=== PATIENT | female | born 1970 | race Caucasian/White ===

== ENCOUNTER → 2022-01-31 10:39 | Outpatient (CLI) | payer OTHER, SELFPAY ==
--- NOTE | ~2022-01-31 | MR_ITS ---
EXAMINATION: MR ankle LT wo con DATE: 01/31/2022 11:32 INDICATION: R fascial fibromatosis. Medial left heel pain. TECHNIQUE: Magnetic resonance imaging (MRI) of the left ankle was performed without intravenous contr ast. Sequences included sagittal, coronal, and axial proton-density weighted fast spin echo without a nd with fat saturation. COMPARISON: None. FINDINGS: Medial ankle ligaments: Deep and superficial deltoid ligaments as well as the spring ligament are normal. Lateral ankle ligaments: The anterior and posterior inferior tibiofibular ligaments are normal. The anterior talofibular, calc aneofibular and posterior talofibular ligaments are normal. Tendons: Enthesopathic ossicle near the calcaneal insertion of the otherwise normal Achilles tendon. The peron eus longus and brevis tendons are normal. The tibialis anterior and extensor hallucis longus and exte nsor digitorum longus tendons are normal. The tibialis posterior, flexor digitorum longus and flexor hallucis longus tendons are normal. Plantar fascia: Mild thickening and increased signal at the medial and lateral components of the plantar aponeurosis with mild stranding edema consistent with mild plantar fasciitis. There is a tear at the origin of th e central component of the plantar aponeurosis with 1.5 similar distal retraction of the tear margin. There is thickening of the retracted portion of the aponeurosis which could be related to enthesopat hy/plantar fasciitis, plantar fibroma or artifact related to the distal retraction. Bones/other: Bone alignment is normal. No acute fracture or pathologic marrow replacing process. Small corticated ossicle at the dorsal rim of the anterior process of the calcaneus which is likely sequela of old tra tong. Small region of deep chondral ulceration with mild underlying subarticular edema-like signal ciera nge at the posterior aspect of the lateral rim of the talar dome. Additional mild osteoarthritis at t he second and third tarsal metatarsal joints. Small plantar calcaneal spur. Lisfranc ligament complex is normal. Fluid: Physiologic amount of fluid in the joint spaces. IMPRESSION: 1. Mild likely acute on chronic plantar fasciitis with avulsion and 1.5 cm distal retraction of the c entral component of the plantar aponeurosis. Reviewed, dictated and finalized at [facility]. IMPRESSION: 1. Mild likely acute on chronic plantar fasciitis with avulsion and 1.5 cm dist al retraction of the central component of the plantar aponeurosis.
== END ==
PROVIDERS: PCP Family Medicine; Visit Provider Podiatrist Foot & Ankle Surgery
DX: M72.2 Plantar fascial fibromatosis (principal); M79.672 Pain in left foot
CPT/HCPCS: 73721

== ENCOUNTER 2022-06-19 10:31 | Outpatient (CLI) | payer OTHER, SELFPAY ==
--- NOTE | ~2022-06-19 | US_ITS ---
US venous doppler LE RT DATE: 06/19/2022 10:57 INDICATION: Right lower leg pain TECHNIQUE: Real-time and color flow imaging and Doppler analysis of the veins of the right lower extr emity COMPARISON: None FINDINGS: The right greater saphenous vein is patent. There is spontaneous and phasic flow and normal augmentation and color flow signal and normal compression of the deep veins of the right lower extre mity. IMPRESSION: No evidence of deep venous thrombosis of right lower extremity Reviewed, dictated and finalized at [facility]. Reviewed, dictated and finalized at location [facility]. 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
== END 2022-06-19 10:32 | disposition home or self-care (01) ==
PROVIDERS: PCP Family Medicine; Visit Provider Orthopaedic Surgery
DX: M79.661 Pain in right lower leg (principal); M79.89 Other specified soft tissue disorders
CPT/HCPCS: 93971

== ENCOUNTER 2024-07-01 00:47 | Day surgery (SDC) | payer OTHER, SELFPAY ==
[2024-03-26 15:53] VITALS: BMI 37.4
--- NOTE | 2024-04-14 12:55 | SUR.PREOP ---
Pt left message this afternoon saying she needed to cancel her procedure on 04/20 due to her having pneumonia. I attempted to call pt to reschedule her and got her voicemail. Left message requesting a return call. Pt has been removed from schedule grid for 04/20.
--- OUTSIDE RECORDS SUMMARY | 2024-04-26 12:33 | XMS_ITS | Data Portability ---
Author Organization [place] [facility] [employer], Main Office Address [address] [place] [address] Assessment Encounter Date Assessment Date Assessment LastModified by Organization Details LastModified Time 03/04/2024 03/04/2024 54-year-old female presents for evaluation of her right knee. She reports an injury on 02/29/2024 when she was dancing and twisted her knee and developed significant pain and stiffness. She currently rates her pain as 9/10 and presents today in a wheelchair. 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 She denies any previous injury to the knee. She has tried using heat and ice without significant improvement. Review of systems per patient questionnaire Physical exam: Range of motion 15-100. Pain in terminal extension and flexion. Tenderness over the medial and lateral joint line. Positive Ghazal's. Stable ligaments. 2+ effusion. X-rays of the knee were reviewed, demonstrating no acute bony abnormality, relatively preserved joint space. She does have osteophytes of the patellofemoral joint and what appears to be a loose body or broken off osteophyte at the superior pole Given her acute injury with mechanical symptoms of the knee, limited flexion extension, I would like her to obtain an MRI to evaluate for a displaced meniscus tear. In the meantime, we will also send her to some physical therapy to work on range of motion of the knee and also gave her some meloxicam to help with the pain and swelling. We will see her back after the MRI. She is in agreement with the plan. Not available 03/04/2024 14:47:15 03/16/2024 03/16/2024 54-year-old female presents for follow-up of her right knee. She had a suspected meniscus tear we sent her for an MRI. She she is here to review that. She has persistent pain and mechanical symptoms of catching locking, although she has been taking anti-inflammatori es and doing physical therapy and has achieved better motion. She is using 1 crutch. Range of motion 5-100. Tenderness over the medial joint line. Positive Ghazal's. Stable ligaments. MRI was reviewed, demonstrating a tear of the posterior body and horn of the medial meniscus Treatment options were discussed, including continued conservative management and a cortisone injection. However, given her persistent mechanical symptoms and significant pain, I would recommend surgery for knee arthroscopy and partial meniscectomy. She wanted to proceed with that as well. Risks, benefits, and alternatives to surgery were discussed with the patient. Risks include but are not limited to pain, stiffness, infection, bleeding, blood clot, injury to other structures including nerves or blood vessels, need for future surgery, and anesthesia risks. We discussed the goal of surgery is to improve symptoms but there is no guarantee of improvement and it is possible the patient's condition is worse after surgery. Patient agreed and would like to proceed. Not available 03/16/2024 12:51:49 Plan of Treatment Reminders Order Date Submit Date Provider Last Modified By Organization Details Last Modified Time Details Appointments Surgery 2024 10:00A Brock Gabriel MD Not available Not available Not available Any 10 2024 01:35A Brock Estrada PA-C Not available Not available Not available Lab lipid panel, serum 2022 023 [email or web address] [facility], [address] [place] [address], [place], [address], 08/01/2022 08:14:07 CMP, serum or plasma 2022 023 [email or web address] [facility], [address] [place] [address] 2, [place], [address], 08/01/2022 08:14:07 TSH, ultra-sen sitive, serum 2022 023 [email or web address] [facility], [address] [facility] 2, [place], [address], 08/01/2022 08:14:07 noninvasi ve colorecta l cancer DNA + occult blood screening , QL, stool 2022 023 [email or web address] [facility] (Cologuard Orders Only), [address], [address], [place], [address], 08/01/2022 08:14:07 vitamin D, 25-hydrox y, total, serum 2023 024 Waynaut [facility], [address] [place] [address], [place], [address], 02/13/2024 08:38:22 vitamin B12 + folate, serum or blood 2023 024 [email or web address] [facility], [address] [place] [address], [place], [address], 02/13/2024 08:38:22 CMP, serum or plasma 2023 024 [email or web address] [facility], [address] [place] [address], [place], [address], 02/13/2024 08:38:22 CBC w/ auto diff 2023 024 [email or web address] [facility], [address] [place] [address], [place], [address], 02/13/2024 08:38:22 lipid panel, serum 2023 024 Waynaut [facility], [address] [place] [address], [place], [address], 02/13/2024 08:38:22 HbA1c (hemoglob in A1c), blood 2023 024 [email or web address] [facility], [address] [place] [address], [place], [address], 02/13/2024 08:38:22 TSH + free T4, serum 2023 024 [email or web address] [facility], [address] [place] [address], [place], [address], 02/13/2024 08:38:23 Referral gastroent erologist referral - Has had esophagus stretched in the past . Please eval and treat. Please call patient to schedule an appointme nt. Thank you 2023 [email or web address] [facility], [address], [address], [place], [address], 03/06/2024 09:07:24 gynecolog ist referral - Last PAP 2 years ago. Please call patient to schedule an appointme nt. Thank you. 2023 [email or web address], [address], [address], [place], [address], 03/06/2024 09:07:51 orthopedi c surgeon referral - had surgery at [facility]. Please call patient to schedule an appointme nt. Thank you. 2023 [facility], [address] [place], [address], 03/04/2024 15:37:37 physical therapist referral - Please contact pt to schedule apt for R knee. Thanks 2023 [facility], [address], [place], [address], 03/05/2024 08:23:52 Procedures None recorded. Surgeries None recorded. Imaging MAMMO, screening , digital, bilateral 2022 023 [email or web address] Not available 08/16/2022 15:49:51 MAMMO, screening , digital, bilateral 2023 [facility] ([facility]), [address] [place], [address], 03/16/2024 16:00:40 MRI, knee, w/o contrast 2023 024 [facility] ([facility]), [address], [place], [address], 03/10/2024 12:14:24 Medication Orders pantopraz ole 40 mg tablet,de layed release 2022 023 [facility], [address] [place], [id number], 07/25/2022 09:45:25 alprazola m 0.5 mg tablet [address] [facility]216, [address] [place], [place], [id number], 03/03/2024 12:26:50 ondansetr on HCl 8 mg tablet [address] [facility]56483, [address] [place], [place], [id number], 03/03/2024 12:26:56 pantopraz ole 40 mg tablet,de layed release 2023 024 [facility] #59473, [address] [place], [place], [id number], 2024 16:14:48 ibuprofen 800 mg tablet 2023 024 [facility] #16288, [address] [place], [place], [id number], 2024 16:16:45 meloxicam 15 mg tablet 2023 024 [email or web address] [facility] #93434, [address] [place], [place], [id number], 03/04/2024 22:45:20 Patient TargetsNo targets recorded. Patient InstructionsNo instructions recorded. Reason for Referral Audio Tape Librarian Referral for Stricture of esophagus Has had esophagus stretched in the past . Please eval and treat. Please call patient to schedule an appointment. Thank you Referring Physician: Bharath Velázquez [facility] Medicine, Encounter Date: 2024 Customer Expert Referral for Sc reening for malignant neoplasm of cervix Last PAP 2 years ago. Please call patient to schedule an appointment. Thank you. Referring Physician: Bharath Velázquez [facility] Medicine, Encounter Date: 2024 Orthopedic Surgeon Referral for Medial epicondylitis of left elbow joint had surgery at [facility]. Please call patient to schedule an appointment. Thank you. Referring Physician: Bharath Velázquez [facility] Medicine, Encounter Date: 2024 Physical Therapist Referral for Pain of right knee joint R knee Please contact pt to schedule apt for R knee. Thanks Referring Physician: Dheeraj Gabriel, Orthopedic Surgery, Encounter Date: 03/04/2024 Results Created Date Observation Date Name Description Value Unit Range Abnormal Flag Note LastModifiedBy Organization Detail LastModifiedTime 07/25/2023 COLOG UARD cologuard result Cancel led - Order d not applic able Not Available [facility] (Cologuard Orders Only) [address], [place], [address], 07/25/2023 10:57:54 08/17/19 23 MAMMO , scree amy, digit al, bilat eral [facility] [address] [address] Patien t Name: LIEN KING L Access ion #: [id number] Sex: F : 1969 2 Locati on: RA2 Attend ing Physic sarah: ELKHAT IB, RUNDA Orderi ng Physic sarah: ELKHAT IB, RUNDA Exam Date: 08/17/19 23 9:51 AM Exam Name: MG DIGITA L KAREN BILAT SCREEN Admitt ing Diagno sis(es ): RADIOL OGY REPORT - FINAL EXAM: MG DIGITA L KAREN BILAT SCREEN HISTOR Y: screen ing mammog skye 52-yea r-old female with no curren t breast compla ints. COMPAR ROSARIO: 2021, 2020 TECHNI QUE: Bilate ral CC and MLO views of the breast s were perfor med. Digita l Mammog [place] images were obtain ed. CAD (compu ter assist ed detect ion) was utiliz ed. FINDIN GS: The breast s are extrem isael dense, which lowers the sensit ivity of mammog [place]. No new masses , develo ping asymme tries, suspic ious calcif icatio ns, or adalberto ectura l distor tion are seen. Page 1 of 2 [facility] Mtathew carter Name: LIEN KING ER L Access ion #: [id number] Sex: F : 1969 2 Exam Date: 08/17/19 9:51 AM Exam Name: MG DIGITA L KAREN BILAT SCREEN Admitt ing Diagno sis(es ): IMPRES SARAH: BIRADS 1: Assess ment comple te. Negati ve. Recomm end annual screen ing mammog [place]. Accord ing to the [employer], yearly mammog prabhu are recomm ended starti ng at age 40 and contin uing as long as the woman is in good health . Clinic al Breast Exam should be part of the period ic health exam-a bout every 3 years for women in their 20s and 30s and every year for women 40 and over. Breast self-e xam is an option for women in their 20s. Any breast change noted on the breast self-e xam she would be report ed prompt ly to the [facility] er. A negati ve mammog [place] report should not discou rage follow -up or biopsy of a clinic ally signif icant findin g and/or abnorm ality. Dense breast tissue may obscur e small neopla sms. This matthew carter has been entere d into a mammog [place] remind er system with a target date for her next mammog skye. Create d and electr onical ly signed by: Dheeraj hooker MD Signed Date: 08/17/19 2:47 PM (CT) Dictat ed by: Dheeraj hooker MD (CT) (CT) Page 2 of 2 [email or web address] ([facility]) [address] [place], [address], 08/16/2022 16:36:28 08/17/19 23 08/16/2022 MAMMO , scree amy, digit al, bilat eral No observ ation record ed. [email or web address] [address], [place], [address], 08/16/2022 16:46:06 12/30/19 24 12/30/2023 XR, shoul babita, 2 or more view No observ ation record ed. [address] [place], [address], 12/31/2023 09:06:38 12/30/19 24 12/30/2023 XR, shoul babita, 2 or more view No observ ation record ed. [address] [place], [address], 12/31/2023 09:06:05 03/02/20 24 03/02/2024 XR, knee No observ ation record ed. [address] [place], [address], 03/03/2024 08:21:06 03/03/20 24 03/02/2024 XR, knee, 3 view No observ ation record ed. [email or web address] Not Available 02/13 10:36:24 03/10/20 24 03/10/2024 MRI, knee, w/o contr ast No observ ation record ed. [address] ([facility]) [address] [place], [address], 03/10/2024 12:40:29 03/10/20 24 03/10/2024 MRI, knee, w/o contr ast No observ ation record ed. [email or web address] [facility] [address] [place], [address], 03/11/2024 13:23:47 03/16/20 24 03/16/2024 MAMMO , scree amy, digit al, bilat eral No observ ation record ed. [email or web address] [facility] [address] [place], [address], 04/09/2024 15:55:38 04/10/20 24 04/10/2024 XR, chest , 2 view No observ ation record ed. [facility] [address] [place], [address], 04/14/2024 12:42:47 Result Notes None recorded. Problems Name Problem SNOMED Code Status Onset Date Resolution Date Notes Provider Name and Address Organization Details Recorded Time Achilles tendiniti s 91593396 Active Not Available [facility] 3 12:36:00 Plantar fasciitis of left foot 83216065244 357502 Active 2021 Not Available [facility] 3 12:36:00 Heartburn 74822575 Active Not Available [facility] 3 12:36:00 Plantar fasciitis 490098946 Active Not Available [facility] 3 12:36:00 Headache 71692419 Active Not Available [facility] 3 12:36:00 Anemia 292241918 Active Not Available [facility] 3 12:36:00 Pain in left foot 96365327087 9107 Active 2021 Not Available [facility] 3 12:36:00 Hypothyro idism 04785098 Completed Not Available [facility] 3 20:19:07 History of calculus of kidney 942668597 Active Not Available [facility] 3 12:36:00 Hyperlipi demia 43531742 Completed Not Available [facility] 3 20:19:07 Hiatal hernia 54829826 Completed Not Available [facility] 3 20:19:08 Gastroeso phageal reflux disease 602943204 Active 2022 Not Available [facility] 3 12:36:00 Fear of flying 581784606 Active 2022 Not Available [facility] 3 12:36:00 Nausea 031223197 Active 2022 Not Available [facility] 3 12:36:00 Screening for malignant neoplasm of cervix Active 2023 NERISSA Munoz [address], [address], [place], [address] , [employer] 4 15:53:05 Screening mammograp hy Active 2023 NERISSA Munoz [address], [address], [place], [address] , [employer] [facility] [employer] 4 15:53:21 Adult health examinati on Active 2023 NERISSA Munoz [address], [address], [place], [address] , [employer] [facility] [email or web address] [employer] 4 15:56:28 Stricture of esophagus 46202937 Active 2023 NERISSA Munoz [address], [address], [place], [address] , [place] [employer] [facility] [employer] [facility] 4 15:58:40 At increased risk for nutrition al problem 704330892 Active 2023 NERISSA Munoz [address], [address], [place], [address] , [place] [employer] [facility] [email or web address] [facility] 4 16:07:11 Medial epicondyl itis of left elbow joint 74445210527 9107 Active 2023 NERISSA Munoz [address], [address], [place], [address] , [place] [employer] [facility] [email or web address] [facility] 4 16:12:26 Pain of right knee joint 65568379988 [address] Active 2023 Faith Carranza, MIKKIYvette null, [facility] 2C2P [facility] 12:06:18 Problem Notes None recorded. Procedures Surgical History Date Name Laterality Status Provider Name and Address Organization Details Recorded Time 02/09/20 Cortisone Injection (Dequervains/ Greater Trochantric/ Lateral Epicondylitis/ Medial Epicondylitis / Shoulder/ Subacromial Space/ Knee/ Trigger Finger or Plantar Fascia) completed Aerly Narayanan MD [address], [address], [facility] 02/08/2023 10:46:13 Elbow arthroscopy completed Not Available [facility] 06/13/2022 20:18:43 Foot Surgery completed Palma Rust RN [facility] 2024 15:46:27 procedure on elbow completed Palma Rust RN [facility] 2024 15:46:46 Imaging Results Imaging Date Name Status LastModified by Organiz ation Details LastModified Time 08/16/2022 MAMMO, screening, digital, bilateral completed [email or web address] [facility] (Im[facility]) [address] [place], [address], 08/16/2022 16:36:28 08/16/2022 MAMMO, screening, digital, bilateral completed [email or web address] [address], [place], [address], 08/16/2022 16:46:06 12/30/2023 XR, shoulder, 2 or more view completed [address] [place], [address], 12/31/2023 09:06:38 12/30/2023 XR, shoulder, 2 or more view completed [address] [place], [address], 12/31/2023 09:06:05 03/02/2024 XR, knee completed [address] [place], [address], 03/03/2024 08:21:06 03/02/2024 XR, knee, 3 view completed [email or web address] Information not available 03/03/2024 10:36:24 03/10/2024 MRI, knee, w/o contrast completed [address] ([facility]) [address] [place], [address], 03/10/2024 12:40:29 03/10/2024 MRI, knee, w/o contrast completed [facility] [address] [place], [address], 03/11/2024 13:23:47 03/16/2024 MAMMO, screening, digital, bilateral completed [email or web address] [facility] [address] [place], [address], 04/09/2024 15:55:38 04/10/2024 XR, chest, 2 view completed [email or web address] [place], [address], 04/14/2024 12:42:47 Procedure Notes None recorded. Medical Equipment None Reported. Allergies Allergen ID Allergen Name Allergen Category Reaction Reaction Severity Criticality Documentation Date Start Date Code Code System Note Provider Name and Address Organization Details Recorded Time 13775 acetamino phen / oxycodone medicatio n Not available Not available Not available 06/13/2022 09008 3 RxNorm Not Available [facility] 3 20:19:43 53735 latex environme nt,medica tion Not available Not available Not available 06/13/2022 35870 91 RxNorm Not Available [facility] 3 20:19:43 83527 erythromy jozef medicatio n Not available Not available Not available 06/13/2022 4053 RxNorm Not Available [facility] 3 20:19:43 Medications Name Sig Start Date Stop Date Status Note LastModified by Organization Details LastModified Time doxycyclin e hyclate 100 mg capsule Take 1 capsule twice a day by oral route for 10 days. 05/08 completed Not Available Not Available Not Available ibuprofen 800 mg tablet TAKE 1 TABLET BY MOUTH THREE TIMES DAILY active Not Available Not Available No t Available acetazolam sheila 125 mg tablet Take 1 tablet twice a day by oral route. 03/03 completed Not Available Not Available Not Available hydrocodon e 5 mg-acetami nophen 325 mg tablet TAKE 1 TABLET BY MOUTH EVERY 6 HOURS FOR UP TO 15 DOSES NEEDED FOR PAIN 02/05 completed Not Available Not Available Not Available ondansetro n HCl 8 mg tablet TAKE 1 TABLET BY MOUTH THREE TIMES DAILY NEEDED 03/03 completed Not Available Not Available Not Available meloxicam 15 mg tablet Take 1 tablet every day by oral route. 2023 active Not Available Not Available Not Avai lable ondansetro n HCl 4 mg tablet TAKE 1 TABLET BY MOUTH EVERY 8 HOURS NEEDED active Not Available Not Available No t Available prednisone 20 mg tablet TAKE 2 TABLETS BY MOUTH EVERY DAY WITH FOOD FOR 4 DAYS. DO NOT TAKE WITH ASPIRIN OR NSAIDS SUCH ALEVE OR IBUPROFE N ETC 02/05 completed Not Available Not Available Not Available acetaminop hen 300 mg-codeine 30 mg tablet TAKE 1 TABLET BY MOUTH EVERY 6 HOURS NEEDED. MAY TAKE 1-2 TABLET DIRECTED 02/05 completed Not Available Not Available Not Available levofloxac in 250 mg tablet Take 1 tablet every day by oral route for 5 days. active Not Available Not Available No t Available tramadol 50 mg tablet TAKE 1 TABLET BY MOUTH EVERY 8 HOURS NEEDED active Not Available Not Available No t Available prednisone 10 mg tablets in a dose pack Take by oral route. 05/04 completed Not Available Not Available Not Available alprazolam 0.5 mg tablet TAKE 1 TABLET BY MOUTH BEFORE FLYING 03/03 completed Not Available Not Available Not Available amoxicilli n 875 mg tablet 05/08 completed Not Available Not Available Not Available phenazopyr idine 100 mg tablet TAKE 2 TABLET BY MOUTH THREE TIMES DAILY FOR 2 DAYS 02/08 completed Not Available Not Available Not Available benzonatat e 100 mg capsule TAKE 1 CAPSULE BY MOUTH EVERY 8 HOURS NEEDED 02/08 completed Not Available Not Available Not Available hydrocodon e 7.5 mg-acetami nophen 325 mg tablet 05/08 completed Not Available Not Available Not Available cephalexin 500 mg capsule 05/08 completed Not Available Not Available Not Available pantoprazo le 40 mg tablet,del ayed release TAKE 1 TABLET BY MOUTH EVERY MORNING BEFORE BREAKFAS T active Not Available Not Available No t Available gabapentin 300 mg capsule 07/25 completed Not Available Not Available Not Available diclofenac sodium 75 mg tablet,del ayed release TAKE 1 TABLET BY MOUTH TWICE A DAY WITH MEALS FOR 30 DAYS 07/25 completed Not Available Not Available Not Available codeine 10 mg-guaifen esin 100 mg/5 mL oral liquid TAKE 10 ML AT BEDTIME FOR 5 DAYS NEEDED FOR COUGHING 07/25 completed Not Available Not Available Not Available gabapentin 100 mg capsule 05/08 completed Not Available Not Available Not Available methylpred nisolone 4 mg tablets in a dose pack FOLLOW PACKAGE DIRECTIO NS 03/04 completed Not Available Not Available Not Available albuterol sulfate HFA 90 mcg/actuat ion aerosol inhaler Inhale by inhalati on route for 16 days. active refill needed Not Available Not Available Not Available ondansetro n 4 mg disintegra ting tablet 05/08 completed Not Available Not Available Not Available cefdinir 300 mg capsule 05/08 completed Not Available Not Available Not Available amoxicilli n 875 mg-potassi um clavulanat e 125 mg tablet TAKE 1 TABLET BY MOUTH EVERY 12 HOURS FOR 5 DAYS 03/04 completed Not Available Not Available Not Available nitrofuran toin monohydrat e/macrocry stals 100 mg capsule TAKE 1 CAPSULE BY MOUTH EVERY 12 HOURS FOR 7 DAYS 02/05 completed Not Available Not Available Not Available pregabalin 25 mg capsule active Not Available Not Available Not Available Aleve 05/08 completed Not Available Not Available Not Available Suprep Bowel Prep Kit 17.5 gram-3.13 gram-1.6 gram oral solution active Not Available Not Available Not Available Vitals Date Recorded Body height Body mass index (BMI) Body weight Body temperature Heart rate Oxygen saturation Oxygen saturation in Arterial blood by Pulse oximetry Systolic blood pressure Diastolic blood pressure Provider Name and Address Organization Details Last Updated DateTime 3 170.18 cm 34.3 kg/m2 98120.7 3 g 97.7 [degF] 104.99 /min 97 % 97 % 122 mm[Hg] 80 mm[Hg] Kaela Siddiqi Yvette [place] [employer] [facility] [employer] 3 09:28:54 Date Recorded Body height Body mass index (BMI) Body weight Body temperature Heart rate Oxygen saturation Oxygen saturation in Arterial blood by Pulse oximetry Systolic blood pressure Diastolic blood pressure Provider Name and Address Organization Details Last Updated DateTime 3 170.18 cm 33.6 kg/m2 59588.8 7 g 96.7 [degF] 102 /min 98 % 98 % 122 mm[Hg] 78 mm[Hg] Bella Wilkins [place] [employer] 3 10:30:04 Date Recorded Body height Body mass index (BMI) Body weight Body temperature Heart rate Oxygen saturation Oxygen saturation in Arterial blood by Pulse oximetry Systolic blood pressure Diastolic blood pressure Provider Name and Address Organization Details Last Updated DateTime 4 170.18 cm 36 kg/m2 784118. 25 g 97.8 [degF] 92 /min 99 % 99 % 122 mm[Hg] 88 mm[Hg] Palma Rust RN [facility] [employer] 4 15:50:22 Date Recorded Body height Body mass index (BMI) Body weight Provider Name and Address Organization Details Last Updated DateTime 03/04/2024 170.18 cm 36 kg/m2 072533.25 g Faith Carranza [facility] [employer] [facility] [employer] 03/04/2024 12:04:42 Date Recorded Body height Body mass index (BMI) Body weight Provider Name and Address Organization Details Last Updated DateTime 03/16/2024 170.18 cm 36 kg/m2 461666.25 g Faith Carranza [employer] 03/16/2024 12:37:58 Social History Question Answer Notes LastModified by Organizat ion Details LastModified Time Tobacco Smoking Status Never Smoker Not Available [employer] 06/13/2022 20:18:41 What Is Your Level Of Alcohol Consumption? None [email or web address] Information not available 03/04/2024 In The 14 Days Before Symptom Onset, Have You Had Close Contact With A Laboratory-confirm ed COVID-19 While That Case Was Ill? No [id number] Information not available 06/13/2022 In The 14 Days Before Symptom Onset, Have You Had Close Contact With A Person Who Is Under Investigation For COVID-19 While That Person Was Ill? No MIGRATION.[id number] 026 Information not available 06/13/2022 What Was The Date Of Your Most Recent Tobacco Screening? 03/04/2024 [email or web address] Information not available 03/04/2024 Have You Ever Been Counseled For Unhealthy Alcohol Use? No MIGRATION.[id number] 026 Information not available 06/13/2022 Do You Use Any Illicit Or Recreational Drugs? No MIGRATION.[id number] 026 Information not available 06/13/2022 Has Tobacco Cessation Counseling Been Provided? No MIGRATION.[id number] 026 Information not available 06/13/2022 Have You Recently Traveled Abroad? No MIGRATION.[id number] 026 Information not available 06/13/2022 Do You Or Have You Ever Used Any Other Forms Of Tobacco Or Nicotine? No [id number].[id number] 026 Information not available 06/13/2022 Sex: Unknown Functional Status None recorded. Mental Status None recorded. Family History Relationship Description Onset Age of this Age Resolved Age Notes LastModified by Organization Details LastModified Time Unspecified Relation Diabetes mellitus MIGRATION.922 [id number] Not available 06/13/2022 20:18:44 Unspecified Relation Hypertensive disorder MIGRATION.095 [id number] Not available 06/13/2022 20:18:44 Unspecified Relation Heart disease MIGRATION.099 [id number] Not available 06/13/2022 20:18:44 Unspecified Relation Cerebrovascu lar accident [email or web address] Not available 05/2023 12:36:54 Unspecified Relation Arthritis [email or web address] Not available 03/16 12:36:54 Unspecified Relation Malignant neoplastic disease [email or web address] Not available 2023 12:36:54 Unspecified Relation Osteoporosis [email or web address] Not available 12:36:54 Medical History Condition Response ARTHRITIS Y URINARY/BLADDER/KIDNEY PROBLEMS Y OBESITY Y HEARTBURN / REFLUX Y ANEMIA/BLOOD DISORDER Y Gynecological HistoryNo gynecological history recorded. Obstetrics History GPAL:G 0 P 0 0 0 0 Immunizations Vaccine Type Date Status Note Provider Nam e and Address Organization Details Recorded Time Influenza, split virus, quadrivalent, preservative 0 completed Not Available [facility] 01/17/2023 05:01:12 Past Encounters Encounter ID Performer Location Encounter Start Date Encounter Closed Date Diagnosis/Indication Diagnosis SNOMED-CT Code Diagnosis ICD10 Code Diagnosis Note [id number] [facility] [place] [address] [place] [address] 05/08/2021 00:00:00 05/08/2021 20:42:50 [id number] [facility] [place] [address] [place] [address] 07/14/2021 00:00:00 07/15/2021 12:41:47 [id number] [facility] [place] [address] [facility] [address] [address] [place] [address] 10/05/2021 00:00:00 10/05/2021 10:21:45 [id number] [facility] [place] [address] [facility] [address] [place] [address] 11/09/2021 00:00:00 11/09/2021 12:36:05 [id number] [facility] [place] [address] [place] [address] 01/01/2022 00:00:00 01/01/2022 19:19:41 [id number] [facility] [place] [address] [facility] [address] [place] [address] 01/01/2022 00:00:00 01/01/2022 11:02:16 [id number] Arely Narayanan MD [facility] [place] [address] [place] [address] [place] [address] 07/25/2022 09:23:08 07/25/2022 09:48:59 Adult health examination 971593460 Z00.00 Hyperlipid emia screening 180877797 Z13.220 Screening for malignant neoplasm of colon 921760603 Z12.11 Screening for malignant neoplasm of breast 873108940 Z12.39 Gastroesop hageal reflux disease 513732942 K21.9 Fear of flying 617933720 F40.243 Nausea 453918890 R11.0 Thyroid di sorder screening 526785769 Z13.29 [id number] Arely Narayanan MD [facility] [place] [address] [facility] [place] [place] [address] 02/08/2023 10:21:59 02/08/2023 10:47:57 Plantar fasciitis of left foot 9363229723 8287513 M72.2 Injected left heel and ball of foot. [id number] NERISSA Muonz [facility] [address] [facility] [place] [address] 2024 15:29:17 2024 16:19:12 Screening for malignant neoplasm of cervix 436445714 Z12.4 Screening mammography 24 673148 Z12.31 Adult [facility] th examination 302345298 Z00.00 Stricture of esophagus 09571866 K22.2 At [facility] risk for nutritional problem 315092546 Z91.89 Gastroesop hageal reflux disease 117197342 K21.00 Medial epi condylitis of left elbow joint 8208360255 98544 M77.02 Anemia 117164301 D64.9 [id number] Dheeraj Gabriel MD [facility] [address] [facility] [address] [place] [address] 03/04/2024 11:51:05 03/04/2024 12:28:19 Pain of right knee joint 3194731453 76649 M25.288 [id number] Dheeraj Gabriel MD [facility] [address] [place] [address] 03/16/2024 12:29:11 03/16/2024 12:50:54 Pain of right knee joint 9411873817 46721 M25.561 Health Concerns Section Related Observation LastModified by Organization Detai ls LastModified Time None Recorded Concern Status LastModified by Organization Details LastModified Time None Recorded Advance Directives Directive None Recorded Payers Encounter Date Sequence Insurance Name Policy Number Policy Lovett Covered Member ID Lovett Member ID Guarantor Name 07/25/2022 1 [facility] [id number] Nola King [id number] Nola King 02/08/2023 1 *SELF PAY* Wilfredo King 2024 1 [place] [employer] [place] [employer] Nola King [id number] Nola King 03/04/2024 1 [place] [facility] Nola King [id number] Nola King 03/16/2024 1 [place] [facility] Nola Fraziers [id number] Nola King Notes Date Note Type Note Provider Name and Address Organization Details Recorded Time 07/25/2022 text/html Here today annua l physical. Needs heartburn meds refilled. Needs mammogram and BW. Needs colon cancer screening. Wants to do cologuard. Had plantar fascitis surgery and is recovering from that.Has pain in left elbow. going to see doctor for this. Arely Narayanan MD [address], [place], [address], [employer] 07/25/2022 20:11:17 02/08/2023 text/html Here today for plantar fascitis of left foot. Has pain too in ball of foot. Wants injections. Her foot hurts and it is difficult to walk. Arely Narayanan MD [address], [place], [address], [employer] 02/08/2023 21:13:04 2024 text/html esophogeal stricture had it stretched 10 years ago , arthritis , easy bruising NERISSA Munoz [address], [place], [address], [employer] 03/01/2024 22:58:15 OBGyn Episode No OBEpisode recorded.
--- OUTSIDE RECORDS SUMMARY | 2024-04-26 12:33 | XMS_ITS | Continuity of Care Document ---
Author Organization [place] [facility] [employer] [facility] Address [address] [place] [address] Assessment Encounter Date Assessment Date Assessment LastModified by Organization Details LastModified Time 03/16/2024 03/16/2024 54-year-old female presents for follow-up of her right knee. She had a suspected meniscus tear we sent her for an MRI. She she is here to review that. She has persistent pain and mechanical symptoms of catching locking, although she has been taking anti-inflammator ies and doing physical therapy and has achieved [...] Patient agreed and would like to proceed. [email or web address] Not available 03/16/2024 12:51:49 Plan of Treatment Reminders Order Date Submit Date Provider Last Modified By Organization Details Last Modified Time Details Appointments Surgery 2024 10:00A Brock Gabriel MD Not available Not available Not available Any 10 2024 01:35A M Bailey Estrada PA-C Not available Not available Not available Lab None recorded . Referral None recorded . Procedures None recorded . Surgeries None recorded . Imaging None recorded . Medication Orders None recorded . Patient TargetsNo targets recorded. Patient InstructionsNo instructions recorded. Reason for Referral None Reported. Results Created Date Observation Date Name Description Value Unit Range Abnormal Flag Note LastModifiedBy Organization Detail LastModifiedTime 03/02/2003/02/2024 XR, knee No observ ation record ed. [address] [place], [address], 03/03/2024 08:21:06 03/03/2003/02/2024 XR, knee, 3 view No observ ation record ed. [email or web address] Not Available 02/13 10:36:24 03/10/20 24 03/10/2024 MRI, knee, w/o contr ast No observ ation record ed. [address] ([employer]) [address] [place], [address], 03/10/2024 12:40:29 03/10/2003/10/2024 MRI, knee, w/o contr ast No observ ation record ed. [email or web address] [facility] [address] [place], [address], 03/11/2024 13:23:47 03/16/20 24 03/16/2024 MAMMO , scree amy, digit al, bilat eral No observ ation record ed. [email or web address] [facility] [address] [place], [address], 04/09/2024 15:55:38 04/10/20 24 04/10/2024 XR, chest , 2 view No observ ation record ed. [address] [place], [address], 04/14/2024 12:42:47 Result Notes None recorded. Problems Name Problem SNOMED Code Status Onset Date Resolution Date Notes Provider Name and Address Organization Details Recorded Time Achilles tendiniti s 94584996 Active Not Available [facility] 3 12:36:00 Plantar fasciitis of left foot 77599193900 737010 Active 2021 Not Available [facility] 3 12:36:00 Heartburn 17448695 Active Not Available [facility] 3 12:36:00 Plantar fasciitis 443660880 Active Not Available [facility] 3 12:36:00 Headache 96765987 Active Not Available [facility] 3 12:36:00 Anemia 923830973 Active Not Available [facility] 3 12:36:00 Pain in left foot 70834911932 9107 Active 2021 Not Available [facility] 3 12:36:00 Hypothyro idism 82482799 Completed Not Available [facility] 3 20:19:07 History of calculus of kidney 668111235 Active Not Available [facility] 3 12:36:00 Hyperlipi demia 27662119 Completed Not Available [facility] 3 20:19:07 Hiatal hernia 79834498 Completed Not Available [facility] 3 20:19:08 Gastroeso phageal reflux disease 765217997 Active 2022 Not Available [facility] 3 12:36:00 Fear of flying 092119804 Active 2022 Not Available [facility] 3 12:36:00 Nausea 511068301 Active 2022 Not Available [facility] 3 12:36:00 Screening for malignant neoplasm of cervix Active 2023 NERISSA Munoz [address] [place] [address], [place], [address] , [employer] [facility] [employer] [facility] 4 15:53:05 Screening mammograp hy Active 2023 NERISSA Munoz [address], [place], [address] , [employer] [facility] [employer] [facility] 4 15:53:21 Adult health examinati on Active 2023 NERISSA Munoz [address], [place], [address] , [employer] 15:56:28 Stricture of esophagus 13440696 Active 2023 NERISSA Munoz [address], [place], [address] , [employer] 15:58:40 At increased risk for nutrition al problem 355813322 Active 2023 NERISSA Munoz [address], [place], [address] , [employer] 16:07:11 Medial epicondyl itis of left elbow joint 69325112216 9107 Active 2023 NERISSA Munoz [address], [place], [address] , [employer] 16:12:26 Pain of right knee joint 64696515131 [address]100 Active 2023 GILBERT Morrison, [employer] 12:06:18 Problem Notes None recorded. Procedures Surgical History Date Name Laterality Status Provider Name and Address Organization Details Recorded Time 02/09/20 23 Cortisone Injection (Dequervains/ Greater Trochantric/ Lateral Epicondylitis/ Medial Epicondylitis / Shoulder/ Subacromial Space/ Knee/ Trigger Finger or Plantar Fascia) completed Arely Narayanan MD [address], [place], [address], [employer] 02/08/2023 10:46:13 Elbow arthroscopy completed Not Available [facility] 06/13/2022 20:18:43 Foot Surgery completed Palma Rust RN [email or web address] 2024 15:46:27 procedure on elbow completed Palma Rust RN [email or web address] 2024 15:46:46 Imaging Results None recorded. Procedure Notes None recorded. Medical Equipment None Reported. Allergies Allergen ID Allergen Name Allergen Category Reaction Reaction Severity Criticality Documentation Date Start Date Code Code System Note Provider Name and Address Organization Details Recorded Time 60122 acetamino phen / oxycodone medicatio n Not available Not available Not available 06/13/2022 80366 3 RxNorm Not Available [facility] 3 20:19:43 00858 latex environme nt,medica tion Not available Not available Not available 06/13/2022 65759 91 RxNorm Not Available [facility] 3 20:19:43 64323 erythromy jozef medicatio n Not available Not available Not available 06/13/2022 4053 RxNorm Not Available [facility] 3 20:19:43 Medications Name Sig Start Date [...] Updated DateTime 03/16/2024 170.18 cm 36 kg/m2 856558.25 g GILBERT Morrison [place] [email or web address] 03/16/2024 12:37:58 Social History Question Answer Notes LastModified by Organizat ion Details LastModified Time Tobacco Smoking Status Never Smoker Not Available [facility] 06/13/2022 20:18:41 What Is Your Level Of Alcohol Consumption? None [email or web address] Information not available 03/04/2024 In The 14 Days Before Symptom Onset, Have You Had Close Contact With A Laboratory-confirm ed COVID-19 While That Case Was Ill? No MIGRATION.7948964 026 Information not available 06/13/2022 In The 14 Days Before Symptom Onset, Have You Had Close Contact With A Person Who Is Under Investigation For COVID-19 While That Person Was Ill? No MIGRATION.1116627 026 Information not available 06/13/2022 What Was The Date Of Your Most Recent Tobacco Screening? 03/04/2024 Information not available 03/04/2024 Have You Ever Been Counseled For Unhealthy Alcohol Use? No MIGRATION.4890098 026 Information not available 06/13/2022 Do You Use Any Illicit Or Recreational Drugs? No MIGRATION.6805464 026 Information not available 06/13/2022 Has Tobacco Cessation Counseling Been Provided? No MIGRATION.6073203 026 Information not available 06/13/2022 Have You Recently Traveled Abroad? No MIGRATION.8303587 026 Information not available 06/13/2022 Do You Or Have You Ever Used Any Other Forms Of Tobacco Or Nicotine? No MIGRATION.4343830 026 Information not available 06/13/2022 Sex: Unknown Functional Status None recorded. Mental Status None recorded. Family History Relationship Description Onset Age of this Age Resolved Age Notes LastModified by Organization Details LastModified Time Unspecified Relation Diabetes mellitus MIGRATION.129 [id number] Not available 06/13/2022 20:18:44 Unspecified Relation Hypertensive disorder MIGRATION.555 [id number] Not available 06/13/2022 20:18:44 Unspecified Relation Heart disease MIGRATION.775 [id number] Not available 06/13/2022 20:18:44 Unspecified Relation Cerebrovascu lar accident [email or web address] Not available 05/2023 12:36:54 Unspecified Relation Arthritis [email or web address] Not available 03/16 12:36:54 Unspecified Relation Malignant neoplastic disease [email or web address] Not available 2023 12:36:54 Unspecified Relation Osteoporosis [email or web address] Not available 12:36:54 Medical History Condition Response ARTHRITIS Y URINARY/BLADDER/KIDNEY PROBLEMS Y OBESITY Y HEARTBURN / REFLUX Y ANEMIA/BLOOD DISORDER Y Gynecological HistoryNo gynecological history recorded. Obstetrics History GPAL:G 0 P 0 0 0 0 Immunizations Vaccine Type Date Status Note Provider Nam e and Address Organization Details Recorded Time Influenza, split virus, quadrivalent, preservative 0 completed Not Available [facility] 01/17/2023 05:01:12 Past Encounters Encounter ID Performer Location Encounter Start Date Encounter Closed Date Diagnosis/Indication Diagnosis SNOMED-CT Code Diagnosis ICD10 Code Diagnosis Note [id number] MD FRIDA Lee_[facility] [address] [facility] [address] [place] [address] 03/04/2024 11:51:05 03/04/2024 12:28:19 Pain of right knee joint 2151292265 33997 M25.641 [id number] MD FRIDA Lee_[facility] [address] [place] [address] 03/16/2024 12:29:11 03/16/2024 12:50:54 Pain of right knee joint 7029152036 29652 M25.561 Health Concerns Section Related Observation LastModified by Organization Detai ls LastModified Time None Recorded Concern Status LastModified by Organization Details LastModified Time None Recorded Payers Encounter Date Sequence Insurance Name Policy Number Policy Lovett Covered Member ID Lovett Member ID Guarantor Name 03/16/2024 1 [place] [facility] [employer] Nola King [id number] Nola King OBGyn Episode No OBEpisode recorded.
--- OUTSIDE RECORDS SUMMARY | 2024-04-26 12:34 | XMS_ITS | Referral Summary ---
Author Organization [facility] Address [address] [place] [address] Care Team Providers Care Associate Merchant Name Role Phone Unavailable Primary Care Provider Unavailabl e Source Comments [facility],non-[facility] Affiliates and Associated Physician Practices is amultiple site organization consisting of ambulatory clinics and hospital sitesin [place], [place], [place] and [place]. This disclosure is being madepursuant to the Care Everywhere program and may not contain all information available regarding this patient. Last updated 18.[facility] Social History Tobacco Use Types Packs/Day Years Used Date Smoking Tobacco: Never Assessed Sex and Gender Information Value Date Recorded Sex Assigned at Not on file Gender Identity Not on file Sexual Orientation Not on file Plan of Treatment Not on file
--- OUTSIDE RECORDS SUMMARY | 2024-04-26 12:34 | XMS_ITS | Clinical Summary ---
Author Organization [facility] Address [address] [place] [address] Care Team Providers Care Diagrammer Name Role Phone Unavailable Primary Care Provider Unavailabl e Source Comments [facility],non-owned Affiliates and Associated Physician Practices is amultiple site organization consisting of ambulatory clinics and hospital sitesin [place], [place], [place] and [place]. This disclosure is being madepursuant to the Care Everywhere program and may not contain all information available regarding this patient. Last updated 18.[facility] Social History Tobacco Use Types Packs/Day Years Used Date Smoking Tobacco: Never Assessed Sex and Gender Information Value Date Recorded Sex Assigned at Not on file Gender Identity Not on file Sexual Orientation Not on file Plan of Treatment Health Maintenance Due Date Last Done Comments COLOGUARD (AGES 45-75) - COL ON CA SCREENING 1969 COLON MONITORING 1969 COLONOSCOPY - COLON CA SCREENING 1969 CT COLONOGRAPHY - COLON CA SCREENING 1969 Colorectal Cancer Screening 1969 FIT - COLON CA SCREENING 1969 FLEX SIG - COLON CA SCREENING 1969 LIPID TESTING 1969 MAMMOGRAM 1969 PAP SMEAR 1969 HIV SCREENING 02/07/1984 HEPATITIS C SCREENING 02/02/1987 DTAP/TDAP/TD VACCINES (1 - Tdap) 02/07/1988 HEPATITIS B VACCINE (1 of 3 - 19+ 3-dose series) 02/07/1988 PNEUMOCOCCAL VACCINE 50+ (1 of 1 - PCV) 2019 ZOSTER VACCINE (1 of 2) 2019 COVID-19 VACCINE (2 - 2023-2 5 season) 2023 02/22/2021 INFLUENZA VACCINE (#1) 2023 1, 02/24/2020 DEPRESSION SCREENING 04/15/2024 HIB VACCINE Aged Out No longer eligi ble based on patient's age to complete this topic HPV VACCINE Aged Out No longer eligi ble based on patient's age to complete this topic MENINGOCOCCAL (Group B) VACCINE Aged Out No longer eligible b ased on patient's age to complete this topic MENINGOCOCCAL VACCINE Aged Out No tiarra jayne eligible based on patient's age to complete this topic PNEUMOCOCCAL VACCINE Aged Out No long er eligible based on patient's age to complete this topic
--- OUTSIDE RECORDS SUMMARY | 2024-04-26 12:34 | XMS_ITS | Patient Health Summary ---
Author Organization [facility] [employer] Address [address] [place] [address] Care Team Providers Care Plater Apprentice Name Role Phone Unavailable Primary Care Provider Unavailabl e Note from [facility],non-owned Affiliates and Associated Physician Practices is amultiple site organization consisting of ambulatory clinics and hospital sitesin [place], [place], [place] and [place]. This disclosure is being madepursuant to the Care Everywhere program and may not contain all information available regarding this patient. Last updated 18.[facility] [employer] Social History Tobacco Use Types Packs/Day Years Used Date Smoking Tobacco: Never Assessed Sex and Gender Information Value Date Recorded Sex Assigned at Not on file Gender Identity Not on file Sexual Orientation Not on file Procedures * XR WRIST BILAT 3VW OR MORE(Performed 10/06/2021) Performed for Left forearm pain Results * XR WRIST BILAT 3VW OR MORE (10/06/2021 9:13 AM CDT) Anatomical Region Laterality Modality Wrist / Hand, Upper Extremity Ra diographic Imaging 10/06/2021 1:31 PM CDT Impressions 10/06/2021 3:10 PM CDT Degenerative changes. Edited by Deanna Andrews on 10/06/2021 1:34 PM *Reading Radiologist: José Craft on 10/06/2021 at 3:10 PM Narrative 10/06/2021 3:10 PM CDT XR WRIST BILAT 4 VIEWS*[id number] INDICATION: Pain in left forearm. Bilateral wrist pain. FINDINGS: Four views of bilateral wrists without prior for comparison show mild radiocarpal joint space narrowing bilaterally. There is no evidence of acute displaced fracture, subluxation or dislocation. No bony erosions are present. Procedure Note José Craft MD - 10/06/2021 XR WRIST BILAT 4 VIEWS*[id number] INDICATION: Pain in left forearm. Bilateral wrist pain. FINDINGS: Four views of bilateral wrists without prior for comparison show mild radiocarpal joint space narrowing bilaterally. There is no evidence of acute displaced fracture, subluxation or dislocation. No bony erosions are present. IMPRESSION Degenerative changes. Edited by Deanna Andrews on 10/06/2021 1:34 PM *Reading Radiologist: José Craft on 10/06/2021 at 3:10 PM S. Puma Kaur MD DIAGNOSTIC IMAGING O CHIBLES
--- OUTSIDE RECORDS SUMMARY | 2024-04-26 12:34 | XMS_ITS | Encounter Summary ---
Author Organization [facility] Health Address [address] [facility] [place] [address] Care Team Providers Care Director Career Name Role Phone Unavailable Primary Care Provider Unavailabl e Encounter Details Date Type Department Care Team (Latest Contact Info) Description 10/06/2021 9:00 AM CDT - 10/06/2021 11:59 PM CDT Hospital Encounter [facility] Health Imaging Services - Radiology [address] [place] [address] [place] [address] [facility] [address] [place] [address] Discharge Disposition: Home or Self Care Social History Tobacco Use Types Packs/Day Years Used Date Smoking Tobacco: Never Assessed Sex and Gender Information Value Date Recorded Sex Assigned at Not on file Gender Identity Not on file Sexual Orientation Not on file documented as of this encounter Plan of Treatment Not on file documented as of this encounter Procedures Procedure Name Priority Date/Time Associated Diagnosis Comments XR WRIST BILAT 3VW OR MORE Routine 10/06/2021 9:13 AM CDT Left forearm pain documented in this encounter Results * XR WRIST BILAT 3VW OR MORE (10/06/2021 9:13 AM CDT) Anatomical Region Laterality Modality Wrist / Hand, Upper Extremity Ra diographic Imaging 10/06/2021 1:31 PM CDT Impressions 10/06/2021 3:10 PM CDT Degenerative changes. Edited by Deanna Andrews on 10/06/2021 1:34 PM *Reading Radiologist: José Craft on 10/06/2021 at 3:10 PM Narrative 10/06/2021 3:10 PM CDT XR WRIST BILAT 4 VIEWS*[id number] INDICATION: Pain in left forearm. Bilateral wrist pain. FINDINGS: Four views of bilateral wrists without prior for comparison show mild radiocarpal joint space narrowing bilaterally. There is no evidence of acute displaced fracture, subluxation or dislocation. No bony erosions are present. Procedure Note José Craft MD - 10/06/2021 XR WRIST BILAT 4 VIEWS*[id number] INDICATION: Pain in left forearm. Bilateral wrist [...] S. Puma Kaur MD DIAGNOSTIC IMAGING O ANDRÉS documented in this encounter Visit Diagnoses Diagnosis Left forearm pain Pain in limb documented in this encounter
--- OUTSIDE RECORDS SUMMARY | 2024-04-26 12:34 | XMS_ITS | Continuity of Care Document ---
Author Organization [place] - [facility], [facility] [place] Address [facility] [address] Assessment No assessment recorded. Plan of Treatment Reminders Order Date Submit Date Provider Last Modified By Organization Details Last Modified Time Details Appointments Surgery 2024 10:00A M Dheeraj Gabriel MD Not available Not available Not available Any 10 2024 01:35A M Bailey Estrada PA-C Not available Not available Not available Lab vitamin D, 25-hydrox y, total, serum 2023 024 [email or web address] [facility], [address] [place] [address], [address], 02/13/2024 08:38:22 vitamin B12 + folate, serum or blood 2023 024 [email or web address] [facility], [address] [place] [address], [address], 02/13/2024 08:38:22 CMP, serum or plasma 2023 024 [email or web address] [facility], [address] [place] [address], [address], 02/13/2024 08:38:22 CBC w/ auto diff 2023 024 [email or web address] [facility], [address] [place] [address], [address], 02/13/2024 08:38:22 lipid panel, serum 2023 024 [email or web address] [facility], [address] [facility], [place], [address], 02/13/2024 08:38:22 HbA1c (hemoglob in A1c), blood 2023 [email or web address] [facility], [address] [facility], [facility] [address], [place], [address], 02/13/2024 08:38:22 TSH + free T4, serum 2023 [email or web address] [facility], [address] [facility], [facility] [address], [place], [address], 02/13/2024 08:38:23 Referral gastroent erologist referral - Has had esophagus stretched in the past . Please eval and treat. Please call patient to schedule an appointme nt. Thank you 2023 [email or web address] [facility], [address], [address], [place], [address], 03/06/2024 09:07:24 gynecolog ist referral - Last PAP 2 years ago. Please call patient to schedule an appointme nt. Thank you. 2023 [email or web address] [facility] Arun Pinto, [address], [address], [place], [address], 03/06/2024 09:07:51 orthopedi c surgeon referral - had surgery at [facility]. Please call patient to schedule an appointme nt. Thank you. 2023 [facility], [address] [facility], [place], [address], 03/04/2024 15:37:37 Procedures None recorded. Surgeries None recorded. Imaging MAMMO, screening , digital, bilateral 2023 [facility] ([facility]), [address] [place], [address], 03/16/2024 16:00:40 Medication Orders pantopraz ole 40 mg tablet,de layed release 2023 [id number], [address] [place], [place], [id number], 2024 16:14:48 ibuprofen 800 mg tablet 2023 [facility] #[id number], [address], [place], [id number], 2024 16:16:45 Patient TargetsNo targets recorded. Patient InstructionsNo instructions recorded. 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 Please eval and treat. Please call patient to schedule an appointment. Thank you Referring Physician: [facility], Encounter Date: 2024 Chemical Librarian Referral for Sc reening for malignant neoplasm of cervix Last PAP 2 years ago. Please call patient to schedule an appointment. Thank you. Referring Physician: [facility], Encounter Date: 2024 Orthopedic Surgeon Referral for Medial epicondylitis of left elbow joint had surgery at [facility]. Please call patient to schedule an appointment. Thank you. Referring Physician: [facility], Encounter Date: 2024 Results Created Date Observation Date Name Description Value Unit Range Abnormal Flag Note LastModifiedBy Organization Detail LastModifiedTime 03/02/2003/02/2024 XR, knee No observ ation record ed. [facility] [address] [place], [address], 03/03/2024 08:21:06 03/03/2003/02/2024 XR, knee, 3 view No observ ation record ed. [email or web address] Not Available 02/13 10:36:24 03/10/2003/10/2024 MRI, knee, w/o contr ast No observ ation record ed. [email or web address] ([facility]) [address] [place], [address], 03/10/2024 12:40:29 03/10/20 24 03/10/2024 MRI, knee, w/o contr ast No observ ation record ed. [email or web address] [facility] [address] [place], [address], 03/11/2024 13:23:47 03/16/20 24 03/16/2024 MAMMO , scree amy, digit al, bilat eral No observ ation record ed. [email or web address] [facility] [address] [place], [address], 04/09/2024 15:55:38 04/10/20 24 04/10/2024 XR, chest , 2 view No observ ation record ed. [email or web address] [place], [address], 04/14/2024 12:42:47 Result Notes None recorded. Problems Name Problem SNOMED Code Status Onset Date Resolution Date Notes Provider Name and Address Organization Details Recorded Time Achilles tendiniti s 02420603 Active Not Available [facility] 3 12:36:00 Plantar fasciitis of left foot 65977258862 137170 Active 2021 Not Available [facility] 3 12:36:00 Heartburn 03209288 Active Not Available [facility] 3 12:36:00 Plantar fasciitis 194236099 Active Not Available [facility] 3 12:36:00 Headache 21543453 Active Not Available [facility] 3 12:36:00 Anemia 931745704 Active Not Available [facility] 3 12:36:00 Pain in left foot 13264411919 9107 Active 2021 Not Available [facility] 3 12:36:00 Hypothyro idism 95375447 Completed Not Available [facility] 3 20:19:07 History of calculus of kidney 183821920 Active Not Available [facility] 3 12:36:00 Hyperlipi demia 45271245 Completed Not Available [facility] 3 20:19:07 Hiatal hernia 43983524 Completed Not Available [facility] 3 20:19:08 Gastroeso phageal reflux disease 427015383 Active 2022 Not Available [facility] 3 12:36:00 Fear of flying 644198996 Active 2022 Not Available [facility] 3 12:36:00 Nausea 431943426 Active 2022 Not Available [facility] 3 12:36:00 Screening for malignant neoplasm of cervix Active 2023 NERISSA Munoz [address], [address], [place], [address] , [employer] [facility] 4 15:53:05 Screening mammograp hy Active 2023 NERISSA Munoz [address], [address], [place], [address] , [employer] [facility] 4 15:53:21 Adult health examinati on Active 2023 NERISSA Munoz [address], [address], [place], [address] , [employer] [facility] 4 15:56:28 Stricture of esophagus 56654879 Active 2023 NERISSA Munoz [address], [place], [address] , [employer] [facility] 4 15:58:40 At increased risk for nutrition al problem 212580386 Active 2023 NERISSA Munoz [address], [place], [address] , [employer] [facility] 4 16:07:11 Medial epicondyl itis of left elbow joint 91185407654 9107 Active 2023 NERISSA Munoz [address], [place], [address] , [facility] [employer] [facility] 4 16:12:26 Pain of right knee joint 60342673885 4100 Active 2023 GILBERT Morrison, [facility] [employer] [facility] 12:06:18 Problem Notes None recorded. Procedures Surgical History Date Name Laterality Status Provider Name and Address Organization Details Recorded Time 02/09/20 23 Cortisone Injection (Dequervains/ Greater Trochantric/ Lateral Epicondylitis/ Medial Epicondylitis / Shoulder/ Subacromial Space/ Knee/ Trigger Finger or Plantar Fascia) completed Arely Narayanan MD [address], [facility] [address], [place], [address], [facility] [employer] [facility] 02/08/2023 10:46:13 Elbow arthroscopy completed Not Available [facility] 06/13/2022 20:18:43 Foot Surgery completed Palma Rust RN [facility] [employer] [facility] 2024 15:46:27 procedure on elbow completed Palma Rust RN [facility] [employer] [facility] 2024 15:46:46 Imaging Results None recorded. Procedure Notes None recorded. Medical Equipment None Reported. Allergies Allergen ID Allergen Name Allergen Category Reaction Reaction Severity Criticality Documentation Date Start Date Code Code System Note Provider Name and Address Organization Details Recorded Time 66339 acetamino phen / oxycodone medicatio n Not available Not available Not available 06/13/2022 95739 3 RxNorm Not Available [facility] 3 20:19:43 54756 latex environme nt,medica tion Not available Not available Not available 06/13/2022 79476 91 RxNorm Not Available [facility] 3 20:19:43 84299 erythromy jozef medicatio n Not available Not available Not available 06/13/2022 4053 RxNorm Not Available [facility] 3 20:19:43 Medications Name Sig Start [...] and Address Organization Details Last Updated DateTime 170.18 cm 36 kg/m2 261125. 25 g 97.8 [degF] 92 /min 99 % 99 % 122 mm[Hg] 88 mm[Hg] Palma Rust RN [place] [facility] 15:50:22 Social History Question Answer Notes LastModified by Organizat ion Details LastModified Time Tobacco Smoking Status Never Smoker Not Available [facility] 06/13/2022 20:18:41 What Is Your Level Of Alcohol Consumption? None [email or web address] Information not available 03/04/2024 In The 14 Days Before Symptom Onset, Have You Had Close Contact With A Laboratory-confirm ed COVID-19 While That Case Was Ill? No [id number] Information not available 06/13/2022 In The 14 Days Before Symptom Onset, Have You Had Close Contact With A Person Who Is Under Investigation For COVID-19 While That Person Was Ill? No [id number] 026 Information not available 06/13/2022 What Was The Date Of Your Most Recent Tobacco Screening? 03/04/2024 [email or web address] Information not available 03/04/2024 Have You Ever Been Counseled For Unhealthy Alcohol Use? No [id number] 026 Information not available 06/13/2022 Do You Use Any Illicit Or Recreational Drugs? No [id number] 026 Information not available 06/13/2022 Has Tobacco Cessation Counseling Been Provided? No [id number].[id number] 026 Information not available 06/13/2022 Have You Recently Traveled Abroad? No [id number].[id number] 026 Information not available 06/13/2022 Do You Or Have You Ever Used Any Other Forms Of Tobacco Or Nicotine? No [id number] 026 Information not available 06/13/2022 Sex: Unknown Functional Status None recorded. Mental Status None recorded. Family History Relationship Description Onset Age of this Age Resolved Age Notes LastModified by Organization Details LastModified Time Unspecified Relation Diabetes mellitus [id number] Not available 06/13/2022 20:18:44 Unspecified Relation Hypertensive disorder [id number].647 [id number] Not available 06/13/2022 20:18:44 Unspecified Relation Heart disease [id number].703 [id number] Not available 06/13/2022 20:18:44 Unspecified Relation Cerebrovascu lar accident [email or web address] Not available 05/2023 12:36:54 Unspecified Relation Arthritis [email or web address] Not available 03/16 12:36:54 Unspecified Relation Malignant neoplastic disease Not available 2023 12:36:54 Unspecified Relation Osteoporosis [email or web address] Not available 12:36:54 Medical History Condition Response ARTHRITIS Y URINARY/BLADDER/KIDNEY PROBLEMS Y OBESITY Y HEARTBURN / REFLUX Y ANEMIA/BLOOD DISORDER Y Gynecological HistoryNo gynecological history recorded. Obstetrics History GPAL:G 0 P 0 0 0 0 Immunizations Vaccine Type Date Status Note Provider Nam e and Address Organization Details Recorded Time Influenza, split virus, quadrivalent, preservative 0 completed Not Available [employer] 01/17/2023 05:01:12 Past Encounters Encounter ID Performer Location Encounter Start Date Encounter Closed Date Diagnosis/Indication Diagnosis SNOMED-CT Code Diagnosis ICD10 Code Diagnosis Note [id number] NERISSA Munoz [facility] Nirmala schmitz [address] [facility] , [place] [address] 2024 15:29:17 2024 16:19:12 Screening for malignant neoplasm of cervix 544123460 Z12.4 Screening mammography 24 410816 Z12.31 Adult heal th examination 174620953 Z00.00 Stricture of esophagus 14490077 K22.2 [facility] risk for nutritional problem 812874524 Z91.89 Gastroesop hageal reflux disease 150006331 K21.00 Medial epi condylitis of left elbow joint 7988881847 05393 M77.02 Anemia 530276922 D64.9 Health Concerns Section Related Observation LastModified by Organization Detai ls LastModified Time None Recorded Concern Status LastModified by Organization Details LastModified Time None Recorded Payers Encounter Date Sequence Insurance Name Policy Number Policy Lovett Covered Member ID Lovett Member ID Guarantor Name 2024 1 [place] [employer] Nola King [id number] Nola King Notes Date Note Type Note Provider Name and Address Organization Details Recorded Time 2024 text/html esophogeal stricture had it stretched 10 years ago , arthritis , easy bruising NERISSA Munoz [address] [facility], [facility] [address], [place], [address], [place] [facility] 03/01/2024 22:58:15 OBGyn Episode No OBEpisode recorded.
--- OUTSIDE RECORDS SUMMARY | 2024-04-26 12:34 | XMS_ITS | Data Portability ---
Author Organization [place] - [place] NARCISA resendez_SMG_POSTACUTE_Ltle SisterAsst Address [address] [place] [address] Assessment Encounter Date Assessment Date Assessment LastModified by Organization Details LastModified Time 12/05/2020 12/05/2020 X-ray reveals no fractures of her elbow but questionable irregularity of her left wrist. I showed the x-rays to her we discussed this. This point she was given a wrist splint a sling some pain medicine and will put her on a steroid because she is having some numbness as well which she states is she had before prior to having her wrist fused [email or web address] Not available 12/05/2020 15:43:38 Plan of Treatment Reminders Order Date Submit Date Provider Last Modified By Organization Details Last Modified Time Details Appointments None recorded. Lab None recorded. Referral None recorded. Procedures None recorded. Surgeries None recorded. Imaging XR, elbow, 2 view 2020 021 [facility], [address] [place], [address], 14:56:24 XR, wrist, 3 or more view 2020 021 [facility], [address] [place] [address], [address], 14:56:10 Medication Orders Medrol (Seamus) 4 mg tablets in a dose pack 2020 021 [facility] #[id number], [address] [place], [address], 15:45:41 hydrocodone 5 mg-acetamin ophen 325 mg tablet 2020 021 [facility] #[id number], [address] [place], [address], 15:45:42 Patient TargetsNo targets recorded. Patient Instructions Encounter Date Encounter Id Patient Instructions Last Modified By Organization Details Last Modified Time 12/05/2020 [id number] 1. Worsening as needed 2. Take medication as directed. 3 wear splint as needed 4. Follow-up with orthopedics if no improvement sourav Not available 12/05/2020 15:45:50 Reason for Referral None Reported. Results Created Date Observation Date Name Description Value Unit Range Abnormal Flag Note LastModifiedBy Organization Detail LastModifiedTime 12/06/19 21 12/05/2020 XR, elbow , [address] [facility] [place] [facility] [facility] XR EXAMIN ATION: ELBOW 2 VIEWS - LEFT - ACC #: [id number] CPT: 02997 Mod: RIS Order: [id number] (ECX) (0039) HIS Order: [id number] FWR-[id number] D [id number] STARTE D: Dec 05 2020 2:12PM COMPLE DANIEL: Dec 05 2020 2:25PM TECH INITIA LS: SXR FULL RESULT : STUDY: 3 view left wrist, 2 view left elbow. CLINIC AL HISTOR Y: Pain of the wrist and elbow. COMPAR ROSARIO: None. FINDIN GS: There is some irregu larity with cortic al step-o ff noted along the ulnar aspect of the distal left radius , best seen on the PA and obliqu e views. No ulnar fractu re identi fied. Carpal alignm ent is mainta ined. Mild to modera te osteoa rthrit ic degene rative change s noted at the trisca phe and first CMC joints . No defini te left elbow fractu re identi fied. Osteop hyte noted at the corono id proces s of the ulna. No signif icant effusi on. IMPRES SARAH: 1. Irregu larity with cortic al step-o ff along the ulnar aspect of the distal left radius , suspic ious for subacu te fractu re, althou gh the orient ation is unusua l. 2. No acute osseou s abnorm ality left elbow. Ulnohu meral degene rative change s. YASHIRA ONICAL LY SIGNED BY: MAYUR MATHIAS M.D. Dec 05 2020 2:36PM Dictat ed: Dec 05 2020 2:36PM Transc ribed: Dec 05 2020 2:36PM [id number] Disper sed: Dec 05 2020 2:36PM Attend ing Dr: BRITTNEY GALLAGHER Admitt ing Dr: BRITTNEY GALLAGHER Primar y Care: Additi onal Doctor (s): YASHIRA BYRD LY SIGNED BY: Josiah LAMDec 05 2020 2:36PM Side of BodyLe ft;^ [email or web address] Asv - [facility] [address] , [place], [address], 12/05/2020 17:45:32 12/06/19 21 12/05/2020 XR, wrist , 3 or more view [facility] [place] [facility] XR EXAMIN ATION: WRIST MIN 3 VIEWS - LEFT - ACC #: [id number] CPT: 14628 Mod: RIS Order: [id number] (ECX) (0157) HIS Order: [id number] D [id number] STARTE D: Dec 05 2020 2:12PM COMPLE DANIEL: Dec 05 2020 2:25PM TECH INITIA LS: SXR FULL RESULT : STUDY: 3 view left wrist, 2 view left elbow. CLINIC AL HISTOR Y: Pain of the wrist and elbow. COMPAR ROSARIO: None. FINDIN GS: There is some irregu larity with cortic al step-o ff noted along the ulnar aspect of the distal left radius , best seen on the PA and obliqu e views. No ulnar fractu re identi fied. Carpal alignm ent is mainta ined. Mild to modera te osteoa rthrit ic degene rative change s noted at the trisca phe and first CMC joints . No defini te left elbow fractu re identi fied. Osteop hyte noted at the corono id proces s of the ulna. No signif icant effusi on. IMPRES SARAH: 1. Irregu larity with cortic al step-o ff along the ulnar aspect of the distal left radius , suspic ious for subacu te fractu re, althou gh the orient ation is unusua l. 2. No acute osseou s abnorm ality left elbow. Ulnohu meral degene rative change s. ELECTR ONICAL LY SIGNED BY: MAYUR MATHIAS M.D. Dec 05 2020 2:36PM Dictat ed: Dec 05 2020 2:36PM Transc ribed: Dec 05 2020 2:36PM [id number] Disper sed: Dec 05 2020 2:36PM Attend ing Dr: BRITTNEY GALLAGHER ing Dr: BRITTNEY GALLAGHER y Care: Additi onal Doctor (s): ELECTR ONICAL LY SIGNED BY: Josiah LAMDec 05 2020 2:36PM Side of BodyLe ft;^ [email or web address] Asv [facility] [address] [place] [address], [address], 12/05/2020 17:45:32 Result Notes None recorded. Procedures Surgical History Date Name Laterality Status Provider Name and Address Organization Details Recorded Time 4 procedure on wrist completed Jerry Ivonne [place] [facility] 12/05/2020 13:45:39 Imaging Results Imaging Date Name Status LastModified by Organiz ation Details LastModified Time 12/05/2020 [facility]R, elbow, 2 view [email or web address] [address] [place] [address], [address], 12/05/2020 17:45:32 12/05/2020 XR, wrist, 3 or more view completed [email or web address] As[facility] [address] [place] [address], [address], 12/05/2020 17:45:32 Procedure Notes None recorded. Medical Equipment None Reported. Allergies Allergen ID Allergen Name Allergen Category Reaction Reaction Severity Criticality Documentation Date Start Date Code Code System Note Provider Name and Address Organization Details Recorded Time 0990640 acetamino phen / oxycodone medicatio n itching moderate Not available 12/05/2020 22210 3 RxNorm Jerry [place] null, [place] [facility] 13:38:07 1079453 erythromy jozef medicatio n anaphylax is severe Not available 12/05/2020 4053 RxNorm Claritza [place] null, [place] [facility] 13:38:59 Medications Name Sig Start Date Stop Date Status Note LastModified by Organization Details LastModified Time hydrocodone 5 mg-acetamino phen 325 mg tablet One p.o. every 6 hours as needed severe pain 2020 active Not Available Not Available Not Avai lable Medrol (Seamus) 4 mg tablets in a dose pack Take medication as directed 2020 active Not Available Not Available Not Avai lable Vitals Date Recorded Body height Body mass index (BMI) Body weight Respiratory rate Heart rate Oxygen saturation Oxygen saturation in Arterial blood by Pulse oximetry Body temperature Systolic blood pressure Diastolic blood pressure Provider Name and Address Organization Details Last Updated DateTime 170.18 cm 28.3 kg/m2 96292.8 6 g 16 /min 87 /min 99 % 99 % 98.6 [degF] 100 mm[Hg] 60 mm[Hg] Claritza [place] [facility] 13:35:31 Social History None recorded. Functional Status None recorded. Mental Status None recorded. Family History Nothing Reported. Medical History No medical history recorded. Gynecological HistoryNo gynecological history recorded. Obstetrics History GPAL:G 0 P 0 0 0 0 Immunizations Vaccine Type Date Status Note Provider Nam e and Address Organization Details Recorded Time COVID-19 IV Non-US Vaccine (CoronaVac, Sinovac) 04/03/2020 completed Jerry Ivonne null, [place] 12/05/2020 13:43:43 COVID-19 Non-US Vaccine, Product Unknown 06/27/2020 completed Jerry Ivonne null, [place] 12/05/2020 13:43:57 Past Encounters Encounter ID Performer Location Encounter Start Date Encounter Closed Date Diagnosis/Indication Diagnosis SNOMED-CT Code Diagnosis ICD10 Code Diagnosis Note [id number] MD KOBI TamezA_[facility]U C[facility], [address] [address] 12/05/2020 12:59:52 12/05/2020 14:49:28 Pain of left wrist 9146162899 01466 M25.532 Pain of le ft elbow joint 7088528979 7362335 M25.522 Health Concerns Section Related Observation LastModified by Organization Detai ls LastModified Time None Recorded Concern Status LastModified by Organization Details LastModified Time None Recorded Advance Directives Directive None Recorded Payers Encounter Date Sequence Insurance Name Policy Number Policy Lovett Covered Member ID Lovett Member ID Guarantor Name 12/05/2020 1 *SELF PAY* Wilfredo King Notes Date Note Type Note Provider Name and Address Organization Details Recorded Time 12/05/2020 text/html 50-year-old female fell Saturday when her dog tripped her. Complains pain to her left elbow left wrist Denies any other injuries She has some low back pain but thinks is minorShe had previous surgery on her left wrist Brittney Gallagher MD [address], [address], [place], [address], [place] 12/05/2020 15:46:09 OBGyn Episode No OBEpisode recorded.
--- OUTSIDE RECORDS SUMMARY | 2024-04-26 12:34 | XMS_ITS | Continuity of Care Document ---
Author Organization [place] - [facility], [facility] Ortho Arun Pinto Address [address] [place] [address] Assessment Encounter Date Assessment Date Assessment LastModified by Organization Details LastModified Time 03/04/2024 03/04/2024 54-year-old female presents for evaluation of her right knee. She reports an injury on 02/29/2024 when she was dancing and twisted her knee and developed significant pain and stiffness. She currently rates her pain as 9/10 and presents today in a wheelchair. 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 She denies any previous injury to [...] She is in agreement with the plan. [email or web address] Not available 03/04/2024 14:47:15 Plan of Treatment Reminders Order Date Submit Date Provider Last Modified By Organization Details Last Modified Time Details Appointments Surgery 2024 10:00A M Dheeraj Gabriel MD Not available Not available Not available Any 10 2024 01:35A M Bailey Estrada PA-C Not available Not available Not available Lab None recorded. Referral physical therapist referral - Please contact pt to schedule apt for R knee. Thanks 2023 [facility], [address], [place], [address], 03/05/2024 08:23:52 Procedures None recorded. Surgeries None recorded. Imaging MRI, knee, w/o contrast 2023 [facility] ([facility]), [address] [place], [address], 03/10/2024 12:14:24 Medication Orders meloxicam 15 mg tablet 2023 [email or web address] [id number], [address] [place], [place], [id number], 03/04/2024 22:45:20 Patient TargetsNo targets recorded. Patient InstructionsNo instructions recorded. Reason for Referral Physical Therapist Referral for Pain of right knee joint R knee Please contact pt to schedule apt for R knee. Thanks Referring Physician: Dheeraj Gabriel, Orthopedic Surgery, Encounter Date: 03/04/2024 Results Created Date Observation Date Name Description Value Unit Range Abnormal Flag Note LastModifiedBy Organization Detail LastModifiedTime 03/02/2003/02/2024 XR, knee No observ ation record ed. [address] [place], [address], 03/03/2024 08:21:06 03/03/2003/02/2024 XR, knee, 3 view No observ ation record ed. [email or web address] Not Available 02/13 10:36:24 03/10/20 24 03/10/2024 MRI, knee, w/o contr ast No observ ation record ed. [address] ([facility]) [address] [place], [address], 03/10/2024 12:40:29 03/10/20 24 03/10/2024 MRI, knee, w/o contr ast No observ ation record ed. [email or web address] [facility] [address] [place], [address], 03/11/2024 13:23:47 03/16/20 24 03/16/2024 MAMMO , scree amy, digit al, bilat eral No observ ation record ed. [email or web address] [facility] [address] [place], [address], 04/09/2024 15:55:38 04/10/20 24 04/10/2024 XR, chest , 2 view No observ ation record ed. [email or web address] [facility] [address] [place], [address], 04/14/2024 12:42:47 Result Notes None recorded. Problems Name Problem SNOMED Code Status Onset Date Resolution Date Notes Provider Name and Address Organization Details Recorded Time Achilles tendiniti s 86494753 Active Not Available [facility] 3 12:36:00 Plantar fasciitis of left foot 69311937709 685125 Active 2021 Not Available [facility] 3 12:36:00 Heartburn 85795923 Active Not Available [facility] 3 12:36:00 Plantar fasciitis 263240588 Active Not Available [facility] 3 12:36:00 Headache 62975542 Active Not Available [facility] 3 12:36:00 Anemia 175629439 Active Not Available [facility] 3 12:36:00 Pain in left foot 93343629550 9107 Active 2021 Not Available [facility] 3 12:36:00 Hypothyro idism 42504941 Completed Not Available [facility] 3 20:19:07 History of calculus of kidney 292997818 Active Not Available [facility] 3 12:36:00 Hyperlipi demia 18932047 Completed Not Available [facility] 3 20:19:07 Hiatal hernia 83726940 Completed Not Available [facility] 3 20:19:08 Gastroeso phageal reflux disease 464617003 Active 2022 Not Available [facility] 3 12:36:00 Fear of flying 476621065 Active 2022 Not Available [facility] 3 12:36:00 Nausea 567126931 Active 2022 Not Available [facility] 3 12:36:00 Screening for malignant neoplasm of cervix Active 2023 NERISSA Munoz [address], [address] [employer] [address], [place], [address] , [employer] 4 15:53:05 Screening mammograp hy Active 2023 NERISSA Munoz [address], [place], [address] , [employer] 4 15:53:21 Adult health examinati on Active 2023 NERISSA Munoz [address], [address], [place], [address] , [employer] [facility] 4 15:56:28 Stricture of esophagus 14005030 Active 2023 NERISSA Munoz [address], [address], [place], [address] , [employer] [facility] 4 15:58:40 At increased risk for nutrition al problem 430453121 Active 2023 NERISSA Munoz [address], [place], [address] , [employer] [facility] 4 16:07:11 Medial epicondyl itis of left elbow joint 41794137499 9107 Active 2023 NERISSA Munoz [address], [place], [address] , [facility] 16:12:26 Pain of right knee joint 92101547075 4100 Active 2023 GILBERT Morrison, [facility] 12:06:18 Problem Notes None recorded. Procedures Surgical History Date Name Laterality Status Provider Name and Address Organization Details Recorded Time 02/09/20 Cortisone Injection (Dequervains/ Greater Trochantric/ Lateral Epicondylitis/ Medial Epicondylitis / Shoulder/ Subacromial Space/ Knee/ Trigger Finger or Plantar Fascia) completed Arely Narayanan MD [address] [facility] [address], [place], [address], [facility] 02/08/2023 10:46:13 Elbow arthroscopy completed Not Available [facility] 06/13/2022 20:18:43 Foot Surgery completed Palma Rust RN [facility] 2024 15:46:27 procedure on elbow completed Palma Rust RN [facility] 2024 15:46:46 Imaging Results None recorded. Procedure Notes None recorded. Medical Equipment None Reported. Allergies Allergen ID Allergen Name Allergen Category Reaction Reaction Severity Criticality Documentation Date Start Date Code Code System Note Provider Name and Address Organization Details Recorded Time 03618 acetamino phen / oxycodone medicatio n Not available Not available Not available 06/13/2022 05491 3 RxNorm Not Available [facility] 3 20:19:43 88125 latex environme nt,medica tion Not available Not available Not available 06/13/2022 99095 91 RxNorm Not Available [facility] 20:19:43 79691 erythromy jozef medicatio n Not available Not available Not available 06/13/2022 4053 RxNorm Not Available [facility] 20:19:43 Medications Name Sig Start Date Stop [...] Updated DateTime 03/04/2024 170.18 cm 36 kg/m2 230311.25 g GILBERT Morrison [place] [employer] 03/04/2024 12:04:42 Social History Question Answer Notes LastModified by Organizat ion Details LastModified Time Tobacco Smoking Status Never Smoker Not Available [employer] 06/13/2022 20:18:41 What Is Your Level Of Alcohol Consumption? None [email or web address] Information not available 03/04/2024 In The 14 Days Before Symptom Onset, Have You Had Close Contact With A Laboratory-confirm ed COVID-19 While That Case Was Ill? No [id number] Information not available 06/13/2022 In The 14 Days Before Symptom Onset, Have You Had Close Contact With A Person Who Is Under Investigation For COVID-19 While That Person Was Ill? No [id number] 026 Information not available 06/13/2022 What Was The Date Of Your Most Recent Tobacco Screening? 03/04/2024 [email or web address] Information not available 03/04/2024 Have You Ever Been Counseled For Unhealthy Alcohol Use? No [id number] 026 Information not available 06/13/2022 Do You Use Any Illicit Or Recreational Drugs? No [id number] 026 Information not available 06/13/2022 Has Tobacco Cessation Counseling Been Provided? No MIGRATION.[id number] 026 Information not available 06/13/2022 Have You Recently Traveled Abroad? No MIGRATION.[id number] 026 Information not available 06/13/2022 Do You Or Have You Ever Used Any Other Forms Of Tobacco Or Nicotine? No [id number] 026 Information not available 06/13/2022 Sex: Unknown Functional Status None recorded. Mental Status None recorded. Family History Relationship Description Onset Age of this Age Resolved Age Notes LastModified by Organization Details LastModified Time Unspecified Relation Diabetes mellitus [id number] Not available 06/13/2022 20:18:44 Unspecified Relation Hypertensive disorder [id number].530 [id number] Not available 06/13/2022 20:18:44 Unspecified Relation Heart disease [id number].523 [id number] Not available 06/13/2022 20:18:44 Unspecified Relation Cerebrovascu lar accident [email or web address] Not available 05/2023 12:36:54 Unspecified Relation Arthritis Not available 03/16 12:36:54 Unspecified Relation Malignant neoplastic disease [email or web address] Not available 2023 12:36:54 Unspecified Relation Osteoporosis [email or web address] Not available 12:36:54 Medical History Condition Response [...] SNOMED-CT Code Diagnosis ICD10 Code Diagnosis Note [id number] NERISSA Munoz S[facility] Practice Arlene varela [address] [place] [address] 2024 15:29:17 2024 16:19:12 Screening for malignant neoplasm of cervix 736228671 Z12.4 Screening mammography 24 060268 Z12.31 Adult heal th examination 478138022 Z00.00 Stricture of esophagus 91171338 K22.2 At [facility] risk for nutritional problem 096373911 Z91.89 Gastroesop hageal reflux disease 245682754 K21.00 Medial epi condylitis of left elbow joint 7990639107 88166 M77.02 Anemia 558229942 D64.9 [id number] Dheeraj Gabriel MD [facility] [address] [place] [address] 03/04/2024 11:51:05 03/04/2024 12:28:19 Pain of right knee joint 6725971946 77151 M25.561 Health Concerns Section Related Observation LastModified by Organization Detai ls LastModified Time None Recorded Concern Status LastModified by Organization Details LastModified Time None Recorded Payers Encounter Date Sequence Insurance Name Policy Number Policy Lovett Covered Member ID Lovett Member ID Guarantor Name 03/04/2024 1 [place] Nola King [id number] Nola King OBGyn Episode No OBEpisode recorded.
--- OUTSIDE RECORDS SUMMARY | 2024-04-26 12:35 | XMS_ITS | Encounter Summary ---
Author Organization [facility] Address [address] [facility] [address] [place] [id number] Care Team Providers Care Supervisor Rides Name Role Phone Unavailable Primary Care Provider Unavailabl e Reason for Visit * Reason Comments Knee Pain Got stuck and hyper extended it backwards yesterday, right knee Encounter Details Date Type Department Care Team (Late st Contact Info) Description 09/10/2022 8:30 AM CDT Office Visit [facility] [address] [id number] Nadia Sinha NP [address] [place] [address] [address] [place] [address] Acute pain of right knee (Primary Dx) Social History Tobacco Use Types Packs/Day Years Used Date Smoking Tobacco: Never Passive Smoke Exposure: Never Smokeless Tobacco: Never AUDIT-C Answer Date Recorded Q1: How often do you have a drink containing alc ohol? 2-4 times a month 07/26/2022 Q2: How many drinks containi ng alcohol do you have on a typical day when you are drinking? 1 or 2 07/26/2022 Q3: How often do you have si x or more drinks on one occasion? Never 07/26/2022 Personal Safety Answer Date Recorded Have you ever been in or are you currently in a harmful physical or emotional relationship or is someone making you feel afraid or unsafe? 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 Gender Identity Not on file Sexual Orientation Not on file documented as of this encounter Last Filed Vital Signs Vital Sign Reading Time Taken Comments Blood Pressure 108/72 09/10/2022 8:18 AM CDT Pulse 87 09/10/2022 8:18 AM CDT Temperature 36.8 ??C (98.2 ??F) 09/10/2022 8:18 AM CD T Respiratory Rate 16 09/10/2022 8:18 AM CDT Oxygen Saturation 98% 09/10/2022 8:18 AM CDT Inhaled Oxygen Concentration - - Weight 99 kg (218 lb 3.2 oz) 09/10/2022 8:18 AM CDT Height 170.2 cm (5' 7.01 ) 09/10/2022 8:18 AM CD T Body Mass Index 34.17 09/10/2022 8:18 AM CDT documented in this encounter Patient Instructions * Attachments The following attachments cannot be sent through Care Everywhere. * Knee Pain (AfterCare(R) Instructions(ER/ED)) ([facility]) documented in this encounter Progress Notes * Nadia Sinha NP - 09/10/2022 8:30 AM CDT Images from the original note were not included. Subjective/Objective Patient ID: Nola King is a 52 y.o. female. Chief Complaint Knee Pain (Got stuck and hyper extended it backwards yesterday, right knee ) [facility] Hx of torn mensicus in right knee. Patient seen Dr. Thomas in April of 2022, he told her she had anold tear of her right meniscus, he gave her a steroid injection at that time. Knee Pain The incident occurred 12 to 24 hours ago. The incident occurred at home. Injury mechanism: hyperextended. The pain is present in the right knee. The quality of the pain is described as aching. The pain is moderate. The pain has been Constant since onset. Pertinent negatives include no inability to bear weight, loss of motion, loss of sensation, muscle weakness, numbness or tingling. She reports no foreign bodies present. The symptoms are aggravated by weight bearing and palpation. She has triedice and acetaminophen for the symptoms. The treatment provided moderate relief. Review of Systems Constitutional: Negative for chills, diaphoresis, fatigue and fever. Respiratory: Negative. Negative for cough and shortness of breath. Cardiovascular: Negative. Gastrointestinal: Negative for vomiting. Musculoskeletal: Right knee pain Skin: Negative for color change, pallor, rash and wound. Neurological: Negative for dizziness, tingling, numbness and headaches. Psychiatric/Behavioral: Negative for self-injury. Physical Exam Vitals and nursing note reviewed. Constitutional: Appearance: Normal appearance. HENT: Head: Normocephalic and atraumatic. Cardiovascular: Rate and Rhythm: Normal rate. Pulses: Normal pulses. Pulmonary: Effort: Pulmonary effort is normal. Musculoskeletal: Right knee: Ecchymosis (Bruising noted at area of tenderness measuring approximately 0.5 cm. No induration and no erythema.) present. No bony tenderness. Normal range of motion. Tenderness present over the lateral joint line. Normal alignment. Normal pulse. Instability Tests: Anterior drawer test negative. Posterior drawer test negative. Legs: Skin: General: Skin is warm and dry. Capillary Refill: Capillary refill takes less than 2 seconds. Findings: No erythema or wound. Neurological: Mental Status: She is alert and oriented to person, place, and time. Vitals: 09/10/22 0818 BP: 108/72 BP Location: Right arm Patient Position: Sitting Pulse: 87 Resp: 16 Temp: 36.8 ??C (98.2 ??F) TempSrc: Oral SpO2: 98% Weight: 99 kg (218 lb 3.2 oz) Height: 170.2 cm (5' 7.01 ) No results found. Past Medical History: Diagnosis Date Anemia Arthritis Gastric reflux Kidney stone Migraines Neuromuscular disorder (HCC) Obesity Pneumonia Sleep apnea Doesn't wear CPAP machine Current Outpatient Medications: pantoprazole DR (PROTONIX) 40 mg EC tablet, Take 1 tablet (40 mg total) by mouth every morning, Disp: , Rfl: acetaminophen (TYLENOL) 500 mg tablet, Take 2 tablets (1,000 mg total) by mouth as needed for pain or headaches (Patient not taking: Reported on 09/10/2022), Disp: , Rfl: zlnnvptpwxqwb-uhobqyt-soomtlzy (EXCEDRIN MIGRAINE) 250-250-65 mg per tablet, Take 1 tablet by mouthas needed for headaches (Patient not taking: Reported on 09/10/2022), Disp: , Rfl: Allergies Allergen Reactions Erythromycin Anaphylaxis Latex Hives and Rash Oxycodone-Acetaminophen Itching Social History Tobacco Use Smoking status: Never Passive exposure: Never Smokeless tobacco: Never Substance and Sexual Activity Drug use: Yes Types: Marijuana Comment: once a month Sexual activity: Defer Alcohol Use: Not At Risk (07/26/2022) AUDIT-C Frequency of Alcohol Consumption: 2-4 times a month Average Number of Drinks: 1 or 2 Frequency of Binge Drinking: Never Past Surgical History: Procedure Laterality Date ESOPHAGOGASTRODUODENOSCOPY 2010 dilation FOOT SURGERY Left 03/2022 HAND SURGERY Left 2003 Assessment/Plan Diagnoses and all orders for this visit: Acute pain of right knee (Primary) - XR Knee Right 4+ Vw; Future - Crutches XRAY IMPRESSION: Mild lateral and moderate patellofemoral bicompartmental right knee osteoarthritis with a small effusion. Patient Education: -follow-up with Dr. Thomas tomorrow, CT of x-ray given to patient. -continue to use crutches, nonweightbearing, until follow-up with orthopedics. -continue wzzg-awy-chvheoy pain relievers such as Tylenol as needed for pain per package directions. -ice p.r.n. Disposition Treatment plan including expectations, follow up, and return precautions discussed with patient/parent, verbalizes understanding. Medication dosage, use, and potential adverse reactions discussed with patient/parent. Advised to follow up with PCP if symptoms do not resolve as expected or sooner if condition worsens. Signs/symptoms warranting ER evaluation reviewed. Patient and/or guardian was given an opportunity to ask questions, questions answered. Nadia Sinha NP documented in this encounter Plan of Treatment Not on file documented as of this encounter Results * XR Knee Right 4+ Vw (09/10/2022 8:43 AM CDT) Anatomical Region Laterality Modality Lower Extremities, Knee Right Digital Radiography 09/10/2022 9:35 AM CDT Narrative 09/10/2022 9:36 AM CDT EXAM DESCRIPTION: XR KNEE RIGHT 4 OR MORE VIEWS REASON FOR STUDY: Other (type), pain in anterior right knee, hx of torn meniscus to right knee 04/2022 ?? Pt hyperextended her knee 1 day ago, lateral pain no prior surgery ? FINDINGS: Four views submitted without comparison. There are no fractures. ??Alignment is normal. ??There is mild lateral and moderate patellofemoral bicompartmental right knee osteoarthritis. ??Small knee effusion is present. ??Extensor mechanism enthesophytes are noted. IMPRESSION: Mild lateral and moderate patellofemoral bicompartmental right knee osteoarthritis with a small effusion. THIS IS AN ELECTRONICALLY VERIFIED FINAL REPORT 09/10/2022 9:36 AM - Electronically signed by ??Gagan Antonio M.D. D: ??09/10/2022 9:36 AM T: Report ID: [id number] Reading Location: ??[id number] Procedure Note Gagan Antonio MD - 09/10/2022 EXAM DESCRIPTION: XR KNEE RIGHT 4 OR MORE VIEWS REASON FOR STUDY: Other (type), pain in anterior right knee, hx of torn meniscus to right knee 04/2022 Pt hyperextended her knee 1 day ago, lateral pain no prior surgery FINDINGS: Four views submitted without comparison. There are no fractures. Alignment is normal. There is mild lateral and moderate patellofemoral bicompartmental right knee osteoarthritis. Smallknee effusion is present. Extensor mechanism enthesophytes are noted. IMPRESSION: Mild lateral and moderate patellofemoral bicompartmental right knee osteoarthritis with a small effusion. THIS IS AN ELECTRONICALLY VERIFIED FINAL REPORT 09/10/2022 9:36 AM - Electronically signed by Gagan Antonio M.D. T: Report ID: [id number] Reading Location: [id number] Nadia Sinha NP IMG XR PROCEDURES Final Result documented in this encounter Visit Diagnoses Diagnosis Acute pain of right knee- Primary Acute pain of right knee documented in this encounter Orders General Supply Count Last Ordered Date First Or dered Date CRUTCHES 1 09/10/2022 documented in this encounter
--- OUTSIDE RECORDS SUMMARY | 2024-04-26 12:35 | XMS_ITS | Encounter Summary ---
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 Monthly or less 03/19/2024 Q2: How many drinks containi ng alcohol do you have on a typical day when you are drinking? 1 or 2 03/19/2024 Q3: How often do you have si x or more drinks on one occasion? Never 03/19/2024 PHQ-2 Answer Date Recorded PHQ-2 Total Score (If total score is 3 or more points, staff should administer the PHQ-9) 0 03/19/2024 Personal Safety Answer Date Recorded Have you ever been in or are you currently in a harmful physical or emotional relationship or is someone making you feel afraid or unsafe? 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
--- OUTSIDE RECORDS SUMMARY | 2024-04-26 12:35 | XMS_ITS | Clinical Summary ---
Author Organization [facility] Address [id number] [place] [id number] Care Team Providers Care Athletic Gear Custodian Name Role Phone Lu Campbell NP Primary Care Provider [phone] Allergies Active Allergy Reactions Criticality Noted Date Comments Erythromycin Anaphylaxis High 02/08/2021 Gabapentin Agitation High 03/19/2024 Latex Hives,Rash Medium 02/08/2021 Bandaids Oxycodone-Acetaminophen Itching Low 02/08/2021 Paroxetine Mental status changes Low 03/19/[address] (PROTONIX) 40 mg EC tabletIndications: acid reflux Take 1 tablet (40 mg total) by mouth every morning 07/26/19 23 Active acetaminophen (TYLENOL) 500 mg tablet Take 2 tablets (1,000 mg total) by mouth as needed for pain or headaches Active turmeric, bulk, 95 % powder Active pregabalin (LYRICA) 25 mg capsuleIndications :Medial epicondylitis of left elbow Take 1 capsule (25 mg total) by mouth 3 (three) times a day 90 capsule 1 03/19/20 24 Active levothyroxine (SYNTHROID) 88 mcg tabletIndications: Acquired hypothyroidism Take 1 tablet (88 mcg total) by mouth daily 30 tablet 1 04/01/20 24 Active albuterol HFA (PROVENTIL HFA,VENTOLIN HFA,PROAIR HFA) 90 mcg/actuation inhaler 2 puffs every 4 (four) hours as needed 04/05/20 24 Active ondansetron ODT (ZOFRAN-ODT) 4 mg disintegrating tablet Take 1 tablet (4 mg total) by mouth every 8 (eight) hours as needed for nausea or vomiting 20 tablet 04/23/19 25 Active meloxicam (MOBIC) 15 mg tablet Take 1 tablet (15 mg total) by mouth daily 03/04/20 24 025 Discontin ued(Thera py completed ) Hospital, Clinic, or Other Facility Administered Medication Ordered Dose Route Frequency Start Date End Date Status triamcinolone (KENALOG) 40 mg/mL injection 80 mgIndications: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 pain of left knee 80 mg OTHER Once 04/23/2024 04/23/2024 Ended lidocaine (XYLOCAINE) 20 mg/mL (2 %) injection 1 mLIndications:Admi nistration of Local Anesthesia 1 mL OTHER One-Time Injection 04/23/2024 04/23/2024 Ended triamcinolone (KENALOG) 40 mg/mL injection 80 mgIndications: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 pain of left knee 80 mg intra-artic One-Time Injection 04/23/2024 04/23/2024 Ended Active Problems Problem Noted Date Diagnosed Date Vitamin D deficiency 03/19/2024 Assessment & Plan (04/23/2024 10:50 AM MICROFILM EQUIPMENT INSPECTOR): Not at goal Encourage OTC supp Vit D 28 Assessment & Plan (03/19/2024 9:31 PM MICROFILM EQUIPMENT INSPECTOR): Unknown control Previously low Repeat level Chronic pain of left knee 03/19/2024 Assessment & Plan (04/23/2024 10:48 AM MICROFILM EQUIPMENT INSPECTOR): Not at goal Intraarticular injection completed 04/23/24 Plan for surgery on R knee Assessment & Plan (03/19/2024 9:35 PM MICROFILM EQUIPMENT INSPECTOR): Not at goal Check XR Suspect d/t offloading R knee Pt to call and make procedure appt after getting XR Chronic hip pain, bilateral 03/19/2024 Assessment & Plan (03/19/2024 9:35 PM MICROFILM EQUIPMENT INSPECTOR): Not at goal Check xr Bilateral edema of lower extremity 03/19/2024 Assessment & Plan (03/19/2024 9:35 PM MICROFILM EQUIPMENT INSPECTOR): Not at goal May be habitus related Check BNP and cardiac echo Hx pericarditis Class 2 severe obesity due t o excess calories with serious comorbidity and body mass index (BMI) of 36.0 to 36.9 in adult 03/19/2024 Assessment & Plan (03/19/2024 9:36 PM MICROFILM EQUIPMENT INSPECTOR): Not at goal Wt Readings from Last 3 Encounters: 03/19/24 105.4 kg (232 lb 6.4 oz) 09/10/22 99 kg (218 lb 3.2 oz) 07/30/22 99.4 kg (219 lb 1.6 oz) Try to cut back on calories. Most people should eat between 7815-5347 calories to lose weight. Decrease your carbohydrate intake to less than 100-150 grams per day if possible and increase protein to at least 100 grams per day help with hunger. Increase activity to 30 min 4-5 days a week and add strength training 2 times weekly. Discussed phentermine, bupropion, GLP1s, Topamax, naltrexone. Pt would prefer phentermine depending on lab results Hyperlipidemia 03/11/2024 Assessment & Plan (03/19/2024 9:32 PM MICROFILM EQUIPMENT INSPECTOR): Unknown control Check labs No current meds Hypothyroidism 03/11/2024 Assessment & Plan (04/23/2024 10:49 AM MICROFILM EQUIPMENT INSPECTOR): Not at goal Lab Results Component Value Date TSH 6.96 (H) 03/31/2024 Has not started meds yet. Advised will need labs checked after being on meds for 1 month to adjust meds Assessment & Plan (03/19/2024 9:32 PM MICROFILM EQUIPMENT INSPECTOR): Unknown control No current meds Check levels Arthralgia of right knee 03/03/2024 Medial epicondylitis of left elbow 2024 Assessment & Plan (03/19/2024 9:31 PM MICROFILM EQUIPMENT INSPECTOR): Not at goal Start on low dose Lyrica for hypersensitivity Discussed possible cross rxn with gabapentin. Stop if s/e. Discussed alternative meds such as Elavil, Cymbalta but dislikes idea of antideps Stricture of esophagus 2024 Anemia 08/14/2022 08/14/2022 Assessment & Plan (03/19/2024 9:30 PM MICROFILM EQUIPMENT INSPECTOR): Unknown control Check labs Given bruising issues, check PT/INR Already scheduled for EGD and c-scope Headache 08/14/2022 08/14/2022 Heartburn 08/14/2022 08/14/2022 Cubital tunnel syndrome on left 07/25/2022 Overview (07/25/2022): Added automatically from request for surgery [id number] Fear of flying 07/25/2022 08/14/2022 Gastroesophageal reflux disease 07/25/2022 08/14/2022 Assessment & Plan (03/19/2024 9:35 PM MICROFILM EQUIPMENT INSPECTOR): Not at goal Esophagitis noticeable with pills Protonix 40mg daily Scheduled for EGD with [facility] Plantar fasciitis of left foot 10/05/2021 0 08/14/2022 BRIDGET (obstructive sleep apnea) 05/17/2021 Resolved Problems Problem Noted Date Diagnosed Date Resolved Date Nausea 07/25/2022 08/14/2022 03/19/2024 Environmental and seasonal allergies 11/14/2021 03/19/2024 Pain in left foot 10/05/2021 08/14/2022 03/19/2024 Encounters Date Type Department Care Team Description 04/23/2024 10:00 AM MICROFILM EQUIPMENT INSPECTOR Office Visit [facility] Medical [facility] Family Medicine at [address] [place] [address] Lu Campbell NP Chronic pain of left knee (Primary Dx); Bilateral hearing loss due to cerumen impaction; Hypothyroidism, unspecified type; Vitamin D deficiency 04/01/2024 8:50 AM MICROFILM EQUIPMENT INSPECTOR - 04/01/2024 11:59 PM MICROFILM EQUIPMENT INSPECTOR Hospital Encounter [facility] Non-invasive Cardiac Diagnostic Testing [address] [place] [address] Bilateral edema of lower extremity Discharge Disposition: Discharge to home or self care 04/01/2024 Orders Only [facility] Family Medicine at [address] [place] [address] Lu Campbell NP Acquired hypothyroidism (Primary Dx) 03/31/2024 1:33 PM MICROFILM EQUIPMENT INSPECTOR - 03/31/2024 11:59 PM MICROFILM EQUIPMENT INSPECTOR Hospital Encounter [address] [address] Bilateral edema of lower extremity; Anemia, unspecified type; Vitamin D deficiency; Class 2 severe obesity due to excess calories with serious comorbidity and body mass index (BMI) of 36.0 to 36.9 in adult (HCC); Encounter for hepatitis C screening test for low risk patient; Hypothyroidism, unspecified type; Hyperlipidemia, unspecified hyperlipidemia type Discharge Disposition: Discharge to home or self care 03/31/2024 9:30 AM MICROFILM EQUIPMENT INSPECTOR Ancillary Procedure [facility] Medical Group Imaging at [address] [address] Chronic pain of left knee 03/31/2024 9:15 AM MICROFILM EQUIPMENT INSPECTOR Ancillary Procedure [facility] Medical [facility] Imaging at [address] [address] Chronic hip pain, bilateral 03/31/2024 9:00 AM MICROFILM EQUIPMENT INSPECTOR Lab [facility] Outpatient Lab at [address] [address] Anemia (Primary Dx); Hyperlipidemia 03/19/2024 12:30 PM MICROFILM EQUIPMENT INSPECTOR Office Visit [facility] Family Medicine at [address] [place] [address] Lu Campbell NP Anemia, unspecified type (Primary Dx); Encounter for hepatitis C screening test for low risk patient; Vitamin D deficiency; Chronic pain of left knee; Chronic hip pain, bilateral; Bilateral edema of lower extremity; Class 2 severe obesity due to excess calories with serious comorbidity and body mass index (BMI) of 36.0 to 36.9 in adult (HCC); Medial epicondylitis of left elbow; Hypothyroidism, unspecified type; Hyperlipidemia, unspecified hyperlipidemia type; Gastroesophageal reflux disease with esophagitis without hemorrhage 03/16/2024 Orders Only [facility] Health Information Management [address] [place] [address] Lu Campbell NP 03/11/2024 9:10 AM MICROFILM EQUIPMENT INSPECTOR Office Visit [facility] Orthopaedic Surgery [address] [facility] [address] [facility] [address] [place] [address] [place] [address] Dm Foreman MD Left elbow pain (Primary Dx); Medial epicondylitis of left elbow from Last 3 Months Immunizations Name Administration Dates Next Due Influenza, Quadrivalent, Myra l Culture-based MDCK, Preservative Free, Antibiotic Free, Intramuscular 02/19/2022 Influenza, Quadrivalent, Spl it, Intramuscular 02/24/2020 Influenza, Quadrivalent, Spl it, Preservative Free, Intramuscular 02/08/2021,02/24/2020 Influenza, Unspecified 03/19/2024(Deferr ed: Patient decision),01/13/2023(Deferred: Patient Refused) Tdap 02/08/2021 Surgical History Surgery Date Site/Laterality Comments HAND SURGERY 04/15/2003 - 04/14/2004 Left FOOT SURGERY 03/15/2022 - 04/14/2022 Left ESOPHAGOGASTRODUODENOSCOPY 04/15/2009 - 04/14/2010 dilation ELBOW SURGERY Left Medical History Medical History Date Comments Anemia Arthritis Gastric reflux Kidney stone Migraines Neuromuscular disorder (HCC) Obesity Pneumonia Sleep apnea Doesn't wear CPA P machine Family History Medical History Relation Name Comments Arthritis Father Hypertension Father Arthritis Mother Anesthesia problems Neg Hx Relation Name Status Comments Father Alive Mother Social History Tobacco Use Types Packs/Day Years Used Date Smoking Tobacco: Never Passive Smoke Exposure: Never Smokeless Tobacco: Never AUDIT-C Answer Date Recorded Q1: How often do you have a drink containing alc ohol? Monthly or less 04/23/2024 Q2: How many drinks containi ng alcohol do you have on a typical day when you are drinking? 1 or 2 04/23/2024 Q3: How often do you have si x or more drinks on one occasion? Never 04/23/2024 PHQ-2 Answer Date Recorded PHQ-2 Total Score [...] on file Legal Sex Female 1:55 PM MICROFILM EQUIPMENT INSPECTOR Gender Identity Not on file Sexual Orientation Not on file Obstetrics History Last Filed Vital Signs Vital Sign Reading Time Taken Comments Blood Pressure 107/71 04/23/2024 9:54 AM MICROFILM EQUIPMENT INSPECTOR Pulse 99 04/23/2024 9:54 AM MICROFILM EQUIPMENT INSPECTOR Temperature 36.6 ??C (97.8 ??F) 04/23/2024 9:54 AM CS T Respiratory Rate 18 04/23/2024 9:54 AM MICROFILM EQUIPMENT INSPECTOR Oxygen Saturation 98% 04/23/2024 9:54 AM MICROFILM EQUIPMENT INSPECTOR Inhaled Oxygen Concentration - - Weight 106.3 kg (234 lb 6.4 oz) 025 9:54 AM MICROFILM EQUIPMENT INSPECTOR Height 170.2 cm (5' 7.01 ) 04/23/2024 9:54 AM CS T Body Mass Index 36.7 04/23/2024 9:54 AM MICROFILM EQUIPMENT INSPECTOR Plan of Treatment Health Maintenance Due Date Last Done Comments Cervical Cancer Screening 1970 Colon Cancer Screening-Colonoscopy 1970 Hepatitis B Screening 1987 Regular Well Visit/Exam 18-64 1987 Zoster Vaccine (1 of 2) 2019 Influenza Vaccine (#1) 2024 , 02/08/2021, 02/24/2020, Additional history exists Postponed from 12/15/2023 (Patient declined, but will receive in the future) Breast Cancer Screening-Mammogram 03/16/2025 03/16/2024 Depression Screening 03/19/2025 03/19/2024 DTaP/Tdap/Td Vaccine (2 - Td or Tdap) 02/08/2031 02/08/2021 Covid-19 Vaccine Completed 02/23/2024, , 02/25/2022, Additional history exists Hepatitis C Screening Completed 03/31/2024 Pneumococcal vaccine <65 Aged Out No longer eligible based on patient's age to complete this topic Procedures Procedure Name Priority Date/Time Associated Diagnosis Comments TX ARTHROCENTESIS ASPIR&/INJ MAJOR JT/BURSA W/O US Routine 04/23/2024 10:00 AM MICROFILM EQUIPMENT INSPECTOR Chronic pain of left knee TX REMOVAL IMPACTED CERUMEN INSTRUMENTATION UNILAT Routine 04/23/2024 10:00 AM MICROFILM EQUIPMENT INSPECTOR Bilateral hearing loss due to cerumen impaction TRANSTHORACIC ECHO (TTE) COMPLETE W DOPPLER/CF WO CONTRAST Routine 04/01/2024 9:30 AM MICROFILM EQUIPMENT INSPECTOR Bilateral edema of lower extremity XR HIPS BILATERAL 3 OR 4 VW Schedule Routine, Read Routine (OP Routine) 03/31/2024 9:15 AM MICROFILM EQUIPMENT INSPECTOR Chronic hip pain, bilateral XR KNEE LEFT 4 OR MORE VIEWS Schedule Routine, Read Routine (OP Routine) 03/31/2024 9:15 AM MICROFILM EQUIPMENT INSPECTOR Chronic pain of left knee EGFR Routine 03/31/2024 8:00 AM MICROFILM EQUIPMENT INSPECTOR Bilateral edema of lower extremity COMPREHENSIVE METABOLIC PANEL Routine 03/31/2024 8:00 AM MICROFILM EQUIPMENT INSPECTOR Bilateral edema of lower extremity LIPID PANEL Routine 03/31/2024 8:00 AM MICROFILM EQUIPMENT INSPECTOR Hyperlipidemia, unspecified hyperlipidemia type TSH Routine 03/31/2024 8:00 AM MICROFILM EQUIPMENT INSPECTOR Bilateral edema of lower extremity Hypothyroidism, unspecified type HEMOGLOBIN A1C Routine 03/31/2024 8:00 AM MICROFILM EQUIPMENT INSPECTOR Class 2 severe obesity due to excess calories with serious comorbidity and body mass index (BMI) of 36.0 to 36.9 in adult (HCC) PROTIME-INR Routine 03/31/2024 8:00 AM MICROFILM EQUIPMENT INSPECTOR Anemia, unspecified type VITAMIN D 25 HYDROXY Routine 03/31/2024 8:00 AM MICROFILM EQUIPMENT INSPECTOR Vitamin D deficiency FERRITIN Routine 03/31/2024 8:00 AM MICROFILM EQUIPMENT INSPECTOR Anemia, unspecified type FOLATE Routine 03/31/2024 8:00 AM MICROFILM EQUIPMENT INSPECTOR Anemia, unspecified type IRON PROFILE W/ IBC Routine 03/31/2024 8 :00 AM MICROFILM EQUIPMENT INSPECTOR Anemia, unspecified type VITAMIN B12 Routine 03/31/2024 8:00 AM MICROFILM EQUIPMENT INSPECTOR Anemia, unspecified type CBC WITHOUT DIFFERENTIAL Routine 03/31/2024 8:00 AM MICROFILM EQUIPMENT INSPECTOR Anemia, unspecified type PRO B-TYPE NATRIURETIC PEPTIDE Routine 03/31/2024 8:00 AM MICROFILM EQUIPMENT INSPECTOR Bilateral edema of lower extremity HEPATITIS C ANTIBODY Routine 03/31/2024 8:00 AM MICROFILM EQUIPMENT INSPECTOR Encounter for hepatitis C screening test for low risk patient SCAN - RADIOLOGY/IMAGING 03/16/2024 from Last 3 Months Results * TX ARTHROCENTESIS ASPIR&/INJ MAJOR JT/BURSA W/O US (04/23/2024 10:00 AM MICROFILM EQUIPMENT INSPECTOR) Narrative Lu Campbell NP - 04/23/2024 10:00 AM MICROFILM EQUIPMENT INSPECTOR Lu Campbell NP ? 04/23/2024 10:51 AM Large Joint Injection and/or Arthrocentesis: L knee Performed by: Lu Campbell NP Authorized by: Lu Campbell NP ?? Large Joint Injection/Aspiration: ??Consent Given by: ??Patient ??Verbal consent obtained: Yes ?? Supporting Documentation: ??Indications: ??Pain Procedure Details: ??Location: ??Knee ??Site: ??L knee ??Needle Size: ??25 G ??Ultrasound guided: No ?Fluroscopic guidance: No ?Medications: ??1 mL lidocaine 20 mg/mL (2 %); 80 mg triamcinolone 40 mg/mL ??Aspirate amount (mL): ??0 ??Patient tolerance: ??Patient tolerated the procedure well with no immediate complications us Lu Campbell NP IN CLINIC/BEDSIDE ORDERABLES Final Result * TX REMOVAL IMPACTED CERUMEN INSTRUMENTATION UNILAT (04/23/2024 10:00 AM MICROFILM EQUIPMENT INSPECTOR) Narrative Lu Campbell NP - 04/23/2024 10:00 AM MICROFILM EQUIPMENT INSPECTOR Lu Campbell NP ? 04/23/2024 10:51 AM Ear Cerumen Removal Performed by: Lu Campbell NP Authorized by: Lu Campbell NP ?? Consent Given by: ??Patient Verbal consent obtained: Yes ?? Location: ??Bilateral L ear cerumen impacted?: Yes ?? L ear method of removal: ??Instrumentation and irrigation L ear instrumentation: ??Curette L ear magnification: ??Otoscope R ear cerumen impacted?: Yes ?? R ear method of removal: ??Instrumentation and irrigation R ear instrumentation: ??Curette R ear magnification: ??Otoscope Inspection: ??TM intact and cerumen remains Hearing quality: ??Improved Patient tolerance: ??Patient tolerated the procedure well with no immediate complications Encourage to use Debrox drops to soften remaining cerumen us Lu Campbell NP IN CLINIC/BEDSIDE ORDERABLES Final Result * TRANSTHORACIC ECHO (TTE) COMPLETE W DOPPLER/CF WO CONTRAST (04/01/2024 9:30 AM MICROFILM EQUIPMENT INSPECTOR) Anatomical Region Laterality Modality Ultrasound 04/01/2024 9:04 AM MICROFILM EQUIPMENT INSPECTOR Narrative 04/01/2024 11:39 AM MICROFILM [place] [address] Echocardiogram Report Patient Name: NOLA KING L : 1970 Study Date: 04/01/2024 9:04:17 AM Gender: F Tech: ADM Ref Provider: LU CAMPBELL Height(Cm): 170 BSA: 2.23 Weight(Kg): 105 ?Heart Rate: 94 BP: 129/80 ? Quality: Good Order Provider: LU CAMPBELL ?? PROCEDURES: Echocardiographic Report: Transthoracic echocardiogram with complete 2D, M-Mode, and color Doppler examination. ?? INDICATIONS: R60.0 Localized edema. ?? MEASUREMENTS: 2D/MM ?Value ? Range ?Doppler ?Value ? Range EF Teich 2D ?60.0 percent ?[ 54.0 - 74.0 ] ?RUCHI Vmax ? 3.09 cm2 EF Mod BP ?55 % ?[ 54 - 74 ] ?AV Mean PG ? 6 mmHg LVIDd 2D ? 4.55 cm ? [ 3.80 - 5.20 ] ?AV Peak Niraj ?1.17 m/s ?[ 1.00 - 1.70 ] LVIDs 2D ? 3.39 cm ? [ 2.20 - 3.50 ] ?AV VTI ? 25.20 cm LVPWd 2D ? 0.73 cm ? [ 0.60 - 0.90 ] ?LVOT Diam ?2.23 cm IVSd 2D ?1.05 cm ? [ 0.60 - 0.90 ] ?LVOT Peak Niraj ?0.93 m/s ?[ 0.70 - 1.10 ] LA Dimension 2D ?3.53 cm ? [ 2.70 - 3.80 ] ?LVOT VTI ? 18.46 cm AoR Diam 2D ?2.77 cm ? [ 2.70 - 3.70 ] ?SI LVOT ?33.6 ml/m2 ?[ >= 35.0 ] MV E Peak Niraj ?0.60 m/s ?[ 0.60 - 1.30 ] MV A Peak Niraj ?0.93 m/s ?[ 1.00 - 1.20 ] MV Mean PG ? 2 mmHg MV Decel Time ?216 msec ?[ 104 - 258 ] PV Peak Niraj ?0.92 m/s ?[ 0.40 - 0.80 ] E` ? 0.11 m/s E/E` ? 5.48 2D/MM ?Value ? Range ?Doppler ?Value ? Range - ?? FINDINGS: Atrial Septum: Normal atrial septum. Left Ventricle: Normal left ventricular size. Normal left ventricular wall thickness. Impaired diastolic relaxation Grade I. Ejection fraction is measured at 55 %. Left Atrium: The left atrium is normal in size. Right Ventricle: Normal right ventricular size. Normal right ventricular systolic function. Right Atrium: The right atrium is normal in size. Aortic Valve: Normal structure of the aortic valve. No evidence of hemodynamically significant aortic stenosis by Doppler. No aortic regurgitation. Mitral Valve: Normal structure of the mitral valve. Trivial regurgitation of the mitral valve. Pulmonic Valve: Normal structure of the pulmonic valve. Trivial regurgitation in the pulmonic valve. Tricuspid Valve: Normal structure of the tricuspid valve. No evidence of tricuspid regurgitation. Pericardium: Normal pericardium with no significant pericardial effusion. Aorta: Normal aortic root. IVC: Normal size and normal respiratory collapse consistent with normal right atrial pressure (<5 mmHg). ?? CONCLUSIONS: Normal left ventricular size. Normal left ventricular wall thickness. Impaired diastolic relaxation Grade I. Ejection fraction is measured at 55 %. Normal right ventricular size. Normal right ventricular systolic function. Normal structure of the mitral valve. Trivial regurgitation of the mitral valve. Electronically Signed By: Elizabeth Manriquez DO, RANDI, MARCO ANTONIO, NANI 04/01/2024 11:39:44 AM MICROFILM EQUIPMENT INSPECTOR Procedure Note Elizabeth Manriquez DO - 04/01/2024 [place] [address] Echocardiogram Report Patient Name: NOLA KING L : 1970 Study Date: 04/01/2024 9:04:17 AM Gender: F Tech: ADM Ref Provider: LU CAMPBELL Height(Cm): 170 BSA: 2.23 Weight(Kg): 105 Heart Rate: 94 BP: 129/80 Quality: Good Order Provider: LU CAMPBELL PROCEDURES: Echocardiographic Report: Transthoracic echocardiogram with complete 2D, M-Mode, and color Dopplerexamination. INDICATIONS: R60.0 Localized edema. MEASUREMENTS: 2D/MM Value Range DopplerValue Range EF Teich 2D 60.0 percent [ 54.0 - 74.0 ] RUCHI Vmax3.09 cm2 EF Mod BP 55 % [ 54 - 74 ] AV Mean PG 6mmHg LVIDd 2D 4.55 cm [ 3.80 - 5.20 ] AV Peak Vel1.17 m/s [ 1.00 - 1.70 ] LVIDs 2D 3.39 cm [ 2.20 - 3.50 ] AV VTI25.20 cm LVPWd 2D 0.73 cm [ 0.60 - 0.90 ] LVOT Diam2.23 cm IVSd 2D 1.05 cm [ 0.60 - 0.90 ] LVOT Peak Vel0.93 m/s [ 0.70 - 1.10 ] LA Dimension 2D 3.53 cm [ 2.70 - 3.80 ] LVOT VTI18.46 cm AoR Diam 2D 2.77 cm [ 2.70 - 3.70 ] SI LVOT33.6 ml/m2 [ >= 35.0 ] MV E Peak Niraj 0.60 m/s [ 0.60 - 1.30 ] MV A Peak Niraj 0.93 m/s [ 1.00 - 1.20 ] MV Mean PG 2 mmHg MV Decel Time 216 msec [ 104 - 258 ] PV Peak Niraj 0.92 m/s [ 0.40 - 0.80 ] E` 0.11 m/s E/E` 5.48 2D/MM Value Range DopplerValue Range - FINDINGS: Atrial Septum: Normal atrial septum. Left Ventricle: Normal left ventricular size. Normal left ventricular wall thickness.Impaired diastolic relaxation Grade I. Ejection fraction is measured at 55 %. Left Atrium: The left atrium is normal in size. Right Ventricle: Normal right ventricular size. Normal right ventricular systolicfunction. Right Atrium: The right atrium is normal in size. Aortic Valve: Normal structure of the aortic valve. No evidence of hemodynamicallysignificant aortic stenosis by Doppler. No aortic regurgitation. Mitral Valve: Normal structure of the mitral valve. Trivial regurgitation of the mitralvalve. Pulmonic Valve: Normal structure of the pulmonic valve. Trivial regurgitation in thepulmonic valve. Tricuspid Valve: Normal structure of the tricuspid valve. No evidence of tricuspidregurgitation. Pericardium: Normal pericardium with no significant pericardial effusion. Aorta: Normal aortic root. IVC: Normal size and normal respiratory collapse consistent with normal rightatrial pressure (<5 mmHg). CONCLUSIONS: Normal left ventricular size. Normal left ventricular wall thickness.Impaired diastolic relaxation Grade I. Ejection fraction is measured at 55 %. Normal right ventricular size. Normal right ventricular systolicfunction. Normal structure of the mitral valve. Trivial regurgitation of the mitralvalve. Electronically Signed By: Elizabeth Manriquez DO, RANDI, NANI BERNARD 04/01/2024 11:39:44 AM MICROFILM EQUIPMENT INSPECTOR us Lu Campbell BORDER MEASURER CV ECHO PROCEDURES Final Resu lt * XR Hips Bilateral 3 or 4 Views (03/31/2024 9:15 AM MICROFILM EQUIPMENT INSPECTOR) Anatomical Region Laterality Modality Lower Extremities, Hip, Pelvis Bilateral D igital Radiography 03/31/2024 11:5 1 PM MICROFILM EQUIPMENT INSPECTOR Addenda Addendum by Rupinder Stuart MD on 04/10/2024 12:04 PM MICROFILM EQUIPMENT INSPECTOR ADDENDUM: This addendum report supersedes the original report dated 03/31/2024 The technique of the report should read as the following: Four radiographic views of the left knee AP view of the pelvis, oblique view of the left hip and oblique view of the right hip The findings of the report should read as the following : Pelvis and bilateral hips: The alignment is normal. ??There is no fracture. ??The hip, symphysis pubis and sacroiliac joints are normal. ??No aggressive bone lesions or erosions. ?? Lower lumbar spine degenerative disc disease. Coarse calcification measuring approximately 12 mm projecting over the mid pelvis can be seen with uterine leiomyoma. END OF ADDENDUM REPORT THIS IS AN ELECTRONICALLY VERIFIED FINAL REPORT 04/10/2024 12:04 PM ??Addendum Electronically signed by Rupinder Stuart M.D. AT D: ??04/10/2024 12:04 PM T: Report ID: [id number] Reading Location: ??[id number] Narrative 03/31/2024 11:59 PM MICROFILM EQUIPMENT INSPECTOR EXAM DESCRIPTION: XR KNEE LEFT 4 OR MORE VIEWS; XR HIPS BILATERAL 3 OR 4 VW REASON FOR STUDY: L knee pain chronic ?? Bilateral hip pain laterally after falling six weeks. No prior surgery to the hips. Left chronic knee pain, laterally and anteriorly. No recent injury to the knee. No prior surgery to the left knee. ?? ; bal hip pain chronic ?? Bilateral hip pain laterally after falling six weeks. No prior surgery to the hips. Left chronic knee pain, laterally and anteriorly. No recent injury to the knee. No prior surgery to the left knee. ? TECHNIQUE: 4 ??radiographic view(s) of the ??left knee . AP view of the pelvis and two views of right hip COMPARISON: None available FINDINGS: Left knee: The alignment is normal. ??There is no fracture. ??Moderate patellofemoral and mild medial compartment left knee osteoarthritis. ??No aggressive bone lesions. Mild osteopenia. ??No knee effusion. Pelvis and left hip: The alignment is normal. ??There is no fracture. ??The hip, symphysis pubis and sacroiliac joints are normal. ??No aggressive bone lesions or erosions. ??Lower lumbar spine degenerative disc disease. Coarse calcification measuring approximately 12 mm projecting over the mid pelvis can be seen with uterine leiomyoma. IMPRESSION: 1. ??Moderate patellofemoral and ??mild medial compartment left knee osteoarthritis. 2. ??Normal hip joint spaces. ??Lower lumbar spine degenerative disc disease. THIS IS AN ELECTRONICALLY VERIFIED FINAL REPORT 03/31/2024 11:59 PM - Electronically signed by ??Rupinder Stuart M.D. AT D: ??03/31/2024 11:59 PM T: Report ID: [id number] Reading Location: ??[id number] Procedure Note Rupinder Stuart MD - 04/01/2024 EXAM DESCRIPTION: XR KNEE LEFT 4 OR MORE VIEWS; XR HIPS BILATERAL 3 OR 4VW REASON FOR STUDY: L knee pain chronic Bilateral hip pain laterally after falling six weeks. No prior surgery tothe hips. Left chronic knee pain, laterally and anteriorly. No recent injuryto the knee. No prior surgery to the left knee. ; bal hip pain chronic Bilateral hip pain laterally after falling six weeks. No prior surgery tothe hips. Left chronic knee pain, laterally and anteriorly. No recent injuryto the knee. No prior surgery to the left knee. TECHNIQUE: 4 radiographic view(s) of the left knee . AP view of the pelvis and two views of right hip COMPARISON: None available FINDINGS: Left knee: The alignment is normal. There is no fracture. Moderate patellofemoraland mild medial compartment left knee osteoarthritis. No aggressive bonelesions. Mild osteopenia. No knee effusion. Pelvis and left hip: The alignment is normal. There is no fracture. The hip, symphysis pubisand sacroiliac joints are normal. No aggressive bone lesions or erosions.Lower lumbar spine degenerative disc disease. Coarse calcification measuring approximately 12 mm projecting over the mid pelvis can be seen with uterine leiomyoma. IMPRESSION: 1. Moderate patellofemoral and mild medial compartment leftknee osteoarthritis. 2. Normal hip joint spaces. Lower lumbar spine degenerative discdisease. THIS IS AN ELECTRONICALLY VERIFIED FINAL REPORT 03/31/2024 11:59 PM - Electronically signed by Rupinder Stuart M.D. AT T: Report ID: [id number] Reading Location: [place] [id number] us Lu Campbell BORDER MEASURER IMG XR PROCEDURES Edited Resu lt - Final * XR Knee Left 4+ Vw (03/31/2024 9:15 AM MICROFILM EQUIPMENT INSPECTOR) Anatomical Region Laterality Modality Lower Extremities, Knee Left Digital Radiography 03/31/2024 11:5 1 PM MICROFILM EQUIPMENT INSPECTOR Addenda Addendum by Rupinder Stuart MD on 04/10/2024 12:04 PM MICROFILM EQUIPMENT INSPECTOR ADDENDUM: This addendum report supersedes the original report dated 03/31/2024 The technique of the report should read as the following: Four radiographic views of the left knee AP view of the pelvis, oblique view of the left hip and oblique view of the right hip The findings of the report should read as the following : Pelvis and bilateral hips: The alignment is normal. ??There is no fracture. ??The hip, symphysis pubis and sacroiliac joints are normal. ??No aggressive bone lesions or erosions. ?? Lower lumbar spine degenerative disc disease. Coarse calcification measuring approximately 12 mm projecting over the mid pelvis can be seen with uterine leiomyoma. END OF ADDENDUM REPORT THIS IS AN ELECTRONICALLY VERIFIED FINAL REPORT 04/10/2024 12:04 PM ??Addendum Electronically signed by Rupinder Stuart M.D. AT D: ??04/10/2024 12:04 PM T: Report ID: [id number] Reading Location: ??[id number] Narrative 03/31/2024 11:59 PM MICROFILM EQUIPMENT INSPECTOR EXAM DESCRIPTION: XR KNEE LEFT 4 OR MORE VIEWS; XR HIPS BILATERAL 3 OR 4 VW REASON FOR STUDY: L knee pain chronic ?? Bilateral hip pain laterally after falling six weeks. No prior surgery to the hips. Left chronic knee pain, laterally and anteriorly. No recent injury to the knee. No prior surgery to the left knee. ?? ; bal hip pain chronic ?? Bilateral hip pain laterally after falling six weeks. No prior surgery to the hips. Left chronic knee pain, laterally and anteriorly. No recent injury to the knee. No prior surgery to the left knee. ? TECHNIQUE: 4 ??radiographic view(s) of the ??left knee . AP view of the pelvis and two views of right hip COMPARISON: None available FINDINGS: Left knee: The alignment is normal. ??There is no fracture. ??Moderate patellofemoral and mild medial compartment left knee osteoarthritis. ??No aggressive bone lesions. Mild osteopenia. ??No knee effusion. Pelvis and left hip: The alignment is normal. ??There is no fracture. ??The hip, symphysis pubis and sacroiliac joints are normal. ??No aggressive bone lesions or erosions. ??Lower lumbar spine degenerative disc disease. Coarse calcification measuring approximately 12 mm projecting over the mid pelvis can be seen with uterine leiomyoma. IMPRESSION: 1. ??Moderate patellofemoral and ??mild medial compartment left knee osteoarthritis. 2. ??Normal hip joint spaces. ??Lower lumbar spine degenerative disc disease. THIS IS AN ELECTRONICALLY VERIFIED FINAL REPORT 03/31/2024 11:59 PM - Electronically signed by ??Rupinder Stuart M.D. AT D: ??03/31/2024 11:59 PM T: Report ID: [id number] Reading Location: ??[id number] Procedure Note Rupinder Stuart MD - 04/01/2024 EXAM DESCRIPTION: XR KNEE LEFT 4 OR MORE VIEWS; XR HIPS BILATERAL 3 OR 4VW REASON FOR STUDY: L knee pain chronic Bilateral hip pain laterally after falling six weeks. No prior surgery tothe hips. Left chronic knee pain, laterally and anteriorly. No recent injuryto the knee. No prior surgery to the left knee. ; bal hip pain chronic Bilateral hip pain laterally after falling six weeks. No prior surgery tothe hips. Left chronic knee pain, laterally and anteriorly. No recent injuryto the knee. No prior surgery to the left knee. TECHNIQUE: 4 radiographic view(s) of the left knee . AP view of the pelvis and two views of right hip COMPARISON: None available FINDINGS: Left knee: The alignment is normal. There is no fracture. Moderate patellofemoraland mild medial compartment left knee osteoarthritis. No aggressive bonelesions. Mild osteopenia. No knee effusion. Pelvis and left hip: The alignment is normal. There is no fracture. The hip, symphysis pubisand sacroiliac joints are normal. No aggressive bone lesions or erosions.Lower lumbar spine degenerative disc disease. Coarse calcification measuring approximately 12 mm projecting over the mid pelvis can be seen with uterine leiomyoma. IMPRESSION: 1. Moderate patellofemoral and mild medial compartment leftknee osteoarthritis. 2. Normal hip joint spaces. Lower lumbar spine degenerative discdisease. THIS IS AN ELECTRONICALLY VERIFIED FINAL REPORT 03/31/2024 11:59 PM - Electronically signed by Rupinder Stuart M.D. AT T: Report ID: [id number] Reading Location: [place] [id number] us Lu Campbell BORDER MEASURER IMG XR PROCEDURES Edited Resu lt - Final * eGFR (03/31/2024 8:00 AM MICROFILM EQUIPMENT INSPECTOR) eGFR 86 >=60 mL/min/1. 73 m2 Comment: Interpretive Data Reference Interval Normal ?>/= 90 mL/min/1.73m2 Mildly decreased* ? 60 - 89 mL/min/1.73m2 Mildly to moderately decreased ?45 - 59 mL/min/1.73m2 Moderately to severely decreased ??30 - 44 mL/min/1.73m2 Severely decreased ?15 - 29 mL/min/1.73m2 Kidney Failure ?< 15 ??mL/min/1.73m2 *Relative to young adult level Estimated glomerular filtration rate is determined by the 2020 CKD-EPI equation recommended by the National Kidney Foundation (A Unifying Approach to GFR Estimation: Recommendations of the NKF-ASK Task Force on Reassessing the Inclusion of Race in Diagnosing Kidney Disease, JASN 2020). The CKD-EPI equation should not be used for patients with unstable renal function and has not been validated in children and those over 70. Current interpretive data was last reviewed 2021. Blood 03/31/2024 8:00 AM MICROFILM EQUIPMENT INSPECTOR 03/31/2024 2:09 PM MICROFILM EQUIPMENT INSPECTOR us Lu Campbell BORDER MEASURER LAB BLOOD ORDERABLES Final Re sult Performing Organization Address City/State/ZIP Co ne Phone Number SHREYA [id number] [place] [address] * Pro B-type natriuretic peptide (03/31/2024 8:00 AM MICROFILM EQUIPMENT INSPECTOR) NT-proBNP <36 <=300 pg/mL Comment: Interpretive Comments: A. Dyspnea in Acute Care Setting All Ages: ?< 300 pg/ml, acute heart failure unlikely. < 50 yrs: ?300 - 450 pg/ml, further investigation warranted. ? > 450 pg/ml, acute heart failure likely. 50 - 74 yrs: ? 300 - 900 pg/ml, further investigation warranted. ? > 900 pg/ml, acute heart failure likely . > or = 75 yrs: ? 450 - 1800 pg/ml, further investigation warranted. ? > 1800 pg/ml, acute heart failure likely. B. Non-acute Setting < 75 yrs ? < 125 pg/ml, rules out heart failure. ? > or = 125 pg/ml, further investigation warranted. > or = 75 yrs ?< 450 pg/ml, rules out heart failure. ? > or = 450 pg/ml, further investigation warranted. - Knowledge of each individual patient's NT-proBNP range may be more useful than using similar cut-points for every patient. Please note that marked elevations in NT-proBNP levels may be observed in state other than Left Ventricular Congestive Failure, including: acute coronary syndromes, right heart strain/failure (including pulmonary embolism and cor pulmonale), critical illness, renal failure, as well as advanced age. - References: 1. Maulik LUDWIG et.al. Eur Heart J. 2006:27:330-337. 2. Carmella RW, Nohemi AM. J. AM Hector Cardiol: Cardiovasc Imag. 2009;2: 216- 225. Interpretive Data Last Revised Date: 2017. Blood 03/31/2024 8:00 AM MICROFILM EQUIPMENT INSPECTOR 03/31/2024 1:56 PM MICROFILM EQUIPMENT INSPECTOR us Lu Campbell BORDER MEASURER LAB BLOOD ORDERABLES Final Re sult [facility] [id number] [place] [address] * Iron profile w/ IBC (03/31/2024 8:00 AM MICROFILM EQUIPMENT INSPECTOR) Iron 83 35 - 145 mcg/dl TIBC 270 250 - 400 mcg/dL SHREYA RANGEL Transferrin saturation 31 20 - 50 % SHREYA RANGEL Blood 03/31/2024 8:00 AM MICROFILM EQUIPMENT INSPECTOR 03/31/2024 1:56 PM MICROFILM EQUIPMENT INSPECTOR Lu Campbell NP LAB BLOOD ORDERABLES Final Re sult Performing Organization Address [facility] de Phone Number SHREYA RANGEL [address] [place] [place] [address] * Hepatitis C antibody Blood (03/31/2024 8:00 AM MICROFILM EQUIPMENT INSPECTOR) Pathologist [facility] Hep C Ab Nonreactive Nonreactive Comment: Interpretive Data Nonreactive: Antibodies to HCV not detected. Does NOT exclude the possibility of recent exposure to HCV. Equivocal: Equivocal for HCV antibodies. Supplemental molecular testing will be automatically performed to determine infection status in accordance with current CDC screening recommendations. ?? Reactive: Positive for HCV antibodies. ??This may represent current or past HCV infection. Supplemental molecular testing will be automatically performed to determine ??current infection status in accordance with current CDC screening recommendations. Interpretive data was last revised on 2019. Blood 03/31/2024 8:00 AM MICROFILM EQUIPMENT INSPECTOR 03/31/2024 1:56 PM MICROFILM EQUIPMENT INSPECTOR Lu Campbell NP LAB MICROBIOLOGY - GENERAL OR DERABLES Final Result Performing Organization Address [facility] de Phone Number SHREYA RANGEL [address] [place] [address] * (ABNORMAL) Vitamin D 25 hydroxy (03/31/2024 8:00 AM MICROFILM EQUIPMENT INSPECTOR) [facility] Vitamin D 25-OH 28(L) 30 - 80 ng/mL Blood 03/31/2024 8:00 AM MICROFILM EQUIPMENT INSPECTOR 03/31/2024 1:56 PM MICROFILM EQUIPMENT INSPECTOR Lu Campbell NP LAB BLOOD ORDERABLES Final Re sult Performing Organization Address [facility] de Phone Number SHREYA RANGEL [address] [facility] [place] [address] * Protime-INR (03/31/2024 8:00 AM MICROFILM EQUIPMENT INSPECTOR) [facility] PT 11.8 9.7 - 13.0 sec INR 1.09 0.90 - 1.20 [facility] Comment: Interpretive data Oral anticoagulant therapeutic ranges: Venous thromboembolism prophylaxis or treatment: 2.0-3.0 CARDIOLOGY Standard range: 2.0-3.0 High-intensity range: 2.5-3.5 Refer to indication-specific guidelines for appropriate target ranges for prosthetic heart valve replacement. Current interpretive data was last revised on 2019. Blood 03/31/2024 8:00 AM MICROFILM EQUIPMENT INSPECTOR 03/31/2024 1:56 PM MICROFILM EQUIPMENT INSPECTOR us Lu Campbell NP LAB BLOOD ORDERABLES Final Re sult Performing Organization Address [facility] Co de Phone Number [facility] [address] [place] [address] * (ABNORMAL) CBC without differential (03/31/2024 8:00 AM MICROFILM EQUIPMENT INSPECTOR) WBC 6.5 3.8 - 9.9 K/cumm Hgb 13.2 11.9 - 15.5 g/dL [facility] Hct 42.8 35.6 - 45.5 % [facility] Plt 232 150 - 400 K/cumm [facility] MPV 13.0(H) 9.1 - 12.3 fL [facility] RBC 4.86 3.90 - 5.20 M/cumm [facility] MCV 88.1 81.3 - 96.4 fL [facility] MCH 27.2 27.1 - 33.3 pg [facility] MCHC 30.8(L) 32.3 - 35.7 g/dL [facility] RDW CV 13.4 11.1 - 14.9 % [facility] RDW SD 43.4 35.7 - 48.1 fL [facility] NRBC abs 0.00 0.00 - 0.01 K/cumm [facility] Blood 03/31/2024 8:00 AM MICROFILM EQUIPMENT INSPECTOR 03/31/2024 1:56 PM MICROFILM EQUIPMENT INSPECTOR us Lu Campbell NP LAB BLOOD ORDERABLES Final Re sult Performing Organization Address City/[facility] Co de Phone Number SHREYA RANGEL [phone] [facility] [place] [address] * (ABNORMAL) TSH (03/31/2024 8:00 AM MICROFILM EQUIPMENT INSPECTOR) Pathologist [facility] Thyroid Stimulating Hormone 6.96(H) 0.30 - 4.20 mcIUnit/mL Blood 03/31/2024 8:00 AM MICROFILM EQUIPMENT INSPECTOR 03/31/2024 1:56 PM MICROFILM EQUIPMENT INSPECTOR Lu Campbell NP LAB BLOOD ORDERABLES Final Re sult Performing Organization Address [facility] Co de Phone Number SHREYA RANGEL [address] [facility] [place] [address] * Hemoglobin A1c (03/31/2024 8:00 AM MICROFILM EQUIPMENT INSPECTOR) [facility] Hgb A1C 5.5 4.0 - 5.6 % Estimated Average Glucose 111 mg/dL SHREYA RANGEL Comment: The ADA recommends reporting an estimated Average Glucose (eAG) with all Hemoglobin A1c results using the equation derived from a study of 507 normal and diabetic adults. ??Minority populations were underrepresented and children were not included. ?? (Diabetes Care 31:6925-7815, 2008). ??The eAG is not equivalent to a fasting glucose. Blood 03/31/2024 8:00 AM MICROFILM EQUIPMENT INSPECTOR 03/31/2024 1:56 PM MICROFILM EQUIPMENT INSPECTOR Lu Campbell NP LAB BLOOD ORDERABLES Final Re sult Performing Organization Address [facility] Co de Phone Number SHREYA RANGEL [address] [place] [address] * Folate (03/31/2024 8:00 AM MICROFILM EQUIPMENT INSPECTOR) [facility] Folic acid >20.0 >=5.0 ng/mL Blood 03/31/2024 8:00 AM MICROFILM EQUIPMENT INSPECTOR 03/31/2024 1:56 PM MICROFILM EQUIPMENT INSPECTOR Lu Vanuytven BORDER MEASURER LAB BLOOD ORDERABLES Final Re sult Performing Organization Address [facility] de Phone Number SHREYA RANGEL [address] [facility] [place] [address] * (ABNORMAL) Ferritin (03/31/2024 8:00 AM MICROFILM EQUIPMENT INSPECTOR) Ferritin 164(H) 15 - 150 ng/mL Blood 03/31/2024 8:00 AM MICROFILM EQUIPMENT INSPECTOR 03/31/2024 1:56 PM MICROFILM EQUIPMENT INSPECTOR us Lu Shannan BORDER MEASURER LAB BLOOD ORDERABLES Final Re sult Performing Organization Address [facility] de Phone Number SHREYA RANGEL [address] [facility] [place] [address] * Vitamin B12 (03/31/2024 8:00 AM MICROFILM EQUIPMENT INSPECTOR) Pathologist [facility] Vitamin B12 958 230 - 1,250 pg/mL Blood 03/31/2024 8:00 AM MICROFILM EQUIPMENT INSPECTOR 03/31/2024 1:56 PM MICROFILM EQUIPMENT INSPECTOR us Lu Shannan BORDER MEASURER LAB BLOOD ORDERABLES Final Re sult Performing Organization Address [facility] de Phone Number SHREYA RANGEL [address] [facility] [address] [place], [place] [id number] * Lipid panel (03/31/2024 8:00 AM MICROFILM EQUIPMENT INSPECTOR) Cholesterol 154 30 - 199 mg/dL Comment: Interpretive Data Ages < or = 19 years ??Acceptable: ? <170 mg/dL ??Borderline high: ??170-199 mg/dL ??High: ? >or= 200 mg/dL Ages > or = 20 years ??Desirable: ?<200 mg/dL ??Borderline high: ??200-239 mg/dL ??High: ? >or= 240 mg/dL Literature References: 1. Expert Panel on Integrated Guidelines for Cardiovascular Health and Risk Reduction in Children and Adolescents. Pediatrics 2011;128:S213 2. NCEP Expert Panel. Circulation 2004;110:227 Current Interpretive Data was last revised on 2017. Triglycerides 91 <=149 mg/dL SHREYA Comment: Interpretive Data Ages < or = 9 years ??Acceptable: ? <75 mg/dL ??Borderline high: ??75-99 mg/dL ??High: ? >or= 100 mg/dL Ages 10 to 20 years ??Acceptable: ? <90 mg/dL ??Borderline high: ??90-129 mg/dL ??High: ? >or= 130 mg/dL Ages > or = 20 years ??Desirable: ?<150 mg/dL ??Borderline high: ??150-199 mg/dL ??High: ? 200-499 mg/dL ?Very high: ?? >or= 499 mg/dL Literature References: 1. Expert Panel on Integrated Guidelines for Cardiovascular Health and Risk Reduction in Children and Adolescents. Pediatrics 2011;128:S213 2. NCEP Expert Panel. Circulation 2004;110:227 Current Interpretive Data was last revised on 2017. HDL 51 >=40 mg/dL SHREYA Comment: Interpretive Data Ages < or = 19 years ??Acceptable: ? >45 mg/dL ??Borderline low: ?? 40-45 mg/dL ??Low: ? <40 mg/dL Ages > or = 20 years ??Desirable: ?>or= 60 mg/dL ??Low: ? <40 mg/dL Literature References: 1. Expert Panel on Integrated Guidelines for Cardiovascular Health and Risk Reduction in Children and Adolescents. Pediatrics 2011;128:S213 2. NCEP Expert Panel. Circulation 2004;110:227 Current Interpretive Data was last revised on 2017. LDL, calculated 86 <=129 mg/dL SHREYA Comment: Interpretive Data Ages < or = 19 years ??Acceptable: ? <110 mg/dL ??Borderline high: ??110-129 mg/dL ??High: ?>or= 130 mg/dL Ages > or = 20 years ??Optimal: ? <100 mg/dL ??Near optimal: ?100-129 mg/dL ??Borderline high: ?? 130-159 mg/dL ??High: ?>160 mg/dL Calculated using the Sanjiv LDL-C estimating equation. This equation was implemented on 2023. Prior to this date LDL-C was estimated using the Friedewald equation. Literature References: 1. Expert Panel on Integrated Guidelines for Cardiovascular Health and Risk Reduction in Children and Adolescents. Pediatrics 2011;128:S213 2. NCEP Expert Panel. Circulation 2004;110:227 3. Sanjiv Gutiérrez et al. SILVANO Cardiol. 2020 August 13;5(5):540-548. doi: 10.1001/[email or web address].2020.0013 Current Interpretive Data was last revised on 2023. Non-HDL Cholesterol 103 mg/dL [facility] Comment: Interpretive Data Ages < or = 19 years ??Acceptable: ?<120 mg/dL ??Borderline high: ??120-144 mg/dL ??High: ?>145 mg/dL Ages > or = 20 years ??When triglycerides are >200 mg/dL, Non-HDL cholesterol is a secondary target of ? therapy with treatment goals that are 30 mg/dL greater than the LDL cholesterol target. ? Literature References: 1. Expert Panel on Integrated Guidelines for Cardiovascular Health and Risk Reduction in Children and Adolescents. Pediatrics 2011;128:S213 2. NCEP Expert Panel. Circulation 2004;110:227 Current Interpretive Data was last revised on 2017. Chol/HDL ratio 3 [facility] Blood 03/31/2024 8:00 AM MICROFILM EQUIPMENT INSPECTOR 03/31/2024 1:56 PM MICROFILM EQUIPMENT INSPECTOR Narrative [facility] - 03/31/2024 2:57 PM MICROFILM EQUIPMENT INSPECTOR Has the patient been fasting for 8 hours or more?->Yes us Lu Campbell BORDER MEASURER LAB BLOOD ORDERABLES Final Re sult [facility] [address] [place] [address] * (ABNORMAL) Comprehensive metabolic panel (03/31/2024 8:00 AM MICROFILM EQUIPMENT INSPECTOR) Sodium 140 135 - 145 mmol/L Potassium, pl 4.0 3.3 - 4.9 mmol/L [facility] Chloride 103 97 - 110 mmol/L [facility] CO2 27 22 - 32 mmol/L [facility] Anion gap 10 2 - 15 mmol/L [facility] BUN 16 6 - 25 mg/dL [facility] Creatinine 0.81 0.60 - 1.10 mg/dL [facility] Glucose 101 70 - 199 mg/dL [facility] Comment: Interpretive Data Fasting glucose >/= 126 mg/dl is diagnostic for diabetes. ?? Fasting is defined as no caloric intake for at least 8 hours. Fasting glucose between 100 mg/dl to 125 mg/dl is diagnostic of prediabetes. In a patient with classic symptoms of hyperglycemia or hyperglycemic crisis, a random glucose >/= 200 mg/dl is diagnostic for diabetes. In the absence of unequivocal hyperglycemia, results should be confirmed by repeat testing. The classification and Diagnosis of Diabetes Diabetes Care 202; 46: S19-S40. Current interpretive data was last revised 2022. Calcium 9.6 8.5 - 10.3 mg/dL [facility] Bilirubin, total 0.5 0.1 - 1.2 mg/dL [facility] Protein, pl 8.0 6.5 - 8.5 g/dL [facility] Albumin 4.1 3.5 - 5.0 g/dL [facility] Alk phos 90 40 - 130 Units/L [facility] ALT 64(H) 7 - 45 Units/L [facility] AST 44 10 - 45 Units/L [facility] Blood 03/31/2024 8:00 AM MICROFILM EQUIPMENT INSPECTOR 03/31/2024 1:56 PM MICROFILM EQUIPMENT INSPECTOR us Lu Campbell BORDER MEASURER LAB BLOOD ORDERABLES Final Re sult [facility] [address] [place] [address] * SCAN - RADIOLOGY/IMAGING (03/16/2024) Anatomical Region Laterality Modality Other Lu Campbell NP Final Result from Last 3 Months Insurance [facility] Care Teams Athletic Gear Custodian Relationship Specialty Start Date End Date Lu Campbell NP [address] [place] [address] PCP - General Family Medicine 03/19/24
--- OUTSIDE RECORDS SUMMARY | 2024-04-26 12:35 | XMS_ITS | Encounter Summary ---
Author Organization [facility] Healthcare Address [address] [place] [address] Care Team Providers Care Upholstery Auto Trimmer Name Role Phone Lu Campbell NP Primary Care Provider [phone] Reason for Referral * Cardiology (Routine) - Closed Specialty Diagnoses / Procedures Referred By Jacquesac t Referred To Contact Diagnoses Bilateral edema of lower extremity Procedures Transthoracic Echo (TTE) Complete W Doppler/CF Lu Campbell NP [address] [place] [address] [place] [address] Phone: tel: fax: [address] [phone] Referral ID Status Reason Start Date Expiration Date Visits Re quested Visits Authorized [id number] Closed 04/01/2024 06/30/2024 1 1 CUTTER HELPER Reason for Visit * Cardiology (Routine) - Closed Specialty Diagnoses / Procedures Referred By Gordon carter Referred To Contact Diagnoses Bilateral edema of lower extremity Procedures Transthoracic Echo (TTE) Complete W Doppler/CF Lu Campbell NP [address] [place] [address] [place] [address] Phone: tel: fax: [address] [phone] Referral ID Status Reason Start Date Expiration Date Visits Re quested Visits Authorized [id number] Closed 04/01/2024 06/30/2024 1 1 Encounter Details Date Type Department Care Team (Latest Contact Info) Description 04/01/2024 8:50 AM BIAS CUTTER HELPER - 04/01/2024 11:59 PM BIAS CUTTER HELPER Hospital Encounter [facility] Non-invasive Cardiac Diagnostic Testing [address] [place], [place] [id number] Bilateral edema of lower extremity Discharge Disposition: Discharge to home or self care Social History Tobacco Use Types Packs/Day Years [...] on file Legal Sex Female 1:55 PM BIAS CUTTER HELPER Gender Identity Not on file Sexual Orientation Not on file documented as of this encounter Medications at Time of Discharge acetaminophen (TYLENOL) 500 mg tablet Take 2 tablets (1,000 mg total) by mouth as needed for pain or headaches levothyroxine (SYNTHROID) 88 mcg tabletIndications:Ac quired hypothyroidism Take 1 tablet (88 mcg total) by mouth daily 30 tablet 1 04/01/[address] (PROTONIX) 40 mg EC tabletIndications:ac id reflux Take 1 tablet (40 mg total) by mouth every morning 07/25/2022 pregabalin (LYRICA) 25 mg capsuleIndications:M edial epicondylitis of left elbow Take 1 capsule (25 mg total) by mouth 3 (three) times a day 90 capsule 1 03/19/2024 turmeric, bulk, 95 % powder meloxicam (MOBIC) 15 mg tablet Take 1 tablet (15 mg total) by mouth daily 03/04/2024 01/09/202 5 documented as of this encounter Discharge Disposition Disposition Code Departure Means Destination Discharge to home or self care documented in this encounter Plan of Treatment Not on file documented as of this encounter Procedures Procedure Name Priority Date/Time Associated Diagnosis Comments TRANSTHORACIC ECHO (TTE) COMPLETE W DOPPLER/CF WO CONTRAST Routine 04/01/2024 9:30 AM BIAS CUTTER HELPER Bilateral edema of lower extremity documented in this encounter Results * TRANSTHORACIC ECHO (TTE) COMPLETE W DOPPLER/CF WO CONTRAST (04/01/2024 9:30 AM BIAS CUTTER HELPER) Anatomical Region Laterality Modality Ultrasound 04/01/2024 9:04 AM BIAS CUTTER HELPER Narrative 04/01/2024 11:39 [place] [address] Echocardiogram Report Patient Name: KENDELL KING L : 1970 Study Date: 04/01/2024 [...] DO, RANDI, NANI BERNARD 04/01/2024 11:39:44 AM BIAS CUTTER HELPER Procedure Note Elizabeth Manriquez DO - 04/01/2024 [place] [address] Echocardiogram Report Patient Name: KENDELL KING L : 1970 Study Date: 04/01/2024 [...] DO, RANDI, NANI BERNARD 04/01/2024 11:39:44 AM BIAS CUTTER HELPER us Lu Campbell NP CV ECHO PROCEDURES Final Resu lt documented in this encounter Visit Diagnoses Diagnosis Bilateral edema of lower extremity documented in this encounter Care Teams Upholstery Auto Trimmer Relationship Specialty Start Date End Date Lu Campbell NP [address] [place] [address] [place] [address] PCP - General Family Medicine 03/19/24 documented as of this encounter
--- OUTSIDE RECORDS SUMMARY | 2024-04-26 12:35 | XMS_ITS | Encounter Summary ---
Author Organization [facility] Healthcare Address [address] [place] [address] Care Team Providers Care Food Management Aide Name Role Phone Lu Campbell NP Primary Care Provider [phone] Encounter Details Date Type Department Care Team (Latest Contact Info) Description 03/31/2024 1:33 PM LEGAL OPERATIONS MANAGER - 03/31/2024 11:59 PM [facility] Hospital Encounter [facility] [id number] [place] [address] Bilateral edema of lower extremity; Anemia, unspecified [...] on file Legal Sex Female 1:55 PM LEGAL OPERATIONS MANAGER Gender Identity Not on file Sexual Orientation Not on file documented as of this encounter Medications at Time of Discharge acetaminophen (TYLENOL) 500 mg tablet Take 2 tablets (1,000 mg total) by mouth as needed for pain or headaches pantoprazole DR (PROTONIX) 40 mg EC tabletIndications:a chayo reflux Take 1 tablet (40 mg total) by mouth every morning 07/25/2022 pregabalin (LYRICA) 25 mg capsuleIndications: Medial epicondylitis of left elbow Take 1 capsule (25 mg total) by mouth 3 (three) times a day 90 capsule 1 03/19/2024 turmeric, bulk, 95 % powder meloxicam (MOBIC) 15 mg tablet Take 1 tablet (15 mg total) by mouth daily 03/04/2024 5 documented as of this encounter Discharge Disposition Disposition Code Departure Means Destination Discharge to home or self care documented in this encounter Plan of Treatment Not on file documented as of this encounter Procedures Procedure Name Priority Date/Time Associated Diagnosis Comments EGFR Routine 03/31/2024 8:00 AM LEGAL OPERATIONS MANAGER Bilateral edema of lower extremity PRO B-TYPE NATRIURETIC PEPTIDE Routine 03/31/2024 8:00 AM LEGAL OPERATIONS MANAGER Bilateral edema of lower extremity IRON PROFILE W/ IBC Routine 03/31/2024 8 :00 AM LEGAL OPERATIONS MANAGER Anemia, unspecified type HEPATITIS C ANTIBODY Routine 03/31/2024 8:00 AM LEGAL OPERATIONS MANAGER Encounter for hepatitis C screening test for low risk patient VITAMIN D 25 HYDROXY Routine 03/31/2024 8:00 AM LEGAL OPERATIONS MANAGER Vitamin D deficiency PROTIME-INR Routine 03/31/2024 8:00 AM LEGAL OPERATIONS MANAGER Anemia, unspecified type CBC WITHOUT DIFFERENTIAL Routine 03/31/2024 8:00 AM LEGAL OPERATIONS MANAGER Anemia, unspecified type TSH Routine 03/31/2024 8:00 AM LEGAL OPERATIONS MANAGER Bilateral edema of lower extremity Hypothyroidism, unspecified type HEMOGLOBIN A1C Routine 03/31/2024 8:00 AM LEGAL OPERATIONS MANAGER Class 2 severe obesity due to excess calories with serious comorbidity and body mass index (BMI) of 36.0 to 36.9 in adult ([facility]) FOLATE Routine 03/31/2024 8:00 AM LEGAL OPERATIONS MANAGER Anemia, unspecified type FERRITIN Routine 03/31/2024 8:00 AM LEGAL OPERATIONS MANAGER Anemia, unspecified type VITAMIN B12 Routine 03/31/2024 8:00 AM LEGAL OPERATIONS MANAGER Anemia, unspecified type LIPID PANEL Routine 03/31/2024 8:00 AM LEGAL OPERATIONS MANAGER Hyperlipidemia, unspecified hyperlipidemia type COMPREHENSIVE METABOLIC PANEL Routine 03/31/2024 8:00 AM LEGAL OPERATIONS MANAGER Bilateral edema of lower extremity documented in this encounter Results * eGFR (03/31/2024 8:00 AM LEGAL OPERATIONS MANAGER) [facility] Signature eGFR 86 >=60 mL/min/1. 73 m2 Comment: [...] last reviewed 2021. Blood 03/31/2024 8:00 AM LEGAL OPERATIONS MANAGER 03/31/2024 2:09 PM LEGAL OPERATIONS MANAGER us Lu Campbell MANAGER BANKING LAB BLOOD ORDERABLES Final Re sult [facility] [id number] [place] [address] * (ABNORMAL) Comprehensive metabolic panel (03/31/2024 8:00 AM LEGAL OPERATIONS MANAGER) Sodium 140 135 - 145 mmol/L Potassium, pl 4.0 3.3 - 4.9 mmol/L C[facility]ER [facility] Chloride 103 97 - 110 mmol/L [facility] CH CO2 27 22 - 32 mmol/L [facility] Anion gap 10 2 - 15 mmol/L [facility]ERN[facility] CH BUN 16 6 - 25 mg/dL CERNER Creatinine 0.81 0.60 - 1.10 mg/dL CERNER [...] classification and Diagnosis of Diabetes Diabetes Care 2022; 46: S19-S40. Current interpretive data was last [...] Units/L CERNER CH Blood 03/31/2024 8:00 AM LEGAL OPERATIONS MANAGER 03/31/2024 1:56 PM LEGAL OPERATIONS MANAGER us Lu Campbell MANAGER BANKING LAB BLOOD ORDERABLES Final Re sult SHREYA [address] [place] [address] * Lipid panel (03/31/2024 8:00 AM LEGAL OPERATIONS MANAGER) Cholesterol 154 30 - 199 mg/dL Comment: [...] revised on 2017. Triglycerides 91 <=149 mg/dL CERNER CH Comment: Interpretive Data Ages [...] mg/dL ??High: ?>160 mg/dL Calculated using the Kincaid LDL-C estimating equation. This equation was implemented on 2023. Prior to this date LDL-C was estimated using the Friedewald equation. Literature References: 1. Expert Panel on Integrated Guidelines for Cardiovascular Health and Risk Reduction in Children and Adolescents. Pediatrics 2011;128:S213 2. NCEP Expert Panel. Circulation 2004;110:227 3. Sanjiv M et al. SILVANO Cardiol. 2020 August 13;5(5):540-548. doi: 10.1001/jamacardio.2020.0013 Current Interpretive Data was last revised on 2023. Non-HDL Cholesterol 103 mg/dL SHREYA RANGEL Comment: Interpretive Data Ages < or = [...] last revised on 2017. Chol/HDL ratio 3 SHREYA Blood 03/31/2024 8:00 AM LEGAL OPERATIONS MANAGER 03/31/2024 1:56 PM LEGAL OPERATIONS MANAGER Narrative SHREYA - 03/31/2024 2:57 PM LEGAL OPERATIONS MANAGER Has the patient been fasting for 8 hours or more?->Yes Lu Campbell NP LAB BLOOD ORDERABLES Final Re sult SHREYA [address] [place] [address] * (ABNORMAL) TSH (03/31/2024 8:00 AM LEGAL OPERATIONS MANAGER) Thyroid Stimulating Hormone 6.96(H) 0.30 - 4.20 mcIUnit/mL Blood 03/31/2024 8:00 AM LEGAL OPERATIONS MANAGER 03/31/2024 1:56 PM LEGAL OPERATIONS MANAGER Lu Campbell NP LAB BLOOD ORDERABLES Final Re sult SHREYA RANGEL [address] [place] [address] * Hepatitis C antibody Blood (03/31/2024 8:00 AM LEGAL OPERATIONS MANAGER) [facility] Hep C Ab Nonreactive Nonreactive Comment: Interpretive [...] revised on 2019. Blood 03/31/2024 8:00 AM LEGAL OPERATIONS MANAGER 03/31/2024 1:56 PM LEGAL OPERATIONS MANAGER Lu Campbell NP LAB MICROBIOLOGY - GENERAL OR DERABLES Final Result Performing Organization Address [facility] de Phone Number SHREYA RANGEL [address] [place] [address] * Hemoglobin A1c (03/31/2024 8:00 AM LEGAL OPERATIONS MANAGER) [facility] Hgb A1C 5.5 4.0 - 5.6 % Estimated Average Glucose 111 mg/dL SHREYA RANGEL Comment: The ADA recommends reporting an estimated Average Glucose (eAG) with all Hemoglobin A1c results using the equation derived from a study of 507 normal and diabetic adults. ??Minority populations were underrepresented and children were not included. ?? (Diabetes Care 31:8381-2134, 2008). ??The eAG is not equivalent to a fasting glucose. Blood 03/31/2024 8:00 AM LEGAL OPERATIONS MANAGER 03/31/2024 1:56 PM LEGAL OPERATIONS MANAGER Lu Campbell NP LAB BLOOD ORDERABLES Final Re sult Performing Organization Address [facility] de Phone Number RADHABRENDA [address] [place] [address] * Protime-INR (03/31/2024 8:00 AM LEGAL OPERATIONS MANAGER) PT 11.8 9.7 - 13.0 sec INR 1.09 0.90 - 1.20 SHREYA RANGEL Comment: Interpretive data Oral anticoagulant therapeutic ranges: Venous thromboembolism prophylaxis or treatment: 2.0-3.0 CARDIOLOGY Standard range: 2.0-3.0 High-intensity range: 2.5-3.5 Refer to indication-specific guidelines for appropriate target ranges for prosthetic heart valve replacement. Current interpretive data was last revised on 2019. Blood 03/31/2024 8:00 AM LEGAL OPERATIONS MANAGER 03/31/2024 1:56 PM LEGAL OPERATIONS MANAGER Lu Campbell NP LAB BLOOD ORDERABLES Final Re sult Performing Organization Address [facility] de Phone Number SHREYA [address] [facility] [place] [address] * (ABNORMAL) Vitamin D 25 hydroxy (03/31/2024 8:00 AM LEGAL OPERATIONS MANAGER) Pathologist [facility] Vitamin D 25-OH 28(L) 30 - 80 ng/mL Blood 03/31/2024 8:00 AM LEGAL OPERATIONS MANAGER 03/31/2024 1:56 PM LEGAL OPERATIONS MANAGER Lu Campbell NP LAB BLOOD ORDERABLES Final Re sult Performing Organization Address [facility] de Phone Number SHREYA [address] [facility] [place] [address] * (ABNORMAL) Ferritin (03/31/2024 8:00 AM LEGAL OPERATIONS MANAGER) Pathologist [facility] Ferritin 164(H) 15 - 150 ng/mL Blood 03/31/2024 8:00 AM LEGAL OPERATIONS MANAGER 03/31/2024 1:56 PM LEGAL OPERATIONS MANAGER Lu Campbell NP LAB BLOOD ORDERABLES Final Re sult Performing Organization Address [facility] Co de Phone Number SHREYA RANGEL [address] [facility] [place] [address] * Folate (03/31/2024 8:00 AM LEGAL OPERATIONS MANAGER) Pathologist [facility] Folic acid >20.0 >=5.0 ng/mL Blood 03/31/2024 8:00 AM LEGAL OPERATIONS MANAGER 03/31/2024 1:56 PM LEGAL OPERATIONS MANAGER Lu Campbell MANAGER BANKING LAB BLOOD ORDERABLES Final Re sult Performing Organization Address [facility] de Phone Number SHREYA RANGEL [address] [place] [address] * Iron profile w/ IBC (03/31/2024 8:00 AM LEGAL OPERATIONS MANAGER) Pathologist [facility] Iron 83 35 - 145 mcg/dl TIBC 270 250 - 400 mcg/dL [facility] Transferrin saturation 31 20 - 50 % [facility] Blood 03/31/2024 8:00 AM LEGAL OPERATIONS MANAGER 03/31/2024 1:56 PM LEGAL OPERATIONS MANAGER Lu Campbell MANAGER BANKING LAB BLOOD ORDERABLES Final Re sult Performing Organization Address [facility] de Phone Number SHREYA RANGEL [address] [place] [address] * Vitamin B12 (03/31/2024 8:00 AM LEGAL OPERATIONS MANAGER) Pathologist [facility] Vitamin B12 958 230 - 1,250 pg/mL Blood 03/31/2024 8:0 0 AM LEGAL OPERATIONS MANAGER 03/31/2024 1:56 PM LEGAL OPERATIONS MANAGER Lu Campbell MANAGER BANKING LAB BLOOD ORDERABLES Final Re sult Performing Organization Address [facility] de Phone Number SHREYA RANGEL [address] [facility] [place] [address] * (ABNORMAL) CBC without differential (03/31/2024 8:00 AM LEGAL OPERATIONS MANAGER) Pathologist [facility] WBC 6.5 3.8 - 9.9 K/cumm Hgb 13.2 11.9 - 15.5 g/dL [facility] Hct 42.8 35.6 - 45.5 % [facility] [place] Plt 232 150 - 400 K/cumm [facility] [place] MPV 13.0(H) 9.1 - 12.3 fL [facility] RBC 4.86 3.90 - 5.20 M/cumm [facility] [place] MCV 88.1 81.3 - 96.4 fL [facility] MCH 27.2 27.1 - 33.3 pg [facility] MCHC 30.8(L) 32.3 - 35.7 g/dL [facility] RDW CV 13.4 11.1 - 14.9 % [facility] RDW SD 43.4 35.7 - 48.1 fL [facility] NRBC abs 0.00 0.00 - 0.01 K/cumm [facility] Blood 03/31/2024 8:00 AM LEGAL OPERATIONS MANAGER 03/31/2024 1:56 PM LEGAL OPERATIONS MANAGER us Lu Campbell MANAGER BANKING LAB BLOOD ORDERABLES Final Re sult [facility] [address] [place] [address] * Pro B-type natriuretic peptide (03/31/2024 8:00 AM LEGAL OPERATIONS MANAGER) NT-proBNP <36 <=300 pg/mL Comment: Interpretive Comments: [...] Heart J. 2006:27:330-337. 2. Carmella RW, Nohemi DEL ROSARIO. J. AM Hector Cardiol: Cardiovasc Imag. 2009;2: 216- 225. Interpretive Data Last Revised Date: 2017. Blood 03/31/2024 8:00 AM LEGAL OPERATIONS MANAGER 03/31/2024 1:56 PM LEGAL OPERATIONS MANAGER Lu Campbell NP LAB BLOOD ORDERABLES Final [facility] Organization Address [place] [address] [address] Department [place] [address] documented in this encounter Visit Diagnoses Diagnosis Bilateral edema of lower extremity Anemia, unspecified type Vitamin D deficiency Class 2 severe obesity due to excess calories with serious comorbidity and body mass index (BMI) of 36.0 to 36.9 in adult (HCC) Encounter for hepatitis C screening test for low risk patient Hypothyroidism, unspecified type Hyperlipidemia, unspecified hyperlipidemia type documented in this encounter Care Teams Food Management Aide Relationship Specialty [place] [address] [place] [address] [place] [address] PCP - General Family Medicine 03/19/24 documented as of this encounter
--- OUTSIDE RECORDS SUMMARY | 2024-04-26 12:35 | XMS_ITS | Encounter Summary ---
Author Organization [facility] Healthcare Address [address] [place] [address] Care Team Providers Care Mold Maker Plastic Molds Name Role Phone Lu Campbell NP Primary Care Provider [phone] Reason for Visit * Diagnostic Imaging (Routine) - Closed Specialty Diagnoses / Procedures Referred By Contac t Referred To Contact Diagnoses Chronic hip pain, bilateral Procedures XR Hips Bilateral 3 or 4 Views Lu Campbell, ABBI [address] [facility] [address] [address] Phone: tel: fax: [address] [address] Referral ID Status Reason Start Date Expiration Date Visits Re quested Visits Authorized [id number] Closed 03/19/2024 04/18/2025 1 1 Encounter Details Date Type Department Care Team (Latest Contact Info) Description 03/31/2024 9:15 AM SELF PAY REPRESENTATIVE Ancillary Procedure [facility] Imaging at [address] [phone] Chronic hip pain, bilateral Social History Tobacco Use Types Packs/Day Years [...] on file Legal Sex Female 1:55 PM SELF PAY REPRESENTATIVE Gender Identity Not on file Sexual Orientation Not on file documented as of this encounter Plan of Treatment Not on file documented as of this encounter Procedures Procedure Name Priority Date/Time Associated Diagnosis Comments XR HIPS BILATERAL 3 OR 4 VW Schedule Routine, Read Routine (OP Routine) 03/31/2024 9:15 AM SELF PAY REPRESENTATIVE Chronic hip pain, bilateral documented in this encounter Results * XR Hips Bilateral 3 or 4 Views (03/31/2024 9:15 AM SELF PAY REPRESENTATIVE) Anatomical Region Laterality Modality Lower Extremities, Hip, Pelvis Bilateral D igital Radiography 03/31/2024 11:5 1 PM SELF PAY REPRESENTATIVE Addenda Addendum by Rupinder Stuart MD on 04/10/2024 12:04 PM SELF PAY REPRESENTATIVE ADDENDUM: This addendum report supersedes the original [...] D: ??04/10/2024 12:04 PM T: Report ID: [id number] Reading Location: ??[id number] Narrative 03/31/2024 11:59 PM SELF PAY REPRESENTATIVE EXAM DESCRIPTION: XR KNEE LEFT 4 OR [...] D: ??03/31/2024 11:59 PM T: Report ID: [id number] Reading Location: ??[id number] Procedure Note Rupinder Stuart MD - 04/01/2024 [...] Rupinder Stuart M.D. AT T: Report ID: [id number] Reading Location: [place] [address] Lu Campbell NP IMG XR PROCEDURES Edited Resu lt - Final documented in this encounter Visit Diagnoses Diagnosis Chronic hip pain, bilateral documented in this encounter Care Teams Mold Maker Plastic Molds Relationship Specialty Start Date End Date Lu Campbell NP [address] [facility] [address] [place] [address] [place] [address] PCP - General Family Medicine 03/19/24 documented as of this encounter
--- OUTSIDE RECORDS SUMMARY | 2024-04-26 12:35 | XMS_ITS | Encounter Summary ---
Author Organization [facility] Address [address] [place] [address] Phone Care Team Providers Care Dry Can Tender Name Role Phone Unavailable Primary Care Provider Unavailabl e Reason for Referral * Consultation (Routine) - Pending Review Specialty Diagnoses / Procedures Referred By Gordon carter Referred To Contact Pain Management Diagnoses Left elbow pain Dm Foreman MD [address] [place] [address] Phone: tel: fax: [address] [phone] Referral ID Status Reason Start Date Expiration Date Visits Requested Visits Authorized [id number] Pending Review Specialty Services Required 04/10/2025 1 1 Question Answer Please select the performing region: [facility] [[id number]] # of visits: 1 Comments Nerve pain left arm, 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 Yes Location provided for therapy services is: Patient requested/Patient preferred Please select the performing region: External Order [[id number]] # of visits: 24 Comments Occupational Therapy / Physical Therapy (OT/PT) Outpatient Referral Schedule Initial Order Patient will contact facility to schedule appointment as needed Diagnosis: Recurrent left cubital tunnel syndrome Surgery: Revision left ulnar nerve subcutaneous transposition. 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 LOSS PREVENTION MANAGER Reason for Visit * Reason Comments Follow-up Pain * Consultation (Routine) - Closed Specialty Diagnoses / Procedures Referred By Gordon carter Referred To Contact Orthopedic Surgery Diagnoses Medial epicondylitis of left elbow Bharath Velázquez PA [address] [place] [address] Phone: tel: fax: [facility] (All Locations) Referral ID Status Reason Start Date Expiration Date V isits Requested Visits Authorized [id number] Closed Specialty Services Required 02/12/2024 03/13/2025 1 1 Encounter Details Date Type Department Care Team (Late st Contact Info) Description 03/11/2024 9:10 AM 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 LOSS PREVENTION MANAGER Office Visit [facility] Orthopaedic Surgery [address] [facility] [address] [place] [address] [place] [address] Dm Foreman MD [address] [facility] [address] [place] [address] Left elbow pain (Primary Dx); Medial epicondylitis of left elbow Social History Tobacco Use Types Packs/Day Years [...] on file Legal Sex Female 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 It was about a year and a half out from a leftrevision ulnar nerve transposition. She says that she has continued to really struggle. She has a lot of pain at the left elbow. Hurt to touch soft tissue around the medial elbow with sleeves or other textures. She says it always stays swollen there. She says the surgery did improve the claw like formation in the small finger ring finger but still hard to function does not have great control of the fingers and still has numbness. Also still has the chronic wrist pain after multiple surgeries from Dr. Kaur. She is on meloxicam. Is having to change jobs. PHYSICAL EXAM The patient was alert and oriented normally. Normal affect. Skin is intact, pulses normal, and neurologically at her baseline. The left elbow does have some soft tissues that are a bit full on the medial side. Light touch is uncomfortable really throughout the area. Even posterior touching around the back of the epicondyle where the nerve has been moved away from is tender. Down at the wrist it hurts around the dorsal and ulnar aspects. She is moving her fingers pretty well today good interosseous muscle function but feels uncoordinated. Elbow flexion extension is quite good. ASSESSMENT AND PLAN This patient has a really challenging presentation with a lot of ongoing left arm pain. It seems tome like a lot of the pains have just never resolved after the multiple wrist surgeries. Although wegot what seemed to be a little bit of nerve improvement after the revision cubital tunnel she is still having a lot of soft tissue pains and sensitivity. I would like her to see an occupational therapist I think working on some desensitization of the superficial nerves could help her with a comfortabout the elbow. I would also like to put up referral to pain management because I do not believe there is further surgery that is going to help her. Even earlier a few years ago I did not see any apolinar cynthia at the wrist that was going to be beneficial and I do not believe that any further operations around the medial elbow we are going to make her more comfortable or help the ulnar nerve function any better. Dr. Dm Foreman dictating with [employer]. High Speed Operator variances may occur. Dm Foreman M.D. Professor Hand and Upper Extremity Surgery [facility] RICT LOSS PREVENTION MANAGER documented in this encounter Plan of Treatment Scheduled Referrals Name Type Priority Associated Diagnoses Orde r Schedule Ambulatory referral order to Hand Therapy - Outpatient Referral Routine Medial epicondylitis of left elbow Left elbow pain Expected: 03/25/2024 (Approximate), Expires: 03/11/2025 Ambulatory referral to Pain Management Outpatient Referral Routine Left elbow pain Expected: 03/25/2024 (Approximate), Expires: 03/11/2025 documented as of this encounter Visit Diagnoses Diagnosis Left elbow pain- Primary Pain in joint, upper arm Medial epicondylitis of left elbow documented in this encounter Historical Medications * This list may reflect changes made after this encounter. meloxicam (MOBIC) 15 mg tablet Take 1 tablet (15 mg total) by mouth daily 03/04/2024 04/23/2024 ibuprofen (ADVIL,MOTRIN) 800 mg tablet Take 1 tablet (800 mg total) by mouth 3 (three) times a day 02/23/2024 03/19/2024 added in this encounter Orders Outpatient Referral Count Last Ordered Date Fir st Ordered Date AMB REFERRAL TO ORTHOPEDIC SURGERY 1 2023 documented in this encounter
--- OUTSIDE RECORDS SUMMARY | 2024-04-26 12:35 | XMS_ITS | Encounter Summary ---
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 Gender Identity Not on file Sexual Orientation Not on file documented as of this encounter Plan of Treatment Not on file documented as of this encounter Procedures Procedure Name Priority Date/Time Associated Diagnosis Comments SCAN - RADIOLOGY/IMAGING 03/16/2024 documented in this encounter Results * SCAN - RADIOLOGY/IMAGING (03/16/2024) Anatomical Region Laterality Modality Other us Lu Campbell NP Final Result documented in this encounter Visit Diagnoses Not on filedocumented in this encounter Care Teams Sales Representative Health Insurance Relationship Specialty Start Date End Date Lu Campbell NP [address] [facility] [address] [place] [address] [place] [id number] PCP - General Family Medicine 03/19/24 documented as of this encounter
--- OUTSIDE RECORDS SUMMARY | 2024-04-26 12:35 | XMS_ITS | Encounter Summary ---
Author Organization [facility] Healthcare Address [address] [place] [address] Care Team Providers Care Senior Facilities Manager Name Role Phone Lu Trevino NP Primary Care Provider [phone] Reason for Referral * Diagnostic Imaging (Routine) - Closed Specialty Diagnoses / Procedures Referred By Contac t Referred To Contact Diagnoses Chronic hip pain, bilateral Procedures XR Hips Bilateral 3 or 4 Views Lu Trevino NP [address] [place] [address] [place] [address] Phone: tel: fax: [address] [address] Referral ID Status Reason Start Date Expiration Date Visits Re quested Visits Authorized [id number] Closed 03/19/2024 04/18/2025 1 1 WELDER * Diagnostic Imaging (Routine) - Closed Specialty Diagnoses / Procedures Referred By Contac t Referred To Contact Diagnoses Chronic pain of left knee Procedures XR Knee Left 4+ Vw Lu Trevino NP [address] [facility] [place] [address] [place] [address] Phone: tel: fax: [address] [address] Referral ID Status Reason Start Date Expiration Date Visits Re quested Visits Authorized [id number] Closed 03/19/2024 04/18/2025 1 1 WELDER * Cardiology (Routine) - Closed Specialty Diagnoses / Procedures Referred By Gordon t Referred To Contact Diagnoses Bilateral edema of lower extremity Procedures Transthoracic Echo (TTE) Complete W Doppler/CF Lu Trevino NP [address] [facility] [place] [address] Phone: tel: fax: [address] [phone] Referral ID Status Reason Start Date Expiration Date Visits Re quested Visits Authorized [id number] Closed 04/01/2024 06/30/2024 1 1 WELDER Reason for Visit * Reason Comments New Patient Establish Care. Bleeding/Bruising Bruising easily and not healing like she used to Weight Gain Patient states she h as some weight gain that has happened Encounter Details Date Type Department Care Team (Late st Contact Info) Description 03/19/2024 12:30 PM TIG WELDER Office Visit [facility] Family Medicine at [address] [place] [address] Lu Trevino NP [address] [place] [address] [place] [phone] Anemia, unspecified type (Primary Dx); Encounter for [...] Gastroesophageal reflux disease with esophagitis without hemorrhage Social History Tobacco Use Types Packs/Day Years [...] on file Legal Sex Female 1:55 PM TIG WELDER Gender Identity Not on file Sexual Orientation Not on file documented as of this encounter Last Filed Vital Signs Vital Sign Reading Time Taken Comments Blood Pressure 114/84 03/19/2024 12:42 PM TIG WELDER Pulse 86 03/19/2024 12:42 PM TIG WELDER Temperature 36.5 ??C (97.7 ??F) 03/19/2024 1 2:42 PM TIG WELDER Respiratory Rate 18 03/19/2024 12:4 2 PM TIG WELDER Oxygen Saturation 97% 03/19/2024 12: 42 PM TIG WELDER Inhaled Oxygen Concentration - - Weight 105.4 kg (232 lb 6.4 oz) 024 12:42 PM TIG WELDER Height 170.2 cm (5' 7.01 ) 03/19/2024 1 2:42 PM TIG WELDER Body Mass Index 36.39 03/19/2024 12:42 PM TIG WELDER documented in this encounter Ordered Prescriptions Prescription Sig Dispense Quantity Refills Last Filled Start Date End Date pregabalin (LYRICA) 25 mg capsuleIndications: Medial epicondylitis of left elbow Take 1 capsule (25 mg total) by mouth 3 (three) times a day 90 capsule 1 03/19/2024 documented in this encounter Progress Notes * Lu Trevino NP - 03/19/2024 12:30 PM CST Images from the original note were not included. Subjective/Objective Visit date: 03/19/2024 Patient ID: Nola King is a 54 y.o. female. Chief Complaint Chief Complaint Patient presents with New Patient Establish Care. Bleeding/Bruising Bruising easily and not healing like she used to Weight Gain Patient states she has some weight gain that has happened HPI Pt presents to establish care. Previous PCP: Dr. Arely Narayanan. PMHx: anemia, arthritis, GERD, headache, hypothyroidism, BRIDGET, torn meniscus R knee. BRIDGET: used to wear CPA. No longer. Lost weight in 2019. Reports no further witnessed apneic events. Reports having easy bruising. Reports slow healing. Reports having puppy at home that scratched arms and broke skin easily. Reports having weight gain issues since being inactive with knee issues. Reports was previously receiving L knee injections and injections for plantar fascitis. Reports chronic problems with pain in L elbow and wrist after multiple surgeries. Reports hypersensitivity in medial L elbow with swelling. Reports previously being on gabapentin but had anger and agitation s/e. Getting egd/colon on 04/20 with [facility]. Had mammogram completed recently as well. PHQ Screening Over the last 2 weeks, how often have you been bothered by any of the following problems? Little Interest or Pleasure in Doing Things: Not at all Feeling Down, Depressed, or Hopeless: Not at all PHQ-2 Total Score (If total score is 3 or more points, staff should administer the PHQ-9): 0 Over the past 2 weeks, how often have you been bothered by any of the following problems? Little Interest or Pleasure in Doing Things: Not at all Feeling Down, Depressed, or Hopeless: Not at all PHQ-2 Total Score (If total score is 3 or more points, staff should administer the PHQ-9): 0 Physical Exam Constitutional: General: She is awake. Appearance: Normal appearance. She is obese. HENT: Nose: Nose normal. Eyes: Extraocular Movements: Extraocular movements intact. Conjunctiva/sclera: Conjunctivae normal. Pupils: Pupils are equal, round, and reactive to light. Cardiovascular: Rate and Rhythm: Normal rate and regular rhythm. Heart sounds: No murmur heard. No friction rub. No gallop. Pulmonary: Effort: Pulmonary effort is normal. Breath sounds: Normal breath sounds. Abdominal: Palpations: Abdomen is soft. Musculoskeletal: Left elbow: Swelling present. Decreased range of motion. Left wrist: Decreased range of motion. Right knee: Decreased range of motion. Tenderness present. Right lower leg: Edema present. Left lower leg: Edema present. Skin: General: Skin is warm and dry. Neurological: General: No focal deficit present. Mental Status: She is alert and oriented to person, place, and time. Gait: Gait abnormal (walking with single crutch). Psychiatric: Mood and Affect: Mood normal. Behavior: Behavior normal. Diagnoses and all orders for this visit: Anemia, unspecified type (Primary) Assessment & Plan: Unknown control Check labs Given bruising issues, check PT/INR Already scheduled for EGD and c-scope Orders: - Protime-INR; Future - Ferritin; Future - Folate; Future - Iron profile w/ IBC; Future - Vitamin B12; Future - CBC without differential; Future Encounter for hepatitis C screening test for low risk patient Comments: Hep C screening per USPTF guidelines Orders: - Hepatitis C antibody Blood; Future Vitamin D deficiency Assessment & Plan: Unknown control Previously low Repeat level Orders: - Vitamin D 25 hydroxy; Future Chronic pain of left knee Assessment & Plan: Not at goal Check XR Suspect d/t offloading R knee Pt to call and make procedure appt after getting XR Orders: - XR Knee Left 4+ Vw; Future Chronic hip pain, bilateral Assessment & Plan: Not at goal Check xr Orders: - XR Hips Bilateral 3 or 4 Views; Future Bilateral edema of lower extremity Assessment & Plan: Not at goal May be habitus related Check BNP and cardiac echo Hx pericarditis Orders: - Comprehensive metabolic panel; Future - TSH; Future - Transthoracic Echo (TTE) Complete W Doppler/CF; Future - Pro B-type natriuretic peptide; Future Class 2 severe obesity due to excess calories with serious comorbidity and body mass index (BMI) of36.0 to 36.9 in adult (HCC) Assessment & Plan: Not at goal Wt Readings from Last 3 Encounters: 03/19/24 105.4 kg (232 lb 6.4 oz) 09/10/22 99 kg (218 lb 3.2 oz) 07/30/22 99.4 kg (219 lb 1.6 oz) Try to cut back on calories. Most people should eat between 6824-3614 calories to lose weight. Decrease your carbohydrate intake to less than 100-150 grams per day if possible and increase protein toat least 100 grams per day help with hunger. Increase activity to 30 min 4-5 days a week and add strength training 2 times weekly. Discussed phentermine, bupropion, GLP1s, Topamax, naltrexone. Pt would prefer phentermine dependingon lab results Orders: - Hemoglobin A1c; Future Medial epicondylitis of left elbow Assessment & Plan: Not at goal Start on low dose Lyrica for hypersensitivity Discussed possible cross rxn with gabapentin. Stop if s/e. Discussed alternative meds such as Elavil, Cymbalta but dislikes idea of antideps Orders: - pregabalin (LYRICA) 25 mg capsule; Take 1 capsule (25 mg total) by mouth 3 (three) times a day Hypothyroidism, unspecified type Assessment & Plan: Unknown control No current meds Check levels Orders: - TSH; Future Hyperlipidemia, unspecified hyperlipidemia type Assessment & Plan: Unknown control Check labs No current meds Orders: - Lipid panel; Future Gastroesophageal reflux disease with esophagitis without hemorrhage Assessment & Plan: Not at goal Esophagitis noticeable with pills Protonix 40mg daily Scheduled for EGD with [facility] Return for Follow up. Lu Trevino NP WELDER documented in this encounter Miscellaneous Notes * Assessment & Plan Note - Lu Trevino NP - 03/19/2024 9:36 PM TIG WELDER Associated Problem(s): Class 2 severe obesity due to excess calories with serious comorbidity and body mass index (BMI) of 36.0 to 36.9 in adult (HCC) Not at goal Wt Readings from Last 3 Encounters: 03/19/24 105.4 kg (232 lb 6.4 oz) 09/10/22 99 kg (218 lb 3.2 oz) 07/30/22 99.4 kg (219 lb 1.6 oz) Try to cut back on calories. Most people should eat between 4935-3094 calories to lose weight. Decrease your carbohydrate intake to less than 100-150 grams per day if possible and increase protein toat least 100 grams per day help with hunger. Increase activity to 30 min 4-5 days a week and add strength training 2 times weekly. Discussed phentermine, bupropion, GLP1s, Topamax, naltrexone. Pt would prefer phentermine dependingon lab results WELDER * Assessment & Plan Note - Lu Trevino NP - 03/19/2024 9:35 PM TIG WELDER Associated Problem(s): Chronic pain of left knee Not at goal Check XR Suspect d/t offloading R knee Pt to call and make procedure appt after getting XR WELDER * Assessment & Plan Note - Lu Trevino NP - 03/19/2024 9:35 PM TIG WELDER Associated Problem(s): Chronic hip pain, bilateral Not at goal Check xr WELDER * Assessment & Plan Note - Lu Trevino NP - 03/19/2024 9:35 PM TIG WELDER Associated Problem(s): Bilateral edema of lower extremity Not at goal May be habitus related Check BNP and cardiac echo Hx pericarditis WELDER * Assessment & Plan Note - Lu Trevino NP - 03/19/2024 9:35 PM TIG WELDER Associated Problem(s): Gastroesophageal reflux disease Not at goal Esophagitis noticeable with pills Protonix 40mg daily Scheduled for EGD with [facility] WELDER * Assessment & Plan Note - Lu Trevino NP - 03/19/2024 9:32 PM TIG WELDER Associated Problem(s): Hyperlipidemia Unknown control Check labs No current meds WELDER * Assessment & Plan Note - Lu Trevino NP - 03/19/2024 9:32 PM TIG WELDER Associated Problem(s): Hypothyroidism Unknown control No current meds Check levels WELDER * Assessment & Plan Note - Lu Trevino NP - 03/19/2024 9:31 PM TIG WELDER Associated Problem(s): Vitamin D deficiency Unknown control Previously low Repeat level WELDER * Assessment & Plan Note - Lu Trevino NP - 03/19/2024 9:31 PM TIG WELDER Associated Problem(s): Medial epicondylitis of left elbow Not at goal Start on low dose Lyrica for hypersensitivity Discussed possible cross rxn with gabapentin. Stop if s/e. Discussed alternative meds such as Elavil, Cymbalta but dislikes idea of antideps WELDER * Assessment & Plan Note - Lu Trevino NP - 03/19/2024 9:30 PM TIG WELDER Associated Problem(s): Anemia Unknown control Check labs Given bruising issues, check PT/INR Already scheduled for EGD and c-scope WELDER * Addendum Note - Jacque Peres - 03/19/2024 12:30 PM CSTAddended by: JACQUE PERES on: 03/31/2024 08:54 AM Modules accepted: Orders WELDER documented in this encounter Plan of Treatment Not on file documented as of this encounter Results * TRANSTHORACIC ECHO (TTE) COMPLETE W DOPPLER/CF WO CONTRAST (04/01/2024 9:30 AM TIG WELDER) Anatomical Region Laterality Modality Ultrasound 04/01/2024 9:04 AM TIG WELDER Narrative 04/01/2024 11:39 [place] [address] Echocardiogram Report Patient Name: BERNARD KINGNIFERBala : 1970 Study Date: 04/01/2024 9:04:17 AM Gender: F Tech: ADM Ref Provider: LU TREVINO Height(Cm): 170 BSA: 2.23 Weight(Kg): 105 ?Heart Rate: 94 BP: 129/80 ? Quality: Good Order Provider: LU TREIVNO ?? PROCEDURES: Echocardiographic Report: Transthoracic echocardiogram with [...] valve. Electronically Signed By: Elizabeth Manriquez DO, MARCO ANTONIO BRYAN FASNC 04/01/2024 11:39:44 AM TIG WELDER Procedure Note Elizabeth Manriquez DO - 04/01/2024 [place] [address] Echocardiogram Report Patient Name: NOLA KING L : 1970 Study Date: 04/01/2024 9:04:17 AM Gender: F Tech: ADM Ref Provider: LU TREVINO Height(Cm): 170 BSA: 2.23 Weight(Kg): 105 Heart Rate: 94 BP: 129/80 Quality: Good Order Provider: LU TREVINO PROCEDURES: Echocardiographic Report: Transthoracic echocardiogram with complete [...] RANDI, MARCO ANTONIO, NANI 04/01/2024 11:39:44 AM TIG WELDER Lu Trevino NP CV ECHO PROCEDURES Final Resu lt * XR Hips Bilateral 3 or 4 Views (03/31/2024 9:15 AM TIG WELDER) Anatomical Region Laterality Modality Lower Extremities, Hip, Pelvis Bilateral D igital Radiography 03/31/2024 11:5 1 PM TIG WELDER Addenda Addendum by Rupinder Stuart MD on 04/10/2024 12:04 PM TIG WELDER ADDENDUM: This addendum report supersedes the original [...] D: ??04/10/2024 12:04 PM T: Report ID: [id number] Reading Location: ??[id number] Narrative 03/31/2024 11:59 PM TIG WELDER EXAM DESCRIPTION: XR KNEE LEFT 4 OR [...] D: ??03/31/2024 11:59 PM T: Report ID: [id number] Reading Location: ??[id number] Procedure Note Rupinder Stuart MD - 04/01/2024 [...] Rupinder Stuart M.D. AT T: Report ID: [id number] Reading Location: [id number] us Lu Trevino NP IMG XR PROCEDURES Edited Resu lt - Final * XR Knee Left 4+ Vw (03/31/2024 9:15 AM TIG WELDER) Anatomical Region Laterality Modality Lower Extremities, Knee Left Digital Radiography 03/31/2024 11:5 1 PM TIG WELDER Addenda Addendum by Rupinder Stuart MD on 04/10/2024 12:04 PM TIG WELDER ADDENDUM: This addendum report supersedes the original [...] D: ??04/10/2024 12:04 PM T: Report ID: [id number] Reading Location: ??[id number] Narrative 03/31/2024 11:59 PM TIG WELDER EXAM DESCRIPTION: XR KNEE LEFT 4 OR [...] 11:59 PM - Electronically signed by ??Rupinder tSuart M.D. AT D: ??03/31/2024 11:59 PM T: Report ID: [id number] Reading Location: ??[id number] Procedure Note Rupinder Stuart MD - 04/01/2024 [...] Rupinder Stuart M.D. AT T: Report ID: [id number] Reading Location: [id number] us Lu Shannan SECURITY AND PRIVACY CONSULTANT IMG XR PROCEDURES Edited Resu lt - Final * Pro B-type natriuretic peptide (03/31/2024 8:00 AM TIG WELDER) NT-proBNP <36 <=300 pg/mL Comment: Interpretive Comments: [...] et.al. Eur Heart J. 2006:27:330-337. 2. Carmella DURAN, Nohemi DEL ROSARIO. J. AM [place] Cardiol: Cardiovasc Imag. 2009;2: 216- 225. Interpretive Data Last Revised Date: 2017. Blood 03/31/2024 8:00 AM TIG WELDER 03/31/2024 1:56 PM TIG WELDER Lu Trevino SECURITY AND PRIVACY CONSULTANT LAB BLOOD ORDERABLES Final Re sult Performing Organization Address City/[facility]/ZIP Co de Phone Number SHREYA RANGEL [address] [address] [employer] [address] * (ABNORMAL) CBC without differential (03/31/2024 8:00 AM TIG WELDER) Pathologist [facility] WBC 6.5 3.8 - 9.9 K/cumm Hgb 13.2 11.9 - 15.5 g/dL [facility] Hct 42.8 35.6 - 45.5 % [facility] Plt 232 150 - 400 K/cumm [facility] MPV 13.0(H) 9.1 - 12.3 fL [facility] RBC 4.86 3.90 - 5.20 M/cumm [facility] MCV 88.1 81.3 - 96.4 fL [facility] MCH 27.2 27.1 - 33.3 pg [facility] MCHC 30.8(L) 32.3 - 35.7 g/dL [facility] RDW CV 13.4 11.1 - 14.9 % [facility] RDW SD 43.4 35.7 - 48.1 fL [facility] NRBC abs 0.00 0.00 - 0.01 K/cumm [facility] Blood 03/31/2024 8:00 AM TIG WELDER 03/31/2024 1:56 PM TIG WELDER Lu Shannan SECURITY AND PRIVACY CONSULTANT LAB BLOOD ORDERABLES Final Re sult Performing Organization Address [facility]/ZIP Co de Phone Number SHREYA RANGEL [address] [address] [place] [address] * Vitamin B12 (03/31/2024 8:00 AM TIG WELDER) Vitamin B12 958 230 - 1,250 pg/mL Blood 03/31/2024 8:00 AM TIG WELDER 03/31/2024 1:56 PM TIG WELDER Lu Trevino SECURITY AND PRIVACY CONSULTANT LAB BLOOD ORDERABLES Final Re sult Performing Organization Address [facility] de Phone Number SHREYA RANGEL [address] [address] [facility] [employer] [address] * Iron profile w/ IBC (03/31/2024 8:00 AM TIG WELDER) Pathologist [facility] Iron 83 35 - 145 mcg/dl TIBC 270 250 - 400 mcg/dL [facility] Transferrin saturation 31 20 - 50 % [facility] Blood 03/31/2024 8:00 AM TIG WELDER 03/31/2024 1:56 PM TIG WELDER Lu Trevino SECURITY AND PRIVACY CONSULTANT LAB BLOOD ORDERABLES Final Re sult Performing Organization Address [facility] de Phone Number SHREYA RANGEL [address] [address] [facility] [employer] [place] [address] * Folate (03/31/2024 8:00 AM TIG WELDER) Pathologist [facility] Folic acid >20.0 >=5.0 ng/mL Blood 03/31/2024 8:00 AM TIG WELDER 03/31/2024 1:56 PM TIG WELDER Lu Trevino SECURITY AND PRIVACY CONSULTANT LAB BLOOD ORDERABLES Final Re sult Performing Organization Address [facility] de Phone Number [facility] [address] [address] [facility] [place] [place] [address] * (ABNORMAL) Ferritin (03/31/2024 8:00 AM TIG WELDER) Pathologist [facility] Ferritin 164(H) 15 - 150 ng/mL Blood 03/31/2024 8:00 AM TIG WELDER 03/31/2024 1:56 PM TIG WELDER Lu Shannan SECURITY AND PRIVACY CONSULTANT LAB BLOOD ORDERABLES Final Re sult SHREYA RANGEL [address] [address] [facility] [place], [place] [id number] * (ABNORMAL) Vitamin D 25 hydroxy (03/31/2024 8:00 AM TIG WELDER) Pathologist [facility] Vitamin D 25-OH 28(L) 30 - 80 ng/mL Blood 03/31/2024 8:00 AM TIG WELDER 03/31/2024 1:56 PM TIG WELDER Lu Shannan SECURITY AND PRIVACY CONSULTANT LAB BLOOD ORDERABLES Final Re sult Performing Organization Address [facility] de Phone Number SHREYA RANGEL [address] [address] [employer] [address] * Protime-INR (03/31/2024 8:00 AM TIG WELDER) [facility] PT 11.8 9.7 - 13.0 sec INR 1.09 0.90 - 1.20 SHREYA RANGEL Comment: Interpretive data Oral anticoagulant therapeutic ranges: Venous thromboembolism prophylaxis or treatment: 2.0-3.0 CARDIOLOGY Standard range: 2.0-3.0 High-intensity range: 2.5-3.5 Refer to indication-specific guidelines for appropriate target ranges for prosthetic heart valve replacement. Current interpretive data was last revised on 2019. Blood 03/31/2024 8:00 AM TIG WELDER 03/31/2024 1:56 PM TIG WELDER Lu Shannan SECURITY AND PRIVACY CONSULTANT LAB BLOOD ORDERABLES Final Re sult Performing Organization Address [facility]/ZIP Co de Phone Number SHREYA RANGEL [address] [address] [facility] [employer] [place], [place] [id number] * Hemoglobin A1c (03/31/2024 8:00 AM TIG WELDER) [facility] Hgb A1C 5.5 4.0 - 5.6 % Estimated Average Glucose 111 mg/dL SHREYA RANGEL Comment: The ADA recommends reporting an estimated Average Glucose (eAG) with all Hemoglobin A1c results using the equation derived from a study of 507 normal and diabetic adults. ??Minority populations were underrepresented and children were not included. ?? (Diabetes Care 31:6056-0432, 2008). ??The eAG is not equivalent to a fasting glucose. Blood 03/31/2024 8:00 AM TIG WELDER 03/31/2024 1:56 PM TIG WELDER us Lu Trevino NP LAB BLOOD ORDERABLES Final Re sult Performing Organization Address [facility] Co de Phone Number SHREYA RANGEL [address] [facility] [place] [address] * Hepatitis C antibody Blood (03/31/2024 8:00 AM TIG WELDER) Hep C Ab Nonreactive Nonreactive Comment: Interpretive [...] revised on 2019. Blood 03/31/2024 8:00 AM TIG WELDER 03/31/2024 1:56 PM TIG WELDER Lu Trevino NP LAB MICROBIOLOGY - GENERAL OR DERABLES Final Result Performing Organization Address [facility] Co de Phone Number SHREYA RANGEL [address] [employer] [place], [place] [id number] * (ABNORMAL) TSH (03/31/2024 8:00 AM TIG WELDER) Thyroid Stimulating Hormone 6.96(H) 0.30 - 4.20 mcIUnit/mL Blood 03/31/2024 8:00 AM TIG WELDER 03/31/2024 1:56 PM TIG WELDER us Lu Vanuytven SECURITY AND PRIVACY CONSULTANT LAB BLOOD ORDERABLES Final Re sult SHREYA [address] Department [place] [address] * Lipid panel (03/31/2024 8:00 AM TIG WELDER) Cholesterol 154 30 - 199 mg/dL Comment: [...] on 2017. Triglycerides 91 <=149 mg/dL SHREYA RANGEL Comment: Interpretive Data Ages [...] revised on 2023. Non-HDL Cholesterol 103 mg/dL SHRYEA Comment: Interpretive Data Ages < or = [...] 3 [facility] Blood 03/31/2024 8:00 AM TIG WELDER 03/31/2024 1:56 PM TIG WELDER Narrative [facility] - 03/31/2024 2:57 PM TIG WELDER Has the patient been fasting for 8 hours or more?->Yes Lu Trevino SECURITY AND PRIVACY CONSULTANT LAB BLOOD ORDERABLES Final Re sult [facility] [address] Department of Laboratories [place] [phone] * (ABNORMAL) Comprehensive metabolic panel (03/31/2024 8:00 AM TIG WELDER) Sodium 140 135 - 145 mmol/L Potassium, pl 4.0 3.3 - 4.9 mmol/L [facility] Chloride 103 97 - 110 mmol/L [facility] CO2 27 22 - 32 mmol/L [facility] Anion gap 10 2 - 15 mmol/L [facility] BUN 16 6 - 25 mg/dL [facility] Creatinine 0.81 0.60 - 1.10 mg/dL [facility] Glucose 101 70 - 199 mg/dL [facility] Comment: Interpretive Data Fasting glucose >/= 126 [...] classification and Diagnosis of Diabetes Diabetes Care 2021; 46: S19-S40. Current interpretive data was last [...] Units/L [facility] Blood 03/31/2024 8:00 AM TIG WELDER 03/31/2024 1:56 PM TIG WELDER us Lu Trevino NP LAB BLOOD ORDERABLES Final Re sult [facility] [id number] [facility] [place] [address] documented in this encounter Visit Diagnoses Diagnosis Anemia, unspecified type- Primary Encounter for hepatitis C screening test for low risk patient Vitamin D deficiency Chronic pain of left knee Chronic hip pain, bilateral Bilateral edema of lower extremity Class 2 severe obesity due to excess calories with serious comorbidity and body mass index (BMI) of 36.0 to 36.9 in adult (HCC) Medial epicondylitis of left elbow Hypothyroidism, unspecified type Hyperlipidemia, unspecified hyperlipidemia type Gastroesophageal reflux disease with esophagitis without hemorrhage Chronic hip pain, bilateral Chronic pain of left knee Bilateral edema of lower extremity Anemia, unspecified type Vitamin D deficiency Class 2 severe obesity due to excess calories with serious comorbidity and body mass index (BMI) of 36.0 to 36.9 in adult (HCC) Encounter for hepatitis C screening test for low risk patient Hypothyroidism, unspecified type Hyperlipidemia, unspecified hyperlipidemia type Bilateral edema of lower extremity documented in this encounter Discontinued Medications Medication Sig Discontinue Reason Start Date End Da te phenazopyridine (PYRIDIUM) 100 mg tablet TAKE 2 TABLET BY MOUTH THREE TIMES DAILY FOR 2 DAYS Therapy completed 09/20/2022 03/19/2024 ibuprofen (ADVIL,MOTRIN) 800 mg tablet Take 1 tablet (800 mg total) by mouth 3 (three) times a day Therapy completed 02/23/2024 03/19/2024 gmvkdfcrnwhcl-xvyiizt-c affeine (EXCEDRIN MIGRAINE) 250-250-65 mg per tabletIndications:Migra ine Take 1 tablet by mouth as needed for headaches Therapy completed 03/19/2024 nitrofurantoin monohydrate (MACROBID) 100 mg capsule TAKE 1 CAPSULE BY MOUTH EVERY 12 HOURS FOR 7 DAYS Therapy completed 09/20/2022 03/19/2024 documented as of this encounter Historical Medications * This list may reflect changes made after this encounter. Medication Sig Dispense Quantity Refills Last Filled Start D ate End Date turmeric, bulk, 95 % powder added in this encounter Care Teams Senior Facilities Manager Relationship Specialty Start Date End Date Lu Trevino NP [address] [place] [address] [place] [id number] PCP - General Family Medicine 03/19/24 documented as of this encounter
--- OUTSIDE RECORDS SUMMARY | 2024-04-26 12:35 | XMS_ITS | Encounter Summary ---
Author Organization [facility] Address [address] [place] [address] Phone Care Team Providers Care Aircraft Power Plant Assembler Name Role Phone Unavailable Primary Care Provider Unavailabl e Reason for Visit * Reason Comments Follow-up Encounter Details Date Type Department Care Team (Late st Contact Info) Description 09/25/2022 3:50 PM CDT Office Visit [facility] Orthopaedic Surgery [address] [facility] [address] [place] [address] Dm Foreman MD [address] [facility] [place] [address] Cubital tunnel syndrome, left (Primary Dx) Social History Tobacco Use Types [...] on file 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 Doing well. Feels like she still has some numbness and tingling in the small and ring finger. The pain is much improved at the elbow and the ulnar side of the wrist. She is still sensitive on the medial aspect of the elbow. Using a soft wrap when she is out and about just so that she does not bump the elbow. Has been rubbing the area of the incision trying to get less sensitive PHYSICAL EXAM Focused examination of the left upper extremity: All 5 fingers are warm well perfused with brisk cap refill. She is some decreased sensation in the ulnar nerve distribution. No clawing. Finger adduction abduction are present but they are weak. Negative Wartenberg's. Elbow range of motion is 0-120. DPC is 0. She has some numbness in the maybe seen distribution. ASSESSMENT AND PLAN We discussion with her regarding the clinical findings as she is now 2 months out from the revisionulnar nerve transposition on the left. She is doing much better after her revision ulnar nerve transposition. We did discuss with her that at this point she can start strengthening increasing her weight-bearing status of the left upper extremity. Otherwise, it will take about a year to see the fullresults from this transposition. We do not expect her numbness and tingling to fully resolve but I am very happy with the pain relief. She was amenable to plan and is overall ecstatic. Otherwise, shewill follow up on a p.r.n. basis. I was present for the critical portion of the history, physical examination and all radiographic studies were personally interpreted by me and I determined the diagnosis and treatment plan and communicated them to the patient. I agree with this report which was generated with the assistance of Dr. Foley. Dm Foreman dictating with Fluency Direct. Education Associate variances may occur. Dm Foreman M.D. Professor Hand and Upper Extremity Surgery [facility] documented in this encounter Plan of Treatment Not on file documented as of this encounter Visit Diagnoses Diagnosis Cubital tunnel syndrome, left- Primary documented in this encounter Historical Medications * This list may reflect changes made after this encounter. phenazopyridine (PYRIDIUM) 100 mg tablet TAKE 2 TABLET BY MOUTH THREE TIMES DAILY FOR 2 DAYS 09/20/2022 03/19/2024 nitrofurantoin monohydrate (MACROBID) 100 mg capsule TAKE 1 CAPSULE BY MOUTH EVERY 12 HOURS FOR 7 DAYS 09/20/2022 03/19/2024 added in this encounter
--- OUTSIDE RECORDS SUMMARY | 2024-04-26 12:35 | XMS_ITS | Encounter Summary ---
Author Organization [facility] Address [address] [place] [address] Phone Care Team Providers Care Art Education Professor Name Role Phone Unavailable Primary Care Provider Unavailabl e Reason for Visit * Reason Comments Follow-up Encounter Details Date Type Department Care Team (Late st Contact Info) Description 07/25/2022 2:20 PM CDT Office Visit [facility] Orthopaedic Surgery [address] [place] [address] [facility] 6th [place] [address] [place] [address] Dm Foreman MD [facility] [facility] [place] [address] Cubital tunnel syndrome, left (Primary Dx) Social History Tobacco Use Types Packs/Day Years Used Date Smoking Tobacco: Never AUDIT-C Answer Date Recorded Q1: How often do you have a drink containing alc ohol? 2-4 times a month 07/26/2022 Q2: How many drinks containi ng alcohol do you have on a typical day when you are drinking? 1 or 2 07/26/2022 Q3: How often do you have si x or more drinks on one occasion? 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 Still has the numbness and tingling small finger ring finger. Feels like she does not have really control over the small finger. She still hurts around the outside of the wrist a lot. She had quite a bit of side effectswith gabapentin. Has never been to pain management. 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 Again she did well for many years after the left cubital tunnel until the new injury. PHYSICAL EXAM The patient was alert and oriented normally. Normal affect. Skin is intact, pulses normal, and neurologically notable for numbness small finger ring finger on the left. Although she has some difficulty initially with the interosseous muscle she is able to fire fairly firmly both bring the fingers apart and back together once we worked on that. She has well-healed incisions about the wrist still has a lot of wrist pain dorsal and volar. On the elbow she has good motion. Well-healed posterior incision from the cubital tunnel. I think the ulnar nerve is sitting just anterior to the epicondyle. Tender in that area does cause some radiating symptoms. She also is tender however over the incision i tself which is posterior to the epicondyle. ASSESSMENT AND PLAN This patient has a lot of ongoing pain in the left arm. I think some of the wrist pain is somethingthat we can not simply treat or get to go away. Although I do wonder if a little bit of this could be coming from the ulnar nerve. We had already talked before and I had offered her revision ulnar nerve surgery we talked about again doing this. I think that I could probably reduce some of her symptoms although some of that elbow pain posteriorly I explained would remain because that is hurting where the ulnar nerve is not located anymore. I think in the end despite some risks with infection or hurting nerves or tendons I am hopeful we can at least reduce some of her symptoms if possible and Iwill transpose the nerve either a little bit more anterior or deeper. We talked about following things afterwards and if she had too much persistent symptoms I would probably look to pain management for help with management. Dr. Dm Foreman dictating with Fluency Direct. Manager Corporate Responsibility variances may occur. Dm Foreman M.D. Professor Hand and Upper Extremity Surgery [facility] documented in this encounter Plan of Treatment Not on file documented as of this encounter Visit Diagnoses Diagnosis Cubital tunnel syndrome, left- Primary documented in this encounter Historical Medications * This list may reflect changes made after this encounter. pantoprazole DR (PROTONIX) 40 mg EC tabletIndication s:acid reflux Take 1 tablet (40 mg total) by mouth every morning 07/25/2022 ALPRAZolam (XANAX) 0.5 mg tablet alprazolam 0.5 mg tablet TAKE 1 TABLET BY MOUTH BEFORE FLYING 3 added in this encounter
--- OUTSIDE RECORDS SUMMARY | 2024-04-26 12:35 | XMS_ITS | Encounter Summary ---
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 Gender Identity Not on file Sexual Orientation Not on file documented as of this encounter Ordered Prescriptions Prescription Sig Dispense Quantity Refills Last Filled Start Date End Date levothyroxine (SYNTHROID) 88 mcg tabletIndications:Ac quired hypothyroidism Take 1 tablet (88 mcg total) by mouth daily 30 tablet 1 04/01/2024 documented in this encounter Plan of Treatment Scheduled Orders Name Type Priority Associated Diagnoses Orde r Schedule T3, free Lab Routine Acquired hypothyroidism Expected: 05/02/2024, Expires: 04/01/2025 T4, free Lab Routine Acquired hypothyroidism Expected: 05/02/2024, Expires: 04/01/2025 TSH Lab Routine Acquired hypothyroidism Expected: 05/02/2024, Expires: 04/01/2025 documented as of this encounter Visit Diagnoses Diagnosis Acquired hypothyroidism- Primary Unspecified hypothyroidism documented in this encounter Care Teams Baby Formula Mixer Relationship Specialty Start Date End Date Lu Campbell NP [address] [place] [address] [place] [id number] PCP - General Family Medicine 03/19/24 documented as of this encounter
--- OUTSIDE RECORDS SUMMARY | 2024-04-26 12:35 | XMS_ITS | Data Portability ---
Author Organization [facility], [place] Address [address] [place] [address] Care Team Providers Care Pulverizer Name Role Phone JOHNNIE CASTILLO Primary Care Provider Assessment Encounter Date Assessment Date Assessment LastModified by Organization Details LastModified Time 04/25/2020 04/25/2020 healthy female exam/menopause patient would like std testing pap done mammogram ordered and encouraged colonoscopy this month dexa baseline at 59 since early menopause Encouraged weight bearing exercise and 1500mg daily of Calcium with Vitamin D FU 1 year or prn Not available 04/25/2020 10:20:24 07/25/2021 07/25/2021 Annual gynecological exam performed. Patient will come back in a year unless there are new symptoms. [email or web address] Not available 07/25/2021 14:50:10 08/15/2022 08/15/2022 Annual gynecological exam performed. Patient will come back in a year unless there are new symptoms. Not available 08/15/2022 09:40:50 Plan of Treatment Reminders Order Date Submit Date Provider Last Modified By Organization Details Last Modified Time Details Appointments None recorded. Lab None recorded. Referral None recorded. Procedures None recorded. Surgeries None recorded. Imaging MAMMO, screening, bilateral 2022 023 JESÚS Not available 05:01:41 Medication Orders None recorded. Patient TargetsNo targets recorded. Patient InstructionsNo instructions recorded. Reason for Referral None Reported. Results Created Date Observation Date Name Description Value Unit Range Abnormal Flag Note LastModifiedBy Organization Detail LastModifiedTime 04/25/19 21 04/27/2020 pap, LB Pap test thin prep Negati ve for Intrae pithel ial Lesion or Malign patricia normal ACCES SARAH #: [id number] Sourc e: Cervi chikis/E ndoce rvica l LMP: 2019 Date Taken : 04/25 Speci men Type: ThinP rep Vial Date Repor [place]: 2020 Clini chikis Data: Cytot ech: Yanira Ernandez Young , CT( CP) Date Repor [place]: 2020 Revie wed By: Celestine Rodriguez on, CT( CP) Speci men Adequ acy: Satis facto ry for evalu ation Scant cellu larit y Endoc ervic al/tr ansfo rmati on zone compo nent prese nt Gener al Categ oriza tion: NEGAT GLENN FOR INTRA EPITH ELIAL LESIO N OR MALIG KYM Inter preta tion/ Resul t: Atrop hy Comme nts/R ecomm endat ions: Blood prese nt The follo wing tests have been order ed as reque sted and a separ ate repor t will be issue d: Chlam ydia, Gonor rhoea e, and Trich omona s This speci men has been annelise zed by the ThinP rep Imagi ng Syste m, an inter activ e compu ter syste m which stella ts the lab in the scree amy of ThinP rep Pap Test slide s. Follo wing imagi ng, the slide was revie wed by a Cytot echno logis t and/o r Patho logis t. D N A A S S A Y S R E P O R T TEST NAME RESUL TS ----- ---- ----- -- HPV High Risk Scree n (TMA) ThinP rep Vial The human papil lomav irus (HPV) High Risk Scree n is an FDA-a pprov ed in-vi tro ampli fied nucle ic acid test for the quali tativ e detec tion of E6/E7 viral mRNA. Resul ts shoul d be corre lated with patie nt prese ntati on, histo ry, cervi chikis cytol ogy and other clini chikis and labor atory findi ngs. See https ://geo goncalvesLifeBook/s ites/ defau lt/fi les/2 018-0 3/- 66432 _002_ 01.pd [facility] infor matio n. Test perfo rmed by [facility], d/b/a [facility], [address], [place] [address] , Coty Rascon ra, DO, Labor [employer] Dire tor. HPV High Risk *HPV NOT DETEC [place] (TYPE S 16, 18, 31, 33, 35, 39, 45, 51, 52, 56, 58, 59, 66, 68) *HPV: The human papil lomav irus (HPV) High Risk Cristal garza is an FDA-a pprov ed in-vi tro ampli fied nucle ic acid test for the quali tativ e detec tion of E6/E7 viral mRNA. [facility] ts shoul d be corre lated with patie nt prese ntati on, histo ry, cervi chikis cytol ogy and other clini chikis and labor atory findi ngs. See https ://Plandree/s ites/ defau lt/fi 2 018-0 3- 70096 _002_ 01.pd f for [facility] infor joan n. Test perfo rmed by [facility], d/b/a [facility], [address], [place] [address] , Coty Rascon ra, DO, Labor [employer] Dire tor. End of Repor t Techn ical servi izabela provi ded by [facility], d/b/a [employer] roup, [address] [place] [address] Fabricio Fritz MD, Labor DOOMORO tor. Case revie wed and diagn osis rende red at [facility], d/b/a [facility], [address] [place] [address] Fabricio Fritz MD, Labor Mir Vracha Dire tor. CONFI DENTI AL Not Available [facility] ([facility]) [facility] [address], [place], [address], 04/27/2020 12:20:23 04/25/19 21 04/26/2020 CT + NG DNA, PCR, unspe cifie d speci men trichomonas vaginalis, aptima (panther) NOT DETECT ED normal DNA testi ng perfo rmed by Trans [employer] [place] Ampli ficat ion (TMA) These resul ts shoul d be inter prete d in light of all clini chikis and labor atory findi ngs. This assay is highl y accur ate, but rare false posit glenn and negat glenn resul ts may occur . Posit glenn resul ts in low preva lence popul ation s may requi re re-ev aluat ion. A negat glenn resul t does not precl ude a possi ble infec tion due to a speci men inade quacy or sampl ing error . Test perfo rmed by Assoc [facility]ated Patho logis ts, [facility], d/b/a Jennifer walker, [address] [place] [address], [place] [address] , Coty Rascon ra, DO, Labor atory Dire tor. Not Available [facility] ([facility]) [facility] [address], [place], [address], 04/27/2020 12:20:23 04/25/19 21 04/26/2020 CT + NG DNA, PCR, unspe cifie d speci men neisseria gonorrhoeae, aptima NOT DETECT ED normal DNA testi ng perfo rmed by [employer] [place] Ampli ficat ion (TMA) These resul ts shoul d be inter prete d in light of all clini chikis and labor atory findi ngs. This assay is highl y accur ate, but rare false posit glenn and negat glenn resul ts may occur . Posit glenn resul ts in low preva lence popul ation s may requi re re-ev aluat ion. A negat glenn resul t does not precl ude a possi ble infec tion due to a speci men inade quacy or sampl ing error . Test perfo rmed by Assoc iated Patho logis [employer], [employer], d/b/a Jennifer nakitasvetlana, [address], [place] [address] , Coty Rascon ra, DO, Labor atory Direc tor. Not Available [facility]) [address] [facility] [address], [place], [address], 04/27/2020 12:20:23 04/25/19 21 04/26/2020 CT + NG DNA, PCR, unspe cifie d speci men chlamydia trachomatis, aptima NOT DETECT ED normal DNA testi ng perfo rmed by [employer] [place] Ampli ficat ion (TMA) These resul ts shoul d be inter prete d in light of all clini chikis and labor atory findi ngs. This assay is highl y accur ate, but rare false posit glenn and negat glenn resul ts may occur . Posit glenn resul ts in low preva lence popul ation s may requi re re-ev aluat ion. A negat glenn resul t does not precl ude a possi ble infec tion due to a speci men inade quacy or sampl ing error . Test perfo rmed by Assoc iated Patho logis [employer], [employer], d/b/a Jennifer walker, [address], [place] [address] , Coty Rascon ra, DO, Labor atory Direc tor. Not Available [facility]) [address], [place], [address], 04/27/2020 12:20:23 04/25/19 21 04/26/2020 HPV DNA, high- risk HPV high risk NOT DETECT ED normal The human papil lomav irus (HPV) High Risk Cristal kayla is an FDA-a pprov ed in-vi tro ampli fied nucle ic acid test for the quali tativ e detec tion of E6/E7 viral mRNA. Resul ts shoul d be corre lated with patie nt prese ntati on, histo ry, cervi chikis cytol ogy and other clini chikis and labor atory findi ngs. See https ://Plandree/s dipikaes/ ann marie lt/fi les/2 018-0 3/AW- 36531 _002_ 01.pd f for furth er infor joan n. Test perfo rmed by [facility], d/b/a [facility], [address], [place] [address] , Coty Rascon ra, DO, Labor atory Dire tor. Not Available [facility] ([facility]) [address] [facility] [address], [place], [address], 04/27/2020 12:20:23 07/26/19 22 07/25/2021 IMAGE GUIDE D PAP AND HPV REGAR DLESS image guided Pap, HPV regardless of Pap result SEE RESULT S BELOW abnormal CASE REPOR T: Cytol ogy Gynec ologi chikis Repor t Case: [id number] Autho aden perez Provi babita: Cory Ojeda Colle cted: 07/25 1701 [employer]PER[employer] Order ing Locat ion: [place] Patho log[facility] Recei tanya: 07/26 0219 First Scree n: Perla Serrano ret, CT Patho logis t: Rik Alejandro rd, MD Speci men: Scree amy Pap - Image d, Cervi x STATE MENT OF ADEQU ACY: Satis facto ry for evalu ation Trans forma tion zone compo nent prese nt FINAL DIAGN OSIS: Epith elial Cell Abnor malit y, Squam ous Cell: Atypi chikis Squam ous Cells of Undet ermin ed Signi fican ce (ASC- US). Atrop hic cell irma lópez. Elect keenan valdez calista d by Rik Alejandro rd, MD on 2021 at 1:35 PM ----- ----- ----- ----- ----- ----- ----- ----- ----- ----- ----- ----- ----- ----- ----- ----- ----- ---- HPV RESUL TS: HPV mRNA E6/E7 : Posit glenn - HPV mRNA Detec [place] HPV GENOT YPE 16 (BINTA) : Not Detec [place] HPV GENOT YPE 18/45 (BINTA) : Not Detec [place] NOTE: This high risk HPV mRNA assay detec ts fourt een high- risk HPV types (16, 18, 31, 33, 35, 39, 45, 51, 52, 56, 58, 59, 66, 68) witho ut diffe renti ation . This assay can diffe renti ate HPV 16 from HPV 18/45 , but does not diffe renti ate betwe en HPV 18 and HPV 45. A negat glenn HPV 16, 18/45 genot ype assay resul t does not exclu de the possi bilit y of cytol ogic abnor malit ies or of futur e or under lying JOZEF 1, JOZEF 3 or cance r. COMME NT: Note: This speci men was revie wed by a Cytot echno logis t and/o r Patho logis t (as indic ated in this repor t) after evalu ation using the Thinp rep Imagi ng Syste m. CLINI CHIKIS INFOR MATIO N: Menst rual Statu s: LMP (if appli cable ): Clini chikis Histo ry/Pr eviou s Pap: Type of Neopl lebron (if appli cable ): Signi fican t Clini chikis Findi ngs: Other Histo ry: Hormo vipul (if appli cable ): LAURA WHITESIDE FOLLO W-UP: Follo w up as todd nted, based on curre nt guide lines and indiv idual patie nt consi derat ions. Not Available [facility] (Lab) [address], [place], [address], 08/01/2021 14:38:41 08/16/19 22 08/15/2021 SURGI CHIKIS PATHO LOGY surgical pathology SEE RESULT S BELOW CASE REPOR T: Surgi chikis Patho logy Repor t Case: [id number] Autho aden perez Provi babita: Momo kaiser , Alanna Earl cted: 08/15 1626 [employer] Order ing Locat ion: [place] Patho logy Recei tanya: 08/16 0704 Patho logis t: Xiang Gipson MD Speci mens: A) - Cervi x, bx 2 ocloc k B) - Cervi x, TMZ C) - Endoc ervix , ECC D) - Cervi x, Polyp FINAL DIAGN OSIS: A. Cervi x, 2:00, biops y: -Low- grade squam ous intra epith elial lesio n (JOZEF- 1) invol ving detac hed, infla med epith elial fragm ents. B. Cervi x, TMZ, biops y: -Low- grade squam ous intra epith elial lesio n (JOZEF- 1) invol ving detac hed, infla med epith elial fragm ents. C. Endoc ervix , curet tage: -Pred omina ntly mucus and infla mmato ry debri s, insuf ficie nt endoc ervic al tissu e avail able for histo logic evalu ation . D. Cervi chikis polyp , polyp ectom y: -Cristian gn endoc ervic al polyp with infla mmati on. Britany villeda by Xiang Gipson MD on 022 at 1:42 PM ----- ----- ----- ----- ----- ----- ----- ----- ----- ----- ----- ----- ----- ----- ----- ----- ----- ---- CLINI CHIKIS INFOR MATIO N: not provi ded MICRO SCOPI C DESCR IPTIO N: A micro scopi c exami natio n was perfo rmed. GROSS DESCR IPTIO N: A. Cervi x. The speci men is label ed with the patie nt's name, rosibel thompson cs and 2:00 . Recei tanya in forma maxim is a 0.3 cm fragm ent of white -davis tissu e. The entir e speci men is submi tted in one casse tte. Gross ed by Ilir Heredia on B. Cervi x. The speci men is label ed with the patie nt's name, rosibel gallardoi cs and TM Z . Recei tanya in forma maxim and on a biops y brush is a 0.2 x 0.1 x 0.1 cm aggre gate of minut e white tissu e. It is submi tted all in casse tte B1. Note that tissu e may not survi ve proce ssing . Gross ed by Ilir Heredia on C. Endoc ervix . The speci men is label ed with the patie nt's name, rosibel gallardoi cs and ECC . Recei tanya in forma maxim and on a biops y brush is a 1.0 x 0.2 x 0.[address] gate of minut e white tissu e and mucus . It is submi tted all in one casse tte. Gross ed by Ilir Heredia on D. Cervi x. The speci men is label ed with the patie nt's name, saurabhog raphi cs and polyp . Recei tanya in forma maxim is are two fragm ents of white -davis tissu e measu ring 0.5 and 0.6 cm. The entir e speci men is submi tted in one casse tte. 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 FINAL DIAGN OSIS: Negat glenn for Intra epith elial Lesio n or Reema schwartz (NIL) . Shift in shad sugge stive of bacte rial vagin osis. Elect keenan valdez calista d by Arie thompson, Willi am, CT on 023 at 1:36 PM ----- ----- ----- ----- ----- ----- ----- ----- ----- ----- ----- ----- ----- ----- ----- ----- ----- ---- HPV RESUL TS: HPV mRNA E6/E7 : Posit glenn - HPV mRNA Detec [place] HPV GENOT YPE 16 (BINTA) : Not Detec [place] HPV GENOT YPE 18/45 (BINTA) : Not Detec [place] NOTE: This high risk HPV mRNA assay detec ts fourt een high- risk HPV types (16, 18, 31, 33, 35, 39, 45, 51, 52, 56, 58, 59, 66, 68) witho ut diffe renti ation . This assay can diffe renti ate HPV 16 from HPV 18/45 , but does not diffe renti ate betwe en HPV 18 and HPV 45. A negat glenn HPV 16, 18/45 genot ype assay resul t does not exclu de the possi bilit y of cytol ogic abnor malit ies or of futur e or under lying JOZEF 1, JOZEF 3 or cance r. COMME NT: This speci men was revie wed by a Cytot echno logis t and/o r Patho logis t (as indic ated in this repor t) after evalu ation using the Thinp rep Imagi ng Syste m. CLINI CHIKIS INFOR MATIO N: Menst rual Statu s: LMP (if appli cable ): Clini chikis Histo ry/Pr eviou s Pap: Type of Neopl lebron (if appli cable ): Signi fican t Clini chikis Findi ngs: Other Histo ry: Hormo vipul (if appli cable ): PAP EDUCA CHANCE L NOTE: The Pap Test is a scree amy test with an inher ent false negat glenn rate. Liqui d-bas ed sampl ing may decre ase, but will not elimi vinicio, false negat glenn resul ts. A negat glenn resul t does not precl ude the prese nce and/o r devel opmen t of disea se, since the prese nce of abnor mal cells in the sampl e depen ds on the locat ion of the lesio n and sampl ing techn ique. Marcelo nued regul ar scree amy is the best metho d of cance r preve ntion . If repor [place] cytol ogic findi ng do not corre late with physi chikis and/o r histo rical findi ngs, furth er inves tigat ion is recom nilo d, as clini darren brooks nted. Not Available [facility] (Lab) [address], [place], [address], 08/20/2022 14:40:29 08/16/19 23 08/15/2022 TRICH OMONA S VAGIN YANA (RRNA ) trichomonas vaginalis ribosomal RNA (rrna) Negati ve negati ve Not Available [facility] (Lab) [address], [place], [address], 08/20/2022 14:40:30 05/05/19 21 05/04/2020 MAMMO , scree amy, bilat eral No observ ation record ed. [email or web address] [facility] [address] [facility], [place], [address], 10/25/2021 10:37:06 08/09/19 22 05/15/2021 US, sejal s No observ ation record ed. [email or web address] Not Available 2021 16:51:00 08/09/19 22 05/05/2020 MAMMO , scree amy, bilat eral No observ ation record ed. [email or web address] Imaging [address] [facility], [place], [address], 08/21/2021 16:51:01 Result Notes None recorded. Procedures Surgical History Date Name Laterality Status Provider Name and Address Organization Details Recorded Time 08/16/19 23 Date of Last Pap Smear completed Lena Garcia [facility] 08/27/2022 10:08:35 08/16/19 22 Colposcopy completed GARCÍA Chakraborty- [address], [place], [address], [facility] 08/15/2021 16:29:39 08/16/19 22 Colposcopy completed Jovana Qureshi [facility] 08/15/2021 16:43:56 08/16/19 22 Colposcopy completed Jovana Qureshi [facility] 08/15/2021 16:44:06 07/15/19 22 procedure on elbow completed Raquel Lockett [facility] 08/15/2022 09:44:45 04/15/19 22 Date of Last Mammogram completed Raquel Lockett [facility] 08/15/2022 09:43:41 04/15/19 08 procedure on esophagus completed Jane Estrella [facility] 04/25/2020 10:14:51 04/15/19 04 procedure on hand completed Jane Estrella [facility] 04/25/2020 10:15:20 04/15/18 97 extraction of wisdom tooth completed Jane Estrella [facility] 04/25/2020 10:15:31 Imaging Results Imaging Date Name Status LastModified by Organiz ation Details LastModified Time 05/04/2020 MAMMO, screening, bilateral completed [email or web address] [facility] [address] [facility], [place], [address], 10/25/2021 10:37:06 05/15/2021 US, pelvis completed [email or web address] Information no t available 08/21/2021 16:51:00 05/05/2020 MAMMO, screening, bilateral completed [email or web address] [place] [facility] [address], [place], [address], 08/21/2021 16:51:01 Procedure Notes None recorded. Medical Equipment None Reported. Allergies Allergen ID Allergen Name Allergen Category Reaction Reaction Severity Criticality Documentation Date Start Date Code Code System Note Provider Name and Address Organization Details Recorded Time 59079 acetamino phen / oxycodone medicatio n Not available Not available Not available 04/25/2020 11490 3 RxNorm Jane rabago [facility] 09:55:15 77930 latex environme nt,medica tion Not available Not available Not available 04/25/2020 15821 91 RxNorm Jane rabago [facility] 09:55:20 08522 erythromy jozef medicatio n Not available Not available Not available 04/25/2020 4053 RxNorm Jane rabago [facility] 09:56:07 Medications Name Sig Start Date Stop Date Status Note LastModified by Organization Details LastModified Time acetazolami de 125 mg tablet TAKE 1 TABLET BY MOUTH TWICE DAILY 08/15 completed Not Available Not Available Not Available hydrocodone 5 mg-acetamin ophen 325 mg tablet TAKE 1 TABLET BY MOUTH EVERY 6 HOURS FOR UP TO 15 DOSES NEEDED FOR PAIN 08/15 completed Not Available Not Available Not Available ondansetron HCl 8 mg tablet TAKE 1 TABLET BY MOUTH THREE TIMES DAILY NEEDED 08/15 completed Not Available Not Available Not Available meloxicam 15 mg tablet TAKE 1 TABLET BY MOUTH EVERY DAY 07/25 completed Not Available Not Available Not Available prednisone 20 mg tablet TAKE 2 TABLETS BY MOUTH EVERY DAY 08/15 completed Not Available Not Available Not Available levofloxaci n 250 mg tablet TAKE 1 TABLET BY MOUTH EVERY DAY FOR 5 DAYS 07/25 completed Not Available Not Available Not Available alprazolam 0.5 mg tablet TAKE 1 TABLET BY MOUTH BEFORE FLYING 08/15 completed Not Available Not Available Not Available amoxicillin 875 mg tablet TAKE 1 TABLET BY MOUTH EVERY 12 HOURS FOR 10 DAYS 07/25 completed Not Available Not Available Not Available benzonatate 100 mg capsule TAKE 1 CAPSULE BY MOUTH EVERY 8 HOURS NEEDED 08/15 completed Not Available Not Available Not Available hydrocodone 7.5 mg-acetamin ophen 325 mg tablet TAKE 1 TABLET BY MOUTH EVERY 4 TO 6 HOURS NEEDED FOR PAIN 07/25 completed Not Available Not Available Not Available cephalexin 500 mg capsule TAKE 1 CAPSULE BY MOUTH TWICE A DAY 07/25 completed Not Available Not Available Not Available pantoprazol e 40 mg tablet,jones yed release TAKE 1 TABLET BY MOUTH EVERY MORNING BEFORE BREAKFAST active Not Available Not Available No t Available gabapentin 300 mg capsule 08/15 completed Not Available Not Available Not Available diclofenac sodium 75 mg tablet,jones yed release TAKE 1 TABLET BY MOUTH TWICE A DAY WITH MEALS FOR 30 DAYS 08/15 completed Not Available Not Available Not Available codeine 10 mg-guaifene sin 100 mg/5 mL oral liquid TAKE 10 ML AT BEDTIME FOR 5 DAYS NEEDED FOR COUGHING 08/15 completed Not Available Not Available Not Available gabapentin 100 mg capsule TAKE 1 CAPSULE (100 MG) BY MOUTH AT BEDTIME FOR 30 DAYS 07/25 completed Not Available Not Available Not Available methylpredn isolone 4 mg tablets in a dose pack TAKE 6 TABLETS ON DAY 1 DIRECTED ON PACKAGE AND DECREASE BY 1 TAB EACH DAY FOR A TOTAL OF 6 DAYS 07/25 completed Not Available Not Available Not Available albuterol sulfate HFA 90 mcg/actuati on aerosol inhaler INHALE 2 PUFFS BY MOUTH EVERY 4 HOURS NEEDED 08/15 completed Not Available Not Available Not Available ondansetron 4 mg disintegrat ing tablet TAKE 1 TABLET BY MOUTH EVERY 8 HOURS NEEDED FOR NAUSEA 07/25 completed Not Available Not Available Not Available cefdinir 300 mg capsule TAKE 1 CAPSULE (300 MG) BY MOUTH 2 TIMES DAILY FOR 5 DAYS 07/25 completed Not Available Not Available Not Available nitrofurant oin monohydrate /macrocryst als 100 mg capsule TAKE 1 CAPSULE BY MOUTH EVERY 12 HOURS FOR 5 DAYS DRINK PLENTY OF FLUIDS AND TAKE PROBIOTIC 08/15 completed Not Available Not Available Not Available Vitals Date Recorded Body height Body mass index (BMI) Body weight Provider Name and Address Organization Details Last Updated DateTime 07/25/2021 170.18 cm 30.5 kg/m2 94023.51 g Lena Garcia [facility] 07/25/2021 14:50:44 Date Recorded Systolic blood pressure Diastolic blood pressure Provider Name and Address Organization Details Last Updated DateTime 07/25/2021 122 mm[Hg] 80 mm[Hg] Bhavana Gonzales [facility] [address], [place], [address], [facility] 07/25/2021 15:06:53 Date Recorded Body height Body mass index (BMI) Body weight Provider Name and Address Organization Details Last Updated DateTime 08/15/2021 170.18 cm 30.8 kg/m2 01126.26 g Jovana Qureshi [facility] 08/15/2021 16:05:00 Date Recorded Systolic blood pressure Diastolic blood pressure Provider Name and Address Organization Details Last Updated DateTime 08/15/2021 123 mm[Hg] 80 mm[Hg] Bhavana Gonzales [facility] [address], [place], [address], [facility] 08/15/2021 16:28:28 Date Recorded Body height Body mass index (BMI) Body weight Systolic blood pressure Diastolic blood pressure Provider Name and Address Organization Details Last Updated DateTime 08/15/2022 170.18 cm 34.3 kg/m2 49135.73 g 119 mm[Hg] 80 mm[Hg] Raquel Lockett [facility] 3 09:41:27 Date Recorded Body height Body mass index (BMI) Body weight Systolic blood pressure Diastolic blood pressure Provider Name and Address Organization Details Last Updated DateTime 04/25/2020 170.18 cm 28 kg/m2 62029.03 g 116 mm[Hg] 81 mm[Hg] Jane Estrella [facility] 10:01:47 Social History Question Answer Notes LastModified by Organizat ion Details LastModified Time Tobacco Smoking Status Never Smoker Jane Estrella [facility], [facility] 04/25/2020 09:56:29 In The 14 Days Before Symptom Onset, Have You Had Close Contact With A Laboratory-confirm ed COVID-19 While That Case Was Ill? No Information n ot available 08/15/2022 In The 14 Days Before Symptom Onset, Have You Had Close Contact With A Person Who Is Under Investigation For COVID-19 While That Person Was Ill? No Information not available 08/15/2022 Have You Been To An Area Known To Be High Risk For COVID-19? No Information not available 08/15/2022 Sex: Unknown Functional Status None recorded. Mental Status None recorded. Family History Relationship Description Onset Age of this Age Resolved Age Notes LastModified by Organization Details LastModified Time Mother Anemia smcaley Not available 10:16:07 Mother Heart disease smcaley Not available 2020 10:17:22 Mother Cyst of ovary smcaley Not available 2020 10:20:18 Maternal Grandmother Anemia smcaley Not available 2020 10:16:07 Maternal Grandmother Heart disease smcaley Not available 2020 10:17:22 Maternal Grandmother Diabetes mellitus smcaley Not available 2020 10:17:48 Maternal Grandmother Hypercholest erolemia smcaley Not available 2020 10:18:43 Maternal Grandmother Hypertensive disorder smcaley Not available 2020 10:19:49 Maternal Grandmother Mental disorder smcaley Not available 2020 10:21:49 Maternal Grandmother Polycystic ovary syndrome smcaley Not available 2020 10:22:01 Maternal Grandmother Disorder of thyroid gland smcaley Not available 2020 10:23:05 Paternal Aunt Carcinoma in situ of breast smcaley Not available 2020 10:16:19 Paternal Aunt Carcinoma of uterine cervix, invasive smcaley Not available 2020 10:16:31 Paternal Aunt Heart disease smcaley Not available 2020 10:17:22 Paternal Aunt Hypercholest erolemia smcaley Not available 2020 10:18:43 Paternal Aunt Hypertensive disorder smcaley Not available 2020 10:19:49 Paternal Aunt Carcinoma in situ of uterus smcaley Not available 2020 10:23:19 Paternal Grandmother Heart disease smcaley Not available 2020 10:17:22 Paternal Grandmother Diabetes mellitus smcaley Not available 2020 10:17:48 Paternal Grandmother Hypercholest erolemia smcaley Not available 2020 10:18:43 Paternal Grandmother Hypertensive disorder smcaley Not available 2020 10:19:49 Paternal Grandmother Disorder of thyroid gland smcaley Not available 2020 10:23:05 Maternal Grandfather Heart disease smcaley Not available 2020 10:17:22 Maternal Grandfather Hypercholest erolemia smcaley Not available 2020 10:18:43 Maternal Grandfather Hypertensive disorder smcaley Not available 2020 10:19:49 Maternal Grandfather Disorder of thyroid gland smcaley Not available 2020 10:23:05 Paternal Grandfather Heart disease smcaley Not available 2020 10:17:22 Paternal Grandfather Hypercholest erolemia smcaley Not available 2020 10:18:43 Paternal Grandfather Hypertensive disorder smcaley Not available 2020 10:19:49 Maternal Aunt Heart disease smcaley Not available 2020 10:17:22 Maternal Aunt Hypercholest erolemia smcaley Not available 2020 10:18:43 Maternal Aunt Hypertensive disorder smcaley Not available 2020 10:19:49 Maternal Uncle Diabetes mellitus smcaley Not available 2020 10:17:48 Maternal Uncle Hypercholest erolemia smcaley Not available 2020 10:18:43 Maternal Uncle Hypertensive disorder smcaley Not available 2020 10:19:49 Maternal Uncle Mental disorder smcaley Not available 2020 10:21:49 Maternal Uncle Disorder of thyroid gland smcaley Not available 2020 10:23:05 Paternal Uncle Hypercholest erolemia smcaley Not available 2020 10:18:43 Paternal Uncle Hypertensive disorder smcaley Not available 2020 10:19:49 Paternal Uncle Pulmonary embolism smcaley Not available 2020 10:22:19 Paternal Uncle Disorder of thyroid gland smcaley Not available 2020 10:23:05 Father Hypertensive disorder smcaley Not available 2020 10:19:49 Brother Hypertensive disorder smcaley Not available 2020 10:19:49 Sister Cyst of ovary smcaley Not available 2020 10:20:18 Medical History Condition Response Allergies (Food, seasonal, environmental ) N Other Y Blood Transfusion N Drug/Latex Allergies/Reactions Y Breast Cancer N Dermatologic Disorders N Lung Disease N Defects or Inherited Disease N Breast Problem N Gestational Diabetes N Hematologic disorders N Anesthesia Complications N History of STI Y Deep Vein Thrombosis N Polycystic ovary syndrome N Anxiety Disorder N Autoimmune disease N Arthritis N Infertility N Polyps N Acid Reflux (GERD) Y History of abnormal pap Y Cancer N Stroke N Varicosities N Neurologic/Epilepsy N Endometriosis N High Cholesterol N Headaches N Fibromyalgia N Kidney Disease N Heart Problems N Kidney or Bladder Problems Y Thyroid Problems N GI Problems Y Eating Disorder N Anemia Y Art (IVF or FET) N Psychiatric Illness N Ovarian Cancer N Diabetes N Pulmonary (TB, Asthma) Y Hepatitis/Liver Disease N Eczema N Urinary Tract Infection N Abuse/Domestic Violence N Asthma N Trauma/Violence N Depression/ depression N Heart Disease N Pre-Eclampsia N Hypertension N Osteoporosis N Thrombophilias N Gynecological History Statement/Question Response Abnormal Pap Y Date of Last Mammogram 04/15/2021 Date of LMP 04/15/2009 STIs/STDs N HPV Vaccine N Colposcopy 08/15/2021 Current Control Method Menopause Date of Last Colonoscopy Sexually Active? Y Menses Monthly N Date of DEXA bone scan Age of first menstrual cycle 39 Date of Last Pap Smear 08/15/2022 Sexual Problems? N LMP Approximate Obstetrics History GPAL:G 0 P 0 0 0 0 Past Encounters Encounter ID Performer Location Encounter Start Date Encounter Closed Date Diagnosis/Indication Diagnosis SNOMED-CT Code Diagnosis ICD10 Code Diagnosis Note [id number] Jada Santo MD [place] [address] [address] 04/25/2020 09:51:32 04/25/2020 10:48:11 Gynecologic examination [id number] Z01.419 [id number] Bhavana Gonzales [facility] [address] [address] 07/25/2021 14:32:51 07/25/2021 17:21:08 Gynecologic examination 87732574 Z01.419 Take Calcium with Vitamin D 12-1500mg daily. Do monthly self breast exams. It is advised to get annual flu shot in the fall and she could obtain at [facility] or [facility] care clinic. If you haven't received the Tdap vaccine in the last 10 years you should obtain one as well. Have mammogram yearly, bone density every 2-3 years and colonoscop y every 5-10 years depending on findings and history. Engage in daily exercise of low impact aerobic exercise 45-60 minutes 4-5 times weekly. Avoid tobacco and illicit drugs as well as using moderation with alcohol intake less than 1-2 8 oz beverages daily. This lifestyle behavior pattern will lead to less health conditions and longer life span. If BMI greater than 25 weight watchers or dietary consult advised. Questions have been answered. Patient appears to understand instructio ns, but if you have any further questions call or respond to this email Pap/hpv sent STD Screen declined Genetic Screen discussed Colon Screen cologuard sent Dexa Screen na [facility] UTD PCPMammo ordered Screening for malignant neoplasm of colon 822954021 Z12.11 Cologuard form signed. [id number] Bhavana Gonzales [facility] [address],[facility] [place] [address] 08/15/2021 15:52:26 08/15/2021 16:31:15 Atypical squamous cells of undetermined significance on cervical Papanicolaou smear [id number] R87.610 See procedure notes.Post -procedure instructio ns reviewed with understand ing verbalized .Will contact with results & next steps in plan of care. Counseled on Pap/HPV guidelines /Testing/R esults with understand ing verbalized .All questions answered to patient satisfacti on. Booklet & additional resources regarding pap smear/HPV/ Pap results given. https://ww w.cancer.g ov/types/c ervical/un derstandin g-abnormal -hpv-and-p ap-test-re sults/unde rstanding- cervical-c hanges.pdf [id number] Bhavana Gonzales [facility] [address],[place] [address] 08/15/2022 09:28:22 08/15/2022 10:05:09 Gynecologic examination [id number] Z01.419 Z11.51 Take Calcium with Vitamin D 12-1500mg daily. Do monthly self breast exams. It is advised to get annual flu shot in the fall and she could obtain at [facility] or [facility] care clinic. If you haven't received the Tdap vaccine in the last 10 years you should obtain one as well. Have mammogram yearly, bone density every 2-3 years and colonoscop y every 5-10 years depending on findings and history. Engage in daily exercise of low impact aerobic exercise 45-60 minutes 4-5 times weekly. Avoid tobacco and illicit drugs as well as using moderation with alcohol intake less than 1-2 8 oz beverages daily. This lifestyle behavior pattern will lead to less health conditions and longer life span. If BMI greater than 25 weight watchers or dietary consult advised. Questions have been answered. Patient appears to understand instructio ns, but if you have any further questions call or respond to this email Pap/hpv sentSTD Screen sentGeneti c Screen discussedC olon Screen cologuard due this year, ordered PCPDexa Screen PCPRoutine Labs UTD PCPMammo ordered Screening mammography [id number] Z12.31 Health Concerns Section Related Observation LastModified by Organization Detai ls LastModified Time None Recorded Concern Status LastModified by Organization Details LastModified Time None Recorded Advance Directives Directive None Recorded Payers Encounter Date Sequence Insurance Name Policy Number Policy Lovett Covered Member ID Lovett Member ID Guarantor Name 04/25/2020 1 [employer] [id number] Nola King [id number] Nola King 07/25/2021 1 [facility] [id number] Nola Fraziers [id number] Nola Fraziers 08/15/2021 1 [facility] [id number] Nola Mckenna King [id number] Nola Fraziers 08/15/2022 1 [facility] [id number] Nola Mckenna King [id number] Nola King Notes Date Note Type Note Provider Name and Address Organization Details Recorded Time 04/25/2020 text/html Patient is a 50y o G0 who presents for an annual exam. NO history abnormal paps. NO bleeding since menopause at age 39. Lost 75 pounds in last year! last pap-6 years mammo-never colonoscopy- scheduled this month dexa-never menopause-age 39 sexually active-no seatbelts-yes exercise-yes, regular depression-denies domestic violence-denies tobacco-no concerns- had affair and would like std testing Jada Santo MD [address], [place], [address], [place] [facility] 04/25/2020 10:20:46 07/25/2021 text/html Annual Junior Financial Analyst Post-MenopausalRe ported bypatient.Menopau kelley Symptoms:no menopausal symptoms; normal vaginal lubrication Vaginal Bleeding:history of menopause having occurred; no history of post menopausal bleeding Urinary Symptoms:no hematuria; no incontinence; no nocturia; no urinary frequency Vulva:no genital lesion; no vulvar atrophy Vagina:normal vaginal discharge; no vaginal atrophy Breast:no breast lump; no nipple discharge; no breast pain Sexual Complaints:no sexual complaints Psychological Symptoms:no depression; no anxiety Preventive Measures:encourag e regular mammograms starting age 40; encourage self breast examination; encourage regular exercise; encourage no tobacco use; needs to schedule mammogram; needs to schedule colonoscopy Bhavana Gonzales [facility] [address], [place], [address], [facility] 07/25/2021 16:20:33 08/15/2021 text/html Here today for colposcopy Bhavana Gonzales [facility] [address], [place], [address], [facility] 08/15/2021 16:30:44 08/15/2022 text/html Annual Junior Financial Analyst Post-MenopausalRe ported byYamilet kelley Symptoms:no menopausal symptoms; normal vaginal lubrication Vaginal Bleeding:history of menopause having occurred; no history of post menopausal bleeding Urinary Symptoms:no hematuria; no incontinence; no nocturia; no urinary frequency Vulva:no genital lesion; no vulvar atrophy Vagina:normal vaginal discharge; no vaginal atrophy Breast:no breast lump; no nipple discharge; no breast pain Sexual Complaints:no sexual complaints Psychological Symptoms:no depression; no anxiety Preventive Measures:encourag e regular mammograms starting age 40; encourage self breast examination; encourage regular exercise; encourage no tobacco use; needs to schedule mammogram; history of recent colonoscopy Bhavana Gonzales [facility] [address], [place], [address], [facility] 08/15/2022 10:04:13 OBGyn Episode No OBEpisode recorded.
--- OUTSIDE RECORDS SUMMARY | 2024-04-26 12:35 | XMS_ITS | Encounter Summary ---
Author Organization [facility] Healthcare Address [address] [place] [address] Care Team Providers Care Supply Specialist Name Role Phone Lu Campbell NP Primary Care Provider [phone] Reason for Visit * Diagnostic Imaging (Routine) - Closed Specialty Diagnoses / Procedures Referred By Contac t Referred To Contact Diagnoses Chronic pain of left knee Procedures XR Knee Left 4+ Vw Lu Campbell, [facility] [address] [address] Phone: tel: fax: [address] [address] Referral ID Status Reason Start Date Expiration Date Visits Re quested Visits Authorized [id number] Closed 03/19/2024 04/18/2025 1 1 Encounter Details Date Type Department Care Team (Latest Contact Info) Description 03/31/2024 9:30 AM BOILER OR 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 Ancillary Procedure [facility] Imaging at [address] [address] Chronic pain of left knee Social History Tobacco Use Types Packs/Day Years [...] on file Legal Sex Female 1:55 PM BOILER OR 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 Gender Identity Not on file Sexual Orientation Not on file documented as of this encounter Plan of Treatment Not on file documented as of this encounter Procedures Procedure Name Priority Date/Time Associated Diagnosis Comments XR KNEE LEFT 4 OR MORE VIEWS Schedule Routine, Read Routine (OP Routine) 03/31/2024 9:15 AM BOILER OR 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 Chronic pain of left knee documented in this encounter Results * XR Knee Left 4+ Vw (03/31/2024 9:15 AM BOILER OR 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) Anatomical Region Laterality Modality Lower Extremities, Knee Left Digital Radiography 03/31/2024 11:5 1 PM BOILER OR 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 Addenda Addendum by Rupinder Stuart MD on 04/10/2024 12:04 PM BOILER OR 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 ADDENDUM: This addendum report supersedes the original [...] D: ??04/10/2024 12:04 PM T: Report ID: [id number] Reading Location: ??[id number] Narrative 03/31/2024 11:59 PM BOILER OR 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 EXAM DESCRIPTION: XR KNEE LEFT 4 OR [...] D: ??03/31/2024 11:59 PM T: Report ID: [id number] Reading Location: ??[id number] Procedure Note Rupinder Stuart MD - 04/01/2024 [...] Rupinder Stuart M.D. AT T: Report ID: [id number] Reading Location: [id number] Lu Campbell NP IMG XR PROCEDURES Edited Resu lt - Final documented in this encounter Visit Diagnoses Diagnosis Chronic pain of left knee documented in this encounter Care Teams Supply Specialist Relationship Specialty Start Date End Date Lu Campbell NP [address] [facility] [address] [place] [address] [place] [id number] PCP - General Family Medicine 03/19/24 documented as of this encounter
--- OUTSIDE RECORDS SUMMARY | 2024-04-26 12:35 | XMS_ITS | Encounter Summary ---
Author Organization [facility] Healthcare Address [address] [place] [address] Care Team Providers Care Ore Washer Name Role Phone Unavailable Primary Care Provider Unavailabl e Reason for Visit * Auth/Cert (Routine) Specialty Diagnoses / Procedures Referred By Gordon carter Referred To Contact Diagnoses Cubital tunnel syndrome on left Cubital tunnel syndrome on left [G56.22] Procedures OK NEUROPLASTY &/TRANSPOSITION ULNAR NERVE ELBOW LEFT REVISION TRANSPOSITION ULNAR NERVE Referral ID Status Reason Start Date Expiration Date Visits Re quested Visits Authorized [id number] 1 1 Encounter Details Date Type Department Care Team (Late st Contact Info) Description 07/30/2022 12:46 PM CDT Anesthesia Event [facility] [address] [place] [id number] Lawrence Christie MD [address] [place] [address] Brooklynn Mcbride NP [address] [facility] [phone] [place] [address] Anesthesia Record Procedure Summary Procedure Name Responsible Anesthesiologist Anesthesia Start Time Anesthesia Stop Time LEFT REVISION TRANSPOSITION ULNAR NERVE (Left: Arm Lower) Lawrence Christie MD 07/30/22 1246 07/30/22 1410 Events Date Time Event Comment 07/30/2022 1155 1201 AN Equip Check 1246 An Start 1248 An Start Data 1249 In Room 1251 An Induction The patient was reevaluated immediately before moderate or deep sedation use and before anesthesia induction. 1251 An LMA 1251 Anesthesia Ready 1300 Proc Start 1300 Incision Start 1402 Airway Removed 1402 an stop data 1407 Proc Fin 1407 Out of Room 1410 Handoff to RN I completed my handoff to the receiving nurse during which we: 1. Patient identified 2. Responsible provider identified 3. Pertinent medical history reviewed 4. Procedure type and surgical course discussed 5. Intraoperative anesthetic management and any significant issues discussed 6. Expectations and concerns for postop period discussed 7. Questions solicited from receiving nurse 8. Patient disposition at the time of handoff: PACU 1410 An Stop 1449 Time out - Regional 1449 Face Time 1449 Start Supplemental O2 1449 An Block Induction The patie nt was reevaluated immediately before moderate or deep sedation and before anesthesia induction. 1449 Block Placed Meds Name Total ceFAZolin (ANCEF) 2,000 mg/50 mL in dext meredith (premix) 2,000 mg 2,000 mg midazolam 2 mg/2 mL 2 mg fentaNYL PF 100 mcg lidocaine 2 % 100 mg propofol 200 mg HYDROmorphone (Dilaudid) 0.5 mg ondansetron PF 4 mg ketorolac 30 mg dexamethasone 4 mg/mL 8 mg bupivacaine 0.5 % PF 30 mL Lido 1% Infilt 5 mL Lactated Ringer's (LR) infusion 1,000 mL * Agents Name O2 N2O Air Sevoflurane Desflurane Inspired Desflurane Inspired Sevoflurane * Blood No blood administrations on file. Lines, Drains, and Airways Type Details Placement Removal Peripheral IV Placement Date: 07/30/22; Placement Time: 1202; Catheter Size: 20 G; Orientation: Posterior, Right; Location: Hand; Site Prep: Chlorhexidine; Technique: Anatomical landmarks; Inserted by: Haider Jimenes RN; Insertion Attempts: 1; Patient Tolerance: Tolerated well; Removal Date: 07/30/22; Removal Time: 1530 07/30/22 1202 by Meredith Jimenes RN 07/30/22 1530 by Mary Benoit RN Supraglottic Airway Placement Date: 07/30/22; Placement Time: 1305 (created via procedure documentation); Mask Ventilation: 0; Size: 4; Insertion Attempts: 1; Removal Date: 07/30/22; Removal Time: 1402 07/30/22 1305 by Kaela Joaquin CRNA 07/30/22 1402 by Kaela Joaquin CRNA RETIRED Surgical Site 07/30/22; 1309; Le ft; Arm; 03/17/24 (Retired LDA, Removed/Completed by [facility] with LDA Utility); 1213 (Retired LDA, Removed/Completed by [facility] with LDA Utility) 07/30/22 1309 by Jamaal Gerber RN 03/17/24 1213 by Discharge Provider, Automatic documented in this encounter Social History Tobacco Use Types Packs/Day Years [...] on file Legal Sex Female 1:55 PM MD [facility]MMUN[facility] Gender Identity Not on file Sexual Orientation Not on file documented as of this encounter OR Notes * Anesthesia Postprocedure Evaluation - Lawrence Christie MD - 07/30/2022 4:11 PM CDT Patient: Nola King Procedure Summary Date: 07/30/22 Room / Location: [facility] / [facility] Anesthesia Start: 1246 Anesthesia Stop: 1410 Procedure: LEFT REVISION TRANSPOSITION ULNAR NERVE (Left: Arm Lower) Diagnosis: Cubital tunnel syndrome on left (Cubital tunnel syndrome on left [G56.22]) Providers: Dm Foreman MD Responsible Provider: Lawrence Christie MD Anesthesia Type: general ASA Status: 2 Anesthesia Type: general Last vitals BP 119/82 (BP Location: Right arm) Pulse 90 Temp 36.1 ??C (97 ??F) (Temporal) Resp 14 SpO2 93% Anesthesia Post Evaluation Patient location during evaluation: PACU Patient participation: complete - patient participated Level of consciousness: fully awake Pain score: 2 Pain management: adequate Airway patency: adequate Evidence of recall: no Cardiovascular status: hemodynamically stable Respiratory status: acceptable Hydration status: euvolemic Pt is: normothermic Nausea/Vomiting status: none No notable events documented. * Anesthesia Procedure Notes - Lawrence Christie MD - 07/30/2022 2:49 PM CDTAssociated Order(s): Peripheral Block Peripheral Block Patient location during procedure: pre-op holding Reason for block: post-op pain management per surgeon request Ultrasound image in chart or stored: yes Block type: single shot Laterality: left Block type: brachial - supraclavicular Procedure prep: Preprocedure checklist: patient identified, procedure contraindications assessed, site marked, procedure consent, surgical consent, IV checked, risks, benefits and alternatives discussed, monitors and equipment checked and timeout performed Patient position: sitting and head of bed elevated Procedure performed while patient: sedate with meaningful contact Monitoring: oximetry Supplemental O2: nasal cannula Prep solution: chlorhexidine/alcohol Skin infiltrated with lidocaine 1%: yes Peripheral nerve block: Technique: ultrasound guided Needle type: short-bevel and echogenic Needle gauge: 21 G Needle length: 80 mm Injection assessment: injection made incrementally with constant monitoring, local visualized surrounding nerve on ultrasound, negative aspiration for heme, no paresthesias noted, normal resistance to injection and see flowsheet for medication details Assessment: Block success: full evaluation pending Events: patient tolerated procedure well with no complications Additional comments: In pacu * Anesthesia Procedure Notes - Kaela Joaquin CRNA - 07/30/2022 1:05 PM CDTAssociated Order(s): Airway Airway Patient location: OR Urgency: elective Indications for airway management: anesthesia Difficult airway: no Staff: Placed by: MANAGER PARTY: Kaela Joaquin CRNA Airway prep: Preoxygenated: yes Patient position: sniffing Mask difficulty assessment: 0 - not attempted Spontaneous ventilation during airway: absent Sedation level during airway: GA Final airway details: Final airway type: supraglottic airway Final supraglottic airway: unique SGA size: 4 Number of attempts: 1no * Anesthesia Preprocedure Evaluation - Lawrence Christie MD - 07/26/2022 9:50 AM CDT Images from the original note were not included. [facility] Planning Preoperative Evaluation Record Evaluation type/location: TPAP from [facility] Planned procedure site: [facility] Date: 07/26/22 NOTE: This note represents a preoperative evaluation initiated via telephone interview. NO PHYSICALEXAM was performed at the time of initial assessment. A physical exam may be added to this note anddocumented below. Anesthesia Evaluation Nola King is a 52 y.o. female Procedure(s): LEFT REVISION TRANSPOSITION ULNAR NERVE Pre-Op Diagnosis Codes: * Cubital tunnel syndrome on left [G56.22] HISTORY HPI Nola King is a 52 y.o. female who is being evaluated prior to undergoing LEFT REVISION TRANSPOSITION ULNAR NERVE for cubital tunnel syndrome of left side. PMH: BRIDGET. Anemia. Obesity. Kidney stones. Headaches. Past Medical History Neurological Pertinent negatives: neuromuscular disease; CVA/stroke and TIA Cardiovascular Pertinent negatives: hypertension ; CAD ; MA ; CABG ; valvular heart disease; atrial fibrillation; pacemaker/ICD; DVT/PE; negative for CHF; drug-eluting stent(s) and bare metal stent(s) Comments: Pt reports in 1995 had pericarditits. Has not needed to follow up with a release of information clerk or have further cardiac work up since . Respiratory + Sleep apnea (BRIDGET) Prescribed device: PAP non-compliant. Pertinent negatives: COPD; pulmonary hypertension; no O2 use outside the hospital and non-smoker Hepatic / Heme + History of anemia Pertinent negatives: liver disease Renal / + Nephrolithiasis (past hx. ) Pertinent negatives: renal disease and dialysis Musculoskeletal/Pain + Headaches - migraine headaches. Endocrine / Other + Obesity (BMI >30) (BMI 34.30) Pertinent negatives: diabetes mellitus; thyroid disease; cancer history; transplanted organ and infectious disease Functional Capacity Functional capacity: 4-6 METs Comments: Able to walk up 2 flights of stairs without Sob or CP. Review of Systems Pertinent negatives: productive cough; SOB; recent cold/flu; fever; chest pain; orthopnea; PND; previous transfusion; bleeding problems and syncope Comments: No covid exposures or symptoms. Denies UTI symptoms. PAT Summary and Plans Cardiac risk classification of planned procedure: low cardiac risk. Preoperative assessment status: complete. Additional comments: Nola King is a 52 y.o. female who is being evaluated prior to undergoinga low cardiac risk surgery. Revised Cardiac Risk Index factors are (none) for a total RCRI of 0 outof 6. Functional capacity is 4-6 METs. NOTE: This note represents a preoperative evaluation initiated via telephone interview. NO PHYSICALEXAM was performed at the time of initial assessment. A physical exam may be added to this note anddocumented below. Obstructive sleep apnea (BRIDGET) screening status is HIGH RISK due to known BRIDGET. Blood bank needs for day of procedure: No type and screen needed Pending labs/tests include: None Patient instructions were provided via telephone only. Patient verbalized understanding of DOS instruction. Pt takes Excedrin migraine medication with aspirin in it. She last took this today and 2 days ago. She was told to hold this between now and surgery. [employer] message sent to surgeon's office. TPAP Complete Preoperative evaluation performed by Brooklynn Mcbride NP on 07/26/22 at 10:05 AM . Patient Active Problem List Diagnosis ??? Environmental and seasonal allergies ??? BRIDGET (obstructive sleep apnea) ??? Cubital tunnel syndrome on left Past Medical History: Diagnosis Date ??? ADHD (attention deficit hyperactivity disorder) ??? Anemia ??? Arthritis ??? Gastric reflux ??? Kidney stone ??? Migraines ??? Neuromuscular disorder (HCC) ??? Obesity ??? Pneumonia ??? Sleep apnea Doesn't wear CPAP machine Past Surgical History: Procedure Laterality Date ??? ESOPHAGOGASTRODUODENOSCOPY 2010 dilation ??? FOOT SURGERY Left 03/2022 ??? HAND SURGERY Left 2003 OB History No obstetric history on file. Allergies Allergen Reactions ??? Erythromycin Anaphylaxis ??? Latex Hives and Rash ??? Oxycodone-Acetaminophen Itching Med List Status: Nurse Complete Set By: Tahmina Gamino RN at 07/26/2022 8:17 AM Taking? Last Dose Start Date End Date Provider acetaminophen (TYLENOL) 500 mg tablet Past Month -- -- Dixon Phillip MD qxppsqfisurqk-gfkbyym-oanevtqi (EXCEDRIN MIGRAINE) 250-250-65 mg per tablet 07/25/2022 -- -- Dixon Phillip MD pantoprazole DR (PROTONIX) 40 mg EC tablet 07/26/2022 07/25/22 -- Dixon Phillip MD -- -- -- -- -- -- -- -- No current facility-administered medications for this encounter. Current Outpatient Medications: ??? acetaminophen (TYLENOL) 500 mg tablet ??? lpbdvgghljwfo-tedfkop-laussdpw (EXCEDRIN MIGRAINE) 250-250-65 mg per tablet ??? pantoprazole DR (PROTONIX) 40 mg EC tablet Social History Tobacco Use Smoking Status Never ??? Passive exposure: Never Smokeless Tobacco Never Alcohol Use: Not At Risk ??? Frequency of Alcohol Consumption: 2-4 times a month ??? Average Number of Drinks: 1 or 2 ??? Frequency of Binge Drinking: Never Substance and Sexual Activity Drug Use Yes ??? Types: Marijuana Comment: once a month Family History Problem Relation Age of Onset ??? Arthritis Mother ??? Hypertension Father ??? Arthritis Father ??? Anesthesia problems Neg Hx There were no vitals filed for this visit. PT: No results found for requested labs within last 720 hours. INR: No results found for requested labs within last 720 hours. APTT: No results found for requested labs within last 720 hours. Hgb A1C: No results found for requested labs within last 720 hours. CBC RBC: No results found for requested labs within last 720 hours. RDW: No results found for requested labs within last 720 hours. MCHC: No results found for requested labs within last 720 hours. MCH: No results found for requested labs within last 720 hours. MCV: No results found for requested labs within last 720 hours. Hct: No results found for requested labs within last 720 hours. Hgb: No results found for requested labs within last 720 hours. WBC: No results found for requested labs within last 720 hours. MPV: No results found for requested labs within last 720 hours. Platelets: No results found for requested labs within last 720 hours. RDW CV: No results found for requested labs within last 720 hours. RDW Sd: No results found for requested labs within last 720 hours. BMP Glucose: No results found for requested labs within last 720 hours. Calcium: No results found for requested labs within last 720 hours. Sodium: No results found for requested labs within last 720 hours. Potassium: No results found for requested labs within last 720 hours. CO2: No results found for requested labs within last 720 hours. Chloride: No results found for requested labs within last 720 hours. BUN: No results found for requested labs within last 720 hours. Creatinine: No results found for requested labs within last 720 hours. Edvin index score: 100 DOS Physical Exam Medical history, medications, and allergies reviewed. Attestation: This PAT evaluation Airway Exam: Mallampati: II Cervical ROM: FROM Cardiovascular Exam: Rate: regular Rhythm: regular Pulmonary Exam: LCTA, bilat Anesthesia Plan ASA 2 My patient is approved for the Anesthesia Controlled Medication protocol when under care of a MANAGER PARTY Planned anesthesia: General Informed Consent: Anesthesia plan and risks discussed with patient. Consent and Attending signature: I and/or my designee have discussed the anesthesia plan, benefits, possible alternatives, parental presence at time of induction (if indicated), and clinically relevant risks that may include dental injury, unintentional awareness, and/or other complications. The patient and/or parent/legal guardian understand, and agree to proceed. All questions answered. documented in this encounter Plan of Treatment Not on file documented as of this encounter Procedures Procedure Name Priority Date/Time Associated Diagnosis Comments OK AN PROCEDURE PLACEHOLDER Routine 07/30/2022 2:49 PM CDT OK AN PROCEDURE PLACEHOLDER Routine 07/30/2022 1:05 PM CDT OK AN ELECTIVE SUPRAGLOTTIC AIRWAY Routine 07/30/2022 1:05 PM CDT documented in this encounter Results * OK AN PROCEDURE PLACEHOLDER (07/30/2022 2:49 PM CDT) Narrative Lawrence Christie MD - 07/30/2022 2:49 PM CDT Lawrence Christie MD ? 07/30/2022 ??2:49 PM Peripheral Block Patient location during procedure: pre-op holding Reason for block: post-op pain management per surgeon request Ultrasound image in chart or stored: yes Block type: single shot Laterality: left Block type: brachial - supraclavicular Procedure prep: Preprocedure checklist: patient identified, procedure contraindications assessed, site marked, procedure consent, surgical consent, IV checked, risks, benefits and alternatives discussed, monitors and equipment checked and timeout performed Patient position: sitting and head of bed elevated Procedure performed while patient: sedate with meaningful contact Monitoring: oximetry Supplemental O2: nasal cannula Prep solution: chlorhexidine/alcohol Skin infiltrated with lidocaine 1%: yes Peripheral nerve block: Technique: ultrasound guided Needle type: short-bevel and echogenic Needle gauge: 21 G Needle length: 80 mm Injection assessment: injection made incrementally with constant monitoring, local visualized surrounding nerve on ultrasound, negative aspiration for heme, no paresthesias noted, normal resistance to injection and see flowsheet for medication details Assessment: Block success: full evaluation pending Events: patient tolerated procedure well with no complications Additional comments: In pacu Result [facility] Lawrence Christie MD ANESTHESIA ORDERABLES Fi nal Result * OK AN ELECTIVE SUPRAGLOTTIC AIRWAY, OK AN PROCEDURE PLACEHOLDER (07/30/2022 1:05 PM CDT) Narrative Kaela Joaquin CRNA - 07/30/2022 1:05 PM CDT Kaela Joaquin CRNA ? 07/30/2022 ??1:05 PM Airway Patient location: OR Urgency: elective Indications for airway management: anesthesia Difficult airway: no Staff: Placed by: MANAGER PARTY: Kaela Joaquin CRNA Airway prep: Preoxygenated: yes Patient position: sniffing Mask difficulty assessment: 0 - not attempted Spontaneous ventilation during airway: absent Sedation level during airway: GA Final airway details: Final airway type: supraglottic airway Final supraglottic airway: unique SGA size: 4 Number of attempts: 1no Lawrence Christie MD ANESTHESIA ORDERABLES Fi nal Result documented in this encounter Visit Diagnoses Not on filedocumented in this encounter Administered Medications Inactive Administered Medications - up to 3 most recent administrations Medication Order MAR Action Action Date Dose Rate Site bupivacaine (MARCAINE) 0.5 % (5 mg/mL) preservative free injection perineural, As needed, Starting on Sat07/30/22 at 1449, Anesthesia Intra-op Given 07/30/2022 2:49 PM CDT 30 mL ceFAZolin (ANCEF) 2,000 mg/50 mL in dextrose (premix) 2,000 mg 2,000 mg, intravenous, at 100 mL/hr, Administer over 30 Minutes, Once, On Sat07/30/22 at 1215, For 1 dose, Pre-Op, Administer within 60 minutes of incision. Duplex bag - activate before hanging. , Indications: Prophylaxis, SurgicalIndications:Prophylaxis , Surgical Given 07/30/2022 12:51 PM CDT 2,000 mg dexAMETHasone (DECADRON) 4 mg/mL injection intravenous, Administer over 2 Minutes, As needed, Starting on Sat07/30/22 at 1255, Anesthesia Intra-op Given 07/30/2022 12:55 PM CDT 8 mg fentaNYL (SUBLIMAZE) preservative free injection intravenous, As needed, Starting on Sat07/30/22 at 1300, Anesthesia Intra-op Given 07/30/2022 1:07 PM CDT 25 mcg Given 07/30/2022 1:00 PM CDT 25 mcg Given 07/30/2022 12:46 PM CDT 50 mcg HYDROmorphone (DILAUDID) injection intravenous, Administer over 2 Minutes, As needed, Starting on Sat07/30/22 at 1334, Anesthesia Intra-op Given 07/30/2022 1:34 PM CDT 0.5 mg ketorolac (TORADOL) 30 mg/mL (1 mL) injection intravenous, As needed, Starting on Sat07/30/22 at 1334, Anesthesia Intra-op Given 07/30/2022 1:34 PM CDT 30 mg Lactated Ringer's (LR) infusion 30 mL/hr, intravenous, Continuous, Starting on Sat07/30/22 at 1215, Use a 500 ml bag for End Stage Renal Disease Patients New Bag 07/30/2022 1:42 PM CDT Restarted 07/30/2022 12:46 PM CDT New Bag 07/30/2022 12:04 PM CDT 30 mL/hr 30 mL/hr lidocaine (XYLOCAINE) 10 mg/mL (1 %) injection infiltration, As needed, Starting on Sat07/30/22 at 1449, Anesthesia Intra-op, Indications: Administration of Local AnesthesiaIndications:Administration of Local Anesthesia Given 07/30/2022 2:49 PM CDT 5 mL lidocaine (XYLOCAINE) 20 mg/mL (2 %) injection intravenous, As needed, Starting on Sat07/30/22 at 1251, Anesthesia Intra-op, Indications: Administration of Local AnesthesiaIndications:Administration of Local Anesthesia Given 07/30/2022 12:51 PM CDT 100 mg midazolam (VERSED) 1 mg/mL injection intravenous, As needed, Starting on Sat07/30/22 at 1246, Anesthesia Intra-op Given 07/30/2022 12:46 PM CDT 2 mg ondansetron (ZOFRAN) injection intravenous, Administer over 2 Minutes, As needed, Starting on Sat07/30/22 at 1255, Anesthesia Intra-op Given 07/30/2022 12:55 PM CDT 4 mg propofoL (DIPRIVAN) 10 mg/mL IV intravenous, As needed, Starting on Sat07/30/22 at 1251, Anesthesia Intra-op Given 07/30/2022 12:51 PM CDT 200 mg documented in this encounter
--- OUTSIDE RECORDS SUMMARY | 2024-04-26 12:35 | XMS_ITS | Referral Summary ---
Author Organization [facility] Address [address] [place] [address] Care Team Providers Care Electric Motor Fitter Name Role Phone Lu Campbell NP Primary Care Provider [phone] Encounters Date Type Department Care Team Description 04/23/2024 10:00 AM ARABIC PROFESSOR Office Visit [facility] Family Medicine at [address] [place] [address] Lu Campbell NP Chronic pain of left knee (Primary Dx); Bilateral hearing loss due to cerumen impaction; Hypothyroidism, unspecified type; Vitamin D deficiency 04/01/2024 Orders Only [facility] Family Medicine at [address] [place] [phone] Lu Campbell NP Acquired hypothyroidism (Primary Dx) 04/01/2024 8:50 AM ARABIC PROFESSOR - 04/01/2024 11:59 PM ARABIC PROFESSOR Hospital Encounter [facility] Non-invasive Cardiac Diagnostic Testing [address] [place] [address] Bilateral edema of lower extremity Discharge Disposition: Discharge to home or self care 03/31/2024 1:33 PM ARABIC PROFESSOR - 03/31/2024 11:59 PM ARABIC PROFESSOR Hospital Encounter [address] [address] Bilateral edema of lower extremity; Anemia, unspecified type; Vitamin D deficiency; Class 2 severe obesity due to excess calories with serious comorbidity and body mass index (BMI) of 36.0 to 36.9 in adult (HCC); Encounter for hepatitis C screening test for low risk patient; Hypothyroidism, unspecified type; Hyperlipidemia, unspecified hyperlipidemia type Discharge Disposition: Discharge to home or self care 03/31/2024 9:30 AM ARABIC PROFESSOR Ancillary Procedure [facility] Imaging at [address] [phone] Chronic pain of left knee 03/31/2024 9:15 AM ARABIC PROFESSOR Ancillary Procedure [facility] Imaging at [address] [phone] Chronic hip pain, bilateral 03/31/2024 9:00 AM ARABIC PROFESSOR Lab [facility] Outpatient Lab at [address] [phone] Anemia (Primary Dx); Hyperlipidemia 03/19/2024 12:30 PM ARABIC PROFESSOR Office Visit [facility] Family Medicine at [address] [place] [phone] Lu Campbell NP Anemia, unspecified type (Primary [...] with esophagitis without hemorrhage 03/16/2024 Orders Only [facility] Information [facility] [address] [place] [address] Lu Campbell NP 03/11/2024 9:10 AM ARABIC PROFESSOR Office Visit [facility] Orthopaedic Surgery [address] [place] [address] 6[address] [place] [address] [place] [phone] Dm Foreman MD Left elbow pain (Primary Dx); Medial epicondylitis of left elbow from Last 3 Months Allergies Active Allergy Reactions Criticality Noted Date [...] Status triamcinolone (KENALOG) 40 mg/mL injection 80 mgIndications:Lead Technologist In Cytogenetics andressa pain of left knee 80 mg OTHER Once 04/23/2024 04/23/2024 Ended lidocaine (XYLOCAINE) 20 mg/mL (2 %) injection 1 mLIndications:Admi nistration of Local Anesthesia 1 mL OTHER One-Time Injection 04/23/2024 04/23/2024 Ended triamcinolone (KENALOG) 40 mg/mL injection 80 mgIndications:Lead Technologist In Cytogenetics andressa pain of left knee 80 mg intra-artic One-Time Injection 04/23/2024 04/23/2024 Ended Active Problems Problem Noted Date Diagnosed Date Vitamin D deficiency 03/19/2024 Assessment & Plan (04/23/2024 10:50 AM ARABIC PROFESSOR): Not at goal Encourage OTC supp Vit D 28 Assessment & Plan (03/19/2024 9:31 PM ARABIC PROFESSOR): Unknown control Previously low Repeat level Chronic pain of left knee 03/19/2024 Assessment & Plan (04/23/2024 10:48 AM ARABIC PROFESSOR): Not at goal Intraarticular injection completed 04/23/24 Plan for surgery on R knee Assessment & Plan (03/19/2024 9:35 PM ARABIC PROFESSOR): Not at goal Check XR Suspect d/t offloading R knee Pt to call and make procedure appt after getting XR Chronic hip pain, bilateral 03/19/2024 Assessment & Plan (03/19/2024 9:35 PM ARABIC PROFESSOR): Not at goal Check xr Bilateral edema of lower extremity 03/19/2024 Assessment & Plan (03/19/2024 9:35 PM ARABIC PROFESSOR): Not at goal May be habitus related Check BNP and cardiac echo Hx pericarditis Class 2 severe obesity due t o excess calories with serious comorbidity and body mass index (BMI) of 36.0 to 36.9 in adult 03/19/2024 Assessment & Plan (03/19/2024 9:36 PM ARABIC PROFESSOR): Not at goal Wt Readings from Last 3 Encounters: 03/19/24 105.4 kg (232 lb 6.4 oz) 09/10/22 99 kg (218 lb 3.2 oz) 07/30/22 99.4 kg (219 lb 1.6 oz) Try to cut back on calories. Most people should eat between 6195-7646 calories to lose weight. Decrease your carbohydrate [...] 03/11/2024 Assessment & Plan (03/19/2024 9:32 PM ARABIC PROFESSOR): Unknown control Check labs No current meds Hypothyroidism 03/11/2024 Assessment & Plan (04/23/2024 10:49 AM ARABIC PROFESSOR): Not at goal Lab Results Component Value Date TSH 6.96 (H) 03/31/2024 Has not started meds yet. Advised will need labs checked after being on meds for 1 month to adjust meds Assessment & Plan (03/19/2024 9:32 PM ARABIC PROFESSOR): Unknown control No current meds Check levels Arthralgia of right knee 03/03/2024 Medial epicondylitis of left elbow 2024 Assessment & Plan (03/19/2024 9:31 PM ARABIC PROFESSOR): Not at goal Start on low dose Lyrica for hypersensitivity Discussed possible cross rxn with gabapentin. Stop if s/e. Discussed alternative meds such as Elavil, Cymbalta but dislikes idea of antideps Stricture of esophagus 2024 Anemia 08/14/2022 08/14/2022 Assessment & Plan (03/19/2024 9:30 PM ARABIC PROFESSOR): Unknown control Check labs Given bruising issues, check PT/INR Already scheduled for EGD and c-scope Headache 08/14/2022 08/14/2022 Heartburn 08/14/2022 08/14/2022 Cubital tunnel syndrome on left 07/25/2022 Overview (07/25/2022): Added automatically from request for surgery [id number] Fear of flying 07/25/2022 08/14/2022 Gastroesophageal reflux disease 07/25/2022 08/14/2022 Assessment & Plan (03/19/2024 9:35 PM ARABIC PROFESSOR): Not at goal Esophagitis noticeable with pills Protonix 40mg daily Scheduled for EGD with [facility] Plantar fasciitis of left foot 10/05/2021 0 08/14/2022 BRIDGET (obstructive sleep apnea) 05/17/2021 Resolved Problems Problem Noted Date Diagnosed Date Resolved Date Nausea 07/25/2022 08/14/2022 03/19/2024 Environmental and seasonal allergies 11/14/2021 03/19/2024 Pain in left foot 10/05/2021 08/14/2022 03/19/2024 Immunizations Name Administration Dates Next Due Influenza, Quadrivalent, Myra l Culture-based MDCK, Preservative Free, Antibiotic Free, Intramuscular 02/19/2022 Influenza, Quadrivalent, Spl it, Intramuscular 02/24/2020 Influenza, Quadrivalent, Spl it, Preservative Free, Intramuscular 02/08/2021,02/24/2020 Influenza, Unspecified 03/19/2024(Deferr ed: Patient decision),01/13/2023(Deferred: Patient Refused) Tdap 02/08/2021 Social History Tobacco Use Types Packs/Day Years [...] on file Legal Sex Female 1:55 PM ARABIC PROFESSOR Gender Identity Not on file Sexual Orientation Not on file Last Filed Vital Signs Vital Sign Reading Time Taken Comments Blood Pressure 107/71 04/23/2024 9:54 AM ARABIC PROFESSOR Pulse 99 04/23/2024 9:54 AM ARABIC PROFESSOR Temperature 36.6 ??C (97.8 ??F) 04/23/2024 9:54 AM CS T Respiratory Rate 18 04/23/2024 9:54 AM ARABIC PROFESSOR Oxygen Saturation 98% 04/23/2024 9:54 AM ARABIC PROFESSOR Inhaled Oxygen Concentration - - Weight 106.3 kg (234 lb 6.4 oz) 04/23/2024 9:54 AM ARABIC PROFESSOR Height 170.2 cm (5' 7.01 ) 04/23/2024 9:54 AM CS T Body Mass Index 36.7 04/23/2024 9:54 AM ARABIC PROFESSOR Plan of Treatment Not on file Procedures Procedure Name Priority Date/Time Associated Diagnosis Comments WI ARTHROCENTESIS ASPIR&/INJ MAJOR JT/BURSA W/O US Routine 04/23/2024 10:00 AM ARABIC PROFESSOR Chronic pain of left knee WI REMOVAL IMPACTED CERUMEN INSTRUMENTATION UNILAT Routine 04/23/2024 10:00 AM ARABIC PROFESSOR Bilateral hearing loss due to cerumen impaction TRANSTHORACIC ECHO (TTE) COMPLETE W DOPPLER/CF WO CONTRAST Routine 04/01/2024 9:30 AM ARABIC PROFESSOR Bilateral edema of lower extremity XR HIPS BILATERAL 3 OR 4 VW Schedule Routine, Read Routine (OP Routine) 03/31/2024 9:15 AM ARABIC PROFESSOR Chronic hip pain, bilateral XR KNEE LEFT 4 OR MORE VIEWS Schedule Routine, Read Routine (OP Routine) 03/31/2024 9:15 AM ARABIC PROFESSOR Chronic pain of left knee EGFR Routine 03/31/2024 8:00 AM ARABIC PROFESSOR Bilateral edema of lower extremity COMPREHENSIVE METABOLIC PANEL Routine 03/31/2024 8:00 AM ARABIC PROFESSOR Bilateral edema of lower extremity LIPID PANEL Routine 03/31/2024 8:00 AM ARABIC PROFESSOR Hyperlipidemia, unspecified hyperlipidemia type TSH Routine 03/31/2024 8:00 AM ARABIC PROFESSOR Bilateral edema of lower extremity Hypothyroidism, unspecified type HEMOGLOBIN A1C Routine 03/31/2024 8:00 AM ARABIC PROFESSOR Class 2 severe obesity due to excess calories with serious comorbidity and body mass index (BMI) of 36.0 to 36.9 in adult (HCC) PROTIME-INR Routine 03/31/2024 8:00 AM ARABIC PROFESSOR Anemia, unspecified type VITAMIN D 25 HYDROXY Routine 03/31/2024 8:00 AM ARABIC PROFESSOR Vitamin D deficiency FERRITIN Routine 03/31/2024 8:00 AM ARABIC PROFESSOR Anemia, unspecified type FOLATE Routine 03/31/2024 8:00 AM ARABIC PROFESSOR Anemia, unspecified type IRON PROFILE W/ IBC Routine 03/31/2024 8 :00 AM ARABIC PROFESSOR Anemia, unspecified type VITAMIN B12 Routine 03/31/2024 8:00 AM ARABIC PROFESSOR Anemia, unspecified type CBC WITHOUT DIFFERENTIAL Routine 03/31/2024 8:00 AM ARABIC PROFESSOR Anemia, unspecified type PRO B-TYPE NATRIURETIC PEPTIDE Routine 03/31/2024 8:00 AM ARABIC PROFESSOR Bilateral edema of lower extremity HEPATITIS C ANTIBODY Routine 03/31/2024 8:00 AM ARABIC PROFESSOR Encounter for hepatitis C screening test for low risk patient SCAN - RADIOLOGY/IMAGING 03/16/2024 from Last 3 Months Results * WI ARTHROCENTESIS ASPIR&/INJ MAJOR JT/BURSA W/O US (04/23/2024 10:00 AM ARABIC PROFESSOR) Narrative Lu Campbell NP - 04/23/2024 10:00 AM ARABIC PROFESSOR Lu Campbell NP ? 04/23/2024 10:51 AM [...] NP IN CLINIC/BEDSIDE ORDERABLES Final Result * WI REMOVAL IMPACTED CERUMEN INSTRUMENTATION UNILAT (04/23/2024 10:00 AM ARABIC PROFESSOR) Narrative Lu Campbell NP - 04/23/2024 10:00 AM ARABIC PROFESSOR Lu Campbell NP ? 04/23/2024 10:51 AM [...] W DOPPLER/CF WO CONTRAST (04/01/2024 9:30 AM ARABIC PROFESSOR) Anatomical Region Laterality Modality Ultrasound 04/01/2024 9:04 AM ARABIC PROFESSOR Narrative 04/01/2024 11:39 AM [place]IC [place] [address] Echocardiogram Report Patient Name: NOLA KINGBala : 1970 Study Date: 04/01/2024 9:04:17 AM [...] the mitral valve. Electronically Signed By: Elizabeth Manriuqez DO, MARCO ANTONIO BRYAN FASNC 04/01/2024 11:39:44 AM ARABIC PROFESSOR Procedure Note Elizabeth Manriquez DO - 04/01/2024 [place] [address] Echocardiogram Report Patient Name: NOLA KING L [...] DO, RANDI, NANI BERNARD 04/01/2024 11:39:44 AM ARABIC PROFESSOR us Lu Campbell NP CV ECHO PROCEDURES Final Resu lt * XR Hips Bilateral 3 or 4 Views (03/31/2024 9:15 AM ARABIC PROFESSOR) Anatomical Region Laterality Modality Lower Extremities, Hip, Pelvis Bilateral D igital Radiography 03/31/2024 11:5 1 PM ARABIC PROFESSOR Addenda Addendum by Rupinder Stuart MD on 04/10/2024 12:04 PM ARABIC PROFESSOR ADDENDUM: This addendum report supersedes the original [...] D: ??04/10/2024 12:04 PM T: Report ID: [id number] Reading Location: ??[id number] Narrative 03/31/2024 11:59 PM ARABIC PROFESSOR EXAM DESCRIPTION: XR KNEE LEFT 4 OR [...] D: ??03/31/2024 11:59 PM T: Report ID: [id number] Reading Location: ??[id number] Procedure Note Rupinder Stuart MD - 04/01/2024 [...] Rupinder Stuart M.D. AT T: Report ID: [id number] Reading Location: [id number] us Lu Campbell TONE CABINET ASSEMBLER IMG XR PROCEDURES Edited Resu lt - Final * XR Knee Left 4+ Vw (03/31/2024 9:15 AM ARABIC PROFESSOR) Anatomical Region Laterality Modality Lower Extremities, Knee Left Digital Radiography 03/31/2024 11:5 1 PM ARABIC PROFESSOR Addenda Addendum by Rupinder Stuart MD on 04/10/2024 12:04 PM ARABIC PROFESSOR ADDENDUM: This addendum report supersedes the original [...] D: ??04/10/2024 12:04 PM T: Report ID: [id number] Reading Location: ??[id number] Narrative 03/31/2024 11:59 PM ARABIC PROFESSOR EXAM DESCRIPTION: XR KNEE LEFT 4 OR [...] D: ??03/31/2024 11:59 PM T: Report ID: [id number] Reading Location: ??[id number] Procedure Note Rupinder Stuart MD - 04/01/2024 [...] Rupinder Stuart M.D. AT T: Report ID: [id number] Reading Location: [id number] us Lu Campbell NP IMG XR PROCEDURES Edited Resu lt - Final * eGFR (03/31/2024 8:00 AM ARABIC PROFESSOR) Pathologist [facility] eGFR 86 >=60 mL/min/1. 73 m2 Comment: [...] last reviewed 2021. Blood 03/31/2024 8:00 AM ARABIC PROFESSOR 03/31/2024 2:09 PM ARABIC PROFESSOR us Lu Campblel NP LAB BLOOD ORDERABLES Final Re sult SHREYA [address] [place] [address] * Pro B-type natriuretic peptide (03/31/2024 8:00 AM ARABIC PROFESSOR) NT-proBNP <36 <=300 pg/mL Comment: Interpretive Comments: [...] Revised Date: 2017. Blood 03/31/2024 8:00 AM ARABIC PROFESSOR 03/31/2024 1:56 PM ARABIC PROFESSOR Lu Campbell NP LAB BLOOD ORDERABLES Final Re sult Performing Organization Address [facility] Co de Phone Number SHREYA RANGEL [address] [address] [facility] [place], [place] [id number] * Iron profile w/ IBC (03/31/2024 8:00 AM ARABIC PROFESSOR) [facility] Iron 83 35 - 145 mcg/dl TIBC 270 250 - 400 mcg/dL [facility] Transferrin saturation 31 20 - 50 % [facility] Blood 03/31/2024 8:00 AM ARABIC PROFESSOR 03/31/2024 1:56 PM ARABIC PROFESSOR Result [facility] Lu Campbell NP LAB BLOOD ORDERABLES Final Re sult Performing Organization Address [facility] Phone Number SHREYA RANGEL [phone] [address] [facility] [place], [place] [id number] * Hepatitis C antibody Blood (03/31/2024 8:00 AM ARABIC PROFESSOR) [facility] Hep C Ab Nonreactive Nonreactive Comment: Interpretive [...] revised on 2019. Blood 03/31/2024 8:00 AM ARABIC PROFESSOR 03/31/2024 1:56 PM ARABIC PROFESSOR Result [facility] Lu Campbell NP LAB MICROBIOLOGY - GENERAL OR DERABLES Final Result Performing Organization Address [facility] de Phone Number SHREYA RANGEL [phone] [address] [facility] [place], [place] [id number] * (ABNORMAL) Vitamin D 25 hydroxy (03/31/2024 8:00 AM ARABIC PROFESSOR) [facility] Vitamin D 25-OH 28(L) 30 - 80 ng/mL Blood 03/31/2024 8:00 AM ARABIC PROFESSOR 03/31/2024 1:56 PM ARABIC PROFESSOR Lu Campbell TONE CABINET ASSEMBLER LAB BLOOD ORDERABLES Final Re sult Performing Organization Address [facility] de Phone Number [facility] [address] [address] [facility] [place] [address] * Protime-INR (03/31/2024 8:00 AM ARABIC PROFESSOR) Pathologist [facility] PT 11.8 9.7 - 13.0 sec INR 1.09 0.90 - 1.20 [facility] Comment: Interpretive data Oral anticoagulant therapeutic ranges: Venous thromboembolism prophylaxis or treatment: 2.0-3.0 CARDIOLOGY Standard range: 2.0-3.0 High-intensity range: 2.5-3.5 Refer to indication-specific guidelines for appropriate target ranges for prosthetic heart valve replacement. Current interpretive data was last revised on 2019. Blood 03/31/2024 8:00 AM ARABIC PROFESSOR 03/31/2024 1:56 PM ARABIC PROFESSOR Lu Campbell TONE CABINET ASSEMBLER LAB BLOOD ORDERABLES Final Re sult Performing Organization Address [facility] Co de Phone Number [facility] [address] [address] [facility] [place] [address] * (ABNORMAL) CBC without differential (03/31/2024 8:00 AM ARABIC PROFESSOR) Pathologist [facility] WBC 6.5 3.8 - 9.9 K/cumm Hgb 13.2 11.9 - 15.5 g/dL [facility] Hct 42.8 35.6 - 45.5 % [facility] Plt 232 150 - 400 K/cumm [facility] MPV 13.0(H) 9.1 - 12.3 fL [facility] RBC 4.86 3.90 - 5.20 M/cumm [facility] MCV 88.1 81.3 - 96.4 fL [facility] MCH 27.2 27.1 - 33.3 pg [facility] MCHC 30.8(L) 32.3 - 35.7 g/dL [facility] RDW CV 13.4 11.1 - 14.9 % [facility] RDW SD 43.4 35.7 - 48.1 fL [facility] NRBC abs 0.00 0.00 - 0.01 K/cumm [facility] Blood 03/31/2024 8:00 AM ARABIC PROFESSOR 03/31/2024 1:56 PM ARABIC PROFESSOR Lu Campbell TONE CABINET ASSEMBLER LAB BLOOD ORDERABLES Final Re sult Performing Organization Address [facility]/ZIP Co de Phone Number [facility] [address] [address] [facility] [place] [address] * (ABNORMAL) TSH (03/31/2024 8:00 AM ARABIC PROFESSOR) Pathologist [facility] Thyroid Stimulating Hormone 6.96(H) 0.30 - 4.20 mcIUnit/mL Blood 03/31/2024 8:00 AM ARABIC PROFESSOR 03/31/2024 1:56 PM ARABIC PROFESSOR Lu Campbell TONE CABINET ASSEMBLER LAB BLOOD ORDERABLES Final Re sult Performing Organization Address [facility] de Phone Number [facility] [address] [address] [facility] [place] [address] * Hemoglobin A1c (03/31/2024 8:00 AM ARABIC PROFESSOR) Hgb A1C 5.5 4.0 - 5.6 % Estimated Average Glucose 111 mg/dL [facility] Comment: The ADA recommends reporting an estimated Average Glucose (eAG) with all Hemoglobin A1c results using the equation derived from a study of 507 normal and diabetic adults. ??Minority populations were underrepresented and children were not included. ?? (Diabetes Care 31:9463-8235, 2008). ??The eAG is not equivalent to a fasting glucose. Blood 03/31/2024 8:00 AM ARABIC PROFESSOR 03/31/2024 1:56 PM ARABIC PROFESSOR us Lu Campbell TONE CABINET ASSEMBLER LAB BLOOD ORDERABLES Final Re sult Performing Organization Address [facility] Co de Phone Number SHREYA RANGEL [phone] [facility] [facility] [place] [address] * Folate (03/31/2024 8:00 AM ARABIC PROFESSOR) Pathologist [facility] Folic acid >20.0 >=5.0 ng/mL Blood 03/31/2024 8:00 AM ARABIC PROFESSOR 03/31/2024 1:56 PM ARABIC PROFESSOR us Lu Campbell TONE CABINET ASSEMBLER LAB BLOOD ORDERABLES Final Re sult Performing Organization Address [facility] Co de Phone Number SHREYA RANGEL [phone] [address] [facility] [place] [address] * (ABNORMAL) Ferritin (03/31/2024 8:00 AM ARABIC PROFESSOR) Pathologist [facility] Ferritin 164(H) 15 - 150 ng/mL Blood 03/31/2024 8:00 AM ARABIC PROFESSOR 03/31/2024 1:56 PM ARABIC PROFESSOR us Lu Campbell NP LAB BLOOD ORDERABLES Final Re sult Performing Organization Address [facility] Co de Phone Number SHREYA RANGEL [phone] [facility] [facility] [place] [address] * Vitamin B12 (03/31/2024 8:00 AM ARABIC PROFESSOR) Pathologist [facility] Vitamin B12 958 230 - 1,250 pg/mL Blood 03/31/2024 8:00 AM ARABIC PROFESSOR 03/31/2024 1:56 PM ARABIC PROFESSOR Lu Campbell TONE CABINET ASSEMBLER LAB BLOOD ORDERABLES Final Re sult Performing Organization Address [facility] Co de Phone Number SHREYA RANGEL [phone] [facility] [place] [address] * Lipid panel (03/31/2024 8:00 AM ARABIC PROFESSOR) Pathologist [facility] Cholesterol 154 30 - 199 mg/dL Comment: [...] on 2017. HDL 51 >=40 mg/dL SHREYA RANGEL Comment: Interpretive Data Ages [...] 2017. LDL, calculated 86 <=129 mg/dL SHREYA RANGEL Comment: Interpretive Data Ages [...] 3 CERNER CH Blood 03/31/2024 8:00 AM ARABIC PROFESSOR 03/31/2024 1:56 PM ARABIC PROFESSOR Narrative CERNER CH - 03/31/2024 2:57 PM ARABIC PROFESSOR Has the patient been fasting for 8 hours or more?->Yes us Lu Campbell TONE CABINET ASSEMBLER LAB BLOOD ORDERABLES Final Re sult [facility] [address] [place] [address] * (ABNORMAL) Comprehensive metabolic panel (03/31/2024 8:00 AM ARABIC PROFESSOR) Sodium 140 135 - 145 mmol/L Potassium, [...] Units/L CERNER CH Blood 03/31/2024 8:00 AM ARABIC PROFESSOR 03/31/2024 1:56 PM ARABIC PROFESSOR us Lu Campbell NP LAB BLOOD ORDERABLES Final Re sult SHREYA [address] [facility] [place] [address] * SCAN - RADIOLOGY/IMAGING (03/16/2024) Anatomical Region Laterality Modality Other us Lu Campbell NP Final Result from Last 3 Months Insurance [facility] Care Teams Electric Motor Fitter Relationship Specialty Start Date End Date Lu Campbell NP [address] [facility] [address] [address] PCP - General Family Medicine 03/19/24
--- OUTSIDE RECORDS SUMMARY | 2024-04-26 12:35 | XMS_ITS | Encounter Summary ---
Author Organization [facility] Address [address] [facility] [address] [place] [address] Care Team Providers Care Emergency Management Program Specialist Name Role Phone Unavailable Primary Care Provider Unavailabl e Encounter Details Date Type Department Care Team (Latest Contact Info) Description 09/10/2022 8:35 AM CDT Ancillary Procedure [facility] Imaging at [address] [phone] Acute pain of right knee Social History Tobacco Use Types Packs/Day [...] on file Legal Sex Female 1:55 PM COMMUNICATIONS INSTRUCTOR Gender Identity Not on file Sexual Orientation Not on file documented as of this encounter Plan of Treatment Not on file documented as of this encounter Procedures Procedure Name Priority Date/Time Associated Diagnosis Comments XR KNEE RIGHT 4 OR MORE VIEWS Schedule LORI, Read LORI (Appt Today, Awaiting Results) 09/10/2022 8:43 AM CDT Acute pain of right knee documented in this encounter Results * XR Knee Right [...] D: ??09/10/2022 9:36 AM T: Report ID: [id number] Reading Location: ??[id number] Procedure Note Gagan Antonio MD - 09/10/2022 [...] by Gagan Antonio M.D. T: Report ID: [id number] Reading Location: [id number] us Nadia Sinha NP IMG XR PROCEDURES Final Result documented in this encounter Visit Diagnoses Diagnosis Acute pain of right knee documented in this encounter
--- OUTSIDE RECORDS SUMMARY | 2024-04-26 12:35 | XMS_ITS | Encounter Summary ---
Author Organization [facility] Healthcare Address [address] [place] [address] Care Team Providers Care Industrial Waste Treatment Technician Name Role Phone Unavailable Primary Care Provider Unavailabl e Reason for Visit * Auth/Cert (Routine) Specialty Diagnoses / Procedures Referred By Gordon carter Referred To Contact Diagnoses Cubital tunnel syndrome on left Cubital tunnel syndrome on left [G56.22] Procedures MT NEUROPLASTY &/TRANSPOSITION ULNAR NERVE ELBOW LEFT REVISION TRANSPOSITION ULNAR NERVE Referral ID Status Reason Start Date Expiration Date Visits Re quested Visits Authorized [id number] 1 1 Encounter Details Date Type Department Care Team (Late st Contact Info) Description 07/30/2022 1:30 PM CDT - 07/30/2022 3:15 PM CDT Surgery [facility] [address] [place] [id number] Dm Foreman MD [address] [facility] [address] [place] [address] LEFT REVISION TRANSPOSITION ULNAR NERVE Surgery Details Date/Time Status Location OR Service Patient Class Case Class Case Type Trauma Case? 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 Gender Identity Not on file Sexual Orientation Not on file documented as of this encounter Last Filed Vital Signs Vital Sign Reading Time Taken Comments Blood Pressure 113/73 07/30/2022 3:10 PM CDT Pulse 84 07/30/2022 3:15 PM CDT Temperature 36.1 ??C (97 ??F) 07/30/2022 2:48 PM CDT Respiratory Rate 14 07/30/2022 3:15 PM CDT Oxygen Saturation 95% 07/30/2022 3:15 PM CDT Inhaled Oxygen Concentration - - Weight 99.4 kg (219 lb 1.6 oz) 07/30/2022 11:37 AM CDT Height 170.2 cm (5' 7 ) 07/30/2022 11:37 AM CDT Body Mass Index 34.32 07/30/2022 11:37 AM CDT documented in this encounter Discharge Instructions * Discharge Instructions* Dm Foreman MD - 07/30/2022 12:40 PM CDT [facility] Hand & Microsurgery Division Postoperative Instructions POSTOPERATIVE PHYSICAL THERAPY APPOINTMENT: Not needed Dressing/Wound Care: A large dressing has been placed on your arm to reduce motion and control swelling. Keep your dressing clean and dry. Keep the dressing/splint on until your first postoperative office visit. Wear a plastic bag over your dressing/splint whenever you take a shower or bath Swelling is normal after surgery. Elevate your hand/arm so the surgical site is above your heart todecrease the swelling. Swelling is like water, it runs downhill. This is especially important for the first 72 hours after surgery. The best way to elevate your hand/arm is with your fingers pointing towards the ceiling and your hand/arm above the level of the heart. You can use pillows to help prop your hand/arm up when sitting or lying down. If you are experiencing pain, be sure you are elevating your hand/arm as often as possible. Apply an ice pack over your dressing/splint for 20 minutes of every hour for the first few days when you are awake. This can help to reduce swelling and inflammation. Be sure the ice pack is waterproof so it does not leak on the dressing/splint. A simple ice pack can be made by adding ten cubes nirali small amount of water in a small zip-lock bag. Seal this small bag tightly. Place this small bag in a larger zip lock bag. Apply to the area in pain. If the dressing feels too tight in spite of elevation, loosen the outer wrap but do not remove the entire dressing. ACTIVITIES: Bend and straighten the parts of your hand/arm that are not included in your surgical dressing or splint. Do this at least 6 times a day, as this will help decrease swelling and speed up your recovery. This includes your fingers when exposed so that you make a full fist. POSTOPERATIVE CARE/CONCERNS: You may experience some temporary numbness in your fingers. You should have very little to no bleeding on your dressing. Notify the office for any of the following: Excessive pain not relieved by rest, elevation, and pain medications Feeling that the dressing is too tight in spite of adequately elevating hand/arm Active bleeding through the dressing Drainage from the wound site or pin sites Foul odor from the dressing/wound Temperature greater that 101? F or chills Blue or excessively cold fingertips Numbness of the fingertips that does not improve in spite of adequately elevating hand/arm PAIN MEDICATION: A prescription for pain medication has been provided for you to take to your pharmacy. Do not take pain medication on an empty stomach. You should not drive while taking narcotic pain medication Pain is a normal part of the recovery after surgery. The pain medication provided to you will help to decrease the discomfort but will not completely eliminate the pain. Your pain should decrease over the first few days after surgery which will allow you to take less pain medicine, increase the time between doses of medication, or stop taking all pain medicine Please refer to Perioperative Narcotic Considerations form in your Pre-operative packet OFFICE CONTACT NUMBERS: DURING BUSINESS HOURS: Saturday - Saturday 8:00 - 4:30 Refrigerating Machine Operator: [place] phone: [phone] AFTER HOURS/WEEKEND - EMERGENCIES ONLY (NO MED REFILLS): Medical Exchange: [phone] or toll-free Perioperative Narcotic Considerations The Orthopedic hand surgeons of [facility] manage perioperative pain as wellas the pain after an acute injury. Our surgeons do not manage chronic pain (pain three months afterthe injury/surgery), and will refer patients seeking longer term care for their painful condition to a pain management service or their primary physician as those physicians typically establish fci treatment relationships with patients. Following elective hand and upper extremity surgery, a prescription for an opioid-based medication will likely be given to the patient. ???Minor??? procedures such as carpal tunnel release, trigger finger release and ganglion excision will receive 5 tablets of Tylenol with Codeine, Tramadol, or [place]. Your surgeon will decide which is the most appropriate. Procedures that will need aggressive andcontinuous post-operative hand therapy (and adequate acute pain control during this period) may need a greater number of pain tablets to last the during the therapy period. Your surgeon may discuss with you reasoning behind the number of tablets that will be prescribed. There are many things that a patient can do to manage their pain after surgery or after an acute injury: Move the shoulder, elbow and all other joints that are not immobilized by the post-operative dressing as much as possible. Elevate the operated hand and wrist so that swelling can be reduced. Place ice and a few ounces of tap water in a small sealed plastic bag, and place it on the outside of the surgical dressing. Keep it there until the operated part under the ice bag starts to feel cold. This can reduce both pain and swelling. Anti-inflammatory pain medication such as Advil, Aleve, generic Ibuprofen, generic Naproxen or generic Naprosyn can all be used in addition to the narcotics prescribed by your doctor. Prescription anti-inflammatory pain medication such as Celebrex, Indocin or Toradol can be called in to your pharmacy if ???wctc-oel-emrrhnv??? anti- inflammatory pain medication do not decrease the pain even when taken on a regular basis. These can be called in during the hours 9am to 4pm, during the workweek. ???Alternative??? treatments such as acupuncture, meditation and biofeedback can all be used to decrease post-operative pain. The Orthopedic hand surgeons of [facility] want you to be as comfortable as possible following your operation or your injury, and we want you to return to your level of active function as quickly as possible. Although narcotics (opioid medications) can have a role in obtaining pain relief after surgery or injury, the prolonged use of these highly addictive medications can- and do- have severe side effects. Even in patients who are not addicted, narcotics become less effective over time as the body becomes tolerant to the drug and there is evidence that prolonged use mayincrease the body???s interpretation of pain. The ???opioid epidemic??? in [place] is very real, and we as physicians are duty-bound to be as appropriate as can be in the administration of narcotics. When prescribed narcotics, you should start with a plan of how to wean off of them and where you will keep the drug to avoid any misuse by those around you. If you have any questions about our philosophy regarding the prescriptions of narcotic medications for the relief of pain following surgery orinjury, please talk to your surgeon or his/her nurse or [place]. documented in this encounter Medications at Time of Discharge acetaminophen (TYLENOL) 500 mg tablet Take 2 tablets (1,000 mg total) by mouth as needed for pain or headaches pantoprazole DR (PROTONIX) 40 mg EC tabletIndication s:acid reflux Take 1 tablet (40 mg total) by mouth every morning 07/25/2022 acetaminophen-as pirin-caffeine (EXCEDRIN MIGRAINE) 250-250-65 mg per tabletIndication s:Migraine Take 1 tablet by mouth as needed for headaches 4 HYDROcodone-acet aminophen (NORCO) 5-325 mg per tabletIndication s:Pain Take 1 tablet by mouth every 6 (six) hours as needed for pain for up to 15 doses 15 tablet 07/30/2022 3 documented as of this encounter Ordered Prescriptions Prescription Sig Dispense Quantity Refills Last Filled Start Date End Date HYDROcodone-acetam inophen (NORCO) 5-325 mg per tabletIndications: Pain Take 1 tablet by mouth every 6 (six) hours as needed for pain for up to 15 doses 15 tablet 07/30/2022 08/14/2022 documented in this encounter Discharge Disposition Disposition Code Departure Means Destination Comment s Discharge to home or self care documented in this encounter H&P Notes * Dm Foreman MD - 07/30/2022 12:24 PM CDT I have reviewed the H&P, examined the patient, and endorse the findings as written. Plan of Care : Based on the above findings, I consider Nola King to be an acceptable risk for: Procedure(s): LEFT REVISION TRANSPOSITION ULNAR NERVE Source Note - Lawrence Christei MD - 07/26/2022 9:50 AM CDT Images from the original note were not included. Center for Preoperative Assessment and Planning Preoperative Evaluation Record Evaluation type/location: TPAP from [facility] Planned procedure site: [facility] OR Date: [...] Cardiovascular Pertinent negatives: hypertension ; CAD ; OH ; CABG ; valvular heart disease; atrial fibrillation; pacemaker/ICD; DVT/PE; negative for CHF; drug-eluting stent(s) and bare metal stent(s) Comments: Pt reports in 1995 had pericarditits. Has not needed to follow up with a food handler or have further cardiac work up since [...] to hold this between now and surgery. i[employer] message sent to surgeon's office. TPAP Complete [...] Past Month -- -- Dixon Phillip MD nzlzietubyehf-mhhivks-fexdwikw (EXCEDRIN MIGRAINE) 250-250-65 mg per tablet 07/25/2022 -- -- Dixon Phillip MD pantoprazole DR (PROTONIX) 40 mg EC tablet 07/26/2022 07/25/22 -- Dixon Phillip MD -- -- -- -- -- -- -- -- No current facility-administered medications for this encounter. Current Outpatient Medications: ??? acetaminophen (TYLENOL) 500 mg tablet ??? hxoonsgqlewup-mreogzh-hyqinymw (EXCEDRIN MIGRAINE) 250-250-65 mg per tablet ??? [...] Medication protocol when under care of a BRAILLE DUPLICATING MACHINE OPERATOR Planned anesthesia: General Informed Consent: Anesthesia plan [...] All questions answered. documented in this encounter Miscellaneous Notes * Perioperative Nursing Note - Mary Benoit RN - 07/30/2022 3:38 PM CDT For 24 hrs. After surgery and while on narcotics; no driving, drinking alcohol, operating power tools or hazardous machinery or signing legal documents. Patient stable & ready for discharge. Ice pack provided for post-op use. Pt transported to car via wheelchair for discharge. * Perioperative Nursing Note - Mary Benoit RN - 07/30/2022 3:07 PM CDT Pt and family verbalized understanding of D/C instructions. All questions answered. Pt stated pain and nausea tolerable for D/C. No changes since previous assessment. To prepare for D/C. * Perioperative Nursing Note - Mary Benoit RN - 07/30/2022 2:35 PM CDT Patient complaining of pain, requesting post op block , Anesthesia notified. Patient medicated with Zofran as per orders for nausea. * Perioperative Nursing Note - Mary Benoit RN - 07/30/2022 2:20 PM CDT Pt in bed in lowest position locked with both side rails up, nonslip socks applied, curtain open and patient near nurses station. Pt will not be left behind curtain alone. Pt assisted in all cares inrecovery. Navi score based on pre-op condition. Pt's friend with pt and will care for pt for 24 hours post surgery. Simple sling adjustment as directed. * Op Note - Dm Foreman MD - 07/30/2022 1:00 PM CDT SURGEON Dm Foreman MD LABEL PINKER Dr. Sanjuanita Cordoba MD PREOPERATIVE and POSTOPERATIVE DIAGNOSIS Recurrent left cubital tunnel syndrome PROCEDURE Revision left ulnar nerve subcutaneous transposition. ANESTHESIA General. ESTIMATED BLOOD LOSS Minimal. COMPLICATIONS None. CONDITION Stable to recovery. COUNTS Correct. SPECIMENS None. FLUIDS Per the anesthesia record. FINDINGS: ulnar nerve compression sitting posterior to the medial epicondyle PREOPERATIVE INDICATION This patient has been having ulnar nerve symptoms despite nonoperative treatment. At this point, I offered them the above procedure. I went over the risks and benefits of surgery, risks including, not limited to, risk of anesthesia, bleeding, infection, nerve injury, tendon injury, possibility of persistent pain or symptoms. They understood and they wished to proceed. OPERATIVE COURSE After consent was reviewed and the operative site was marked, the patient was brought to operating room, kept supine on the operative stretcher. They underwent induction of general anesthesia. The left arm was prepped and draped with chlorhexidine with a high arm tourniquet. We had a verbal timeout to verify the above information. I then exsanguinated the limb and inflated the tourniquet. I made a curved incision over the course of the ulnar nerve centered at the elbow, and carried our incision sharply through the skin. I incorporated her previous incision but did extend this distal and proximal. The 1st thing I did was worked through the fat proximally to get down to the fascia layer. At the anterior border of the triceps I could identify the ulnar nerve I opened up that fascia and then started to trace it distally. There was scar in the area but there was a layer that I could easily work through around the nerve. This became more tightas I got just posterior to the medial epicondyle and where it entered into the forearm. This had more scar tight on the nerve. When I went through the distal tissues more superficially at this point I spread through subcutaneous tissue, preserving the medial antebrachial cutaneous nerve which was distal to the medial epicondyle. At this point I then released the superficial and deep fascia of the FCU muscle going into the forearm. Identified and protected the 1st motor branch of the ulnar head of the FCU. I excised the medial intermuscular septum. I raised the fat off the flexor pronator mass. I then carefully worked circumferentially around the nerve, freeing it up, preserving these motor branches. Then we had a tension-free transposition. Again the maximal scar had been right around the epicondyle level. No abnormal kinking in the nerve. I was happy with the overall position. Once the nerve was transposed, I held the nerve well anterior with my finger making sure that we would not do anything too tight while I sewed this with 3-0 Ethibond suture from the fascia just anterior to the epicondyle to the subcutaneous fat, again confirming there was plenty of room for the nerve to be gliding anterior to this and this was keeping the nerve nicely anterior to the medial epicondyle. Final irrigation was performed and the tourniquet was let down. There was appropriate hemostasis. Idid bathe the ulnar nerve in Marcaine. Closed the skin with Monocryl followed by Monocryl suture. Marcaine injected. Soft dressing and long-arm splint applied. Patient awoken and taken to recovery in stable condition and I was present for the entire case * Perioperative Nursing Note - Meredith Jimenes RN - 07/30/2022 12:04 PM CDT Pt states friend, Magaly, will drive her home and provide 24 hrs care. * Pre-Procedure Instructions - Milli Carroll RN - 07/27/2022 2:04 PM CDT We are pleased that you and your doctor have chosen [facility] for your surgery. We hope the following information will help make your visit a pleasant one. The name of the building is [facility] [place] in [place]. Directions to facility (address is [address] [place] [address] road, [address] [facility] exit. [place] [address] When you enter the building, look directly to your left, you will see 2 glass double doors. These double doors say [address]. Go through those double doors and check in with the law office receptionist. Bring pillows, leave in car. Patient has ice/gel pack for home. Wear loose-fitting clothes. Something with an elastic waist on the bottom, such as gym shorts or sweat pants depending on the weather. T-shirt on top or a shirt with a loose sleeve unless you are having shoulder surgery then wear a loose- fitting button-down shirt or a shirt that zips up the front. Pt instructed by CPAP not to eat anything after Midnight. instructed pt.-->You may have CLEAR LIQUIDS UNTIL 0730. Acceptable clear liquids include water, clear sports drinks, unsweetened tea, black coffee or clear soda. Do NOT drink Milk, creamer or Alcohol. No gum, no mints, no candy, no cough drops, no CBD oil, no marijuana, no Chewing tobacco, or vaping. No ice or water. You may brush your teeth, just make sure you spit it all out. Instructed to patient to refer to [facility] surgery guide page 6 for any questions regarding eating and drinking day of surgery. For medications that the Nurse Practitioner instructed you to take on the morning of surgery, take the medications with a few sips of water. Pt's. CYNDEE MELGAR [phone] will be with patient and care for patient for the first 24 hours post-op. Pt. Instructed to arrive at 1130 for 1330 procedure. Procedure is scheduled for 1 3/4 hour(s). Pt. Denies any of the following symptoms: Nausea/vomiting/diarrhea, loss of taste or smell, rash orsores, body/muscle/joint aches, cough, sore throat, fever/chills, severe headache or Shortness of breath. Pt. is asymptomatic and denies any exposure to Covid or any Covid symptoms. Explained to patient, if you develop any symptoms of fever, chills, headache, cough, sore throat, body aches or is exposed to anyone that has been diagnosed, tested or quarantined for the COVID-19 you will not be allowed to enter the building or to have your surgery per anesthesia's guidelines. Explained to patient to please call the morning of surgery, any time after 5:30 a.m. if you or your caregiver develops any of these symptoms or is exposed to anyone that has been diagnosed, tested or quarantined for COVID-19. Pt. Reports understanding. Once your physician has completed your surgery, he will call your caregiver to notify them your surgery is complete, and you are heading to the Recovery room. Your caregiver will not be called back to be with you until you are awake and ready for discharge. The nurse who is caring for you will callyour caregiver to come back to be with you for discharge instructions. Explained to patient that the self-serve cafe is across the banks from the surgery center. Explainedto patient if their caregiver would like anything to eat or drink, they may bring their own or purchase it from the refreshment area. * Pre-Procedure Instructions - Brooklynn Mcbride NP - 07/26/2022 9:54 AM CDT Center for Preoperative Assessment and Planning CPAP Clinic Location: [facility] The night before your surgery: * Do not eat anything after midnight the night before your procedure. and * Do not smoke or use tobacco products after midnight the night before surgery. It is best to stop smoking now to improve your health. The morning of your surgery: * You may have clear liquids on your surgery day. You must stop drinking two hours before you arrive to the surgery facility. Acceptable clear liquids include water, clear sports drinks, black coffee, or clear soda. DO NOT drink any milk, creamer, or alcohol. * Your surgeon's office may have provided additional instructions or restrictions. Please follow those instructions. * You may brush your teeth and rinse your mouth out. * Do not glue your dentures. * Do not wear jewelry, body piercings, makeup, hairpins, false eyelashes or contact lenses to the hospital. * Leave any valuables at home or with your family. * If you have an implantable device with a remote, bring the remote with you on the day of surgery. * If you use home oxygen, bring your portable oxygen tank with you on the day of surgery * If you are going to be admitted after surgery at [facility], COVID testing may be performed on the day of surgery, even if you are up to date on your COVID-19 vaccine. * If having surgery at [facility], you may want to bring a credit card if you want to use our Mobile Pharmacy for your discharge medications. Mobile pharmacy is not available at [facility], the Orthopedic Center, or the [place] [facility]. Outpatient Surgery: * You must have a responsible adult drive you home and stay with you for 24 hours after your surgery * You cannot be alone at home or in a hotel * Please call your surgeon's office if you do not have someone to drive you home and/or stay with you after surgery * Please bring any items you may need to spend the night in the hospital. Sometimes patients need to be cared for in the hospital overnight. If you have Sleep Apnea (BRIDGET): * Bring your CPAP/BiPAP/VPAP machine to the hospital the day of your surgery * For a few days after your surgery, you will need to wear your CPAP/ BiPAP/VPAP machine any time your are sleeping. This includes when you take a nap. Instructions For Your Medications: Pre-Surgery Instructions: Medication Instructions acetaminophen (TYLENOL) 500 mg tablet Take on day of surgery if needed sjcwujfwcontb-lcpbslv-jmojonwy (EXCEDRIN MIGRAINE) 250-250-65 mg per tablet Stop taking 1 week prior to surgery pantoprazole DR (PROTONIX) 40 mg EC tablet Take morning of surgery General Instructions For Medications: * Stop all of these medications 5 days prior to your surgery: excedrin, motrin, advil, ibuprofen, aleve, naproxen, meloxicam, celebrex, celecoxib. For medications that you are instructed to take on the morning of surgery, take the medications with a few sips of water. Stop all of these medications 7-14 days prior to your surgery: Vitamin E, Herbal medicines, Diet Pills If you have pain, you may take tylenol (acetaminophen). Do not take more than 6 tablets or 3000 mg (3 g) within a 24 period. Call your surgeon and the CPAP clinic if any of the following happens before surgery: Any changes in your health You have a fever You have any signs of an infection (chest, urinary tract or tooth) You have been to the Emergency Room or were in the hospital You have started taking any new medications You have questions about a bowel prep or special diet before surgery You have symptoms of COVID-19 such as a new or worsening cough, shortness of breath, fever, body aches, loss of taste or smell, diarrhea or vomiting, or sore throat. You have a household contact with COVID-19. You test positive for COVID-19. * Perioperative Nursing Note - Tahmina Gamino RN - 07/26/2022 8:19 AM CDT [place] for Preoperative Assessment and Planning Perioperative Nursing Note Telephone Preoperative Evaluation ([facility]) - TELEPHONE ONLY, NO PHYSICAL EXAM Date: 07/26/22 Vitals: 07/26/22 0807 Weight: 99.3 kg (219 lb) Height: 170.2 cm (5' 7 ) CHEST CIRCUMFERENCE: N/A Social History Tobacco Use Smoking Status Never Passive exposure: Never Smokeless Tobacco Never Substance and Sexual Activity Drug Use Yes Types: Marijuana Comment: once a month Alcohol Use Q1: How often do you have a drink containing alcohol?: 2-4 times a month Q2: How many drinks containing alcohol do you have on a typical day when you are drinking?: 1 or 2 Q3: How often do you have six or more drinks on one occasion?: Never Outpatient Medications Marked as Taking for the 07/30/22 encounter (Hospital Encounter) Medication Sig Dispense Refill acetaminophen (TYLENOL) 500 mg tablet Take 2 tablets (1,000 mg total) by mouth as needed for pain or headaches uhhowkwslbqfn-ggdmebb-xsusfuki (EXCEDRIN MIGRAINE) 250-250-65 mg per tablet Take 1 tablet by mouth as needed for headaches pantoprazole DR (PROTONIX) 40 mg EC tablet Take 1 tablet (40 mg total) by mouth every morning Implants No active implants to display in this view. SKIN Piercings Remaining: Yes Wound (LDAs) Type of Wound (LDA): Wound SCREENINGS Edvin index score: 100 PATIENT CARE PLANNING Advance Directives (For Healthcare) Have you reviewed your Advance Directive and is it valid for this stay?: Not applicable Advance Directive: Patient does not have advance directive, Patient refused information Information Provided on Healthcare Directives: No Communication/Baking Assistant Needs Communication Barriers: Visual Communication Needs: Glasses Does caregiver's language differ from patient's?: No Assistive Devices/DME: Eyeglasses Hearing - Right Ear: Functional Hearing - Left Ear: Functional Discharge Planning Type of Residence: Private residence Living Arrangements: Alone Support Systems: Family members, Friends/neighbors Patient expects to be discharged to:: Private residence ([employer] 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 Arrival time and surgical time will be provided to the patient by their surgeon. You should wear clothing that is clean, loose, comfortable and easy to get in and out of on the dayof surgery. You should remove nail coverings, artificial nails and nail [place] prior to the day of surgery. You should leave your valuables and any jewelry at home. No metal or piercings are allowed in the operating room. You should bring your insurance card, a photo ID (example: Commercial Field Inspector's License) and a method of payment for any insurance copay, deductible or copay for discharge medications. You should bring a complete, up-to-date, list of all your medications on the day of surgery, including any over the counter medications or supplements you may take. Please note on your medication list, the last date & time you took each medication. The healthcare team, on the day of surgery, will ask for this information. You should bring your Advanced Directive and/or Living Will with you on the day of surgery if you have not verified a copy is already in your Epic Chart. If you are having surgery at [facility], please arrive on the day of surgery with the name and phone number of your local 24 hour pharmacy. Due to evening discharges, your routine pharmacy may be closed. In order to obtain your prescriptions that evening, your surgeon may need to send prescriptions to this pharmacy or have you take prescriptions to this pharmacy when you are discharged. Without this information, you may not be able to obtain your prescriptions that evening. A Guide for Patients Having Surgery: Your Pathway to Excellent Care OUR GOAL IS TO PROVIDE YOU WITH EXCELLENT CARE Use this guide to learn about what you can do before, during and after surgery to help your recovery. You are the most important person on your health care team. By becoming informed and involved, you can contribute to the success of your surgery. If your surgeon's directions are different than those in this guide, talk with your nurse or surgeon to confirm the information. It is important that you understand how to take care of yourself at home after surgery. Be sure to bring this guide with you on the day of surgery and take it home with you after surgery. Write down questions for your nurse or surgeon on the last page of this booklet. Important pages to be reviewed BEFORE surgery: Page 1: QR codes for Surgery Center maps Page 3: Types of Anesthesia Page 5: Tips for the day & night before surgery Page 6: When to stop eating BEFORE surgery and examples of clear liquids Page 7-10: Preventing Infection: Chlorhexidine Gluconate (CHG) Bathing Instructions You may access A Guide for Patients Having Surgery: Your Pathway to Excellent Care by the followinglink: [email or web address] How To Prepare Your Skin For Surgery Below is the Pre-Surgical Bathing Protocol you should follow for your surgery. If your surgeon provides you different bathing instructions, please follow your surgeon's orders. 2 Day CHG Bathing Protocol (no nasal ointment) PREVENTING INFECTION (DECOLONIZATION): Decolonization is the use of a topical antiseptic soap and sometimes a nasal ointment to remove bacteria (germs) from the skin's surface. Antiseptic soap: Chlorhexidine gluconate or CHG (brand name: Hibiclens??) Before surgery, your entire body must be thoroughly cleaned. CHG helps to reduce the bacteria on your skin. You may be given one or more bottles of CHG or you may be asked to obtain from your preferred pharmacy. Be sure to ask your pharmacist if you need help finding this product. Nasal ointment: Mupirocin (brand name: Bactroban) Your surgeon may also prescribe a topical ointment that is rubbed inside each of the nostrils to reduce the bacteria in your nose. Mupirocin ointment requires a prescription. If needed, it will be prescribed by your surgeon and obtained from your preferred pharmacy. SHOWERING WITH ANTISEPTIC SOAP (CHG) What You Need For Each Shower 60 mL (?? cup) of CHG 2 clean washcloths CHG Bathing Instructions First, shampoo and rinse your hair with your own shampoo (no conditioners). Do this so the antiseptic soap isn't washed off by your shampoo. Wash face with warm water. Turn off shower and stand away from the water. Use 2 clean washcloths to apply the antiseptic soap to all areas as described below: Pour 30 mL (1/8 cup) of CHG on washcloth #1: Using washcloth- start at jawline and firmly massage the soap into the skin in a circular motion to clean neck, shoulders, chest, back, both armpits, arms, hands and abdomen. Finish with legs and feet. Pour 30 mL (1/8 cup) of CHG on washcloth #2: Using washcloth- firmly massage the soap into the skinin a circular motion to clean groin area, perineum and buttocks. (Do not use CHG on genital area.) [place] Points: The CHG antiseptic soap will not bubble or lather very much. If you get soap in your eyes, ears or mouth, rinse well with cool water. When finished, leave the soap on your skin for 2 minutes before rinsing. Dry off with a clean fresh towel. Wear clean clothes or pajamas to sleep in. After showering DO NOT put on deodorant, hair products or conditioners, lotions or creams, powders,Vaseline or any non-essential products. If you cannot reach the surgical site, such as the back, please have someone help you. Shaving: You may shave your face, legs and underarms during your evening shower before you apply the CHG antiseptic soap. Be careful not to cut or abby your skin. Avoid shaving on the day of surgery. Deodorant: Patients following the 5-Day CHG protocol may apply deodorant on the days leading up to surgery, being sure, however, to avoid use on the evening before and day of surgery. All other products should be avoided for the full 5 days. 2-Day CHG Bathing Protocol The Evening Before Surgery: Take a shower with Antiseptic soap (CHG). Follow the steps for ???Showering with Antiseptic Soap (CHG)?? above. Change all linens on your bed so you are sleeping in clean fresh sheets and pillowcases. Remove nail coverings, artificial nails and nail [place]. The Morning of Surgery: Take a shower with Antiseptic soap (CHG). Follow the steps for ???Showering with Antiseptic Soap (CHG)?? above. Put clean clothes on after you shower. Travel/Exposure Screening: Travel Screening Have you traveled outside the [place] in the last 6 months?: No Exposure Screening Have you been exposed to anyone who is sick in the last 30 days?: No Have you been exposed to or tested positive for COVID-19 within the last 10 days?: No Have you tested positive for monkeypox within the last 28 days or are you waiting for a monkeypox test result?: No Infectious Disease Screening Are you having any of the following:: None As of 2022 any COVID TESTING required for surgery will be set up by your surgeon's office. Please reach out to your surgeon's office if you develop any COVID symptoms, test positive for COVID or are exposed to a COVID positive person. If you have questions, please call the [facility] Staff at [phone], Saturday-Saturday 8am-4:30pm. All patients should read the below section: All visitors/patients are being asked to wear a clean face mask when entering the hospital. COVID 19 Updates & Visitor Policy: Please access [email or web address] for the most updated information. Information on [facility]: Please view [email or web address] (Patient & Visitor Information) for additional details regarding Advanced Directive forms, AWARE, directions, parking information, lodging, Internet access, dining and more. Information on [facility] or [facility] ([facility]): Please view [email or web address] (Patient and Visitor Information) for parking/directions and more. For MyChart information, to activate account or password recovery, please go to [email or web address] or call [phone] (toll-free: [phone]). Information for Suicide Prevention: National Suicide Prevention Lifeline (5-511- 384-DWMS (7513)). Surgery Times: For patients having [facility], if your surgeon's office has not notified you of your surgery time by NOON THE BUSINESS DAY BEFORE your surgery, please call the surgery center [phone]. documented in this encounter Plan of Treatment Not on file documented as of this encounter Procedures Procedure Name Priority Date/Time Associated Diagnosis Comments TRANSPOSITION ULNAR NERVE 2022 12:49 PM CDT Cubital tunnel syndrome on left documented in this encounter Visit Diagnoses Diagnosis Cubital tunnel syndrome on left- Primary Cubital tunnel syndrome on left documented in this encounter Admitting Diagnoses Diagnosis Cubital tunnel syndrome on left documented in this encounter Administered Medications Inactive Administered Medications - up to 3 most recent administrations Medication Order MAR Action Action Date Dose Rate Site HYDROcodone-acetaminophen (NORCO) 5-325 mg per tablet 1 tablet 1 tablet, oral, Every 30 min PRN, 2nd line for pain, Starting on Sat07/30/22 at 1414, For 2 doses, Phase I, Indications: PainIndications:Pain Given 07/30/2022 3:22 PM CDT 1 tablet Lactated Ringer's (LR) infusion 30 mL/hr, intravenous, Continuous, Starting on Sat07/30/22 at 1215, Use a 500 ml bag for End Stage Renal Disease Patients New Bag 07/30/2022 1:42 PM CDT Restarted 07/30/2022 12:46 PM CDT New Bag 07/30/2022 12:04 PM CDT 30 mL/hr 30 mL/hr ondansetron (ZOFRAN) injection 4 mg 4 mg, intravenous, Administer over 2 Minutes, Once as needed, nausea, vomiting, Starting on Sat07/30/22 at 1414, For 1 dose, Phase I, Proceed to prochlorperazine if ondansetron has been given within the last 6 hours. Given 07/30/2022 2:33 PM CDT 4 mg ropivacaine (NAROPIN) 5 mg/mL (0.5 %) preservative free injection As needed, Starting on Sat07/30/22 at 1402, Intra-Op Given 07/30/2022 2:02 PM CDT 10 mL sodium chloride 0.9% irrigation As needed, Starting on Sat07/30/22 at 1308, Intra-Op Given 07/30/2022 1:08 PM CDT 500 mL Surgical Site documented in this encounter Discontinued Medications Medication Sig Discontinue Reason Start Date End Da te ALPRAZolam (XANAX) 0.5 mg tablet alprazolam 0.5 mg tablet TAKE 1 TABLET BY MOUTH BEFORE FLYING 07/26/2022 nitrofurantoin monohydrate (MACROBID) 100 mg capsule TAKE 1 CAPSULE BY MOUTH EVERY 12 HOURS FOR 5 DAYS DRINK PLENTY OF FLUIDS AND TAKE PROBIOTIC 11/12/2021 07/26/2022 calcium carbonate (TUMS) 500 mg (200 mg elemental) chewable tablet Take 1 tablet/chew tab (500 mg total) by mouth every 2 (two) hours as needed for indigestion or heartburn 07/26/[address] (VOLTAREN) 75 mg EC tablet TAKE 1 TABLET BY MOUTH TWICE A DAY WITH MEALS FOR 30 DAYS 10/14/2021 07/26/2022 sodium, potassium & mag sulfates (Suprep Bowel Prep Kit) 17.5-3.13-1.6 gram recon soln Suprep Bowel Prep Kit 17.5 gram-3.13 gram-1.6 gram oral solution 07/26/2022 naproxen (ALEVE) 220 mg tablet Take 220 mg by mouth 07/26/2022 ibuprofen (ibuprofen) 200 mg tab/cap Take 200 mg by mouth every 6 (six) hours as needed 07/26/2022 gabapentin (NEURONTIN) 300 mg capsule Take 1 capsule (300 mg total) by mouth nightly 01/31/2022 07/26/2022 documented as of this encounter Historical Medications * This list may reflect changes made after this encounter. acetaminophen (TYLENOL) 500 mg tablet Take 2 tablets (1,000 mg total) by mouth as needed for pain or headaches acetaminophen-as pirin-caffeine (EXCEDRIN MIGRAINE) 250-250-65 mg per tabletIndication s:Migraine Take 1 tablet by mouth as needed for headaches 4 added in this encounter Active and Recently Administered Medications Times are shown in CDT. Scheduled Medication Order 07/28/2022 07/29/2022 07/30/2022 ceFAZolin (ANCEF) 2,000 mg/50 mL in dextrose (premix) 2,000 mg (COMPLETED) 2,000 mg, intravenous, at 100 mL/hr, Administer over 30 Minutes, Once, On Sat07/30/22 at 1215, For 1 dose, Pre-Op, Administer within 60 minutes of incision. Duplex bag - activate before hanging. , Indications: Prophylaxis, Surgical 1251 (Given - Provid er: Kaela Joaquin CRNA) scopolamine patch 72 hour 1 patch 1 patch, transdermal, Administer over 72 Hours, Once, On Sat07/30/22 at 1215, For 1 dose, Pre-Op, Apply to beach-chair position shoulder surgery patients, and to patients with a history of PONV and/or Motion Sickness. Do NOT administer to patients with a history of BPH or Glaucoma. Consult Anesthesiologist with any questions. In case of urinary retention, remove patch immediately and clean patch site with alcohol., Indications: Motion Sickness, Prevention of Motion Sickness, Prevention of Post-Operative Nausea and Vomiting 1215 (Due) Continuous Medication Order 07/28/2022 07/29/2022 07/30/2022 Lactated Ringer's (LR) infusion 30 mL/hr, intravenous, Continuous, Starting on Sat07/30/22 at 1215, Use a 500 ml bag for End Stage Renal Disease Patients 1204 (New Bag - Prov ider: Meredith Jimenes RN)1245 (Paused - Provider: Kaela Joaquin CRNA - Comment: Switch to gravity)1246 (Restarted - Provider: Kaela Joaquin CRNA)1342 (New Bag - Provider: Kaela Joaquin CRNA)1414 (Stopped - Provider: Mary Benoit RN) Lactated Ringer's (LR) infusion 125 mL/hr, intravenous, Continuous, Starting on Sat07/30/22 at 1445, Phase I, 1414 (Continued from OR - Provider: Mary Benoit RN)1529 (Stopped - Provider: Mary Benoit RN) PRN Medication Order 07/28/2022 07/29/2022 07/30/2022 diphenhydrAMINE (BENADRYL) injection 12.5 mg 12.5 mg, intravenous, Administer over 1 Minutes, Every 5 min PRN, itching, other, For Nausea, administer 25 mg IV., Starting on Sat07/30/22 at 1414, For 4 doses, Phase I, Max cumulative dose 50 mg., Indications: Itching fentaNYL (SUBLIMAZE) preservative free syringe 25 mcg 25 mcg, intravenous, Every 10 min PRN, 1st line for pain, Starting on Sat07/30/22 at 1414, For 4 doses, Phase I, Notify anesthesiologist if total PACU dose reaches 100 mcg AND pain score 5/10 or more. When patient able to tolerate PO, proceed to 2nd line analgesic agent for pain management., Indications: Pain hydrALAZINE (APRESOLINE) injection 5 mg 5 mg, intravenous, Administer over 2 Minutes, Every 5 min PRN, high blood pressure, Starting on Sat07/30/22 at 1414, Phase I, Max cumulative dose 20 mg. Dose if systolic BP greater than 180 AND heart rate less than 70., Indications: hypertension HYDROcodone-acetaminophen (NORCO) 5-325 mg per tablet 1 tablet 1 tablet, oral, Every 30 min PRN, 2nd line for pain, Starting on Sat07/30/22 at 1414, For 2 doses, Phase I, Indications: Pain 1522 (Given - Provid er: Mary Benoit RN) labetaloL (NORMODYNE,TRANDATE) injection 5 mg 5 mg, intravenous, Every 5 min PRN, high blood pressure, Starting on Sat07/30/22 at 1414, For 4 doses, Phase I, Max cumulative dose 20 mg. Dose if systolic blood pressure greater than 180 AND HR greater than 70. lidocaine PF (XYLOCAINE) 10 mg/mL (1 %) preservative free injection 2-10 mg 2-10 mg (0.2-1 mL), subcutaneous, Once as needed, pain with IV placement, Starting on Sat07/30/22 at 1134, For 1 dose, Pre-Op, Administer volume needed to infiltrate IV site. meperidine (DEMEROL) preservative free injection 12.5 mg 12.5 mg, intravenous, Administer over 5 Minutes, Every 10 min PRN, shivering, Starting on Sat07/30/22 at 1414, For 2 doses, Phase I, Max cumulative dose 25 mg., Indications: Shivering naloxone (NARCAN) 0.4 mg/mL injection 0.04-0.4 mg 0.04-0.4 mg, intravenous, Once as needed, other, excessive sedation/respiratory depression, Starting on Sat07/30/22 at 1414, For 1 dose, Phase I, Dilute 0.4 mg with 9 mL NS (final concentration 0.04 mg/mL). For respiratory depression (respiratory rate less than 6), administer 0.4 mg IVP over 30 seconds. For excessive sedation administer 0.04 mg (1 mL) every 1 minute until desired level of alertness. Consult with Anesthesiologist before administration. Administer 40 mics at a time. For IV, administer over 30 seconds., Indications: Opioid Toxicity ondansetron (ZOFRAN) injection 4 mg (COMPLETED) 4 mg, intravenous, Administer over 2 Minutes, Once as needed, nausea, vomiting, Starting on Sat07/30/22 at 1414, For 1 dose, Phase I, Proceed to prochlorperazine if ondansetron has been given within the last 6 hours. 1433 (Given - Provid er: Mary Benoit RN) prochlorperazine (COMPAZINE) injection 5 mg 5 mg, intravenous, Administer over 2 Minutes, Once as needed, nausea, vomiting, May give second 5 mg dose if nausea not improved after 15 minutes., Starting on Sat07/30/22 at 1414, For 2 doses, Phase I, If nausea/vomiting not relieved by ondansetron within 30 minutes or if ondansetron has been given within the last 6 hours. ropivacaine (NAROPIN) 5 mg/mL (0.5 %) preservative free injection (CANCELED) As needed, Starting on Sat07/30/22 at 1402, Intra-Op 1402 (Given - Provid er: Dm Foreman MD - Comment: left arm) sodium chloride 0.9% flush 0.5-20 mL 0.5-20 mL, intra-catheter, As needed, line care, Flush Jade Block Hep Locks to keep vein open., Starting on Sat07/30/22 at 1134, Pre-Op, Flush volume based on line type and size. Flush before and after each use. , Indications: Flushing sodium chloride 0.9% irrigation (CANCELED) As needed, Starting on Sat07/30/22 at 1308, Intra-Op 1308 (Given - Provid er: Dm Foreman MD) documented in this encounter Orders Medications Ordered That Matthew ht Not Have Been Administered Count Last Ordered Date First Ordered Date ceFAZolin (ANCEF) 2,000 mg/5 0 mL in dextrose (premix) 2,000 mg 1 07/30/2022 diphenhydrAMINE (BENADRYL) i njection 12.5 mg 1 07/30/2022 fentaNYL (SUBLIMAZE) preserv ative free syringe 25 mcg 1 07/30/2022 hydrALAZINE (APRESOLINE) injection 5 mg 1 0 07/30/2022 labetaloL (NORMODYNE,TRANDAT E) injection 5 mg 1 07/30/2022 Lactated Ringer's (LR) infusion 1 lidocaine PF (XYLOCAINE) 10 mg/mL (1 %) preservative free injection 2-10 mg 1 07/30/2022 meperidine (DEMEROL) preserv ative free injection 12.5 mg 1 07/30/2022 naloxone (NARCAN) 0.4 mg/mL injection 0.04-0.4 mg 1 07/30/2022 prochlorperazine (COMPAZINE) injection 5 mg 1 07/30/2022 scopolamine patch 72 hour 1 patch 1 023 sodium chloride 0.9% flush 0.5-20 mL 1 07/14 documented in this encounter
--- OUTSIDE RECORDS SUMMARY | 2024-04-26 12:35 | XMS_ITS | Encounter Summary ---
Author Organization [facility] Address [address] [place] [address] Care Team Providers Care Retort Engineer Name Role Phone Unavailable Primary Care Provider Unavailabl e Reason for Visit * Auth/Cert (Routine) Specialty Diagnoses / Procedures Referred By Gordon carter Referred To Contact Diagnoses Cubital tunnel syndrome on left Cubital tunnel syndrome on left [G56.22] Procedures TX NEUROPLASTY &/TRANSPOSITION ULNAR NERVE ELBOW LEFT REVISION TRANSPOSITION ULNAR NERVE Referral ID Status Reason Start Date Expiration Date Visits Re quested Visits Authorized [id number] 1 1 Encounter Details Date Type Department Care Team (Latest Contact Info) Description 07/30/2022 11:26 AM CDT - 07/30/2022 3:39 PM CDT Hospital Encounter [facility] Operating Room at the [facility] [address] [place] [id number] Dm Foreman MD [address] [facility] [address] [place] [address] Discharge Disposition: Discharge to home or self [...] on file 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 Gender Identity Not on file Sexual Orientation Not on file documented as of this encounter Last Filed Vital Signs Vital Sign Reading Time Taken Comments Blood Pressure 119/82 07/30/2022 3:20 PM CDT Pulse 90 07/30/2022 3:25 PM CDT Temperature 36.1 ??C (97 ??F) 07/30/2022 2:48 PM CDT Respiratory Rate 14 07/30/2022 3:25 PM CDT Oxygen Saturation 93% 07/30/2022 3:25 PM CDT Inhaled Oxygen Concentration - - Weight 99.4 kg (219 lb 1.6 oz) 07/30/2022 11:37 AM CDT Height 170.2 cm (5' 7 ) 07/30/2022 11:37 AM CDT Body Mass Index 34.32 07/30/2022 11:37 AM CDT documented in this encounter Discharge Instructions * Discharge Instructions* Dm Foreman MD - 07/30/2022 12:40 PM CDT [facility] Postoperative Instructions [...] HOURS: Saturday - Saturday 8:00 - 4:30 Traditional Chinese Herbalist: Palma phone: [phone] AFTER HOURS/WEEKEND - EMERGENCIES ONLY (NO MED REFILLS): Medical Exchange: [phone] or toll-free Perioperative Narcotic Considerations The Orthopedic hand surgeons of [facility] manage perioperative pain as wellas the pain after an acute injury. Our surgeons do not manage chronic pain (pain three months afterthe injury/surgery), and will refer patients seeking longer term care for their painful condition to a pain management service or their primary physician as those physicians typically establish half-way treatment relationships with patients. Following elective hand and upper extremity surgery, a prescription for an opioid-based medication will likely be given to the patient. ???Minor??? procedures such as carpal tunnel release, trigger finger release and ganglion excision will receive 5 tablets of Tylenol with Codeine, Tramadol, or [place]. Your surgeon will decide which is the [...] be called in to your pharmacy if ???vpux-jed-droirze??? anti- inflammatory pain medication do not decrease the pain even when taken on a regular basis. These can be called in during the hours 9am to 4pm, during the workweek. ???Alternative??? treatments such as acupuncture, meditation and biofeedback can all be used to decrease post-operative pain. The Orthopedic hand surgeons of [facility] want you to be as comfortable [...] interpretation of pain. The ???opioid epidemic??? in [place] is very real, and we as physicians [...] TRANSPOSITION ULNAR NERVE Source Note - Lawrence Christie MD - 07/26/2022 9:50 AM CDT Images from the original note were not included. Center for Preoperative Assessment and Planning Preoperative Evaluation Record Evaluation type/location: TPAP from [facility] Planned procedure site: Orthopedic Center OR [...] Cardiovascular Pertinent negatives: hypertension ; CAD ; [place] ; CABG ; valvular heart disease; atrial fibrillation; pacemaker/ICD; DVT/PE; negative for CHF; drug-eluting stent(s) and bare metal stent(s) Comments: Pt reports in 1995 had pericarditits. Has not needed to follow up with a photoengraving helper or have further cardiac work up since [...] to hold this between now and surgery. [employer] message sent to surgeon's office. TPAP Complete [...] Past Month -- -- Dixon Phillip MD tfcxwlibtbqwn-ctjyzqz-poeerfep (EXCEDRIN MIGRAINE) 250-250-65 mg per tablet 07/25/2022 -- -- Dixon Phillip MD pantoprazole DR (PROTONIX) 40 mg EC tablet 07/26/2022 07/25/22 -- Dixon Phillip MD -- -- -- -- -- -- -- -- No current facility-administered medications for this encounter. Current Outpatient Medications: ??? acetaminophen (TYLENOL) 500 mg tablet ??? xelkcvfvmlyhm-ahqwcqz-hhpibofr (EXCEDRIN MIGRAINE) 250-250-65 mg per tablet ??? [...] Medication protocol when under care of a VINEYARD WORKER Planned anesthesia: General Informed Consent: Anesthesia plan [...] 1:00 PM CDT SURGEON Dm Foreman MD CELLULAR EQUIPMENT REPAIRER Dr. Sanjuanita Cordoba MD PREOPERATIVE and POSTOPERATIVE [...] that you and your doctor have chosen [facility] for your surgery. We hope the following information will help make your visit a pleasant one. The name of the building is [facility] [place] in [place]. Directions to facility (address is [address] [place] [address], [address] [facility] exit. Zip [address] When you enter the building, look directly to your left, you will see 2 glass double doors. These double doors say [address]. Go through those double doors and check in with the dental receptionist. Bring pillows, leave in car. Patient [...] out. Instructed to patient to refer to [facility] surgery guide page 6 for any questions regarding eating and drinking day of surgery. For medications that the Nurse Practitioner instructed you to take on the morning of surgery, take the medications with a few sips of water. Pt's. CYNDEE MELGAR [phone] will be with patient and care for [...] Preoperative Assessment and Planning CPAP Clinic Location: [facility] The night before your surgery: * Do [...] going to be admitted after surgery at [facility], COVID testing may be performed on the day of surgery, even if you are up to date on your COVID-19 vaccine. * If having surgery at [facility], you may want to bring a credit card if you want to use our Mobile Pharmacy for your discharge medications. Mobile pharmacy is not available at [facility], the Orthopedic Center, or the [place] [facility]. Outpatient Surgery: * You must have a [...] Take on day of surgery if needed hkzkojoaivjja-lsmgvmx-lnopzafq (EXCEDRIN MIGRAINE) 250-250-65 mg per tablet Stop [...] Gamino RN - 07/26/2022 8:19 AM CDT Center for Preoperative Assessment and Planning Perioperative Nursing Note Telephone Preoperative Evaluation ([facility]) - TELEPHONE ONLY, NO PHYSICAL EXAM [...] mouth as needed for pain or headaches kpimlgqgdbiwx-nizrgsr-jvyinwdn (EXCEDRIN MIGRAINE) 250-250-65 mg per tablet Take [...] information Information Provided on Healthcare Directives: No Communication/Bindery Chief Needs Communication Barriers: Visual Communication Needs: Glasses Does caregiver's language differ from patient's?: No Assistive Devices/DME: Eyeglasses Hearing - Right Ear: Functional Hearing - Left Ear: Functional Discharge Planning Type of Residence: Private residence Living Arrangements: Alone Support Systems: Family members, Friends/neighbors Patient expects to be discharged to:: Private residence (Friend, Magaly will be electric lift truck driver after surgery.) TEXT TRANSCRIBER NO ADDITIONAL COMMENTS/ FOLLOW UP * Pre-Procedure [...] remove nail coverings, artificial nails and nail montenegrin prior to the day of surgery. You should leave your valuables and any jewelry at home. No metal or piercings are allowed in the operating room. You should bring your insurance card, a photo ID (example: Extruder Operator Multiple's License) and a method of payment for [...] Chart. If you are having surgery at [facility], please arrive on the day of surgery [...] Remove nail coverings, artificial nails and nail montenegrin. The Morning of Surgery: Take a shower [...] questions, please call the CPAP Staff at [phone], Saturday-Saturday 8am-4:30pm. All patients should read the below section: All visitors/patients are being asked to wear a clean face mask when entering the hospital. COVID 19 Updates & Visitor Policy: Please access [email or web address] for the most updated information. Information on [facility] & the Orthopedic Center: Please view [email or web address] (Patient & Visitor Information) for additional details regarding Advanced Directive forms, AWARE, directions, parking information, lodging, Internet access, dining and more. Information on [facility] or [facility] ([facility]): Please view [email or web address] (Patient and Visitor Information) for parking/directions and more. For MyChart information, to activate account or password recovery, please go to [email or web address] or call [phone] (toll-free: [phone]). Information for Suicide Prevention: National Suicide Prevention Lifeline (9-558- 595-MBFL (4131)). Surgery Times: For patients having surgery @ [facility], if your surgeon's office has not notified you of your surgery time by NOON THE BUSINESS DAY BEFORE your surgery, please call the surgery center [phone]. documented in this encounter Plan of Treatment Not on file documented as of this encounter Procedures Procedure Name Priority Date/Time Associated Diagnosis Comments TRANSPOSITION ULNAR NERVE 2022 12:49 PM CDT Cubital tunnel syndrome on left documented in this encounter Visit Diagnoses Diagnosis Cubital tunnel syndrome on left- Primary documented in this encounter Admitting Diagnoses Diagnosis [...] Given 07/30/2022 2:33 PM CDT 4 mg documented in this encounter Discontinued Medications Medication [...] Surgical 1251 (Given - Provid er: Kaela Joaquin, ESTEVAN) scopolamine patch 72 hour 1 patch 1 [...] prochlorperazine (COMPAZINE) injection 5 mg 1 07/30/2022 ropivacaine (NAROPIN) 5 mg/m L (0.5 %) preservative free injection 1 07/30/2022 scopolamine patch 72 hour 1 patch 1 023 sodium chloride 0.9% flush 0.5-20 mL 07/14 sodium chloride 0.9% irrigation 1 3 documented in this encounter
--- OUTSIDE RECORDS SUMMARY | 2024-04-26 12:35 | XMS_ITS | Encounter Summary ---
Author Organization [facility] Address [address] [place] [address] Phone Care Team Providers Care Senior Mechanical Development Engineer Name Role Phone Unavailable Primary Care Provider Unavailabl e Reason for Visit * Reason Comments Post-op Encounter Details Date Type Department Care Team (Late st Contact Info) Description 08/14/2022 9:20 AM CDT Office Visit [facility] Orthopaedic Surgery [address] [facility] 2nd [address] [place] [address] Dm Foreman MD [address] [facility] [place] [address] Cubital tunnel syndrome, left (Primary [...] on file 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 Subjective: Feeling well since surgery. No fevers or chills. No new injury. No complications. She says that she still feels a little bit of funny this in the small finger ring finger and thumb feels a little bit funny but the thumb feels better with the dressing off. Physical Examination: The patients elbow has a well healing incision. Sutures are removed and steri-strips applied. No signs of infection. The patient can make a fist and fire the interossei muscles.Elbow motion is tolerated remarkably well from 0-120 degrees. Just bruised medially. Assessment and Plan: The patient is doing well following revision left transposition cubital tunnelsurgery. They have been instructed to: Perform gentle elbow ROM To avoid excessive stretching and to remember not to financial operations analyst or lift forefully. I will see the patient back in 5 weeks. documented in this encounter Plan of Treatment Not on file documented as of this encounter Visit Diagnoses Diagnosis Cubital tunnel syndrome, left- Primary documented in this encounter Discontinued Medications Medication Sig Discontinue Reason Start Date End Da te HYDROcodone-acetaminophe n (NORCO) 5-325 mg per tabletIndications:Pain Take 1 tablet by mouth every 6 (six) hours as needed for pain for up to 15 doses Therapy completed 07/30/2022 08/14/2022 documented as of this encounter
--- OUTSIDE RECORDS SUMMARY | 2024-04-26 12:36 | XMS_ITS | Encounter Summary ---
Author Organization [facility] Address [address] [place] [address] Phone Care Team Providers Care Mobile Lounge Driver Or Operator Name Role Phone Unavailable Primary Care Provider Unavailabl e Reason for Referral * Neurology (Routine) - Closed Specialty Diagnoses / Procedures Referred By Gordon t Referred To Contact Diagnoses Cubital tunnel syndrome, left Procedures EMG/NCV WITH ULTRASOUND -Please select the performing region: [facility] (All Locations); Procedure performed at: [facility] Dm Foreman MD Phone: tel: fax: [facility] (All Locations) Referral ID Status Reason Start Date Expiration Date Visits Re quested Visits Authorized [id number] Closed 11/14/2021 12/14/2022 1 1 Reason for Visit * Reason Comments Pain Encounter Details Date Type Department Care Team (Late st Contact Info) Description 11/14/2021 9:20 AM CDT Office Visit [facility] Orthopaedic Surgery [address] [facility] 2nd [address] [place] [address] Dm Foreman MD [address] [facility] [address] [place] [address] Cubital tunnel syndrome, left (Primary Dx) Social History Tobacco Use Types Packs/Day Years Used Date Smoking Tobacco: Never Comments Unknown Sex and Gender Information Value Date Recorded Sex Assigned at Not on file 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 Gender Identity Not on file Sexual Orientation Not on file documented as of this encounter Last Filed Vital Signs Vital Sign Reading Time Taken Comments Blood Pressure - - Pulse - - Temperature - - Respiratory Rate - - Oxygen Saturation - - Inhaled Oxygen Concentration - - Weight 91.2 kg (201 lb) 11/14/2021 9:47 AM CDT Height 170.2 cm (5' 7 ) 11/14/2021 9:47 AM CDT Body Mass Index 31.48 11/14/2021 9:47 AM CDT documented in this encounter Progress Notes * Dm Foreman MD - 11/14/2021 9:20 AM CDT CHIEF COMPLAINT Left elbow pain HISTORY OF PRESENT ILLNESS 51F with prior history of multiple surgeries of the LUE over the course of 10 years p/w left elbow pain. Patient states that over 10 year ao she lifted a bag of dog food at work when she tore her ulnar nerve. This was initally reparied by a Dr. Fountain and her post operative course was complicated by a staph infection. She then changed doctors to Dr. Kaur who performed a series of operations on her LEFT wrist and elbow. Patient was doing well until last November when she tripped fell, breaking her distal radius and elbow. This was treated non-operatively with a soft-cast. Patient states that since that fall about a year ago she has had problems with her ulnar nerve and feels like all the work that Dr. Kaur has done has now been undone. She did not have insurance until recently and when she attempted to go back to Dr. Kaur he was retired. Patient states that currently she has pain at the elbow specifically the medial aspect and can feel like the nerve is rolling when she palpates the medial elbow. She also states she has residual clawing of her SF and pain upon palpation ofher distal radius. 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 PAST MEDICAL HISTORY She has a past medical history of ADHD (attention deficit hyperactivity disorder), Anemia, Arthritis, Gastric reflux, Kidney stone, Migraines, Neuromuscular disorder (CMS/HCC) (HCC), Obesity, Pneumonia, and Sleep apnea. PAST SURGICAL HISTORY She has a past surgical history that includes Hand surgery. INITIAL REVIEW OF MEDICATIONS She has a current medication list which includes the following prescription(s): calcium carbonate, diclofenac dr, ibuprofen, naproxen, and nitrofurantoin monohydrate. DRUG ALLERGIES She is allergic to erythromycin, latex, and oxycodone-acetaminophen. FAMILY HISTORY Her family history includes Arthritis in her father and mother; Hypertension in her father. REVIEW OF SYSTEMS Review of Systems HENT: Positive for congestion. Musculoskeletal: Positive for back pain, joint pain and neck pain. Neurological: Positive for headaches. Endo/Heme/Allergies: Bruises/bleeds easily. All other systems reviewed and are negative. PHYSICAL EXAM The patient was alert and oriented normally. Normal affect. Skin is intact, pulses normal, and neurologically intact. RUE with multiple scars from prior surgeries along the elbow and wrist. Decreasedsensation about 4/10 ulnar distribution. Weak adduction and abduction of the fingers. Normal flexion and extension of the wrist. Good range of motion of the elbow with a well-healed posteromedial incision suggesting ulnar nerve transposition. I can not really feel the ulnar nerve snapping around the epicondyle although she feels like it is. She does have a positive Wartenberg sign. ASSESSMENT AND PLAN: 51F with complex RUE surgical history p/w left elbow pain after falling last November. Patient has decreased sensation and weakness in the ulnar distribution that is changed from her baseline. At this point given the pain element with her nerve issues I did offer gabapentin. She has some of this at home but had not tried yet. I recommended just taking 1 at nighttime. We are going to get nerve conduction testing along with ultrasound for that left cubital tunnel. I would like to determine better where the ulnar nerve is located and whether not it is snapping back into the area behind the epicondyle or not. Finally we will try to get the records from Dr. Kaur to better understand what all has been done to this point. Certainly continuing the soft pad at the elbow also still makes sense. Iexplained to her that I may or may not have much of a surgical solution for this but we are going to do our best to work this up and see what we could consider for her. I was present for the critical portion of the history, physical examination and all radiographic studies were personally interpreted by me and I determined the diagnosis and treatment plan and communicated them to the patient. I agree with this report which was generated with the assistance of Dr. Mcdonough. Dr. Dm Foreman dictating with Fluency Direct. Microstrategy Developer variances may occur. mD Foreman M.D. Professor Hand and Upper Extremity Surgery [facility] documented in this encounter Plan of Treatment Not on file documented as of this encounter Results * EMG/NCV WITH ULTRASOUND -Please select the performing region: [facility] (All Locations); Procedure performed at: [facility] (02/08/2022 8:58 AM CDT) Anatomical Region Laterality Modality Other Dm Foreman MD NEUROLOGY ORDERABLES Bernadette l Result documented in this encounter Visit Diagnoses Diagnosis Cubital tunnel syndrome, left- Primary documented in this encounter Historical Medications * This list may reflect changes made after this encounter. nitrofurantoin monohydrate (MACROBID) 100 mg capsule TAKE 1 CAPSULE BY MOUTH EVERY 12 HOURS FOR 5 DAYS DRINK PLENTY OF FLUIDS AND TAKE PROBIOTIC 11/12/2021 3 naproxen (ALEVE) 220 mg tablet Take 220 mg by mouth 3 ibuprofen (ibuprofen) 200 mg tab/cap Take 200 mg by mouth every 6 (six) hours as needed [address] (VOLTAREN) 75 mg EC tablet TAKE 1 TABLET BY MOUTH TWICE A DAY WITH MEALS FOR 30 DAYS 10/14/2021 3 calcium carbonate (TUMS) 500 mg (200 mg elemental) chewable tablet Take 1 tablet/chew tab (500 mg total) by mouth every 2 (two) hours as needed for indigestion or heartburn 3 added in this encounter
--- OUTSIDE RECORDS SUMMARY | 2024-04-26 12:36 | XMS_ITS | Encounter Summary ---
Author Organization [facility] Address [address] [place] [address] Phone Care Team Providers Care Digital Experience Manager Name Role Phone Unavailable Primary Care Provider Unavailabl e Reason for Visit * Neurology (Routine) - Closed Specialty Diagnoses / Procedures Referred By Gordon t Referred To Contact Diagnoses Cubital tunnel syndrome, left Procedures EMG/NCV WITH ULTRASOUND -Please select the performing region: [facility] (All Locations); Procedure performed at: [facility], Dm Ennis MD Phone: tel: fax: [facility] (All Locations) Referral ID Status Reason Start Date Expiration Date Visits Re quested Visits Authorized [id number] Closed 11/14/2021 12/14/2022 1 1 Encounter Details Date Type Department Care Team (Late st Contact Info) Description 02/08/2022 9:00 AM CDT Diagnostic [facility] Orthopaedic Surgery [address] [place] [address] Gagan Murillo MD [address] [facility] [address] [place] [address] Cubital tunnel syndrome, left Social History Tobacco Use Types Packs/Day Years Used Date Smoking Tobacco: Never Comments Unknown Sex and Gender Information Value Date Recorded Sex Assigned at Not on file 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 Please see EMG report for details. (Located under Procedure and/or Media tab; results may take up to a week to appear in Epic). Gagan Murillo MD Placing Judge Department of Orthopedic Surgery Division of Physical Medicine and Rehabilitation [facility] documented in this encounter Plan of Treatment Not on file documented as of this encounter Procedures Procedure Name Priority Date/Time Associated Diagnosis Comments EMG/NCV Routine 02/08/2022 8:58 AM CDT Cubital tunnel syndrome, left documented in this encounter Results * EMG/NCV WITH ULTRASOUND -Please select the performing region: [facility] (All Locations); Procedure performed at: [facility] Physiatry (02/08/2022 8:58 AM CDT) Anatomical Region Laterality Modality Other Dm Foreman MD NEUROLOGY ORDERABLES Bernadette l Result documented in this encounter Visit Diagnoses Diagnosis Cubital tunnel syndrome, left documented in this encounter Historical Medications * This list may reflect changes made after this encounter. sodium, potassium & mag sulfates (Suprep Bowel Prep Kit) 17.5-3.13-1.6 gram recon soln Suprep Bowel Prep Kit 17.5 gram-3.13 gram-1.6 gram oral solution 07/26/2022 added in this encounter
--- OUTSIDE RECORDS SUMMARY | 2024-04-26 12:36 | XMS_ITS | Encounter Summary ---
Author Organization [facility] Healthcare Address [address] [place] [address] Care Team Providers Care Chalk Extruding Machine Operator Name Role Phone Unavailable Primary Care Provider Unavailabl e Encounter Details Date Type Department Care Team (Latest Contact Info) Description 11/14/2021 10:12 AM CDT Hospital Encounter 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 Gender Identity Not on file Sexual Orientation Not on file documented as of this encounter Medications at Time of Discharge calcium carbonate (TUMS) 500 mg (200 mg elemental) chewable tablet Take 1 tablet/chew tab (500 mg total) by mouth every 2 (two) hours as needed for indigestion or heartburn [address] (VOLTAREN) 75 mg EC tablet TAKE 1 TABLET BY MOUTH TWICE A DAY WITH MEALS FOR 30 DAYS 10/14/2021 3 ibuprofen (ibuprofen) 200 mg tab/cap Take 200 mg by mouth every 6 (six) hours as needed 3 naproxen (ALEVE) 220 mg tablet Take 220 mg by mouth 3 nitrofurantoin monohydrate (MACROBID) 100 mg capsule TAKE 1 CAPSULE BY MOUTH EVERY 12 HOURS FOR 5 DAYS DRINK PLENTY OF FLUIDS AND TAKE PROBIOTIC 11/12/2021 3 documented as of this encounter Discharge Disposition Disposition Code Departure Means Destination Discharge to home or self care documented in this encounter Plan of Treatment Not on file documented as of this encounter Procedures Procedure Name Priority Date/Time Associated Diagnosis Comments XR TRANSFER OF OUTSIDE FILMS Routine 11/14/2021 10:12 AM CDT Diagnosis unknown documented in this encounter Results * XR Outside Reference (11/14/2021 10:12 AM CDT) Impressions [facility] - 11/14/2021 10:12 AM CDT These images are for Reference purposes only and have not been reviewed by [facility] Radiology. ??There will be no report generated by a [facility] Radiologist. Narrative [facility] - 11/14/2021 10:12 AM CDT EXAMINATION: ??Images For Reference Purposes Only us Dm Foreman MD IMG XR PROCEDURES Final R esult [facility] documented in this encounter Visit Diagnoses Not on filedocumented in this encounter
--- OUTSIDE RECORDS SUMMARY | 2024-04-26 12:36 | XMS_ITS | Encounter Summary ---
Author Organization [facility] Address [address] [place] [address] Phone Care Team Providers Care Fish Processing Supervisor Name Role Phone Unavailable Primary Care Provider Unavailabl e Encounter Details Date Type Department Care Team (Late st Contact Info) Description 12/14/2021 Telephone [facility] Orthopaedic Surgery [address] [facility] 2nd Floor [address] [place] [address] Jenifer Minor CMA Social History Tobacco Use Types Packs/Day Years Used Date Smoking Tobacco: Never Comments Unknown Sex and Gender Information Value Date Recorded Sex Assigned at Not on file Legal Sex Female 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 Mobile/Home number for pt on file is disconnected. documented in this encounter Plan of Treatment Not on file documented as of this encounter Visit Diagnoses Not on filedocumented in this encounter
--- OUTSIDE RECORDS SUMMARY | 2024-04-26 12:36 | XMS_ITS | Encounter Summary ---
Author Organization [facility] Address [address] [place] [address] Phone Care Team Providers Care Certified Paralegal Name Role Phone Unavailable Primary Care Provider Unavailabl e Encounter Details Date Type Department Care Team (Late st Contact Info) Description 11/29/2021 Telephone [facility] Orthopaedic Surgery [address] [facility] 2nd Floor [address] [place] [address] Gagan Murillo MD [address] [facility] [address] [place] [address] Social History Tobacco Use Types Packs/Day Years Used Date Smoking Tobacco: Never Comments Unknown Sex and Gender Information Value Date Recorded Sex Assigned at Not on file 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 Mobile/Home number for pt on file is disconnected. Brothers number in contacts is wrong number. Person who answered stated that there was no one at that number named Ramon. documented in this encounter Plan of Treatment Not on file documented as of this encounter Visit Diagnoses Not on filedocumented in this encounter
--- OUTSIDE RECORDS SUMMARY | 2024-04-26 12:36 | XMS_ITS | Encounter Summary ---
Author Organization [facility] Address [address] [place] [address] Phone Care Team Providers Care Caisson Worker Name Role Phone Unavailable Primary Care Provider Unavailabl e Reason for Visit * Reason Onset Date Comments Test Results 03/02/2022 Encounter Details Date Type Department Care Team (Late st Contact Info) Description 03/02/2022 Telephone [facility] Orthopaedic Surgery [id number] [place] [address] 2nd Floor [address] [place] [address] Dm Foreman MD [facility] [place] [address] Test Results Social History Tobacco Use Types Packs/Day Years Used Date Smoking Tobacco: Never Comments Unknown Sex and Gender Information Value Date Recorded Sex Assigned at Not on file Legal Sex Female 1:55 PM PATIENT RESOURCE COORDINATOR Gender Identity Not on file Sexual Orientation Not on file documented as of this encounter Miscellaneous Notes * Telephone Encounter - Latricia Francisco RN - 03/02/2022 8:05 AM CST Patient called requesting a phone call regarding her nerve conduction test results. Will send request to Dr. Foreman to call the patient. ENT RESOURCE COORDINATOR documented in this encounter Plan of Treatment Not on file documented as of this encounter Visit Diagnoses Not on filedocumented in this encounter
--- OUTSIDE RECORDS SUMMARY | 2024-04-26 12:36 | XMS_ITS | Encounter Summary ---
Author Organization [facility] Healthcare Address [address] [place] [address] Care Team Providers Care Back Tender Pulp Drier Name Role Phone Unavailable Primary Care Provider Unavailabl e Encounter Details Date Type Department Care Team (Latest Contact Info) Description 11/14/2021 10:10 AM CDT Hospital Encounter [facility] [address] [place] [phone] Discharge Disposition: Discharge to home or self care Social History Tobacco Use Types Packs/Day Years Used Date Smoking Tobacco: Never Comments Unknown Sex and Gender Information Value Date Recorded Sex Assigned at Not on file 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 ??There will be no report generated by a [facility] Radiologist. Narrative [facility] - 11/14/2021 10:10 AM CDT EXAMINATION: ??Images For Reference Purposes Only us Dm Foreman MD IMG XR PROCEDURES Final R esult [facility] documented in this encounter Visit Diagnoses Not on filedocumented in this encounter
--- OUTSIDE RECORDS SUMMARY | 2024-04-26 12:36 | XMS_ITS | Encounter Summary ---
Author Organization [facility] Healthcare Address [address] [place] [address] Care Team Providers Care Acid Leveler Name Role Phone Unavailable Primary Care Provider Unavailabl e Encounter Details Date Type Department Care Team (Latest Contact Info) Description 11/14/2021 10:11 AM CDT Hospital Encounter [facility]iology [facility] [address] [place] [phone] Discharge Disposition: Discharge to home or self care Social History Tobacco Use Types Packs/Day Years Used Date Smoking Tobacco: Never Comments Unknown Sex and Gender Information Value Date Recorded Sex Assigned at Not on file Legal Sex Female 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 ??There will be no report generated by a [facility] Radiologist. Narrative [facility] - 11/14/2021 10:11 AM CDT EXAMINATION: ??Images For Reference Purposes Only us Dm Foreman MD IMG XR PROCEDURES Final R esult [facility] documented in this encounter Visit Diagnoses Not on filedocumented in this encounter
--- OUTSIDE RECORDS SUMMARY | 2024-04-26 12:36 | XMS_ITS | Encounter Summary ---
Author Organization [facility] Address [address] [place] [address] Phone Care Team Providers Care Register Clerk Name Role Phone Unavailable Primary Care Provider Unavailabl e Encounter Details Date Type Department Care Team (Late st Contact Info) Description 03/05/2022 Telephone [facility] Orthopaedic Surgery [address] [facility] 2nd Floor [address] [place] [address] Dm Foreman MD [address] [facility] [facility] [address] [place] [address] Social History Tobacco Use Types Packs/Day Years Used Date Smoking Tobacco: Never Comments Unknown Sex and Gender Information Value Date Recorded Sex Assigned at Not on file Legal Sex Female 1:55 PM ORGANIZATIONAL EFFECTIVENESS CONSULTANT Gender Identity Not on file Sexual Orientation Not on file documented as of this encounter Miscellaneous Notes * Telephone Encounter - Kasie Castillo CMA - 03/05/2022 10:27 AM ORGANIZATIONAL EFFECTIVENESS CONSULTANT I tried reaching out to Nola in regards to her records from Dr. Kory vu. I was unable to reach her. Her phone is out of service. I have also tried numerous times to get in touch with Elsie vu. NIZATIONAL EFFECTIVENESS CONSULTANT documented in this encounter Plan of Treatment Not on file documented as of this encounter Visit Diagnoses Not on filedocumented in this encounter
--- OUTSIDE RECORDS SUMMARY | 2024-04-26 12:36 | XMS_ITS | Encounter Summary ---
Author Organization [facility] Healthcare Address [address] [place] [address] Care Team Providers Care Photo Mask Cleaner Name Role Phone Unavailable Primary Care Provider Unavailabl e Encounter Details Date Type Department Care Team (Latest Contact Info) Description 11/14/2021 10:15 AM CDT - 11/14/2021 11:59 PM CDT Hospital Encounter [facility] [address] [place] [address] Discharge Disposition: Discharge to home or self care Social History Tobacco Use Types Packs/Day Years Used Date Smoking Tobacco: Never Comments Unknown Sex and Gender Information Value Date Recorded Sex Assigned at Not on file Legal Sex Female 1:55 PM SHIRT FOLDER Gender Identity Not on file Sexual Orientation [...] XR TRANSFER OF OUTSIDE FILMS Routine 11/14/2021 10:15 AM CDT Diagnosis unknown documented in this encounter Results * XR Outside Reference (11/14/2021 10:15 AM CDT) Impressions [facility] - 11/14/2021 10:15 AM CDT These images are for Reference purposes only and have not been reviewed by [facility] Radiology. ??There will be no report generated by a [facility] Radiologist. Narrative [facility] - 11/14/2021 10:15 AM CDT EXAMINATION: ??Images For Reference Purposes Only us Dm Foreman MD IMG XR PROCEDURES Final R esult [facility] documented in this encounter Visit Diagnoses Not on filedocumented in this encounter
--- OUTSIDE RECORDS SUMMARY | 2024-04-26 12:36 | XMS_ITS | Encounter Summary ---
Author Organization [facility] Address [address] [place] [address] Phone Care Team Providers Care Ply Bander Name Role Phone Unavailable Primary Care Provider Unavailabl e Encounter Details Date Type Department Care Team (Late st Contact Info) Description 01/31/2022 Orders Only [facility] Orthopaedic Surgery [address] [facility] 2nd Floor [address] [place] [address] Dm Foreman MD [address] [facility] [address] [place] [address] Social History Tobacco Use Types Packs/Day Years Used Date Smoking Tobacco: Never Comments Unknown Sex and Gender Information Value Date Recorded Sex Assigned at Not on file Legal Sex Female 1:55 PM INSIDE 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
--- OUTSIDE RECORDS SUMMARY | 2024-04-26 12:36 | XMS_ITS | Encounter Summary ---
Author Organization [facility] Address [address] [place] [address] Phone Care Team Providers Care Stop Attacher Name Role Phone Unavailable Primary Care Provider Unavailabl e Encounter Details Date Type Department Care Team (Late st Contact Info) Description 12/21/2021 Telephone [facility] Orthopaedic Surgery [address] [facility] 2nd Floor [address] [place] [address] Gagan Murillo MD [address] [facility] [address] [place] [address] Social History Tobacco Use Types Packs/Day Years Used Date Smoking Tobacco: Never Comments Unknown Sex and Gender Information Value Date Recorded Sex Assigned at Not on file Legal Sex Female 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 No answer. Left message for pt to call back to reschedule appointment. Pt was advised that appointment will be rescheduled and a letter will be send to confirm. documented in this encounter Plan of Treatment Not on file documented as of this encounter Visit Diagnoses Not on filedocumented in this encounter
--- OUTSIDE RECORDS SUMMARY | 2024-04-26 12:36 | XMS_ITS | Encounter Summary ---
Author Organization [facility] Healthcare Address [address] [place] [address] Care Team Providers Care Hospital Nurse Liaison Name Role Phone Unavailable Primary Care Provider Unavailabl e Encounter Details Date Type Department Care Team (Latest Contact Info) Description 11/14/2021 10:13 AM CDT Hospital Encounter [facility]iology [facility] [address] [place] [phone] Discharge Disposition: Discharge to home or self care Social History Tobacco Use Types Packs/Day Years Used Date Smoking Tobacco: Never Comments Unknown Sex and Gender Information Value Date Recorded Sex Assigned at Not on file Legal 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 ??There will be no report generated by a [facility] Radiologist. Narrative [facility] - 11/14/2021 10:13 AM CDT EXAMINATION: ??Images For Reference Purposes Only us Dm Foreman MD IMG US PROCEDURES Final R esult [facility] documented in this encounter Visit Diagnoses Not on filedocumented in this encounter
--- OUTSIDE RECORDS SUMMARY | 2024-04-26 12:36 | XMS_ITS | Encounter Summary ---
Author Organization [facility] Address [address] [place] [address] Phone Care Team Providers Care Wafer Substrate Tester Name Role Phone Unavailable Primary Care Provider Unavailabl e Encounter Details Date Type Department Care Team (Late st Contact Info) Description 03/15/2022 Documentation [facility] Orthopaedic Surgery [address] [facility] 2nd Floor [address] [place] [address] Dm Foreman MD [address] [facility] [address] [place] [address] Social History Tobacco Use Types Packs/Day Years Used Date Smoking Tobacco: Never Comments Unknown Sex and Gender Information Value Date Recorded Sex Assigned at Not on file Legal Sex Female 1:55 PM REVERSE UNIT OPERATOR Gender Identity Not on file Sexual Orientation Not on file documented as of this encounter Progress Notes * Dm Foreman MD - 03/15/2022 2:43 PM CST I spoke to the patient by phone. She says that her symptoms still persist. She still has a lot of the wrist pain along with the numbness and tingling in the small finger ring finger and the pain on the medial elbow which is very sensitive and causes a lot of nerve symptoms. We talked about her nerve test that I reviewed from February 08. The ultrasound shows enlargement of the ulnar nerve and itis sitting just at the epicondyle area. It dislocates more anterior with flexion. There was no evidence of cervical radiculopathy and the median nerve appeared normal. 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 We certainly can not make all of her symptoms go away but given the fact that she was good for many many years after her ulnar nerve surgery before and now has just the recurrent symptoms after the elbow fracture I think it would be reasonable to offer revision surgery. We discussed an outpatient surgery to release scar on the ulnar nerve and potentially just move it a little bit more anterior versus deeper into the muscle. I explained that often times we may get some relief in terms of discomfort but I do not expectthings to be normal. There are rare chances of infection or hurting nerves or tendons. My biggest question for her is just how much this nerve can respond. I indicated that I spoken to Dr. Kaur over the break and he had looked at his records he had done an ulnar nerve transpositionin addition to some wrist surgery. She did just have an injury with tearing her plantar fascia so that is going to get treated soon. I think it would be reasonable for her to call us after she recovers enough to not be using her arms to help herself get around and then we will be happy to plan the surgery which would definitely be into the new year. She would like to do this so she will call us when ready. When she does call back we will plan the following: Diagnosis: Recurrent left cubital tunnel syndrome Procedure: Revision left ulnar nerve transposition at the elbow 1 hour and 45 minutes [place] General anesthesia No special equipment 2 g of Ancef if not allergic RSE UNIT OPERATOR documented in this encounter Plan of Treatment Not on file documented as of this encounter Visit Diagnoses Not on filedocumented in this encounter
--- OUTSIDE RECORDS SUMMARY | 2024-04-26 12:36 | XMS_ITS | Encounter Summary ---
Author Organization [facility] Address [address] [place] [address] Phone Care Team Providers Care Electrical Engineering Manager Name Role Phone Unavailable Primary Care Provider Unavailabl e Encounter Details Date Type Department Care Team (Late st Contact Info) Description 12/20/2021 Telephone [facility] Orthopaedic Surgery [address] [facility] 2nd Floor [address] [place] [address] Gagan Murillo MD [address] [place] [address] Social History Tobacco Use Types Packs/Day Years Used Date Smoking Tobacco: Never Comments Unknown Sex and Gender Information Value Date Recorded Sex Assigned at Not on file Legal 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 No answer. Left message for pt to call back to reschedule. Offering 02/01/2022 at 8 am. documented in this encounter Plan of Treatment Not on file documented as of this encounter Visit Diagnoses Not on filedocumented in this encounter
--- OUTSIDE RECORDS SUMMARY | 2024-04-26 12:36 | XMS_ITS | Encounter Summary ---
Author Organization [facility] Healthcare Address [address] [place] [address] Care Team Providers Care Sample Maker Hand Name Role Phone Unavailable Primary Care Provider Unavailabl e Encounter Details Date Type Department Care Team (Latest Contact Info) Description 11/14/2021 10:14 AM CDT Hospital Encounter [facility] [address] [place] [phone] Discharge Disposition: Discharge to home or self care Social History Tobacco Use Types Packs/Day Years Used Date Smoking Tobacco: Never Comments Unknown Sex and Gender Information Value Date Recorded Sex Assigned at Not on file Legal Sex Female 1:55 PM ADMINISTRATIVE ASSOCIATE Gender Identity Not on file Sexual Orientation [...] XR TRANSFER OF OUTSIDE FILMS Routine 11/14/2021 10:14 AM CDT Diagnosis unknown documented in this encounter Results * XR Outside Reference (11/14/2021 10:14 AM CDT) Impressions [facility] - 11/14/2021 10:14 AM CDT These images are for Reference purposes only and have not been reviewed by [facility] Radiology. ??There will be no report generated by a [facility] Radiologist. Narrative [facility] - 11/14/2021 10:14 AM CDT EXAMINATION: ??Images For Reference Purposes Only us Dm Foreman MD IMG XR PROCEDURES Final R esult [facility] documented in this encounter Visit Diagnoses Not on filedocumented in this encounter
--- OUTSIDE RECORDS SUMMARY | 2024-04-26 12:36 | XMS_ITS | Encounter Summary ---
Author Organization [facility] Healthcare Address [address] [place] [address] Care Team Providers Care Retail Merchandising Manager Name Role Phone Unavailable Primary Care Provider Unavailabl e Encounter Details Date Type Department Care Team (Latest Contact Info) Description 11/14/2021 10:10 AM CDT Hospital Encounter [facility] [address] [place] [address] [phone] Discharge Disposition: Discharge to home or self care Social History Tobacco Use Types Packs/Day Years Used Date Smoking Tobacco: Never Comments Unknown Sex and Gender Information Value Date Recorded Sex Assigned at Not on file Legal Sex Female 1:55 PM [employer]ERAL [employer] CHAU[employer] Gender Identity Not on file Sexual Orientation [...] only and have not been reviewed by [facility]. ??There will be no report generated by a [facility]iologist. Narrative [facility] - 11/14/2021 10:10 AM CDT EXAMINATION: ??Images For Reference Purposes Only us Dm Foreman MD IMG XR PROCEDURES Final R esult [facility] documented in this encounter Visit Diagnoses Not on filedocumented in this encounter
--- OUTSIDE RECORDS SUMMARY | 2024-04-26 12:38 | XMS_ITS | Encounter Summary ---
Author Organization [facility] Address [address] [place] [address] Care Team Providers Care Software Developer Consultant Name Role Phone Unavailable Primary Care Provider Unavailabl e Encounter Details Date Type Department Care Team (Late st Contact Info) Description 09/02/2003 Outpatient Historical [facility] MRI DEPT Raymon Peterson MD [address] [place] [address] TMJ DISORD OTHER SPECIFIED (Primary Dx) Social History Tobacco Use Types Packs/Day Years Used Date Smoking Tobacco: Never Assessed Sex and Gender Information Value Date Recorded Sex Assigned at Not on file Gender Identity Not on file Sexual Orientation Not on file documented as of this encounter Plan of Treatment Not on file documented as of this encounter Visit Diagnoses Diagnosis Other specified temporomandibular joint disorders- Primary documented in this encounter
--- OUTSIDE RECORDS SUMMARY | 2024-04-26 12:38 | XMS_ITS | Clinical Summary ---
Author Organization [facility] Address [address] Attn: Epic Prelude ADT [place] [address] Care Team Providers Care Clerical Support Specialist Name Role Phone Unavailable Primary Care Provider Unavailabl e Social History Tobacco Use Types Packs/Day Years Used Date Smoking Tobacco: Never Assessed Sex and Gender Information Value Date Recorded Sex Assigned at Not on file Gender Identity Not on file Sexual Orientation Not on file Plan of Treatment Health Maintenance Due Date Last Done Comments DTAP/TDAP/TD VACCINES (1 - Tdap) 02/07/1988 HEPATITIS B VACCINES (1 of 3 - 19+ 3-dose series) 02/07/1988 CERVICAL CANCER SCREENING 1999 BREAST CANCER SCREENING 2009 COLORECTAL SCREENING 2014 Colorectal Cancer Screening 2014 FIT-DNA Q 3 years 2014 FIT/FOBT Q 1 year 2014 Flex Sig/CT Colonography Q 5 years 2014 ZOSTER VACCINE (1 of 2) 2019 INFLUENZA VACCINE (#1) 2023 PNEUMOCOCCAL VACCINE 0-64 YEARS Aged Out No longer eligible based on patient's age to complete this topic
[2024-06-11 11:21] VITALS: BMI 36.0
--- OUTSIDE RECORDS SUMMARY | 2024-07-01 00:49 | XMS_ITS | Clinical Summary ---
Author Organization [facility] Address [address] [place] [address] Care Team Providers Care Power Distribution Engineer Name Role Phone Unavailable Primary Care Provider Unavailabl e Source Comments [facility],non-owned Affiliates and Associated Physician Practices is amultiple site organization consisting of ambulatory clinics and hospital sitesin [place], [place], [place] and [place]. This disclosure is being madepursuant to the Care Everywhere program and may not contain all information available regarding this patient. Last updated 18.[facility] Social History Tobacco Use Types Packs/Day Years [...] complete this topic MENINGOCOCCAL (Group B) VACCINE SHARED DECISION-MAKING Aged Out No longer eligible based on patient's age to complete this topic MENINGOCOCCAL GROUPS A/C/Y/W VACCINE Aged Out No longer eligible b ased on patient's age to complete this topic PNEUMOCOCCAL VACCINE Aged Out No long er eligible based on patient's age to complete this topic
--- OUTSIDE RECORDS SUMMARY | 2024-07-01 00:50 | XMS_ITS | Data Portability ---
Author Organization [place] [facility] [place] [email or web address] Address [address] [place] [id number] Assessment Encounter Date Assessment Date Assessment LastModified [...] before prior to having her wrist fused [email or web address] Not available 12/05/2020 15:43:38 Plan of Treatment Reminders Order Date Submit Date Provider Last Modified By Organization Details Last Modified Time Details Appointments None recorded. Lab None recorded. Referral None recorded. Procedures None recorded. Surgeries None recorded. Imaging XR, elbow, 2 view 2020 021 [facility], [address] [place], [address], 14:56:24 XR, wrist, 3 or more view 2020 021 [facility], [address] [place] [address], [address], 14:56:10 Medication Orders Medrol (Seamus) 4 mg tablets in a dose pack 2020 021 [facility][id number], [address] [place], [address], 15:45:41 hydrocodone 5 mg-acetamin ophen 325 mg tablet 2020 021 [id number], [address] [place], [address], 15:45:42 Patient TargetsNo targets recorded. Patient InstructionsNo instructions recorded. Reason for Referral None Reported. Results Created Date Observation Date Name Description Value Unit Range Abnormal Flag Note LastModifiedBy Organization Detail LastModifiedTime 12/06/19 21 12/05/2020 XR, elbow , 2 [address] [facility] [place] [facility]R EXAMIN ATION: ELBOW 2 VIEWS - LEFT - ACC #: [id number] CPT: 61782 Mod: RIS Order: [id number] (ECX) (0039) HIS Order: [id number] D [id number] STARTE D: Dec 05 2020 2:12PM COMPLE [...] 2:36PM Transc ribed: Dec 05 2020 2:36PM [id number] Disper sed: Dec 05 2020 2:36PM Attend ing Dr: BRITTNEY GALLAGHER Admitt ing Dr: BRITTNEY GALLAGHER Primar y Care: Additi onal Doctor (s): YASHIRA HOLT SIGNED BY: Josiah LAMDec 05 2020 2:36PM Side of BodyLe ft;^ [email or web address] Asv - [facility] [address], [place], [address], 12/05/2020 17:45:32 12/06/19 21 12/05/2020 XR, wrist , 3 or more view [facility] [place] [facility] XR EXAMIN ATION: WRIST MIN 3 VIEWS - LEFT - ACC #: [id number] CPT: 20296 Mod: RIS Order: [id number] (ECX) (0157) HIS Order: [id number] D [id number] STARTE D: Dec 05 2020 2:12PM COMPLE [...] 2:36PM Transc ribed: Dec 05 2020 2:36PM [id number] Disper sed: Dec 05 2020 2:36PM Attend ing Dr: BRITTNEY GALLAGHERitt ing Dr: BRITTNEY GALLAGHER Primar y Care: Additi onal Doctor (s): ELECTR ONICAL LY SIGNED BY: Josiah LAMDec 05 2020 2:36PM Side of BodyLe ft;^ [email or web address] Asv [facility] [address] [place] [address], [address], 12/05/2020 17:45:32 Result Notes None recorded. Procedures Surgical History Date Name Laterality Status Provider Name and Address Organization Details Recorded Time 4 procedure on wrist completed Jerry Ivonne [place] [facility] 12/05/2020 13:45:39 Imaging Results Imaging Date Name Status LastModified by Organiz ation Details LastModified Time 12/05/2020 [email or web address] [address] [place] [address], [address], 12/05/2020 17:45:32 12/05/2020 XR, wrist, 3 or more view completed [email or web address] [address] [place] [address], [address], 12/05/2020 17:45:32 Procedure Notes None recorded. Medical Equipment None Reported. Allergies Allergen ID Allergen Name Allergen Category Reaction Reaction Severity Criticality Documentation Date Start Date Code Code System Note Provider Name and Address Organization Details Recorded Time 0179126 acetamino phen / oxycodone medicatio n itching moderate Not available 12/05/2020 32962 3 RxNorm Jerry [place] null, [place] [facility] 13:38:07 5126854 erythromy jozef medicatio n anaphylax is severe Not available 12/05/2020 4053 RxNorm Jerry [place] null, [place] [facility] 13:38:59 Medications Name Sig Start Date [...] Last Updated DateTime 170.18 cm 28.3 kg/m2 32391.8 6 g 16 /min 87 /min 99 % 99 % 98.6 [degF] 100 mm[Hg] 60 mm[Hg] Claritza [place] [facility] 13:35:31 Social History None recorded. Functional Status None recorded. Mental Status None recorded. Family History Nothing Reported. Medical History No medical history recorded. Gynecological HistoryNo gynecological history recorded. Obstetrics History GPAL:G 0 P 0 0 0 0 Immunizations Vaccine Type Date Status Note Provider Nam e and Address Organization Details Recorded Time COVID-19 IV Non-US Vaccine (CoronaVac, Sinovac) 04/03/2020 completed Claritza [place], [place] [facility] 12/05/2020 13:43:43 COVID-19 Non-US Vaccine, Product Unknown 06/27/2020 completed Claritza [place] null, [place] [facility] 12/05/2020 13:43:57 Past Encounters Encounter ID Performer Location Encounter Start Date Encounter Closed Date Diagnosis/Indication Diagnosis SNOMED-CT Code Diagnosis ICD10 Code Diagnosis Note [id number] MD [facility] [address] [address] 12/05/2020 12:59:52 12/05/2020 14:49:28 Pain of left wrist 5997662531 18505 M25.532 Pain of le ft elbow joint 8862120985 8345116 M25.522 Health Concerns Section Related Observation LastModified [...] left wrist Brittney Gallagher MD [address], [place], [address], [place] [facility] [place] 12/05/2020 15:46:09 OBGyn Episode No OBEpisode recorded.
--- OUTSIDE RECORDS SUMMARY | 2024-07-01 00:50 | XMS_ITS | Encounter Summary ---
Author Organization [facility] Address 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
--- OUTSIDE RECORDS SUMMARY | 2024-07-01 00:50 | XMS_ITS | Referral Summary ---
Author Organization [facility] Address [address] [place] [address] Care Team Providers Care Jewelry Salesperson Name Role Phone Lu Campbell NP Primary Care Provider [phone] Encounters Date Type Department Care Team Description 06/19/2024 Results Follow-Up [facility] Family Medicine at [address] [place] [address] Lu Campbell NP 06/18/2024 10:22 AM [facility] - 06/18/2024 11:59 PM [facility] Hospital Encounter [address] [address] Perimenopausal; Hypothyroidism, unspecified type Discharge Disposition: Discharge to home or self care 06/18/2024 10:15 AM [facility] Lab [facility] Outpatient Lab at [address] [address] Hypothyroidism (Primary Dx) 05/01/2024 1:05 PM [facility] - 05/01/2024 11:59 PM [facility] Hospital Encounter [address] [address] Urinary frequency Discharge Disposition: Discharge to home or self care 05/01/2024 1:00 PM [facility] Lab [facility] Outpatient Lab at [address] [phone] 04/29/2024 Patient Message [facility] Family Medicine at [address] [place] [address] Lu Campbell NP Ear 04/23/2024 10:00 AM [employer] [employer] Office Visit [facility] Family Medicine at [address] [place] [address] Lu Campbell NP Chronic pain of left knee (Primary Dx); Bilateral hearing loss due to cerumen impaction; Hypothyroidism, unspecified type; Vitamin D deficiency from Last 3 Months Allergies Active Allergy Reactions Criticality Noted Date Comments Erythromycin Anaphylaxis High 02/08/2021 Gabapentin Agitation High 03/19/2024 Latex Hives,Rash Medium 02/08/2021 Bandaids Oxycodone-Acetaminophen Itching Low 02/08/2021 Paroxetine Mental status changes Low 03/19/2024 Paranoia Medications acetaminophen (TYLENOL) 500 mg tablet Take 2 tablets (1,000 mg total) by mouth as needed for pain or headaches Active turmeric, bulk, 95 % powder Active pregabalin (LYRICA) 25 mg capsuleIndications :Medial epicondylitis of left elbow Take 1 capsule (25 mg total) by mouth 3 (three) times a day 90 capsule 1 4 Active levothyroxine (SYNTHROID) 88 mcg tabletIndications: Acquired hypothyroidism Take 1 tablet (88 mcg total) by mouth daily 30 tablet 1 4 Active albuterol HFA (PROVENTIL HFA,VENTOLIN HFA,PROAIR HFA) 90 mcg/actuation inhaler Inhale 2 puffs every 4 (four) hours as needed for shortness of breath or wheezing 3 each 3 5 Active ondansetron ODT (ZOFRAN-ODT) 4 mg disintegrating tablet Take 1 tablet (4 mg total) by mouth every 8 (eight) hours as needed for nausea or vomiting 20 tablet [address] (PROTONIX) 40 mg EC tabletIndications: acid reflux Take 1 tablet (40 mg total) by mouth every morning 90 tablet 3 5 Active Active Problems Problem Noted Date Diagnosed Date Vitamin D deficiency 03/19/2024 Assessment & Plan (04/23/2024 10:50 AM [employer]): Not at goal Encourage OTC supp Vit D 28 Assessment & Plan (03/19/2024 9:31 PM [employer]): Unknown control Previously low Repeat level Chronic pain of left knee 03/19/2024 Assessment & Plan (04/23/2024 10:48 AM [facility] [employer] [facility]): Not at goal Intraarticular injection completed 04/23/24 Plan for surgery on R knee Assessment & Plan (03/19/2024 9:35 PM [employer]): Not at goal Check XR Suspect d/t offloading R knee Pt to call and make procedure appt after getting XR Chronic hip pain, bilateral 03/19/2024 Assessment & Plan (03/19/2024 9:35 PM [employer]): Not at goal Check xr Bilateral edema of lower extremity 03/19/2024 Assessment & Plan (03/19/2024 9:35 PM [facility] [employer] [facility]): Not at goal May be habitus related Check BNP and cardiac echo Hx pericarditis Class 2 severe obesity due t o excess calories with serious comorbidity and body mass index (BMI) of 36.0 to 36.9 in adult 03/19/2024 Assessment & Plan (03/19/2024 9:36 PM [employer]): Not at goal Wt Readings from Last 3 Encounters: 03/19/24 105.4 kg (232 lb 6.4 oz) 09/10/22 99 kg (218 lb 3.2 oz) 07/30/22 99.4 kg (219 lb 1.6 oz) Try to cut back on calories. Most people should eat between 3486-4953 calories to lose weight. Decrease your carbohydrate [...] 03/11/2024 Assessment & Plan (03/19/2024 9:32 PM [facility] [employer]): Unknown control Check labs No current meds Hypothyroidism 03/11/2024 Assessment & Plan (04/23/2024 10:49 AM [facility]): Not at goal Lab Results Component Value Date TSH 6.96 (H) 03/31/2024 Has not started meds yet. Advised will need labs checked after being on meds for 1 month to adjust meds Assessment & Plan (03/19/2024 9:32 PM [employer] [employer]): Unknown control No current meds Check levels Arthralgia of right knee 03/03/2024 Medial epicondylitis of left elbow 2024 Assessment & Plan (03/19/2024 9:31 PM [facility] [employer]): Not at goal Start on low dose Lyrica for hypersensitivity Discussed possible cross rxn with gabapentin. Stop if s/e. Discussed alternative meds such as Elavil, Cymbalta but dislikes idea of antideps Stricture of esophagus 2024 Anemia 08/14/2022 08/14/2022 Assessment & Plan (03/19/2024 9:30 PM [employer] [employer]): Unknown control Check labs Given bruising issues, check PT/INR Already scheduled for EGD and c-scope Headache 08/14/2022 08/14/2022 Heartburn 08/14/2022 08/14/2022 Cubital tunnel syndrome on left 07/25/2022 Overview (07/25/2022): Added automatically from request for surgery [id number] Fear of flying 07/25/2022 08/14/2022 Gastroesophageal reflux disease 07/25/2022 08/14/2022 Assessment & Plan (03/19/2024 9:35 PM [employer] [employer]): Not at goal Esophagitis noticeable with pills Protonix 40mg daily Scheduled for EGD with [facility] Plantar fasciitis of left foot 10/05/2021 0 08/14/2022 BRIDGET (obstructive sleep apnea) 05/17/2021 Resolved Problems Problem Noted Date Diagnosed Date Resolved Date Nausea 07/25/2022 08/14/2022 03/19/2024 Environmental and seasonal allergies 11/14/2021 03/19/2024 Pain in left foot 10/05/2021 08/14/2022 03/19/2024 Immunizations Immunization Administration Dates Next Due Influenza, Quadrivalent, Myra [...] on file Legal Sex Female 1:55 PM [employer] Gender Identity Not on file Sexual Orientation Not on file Last Filed Vital Signs Vital Sign Reading Time Taken Comments Blood Pressure 107/71 04/23/2024 9:54 AM [facility] Pulse 99 04/23/2024 9:54 AM [facility] Temperature 36.6 C (97.8 F) 04/23/2024 9:54 AM [facility] Respiratory Rate 18 04/23/2024 9:54 AM [facility] Oxygen Saturation 98% 04/23/2024 9:54 AM [facility] Inhaled Oxygen Concentration - - Weight 106.3 kg (234 lb 6.4 oz) 04/23/2024 9:54 AM [facility] Height 170.2 cm (5' 7.01 ) 04/23/2024 9:54 AM CS T Body Mass Index 36.7 04/23/2024 9:54 AM [facility] Plan of Treatment Not on file Procedures Procedure Name Priority Date/Time Associated Diagnosis Comments LUTEINIZING HORMONE (LH) Routine 06/18/2024 10:22 AM [facility] Perimenopausal T3, FREE Routine 06/18/2024 10:22 AM [facility] Hypothyroidism, unspecified type T4, FREE Routine 06/18/2024 10:22 AM [facility] Hypothyroidism, unspecified type TSH Routine 06/18/2024 10:22 AM [facility] Hypothyroidism, unspecified type ESTROGENS, FRACTIONATED Routine 06/19/19 10:22 AM [facility] Perimenopausal FOLLICLE STIMULATING HORMONE Routine 06/18/2024 10:22 AM [facility] Perimenopausal URINALYSIS AND REFLEX TO MICROSCOPIC AND CULTURE Routine 05/01/2024 1:05 PM [facility] [employer] Urinary frequency TX ARTHROCENTESIS ASPIR&/INJ MAJOR JT/BURSA W/O US Routine 04/23/2024 10:00 AM [facility] Chronic pain of left knee TX REMOVAL IMPACTED CERUMEN INSTRUMENTATION UNILAT Routine 04/23/2024 10:00 AM [facility] Bilateral hearing loss due to cerumen impaction HEPATITIS C ANTIBODY Routine 03/31/2024 8:00 AM [facility] Encounter for hepatitis C screening test for low risk patient from Last 3 Months or Most Recently Relevant to Health Maintenance Results * Estrogens, fractionated (06/18/2024 10:22 AM [facility]) Estrone <10 pg/mL [place] [facility] Comment: REFERENCE VALUE Premenopausal :17-200 Postmenopausal : 7-40 ADDITIONAL INFORMATION This test was developed and its performance characteristics determined by [facility] in a manner consistent with CLIA requirements. This test has not been cleared or approved by the U.S. Food and Drug Administration. Estradiol <10 pg/mL [facility]ANG[facility] Comment: REFERENCE VALUE Premenopausal: 15-350 (E2 levels vary widely through the menstrual cycle.) Postmenopausal: <10 ADDITIONAL INFORMATION This test was developed and its performance characteristics determined by [facility] in a manner consistent with CLIA requirements. This test has not been cleared or approved by the U.S. Food and Drug Administration. Test Performed by: [place] [address] Field Marketing Representative: Sheryl Estrada Ph.D.; CLIA# [id number] Blood 06/18/2024 10:2 2 AM [facility] 06/18/2024 7:08 PM [employer] us Lu Campbell COMPUTER SYSTEMS SECURITY ADMINISTRATOR LAB BLOOD ORDERABLES Final Re sult SHREYA RANGEL [id number] Department [place] [address] [place] [facility] * T3, free (06/18/2024 10:22 AM [facility]) Free T3 3.3 2.0 - 4.4 pg/mL Blood 06/18/2024 10:2 2 AM [facility] [facility] 06/18/2024 7:08 PM [employer] us Lu Shannan COMPUTER SYSTEMS SECURITY ADMINISTRATOR LAB BLOOD ORDERABLES Final Re sult Performing Organization Address [facility] de Phone Number SHREYA RANGEL [address] [facility] [employer] [address] * (ABNORMAL) TSH (06/18/2024 10:22 AM [facility]) Thyroid Stimulating Hormone 5.05(H) 0.30 - 4.20 mcIUnit/mL Blood 06/18/2024 10:2 2 AM [facility] 06/18/2024 7:08 PM [employer] Lu Shannan COMPUTER SYSTEMS SECURITY ADMINISTRATOR LAB BLOOD ORDERABLES Final Re sult Performing Organization Address [facility] de Phone Number SHREYA RANGEL [address] [facility] [employer] [address] * T4, free (06/18/2024 10:22 AM [facility]) Free T4 1.51 0.90 - 1.70 ng/dL Blood 06/18/2024 10:2 2 AM [facility] 06/18/2024 7:08 PM [employer] Lu Shannan COMPUTER SYSTEMS SECURITY ADMINISTRATOR LAB BLOOD ORDERABLES Final Re sult Performing Organization Address [facility] de Phone Number SHREYA RANGEL [phone] [facility] [employer] [address] * LH (06/18/2024 10:22 AM [facility]) LH 21.3 IUnits/L Comment: Interpretive Data Males: Adults: 1.7 - 8.6 IUnits/L Females: Follicular: 2.4 - 12.6 IUnits/L Ovulation: 14.0 - 95.6 IUnits/L Luteal: 1.0 - 11.4 IUnits/L Postmenopausal: 7.7 - 58.5 IUnits/L Current interpretive data was last revised on 2018. Testing performed by: [facility], [address] [place]., [address] Blood 06/18/2024 10:2 2 AM [facility] [facility] 06/19/2024 9:54 AM [employer] Lu Campbell NP LAB BLOOD ORDERABLES Final Re sult Performing Organization Address [facility] de Phone Number [facility] [address] [employer] [place] [address] * Follicle stimulating hormone (06/18/2024 10:22 AM [facility]) FSH 77.1 IUnits/L Comment: Interpretive Data Male: Adults: 1.5 - 12.4 IUnits/L Female: Follicular: 3.5 - 12.5 IUnits/L Ovulation: 4.7 - 21.5 IUnits/L Luteal: 1.7 - 7.7 IUnits/L Postmenopausal: 25.8 - 134.8 IUnits/L Current interpretive data was last revised 2015. Testing performed by: [facility], [address] [place]., [address] Blood 06/18/2024 10:2 2 AM [facility] [facility] 06/19/2024 9:54 AM [employer] Lu Campbell NP LAB BLOOD ORDERABLES Final Re sult Performing Organization Address [facility] de Phone Number [facility] [address] [place] [address] * Urinalysis reflex to microscopic and culture Urine (05/01/2024 1:05 PM [facility]) Color, ur Yellow Yellow Clarity, ur Clear Clear CERNER Specific gravity, ur 1.024 1.003 - 1.030 [facility]ER CH pH, urine 5.5 [facility] Comment: Interpretive Data U rine pH is affected by diet, medications, systemic acid-base disturbances, and renal tubular function. pH may affect urinary stone formation. For example, urine pH below 6.0 may help reduce the tendency for calcium phosphate stones and pH greater than 6.0 may reduce the tendency for uric acid stone formation. Source: [facility] [employer] Current Interpretive Data was last revised on 2017 Protein, ur ql Negative Negative [facility] CH Glucose, ur ql Negative Negative [facility] CH Ketones, ur Negative Negative [facility] CH Bilirubin, ur Negative Negative [facility] CH Blood, ur Negative Negative [facility] CH Urobilinogen, ur <2.0 <2.0 mg/dL [facility] CH Nitrite, ur Negative Negative [facility] CH Leukocyte esterase, ur Negative Negative [facility] CH UA reflex comment Reflex conditions for microscopic UA and culture not met. CERNER Urine 05/01/2024 1:05 PM [facility] [employer] 05/01/2024 8:58 PM [facility] [employer] [facility] Narrative CERNER CH - 05/01/2024 9:10 PM [employer] Urine Collection Method->Clean Catch us Lu Campbell NP LAB MICROBIOLOGY - GENERAL OR DERABLES Final Result SHREYA [id number] Department of Laboratories [place] [id number] * TX ARTHROCENTESIS ASPIR&/INJ MAJOR JT/BURSA W/O US (04/23/2024 10:00 AM [facility]) Narrative Lu Campbell NP - 04/23/2024 10:00 AM [employer] Lu Campbell NP 04/23/2024 10:51 AM Large Joint Injection and/or Arthrocentesis: L knee Performed by: Lu Campbell NP Authorized by: Lu Campbell NP Large Joint Injection/Aspiration: Consent Given by: Patient Verbal consent obtained: Yes Supporting Documentation: Indications: Pain Procedure Details: Location: Knee Site: L knee Needle Size: 25 G Ultrasound guided: No Fluroscopic guidance: No Medications: 1 mL lidocaine 20 mg/mL (2 %); 80 mg triamcinolone 40 mg/mL Aspirate amount (mL): 0 Patient tolerance: Patient tolerated the procedure well with no immediate complications us Lu Campbell NP IN CLINIC/BEDSIDE ORDERABLES Final Result * TX REMOVAL IMPACTED CERUMEN INSTRUMENTATION UNILAT (04/23/2024 10:00 AM [facility]) Narrative Lu Campbell NP - 04/23/2024 10:00 AM [employer] Lu Campbell NP 04/23/2024 10:51 AM Ear Cerumen Removal Performed by: Lu Campbell NP Authorized by: Lu Campbell NP Consent Given by: Patient Verbal consent obtained: Yes Location: Bilateral L ear cerumen impacted?: Yes L ear method of removal: Instrumentation and irrigation L ear instrumentation: Curette L ear magnification: Otoscope R ear cerumen impacted?: Yes R ear method of removal: Instrumentation and irrigation R ear instrumentation: Curette R ear magnification: Otoscope Inspection: TM intact and cerumen remains Hearing quality: Improved Patient tolerance: Patient tolerated the procedure well with no immediate complications Encourage to use Debrox drops to soften remaining cerumen us Lu Campbell NP IN CLINIC/BEDSIDE ORDERABLES Final Result * Hepatitis C antibody Blood (03/31/2024 8:00 AM [facility]) Hep C Ab Nonreactive Nonreactive Comment: Interpretive Data Nonreactive: Antibodies to HCV not detected. Does NOT exclude the possibility of recent exposure to HCV. Equivocal: Equivocal for HCV antibodies. Supplemental molecular testing will be automatically performed to determine infection status in accordance with current CDC screening recommendations. Reactive: Positive for HCV antibodies. This may represent current or past HCV infection. Supplemental molecular testing will be automatically performed to determine current infection status in accordance with current CDC screening recommendations. Interpretive data was last revised on 2019. Blood 03/31/2024 8:00 AM [facility] 03/31/2024 1:56 PM [employer] us Lu Campbell NP LAB MICROBIOLOGY - GENERAL OR DERABLES Final Result SHREYA RANGEL [id number] Department [place] [address] from Last 3 Months or Most Recently Relevant to Health Maintenance Insurance IDPA [facility] Care Teams Jewelry Salesperson Relationship Specialty Start Date End Date Lu Campbell NP [phone] [facility] [place] [address] PCP - General Family Medicine 03/19/24
--- OUTSIDE RECORDS SUMMARY | 2024-07-01 00:50 | XMS_ITS | Data Portability ---
Author Organization [facility], [place] Address [address] [place] [address] Care Team Providers Care Flatwork Supervisor Name Role Phone JOHNNIE CASTILLO Primary Care [...] a year unless there are new symptoms. [email or web address] Not available 07/25/2021 14:50:10 08/15/2022 08/15/2022 Annual [...] labor atory findi ngs. See https ://geo goncalvesArtomatix/s ites/ defau lt/fi les/2 018-0 3/- 24519 _002_ 01.pd f for [facility] er infor matio n. Test perfo rmed by [employer], d/b/a [facility], [address], [place] [address] , Coty Rascon ra, DO, Labor jellyfish Dire tor. HPV High Risk *HPV NOT DETEC [place] (TYPE S 16, 18, 31, 33, 35, 39, 45, 51, 52, 56, 58, 59, 66, 68) *HPV: The human papil lomav irus (HPV) High Risk Cristal garza is an FDA-a pprov ed in-vi tro ampli fied nucle ic acid test for the quali tativ e detec tion of E6/E7 viral mRNA. [facility] ts shoul d be corre lated with patie nt prese ntati on, histo ry, cervi chikis cytol ogy and other clini chikis and labor atory findi ngs. See https ://Aginova/s ites/ defau lt/fi 2 018-0 3- 62966 _002_ 01.pd f for [facility] er infor joan n. Test perfo rmed by [employer], d/b/a [facility], [address], [place] [address] , Coty Rascon ra, DO, Labor jellyfish Dire tor. End of Repor t Techn ical servi izabela provi ded by [employer], d/b/a [employer] roup, [address] [place] [address] Fabricio Fritz MD, Labor Barcheyacht tor. Case revie wed and diagn osis rende red at [employer], d/b/a [facility], [address] [place] [address] Fabricio Fritz MD, Labor BookBub Dire tor. CONFI DENTI AL Not Available [facility] -[facility] ([facility]) [facility] [address], [place], [address], 04/27/2020 12:20:23 04/25/19 21 04/26/2020 CT + [...] rmed by [facility], [facility], d/b/a Jennifer walker, [address] [place] [address], [place] [address] , Coty Rascon ra, DO, Labor atory Dire tor. Not Available [facility] -[facility] ([facility]) [facility] [address], [place], [address], 04/27/2020 12:20:23 04/25/19 21 04/26/2020 CT + [...] perfo rmed by Assoc i[facility] Patho logis [employer], [employer], d/b/a Jennifer nakitasvetlana, [address], [place] [address] , Coty Rascon ra, DO, Labor atory Direc tor. Not Available [facility]) [address], [place], [address], 04/27/2020 12:20:23 04/25/19 21 04/26/2020 CT + [...] perfo rmed by Assoc i[facility] Patho log[facility] [employer], [employer], d/b/a Jennifer walker, [address], [place] [address] , Coty Rascon ra, DO, Labor atory Direc tor. Not Available [facility]) [address], [place], [address], 04/27/2020 12:20:23 04/25/19 21 04/26/2020 HPV DNA, [...] and labor atory findi ngs. See https ://Aginova/s dipikaes/ ann marie lt/fi les/2 018-0 3/AW- 80437 _002_ 01.pd f for furth er infor joan n. Test perfo rmed by [facility], d/b/a [facility], [address], [place] [address] , Coty Rascon ra, DO, Labor atory Dire tor. Not Available [facility] -[facility] ([facility]) [address], [place], [address], 04/27/2020 12:20:23 07/26/19 22 07/25/2021 IMAGE GUIDE D PAP AND HPV REGAR DLESS image guided Pap, HPV regardless of Pap result SEE RESULT S BELOW abnormal CASE REPOR T: Cytol ogy Gynec ologi chikis Repor t Case: [id number] Autho aden perez Provi babita: Cory Ojeda Colle cted: 07/25 1701 HAT BLOCKER Order ing Locat ion: [place] Patho logy [...] patie nt consi derat ions. Not Available [facility] (Lab) [address], [place], [address], 08/01/2021 14:38:41 08/16/19 22 08/15/2021 SURGI CHIKIS PATHO LOGY surgical pathology SEE RESULT S BELOW CASE REPOR T: Surgi chikis Patho logy Repor t Case: [id number] Autho aden perez Provi babita: Momo kaiser , Alanna Earl cted: 08/15 1626 HAT BLOCKER Order ing Locat ion: [place] Patho logy [...] ed by Ilir Heredia on Not Available [facility] (Lab) [address], [place], [address], 08/16/2021 14:45:35 08/16/19 23 08/15/2022 IMAGE GUIDE D PAP AND HPV REGAR DLESS image guided Pap, HPV regardless of Pap result SEE RESULT S BELOW abnormal CASE REPOR T: Cytol ogy Gynec ologi chikis Repor t Case: [id number] Autho aden perez Provi babita: Momo kaiser , Alanna Earl cted: 08/15 1348 HAT BLOCKER Order ing Locat ion: [place] Patho loggaviota [...] as clini darren brooks nted. Not Available [facility] (Lab) [address], [place], [address], 08/20/2022 14:40:29 08/16/19 23 08/15/2022 TRICH OMONA S VAGIN YANA (RRNA ) trichomonas vaginalis ribosomal RNA (rrna) Negati ve negati ve Not Available [facility] (Lab) [address], [place], [address], 08/20/2022 14:40:30 05/05/19 21 05/04/2020 MAMMO , scree amy, bilat eral No observ ation record ed. [email or web address] [facility] [address], [place], [address], 10/25/2021 10:37:06 08/09/19 22 05/15/2021 US, sejal s No observ ation record ed. [email or web address] Not Available 2021 16:51:00 08/09/19 22 05/05/2020 MAMMO , scree amy, bilat eral No observ ation record ed. [email or web address] [facility] [address] [facility], [place], [address], 08/21/2021 16:51:01 Result Notes None recorded. Procedures Surgical History Date Name Laterality Status Provider Name and Address Organization Details Recorded Time 08/16/19 23 Date of Last Pap Smear completed Lena Garcia [facility] 08/27/2022 10:08:35 08/16/19 22 Colposcopy completed GARCÍA Chakraborty- [address], [place], [address], [facility] 08/15/2021 16:29:39 08/16/19 22 Colposcopy completed Jovana Qureshi [facility] 08/15/2021 16:43:56 08/16/19 22 Colposcopy completed Jovana Qureshi [facility] 08/15/2021 16:44:06 07/15/19 22 procedure on elbow completed Raquel Lockett [facility] 08/15/2022 09:44:45 04/15/19 22 Date of Last Mammogram completed Raquel Lockett [facility] 08/15/2022 09:43:41 04/15/19 08 procedure on esophagus completed Jane Estrella [facility] 04/25/2020 10:14:51 04/15/19 04 procedure on hand completed Jane Estrella [facility] 04/25/2020 10:15:20 04/15/18 97 extraction of wisdom tooth completed Jane Estrella [facility] 04/25/2020 10:15:31 Imaging Results Imaging Date Name Status LastModified by Organiz ation Details LastModified Time 05/04/2020 MAMMO, screening, bilateral completed [email or web address] [facility] [address], [place], [address], 10/25/2021 10:37:06 05/15/2021 US, pelvis completed [email or web address] Information no t available 08/21/2021 16:51:00 05/05/2020 MAMMO, screening, bilateral completed [email or web address] [place] [facility] [address], [place], [address], 08/21/2021 16:51:01 Procedure Notes None recorded. Medical Equipment None Reported. Allergies Allergen ID Allergen Name Allergen Category Reaction Reaction Severity Criticality Documentation Date Start Date Code Code System Note Provider Name and Address Organization Details Recorded Time 10960 acetamino phen / oxycodone medicatio n Not available Not available Not available 04/25/2020 33569 3 RxNorm Jane rabago [facility] 09:55:15 39147 latex environme nt,medica tion Not available Not available Not available 04/25/2020 12872 91 RxNorm Jane rabago [facility] 09:55:20 21649 erythromy jozef medicatio n Not available Not available Not available 04/25/2020 4053 RxNorm Jane rabago [facility] 09:56:07 Medications Name Sig Start [...] Updated DateTime 07/25/2021 170.18 cm 30.5 kg/m2 38216.51 g Lena Garcia [facility] 07/25/2021 14:50:44 Date Recorded Systolic blood pressure Diastolic blood pressure Provider Name and Address Organization Details Last Updated DateTime 07/25/2021 122 mm[Hg] 80 mm[Hg] Bhavana Gonzales [facility] [address], [place], [address], [facility] 07/25/2021 15:06:53 Date Recorded Body height Body mass index (BMI) Body weight Provider Name and Address Organization Details Last Updated DateTime 08/15/2021 170.18 cm 30.8 kg/m2 30409.26 g Jovana Qureshi [facility] 08/15/2021 16:05:00 Date Recorded Systolic blood pressure Diastolic blood pressure Provider Name and Address Organization Details Last Updated DateTime 08/15/2021 123 mm[Hg] 80 mm[Hg] Bhavana Gonzales [facility] [address], [place], [address], [facility] 08/15/2021 16:28:28 Date Recorded Body height Body mass index (BMI) Body weight Systolic blood pressure Diastolic blood pressure Provider Name and Address Organization Details Last Updated DateTime 08/15/2022 170.18 cm 34.3 kg/m2 51394.73 g 119 mm[Hg] 80 mm[Hg] Raquel Lockett [facility] 3 09:41:27 Date Recorded Body height Body mass index (BMI) Body weight Systolic blood pressure Diastolic blood pressure Provider Name and Address Organization Details Last Updated DateTime 04/25/2020 170.18 cm 28 kg/m2 75865.03 g 116 mm[Hg] 81 mm[Hg] Jane Estrella [facility] 10:01:47 Social History Question Answer Notes LastModified by Organizat ion Details LastModified Time Tobacco Smoking Status Never Smoker Jane Estrella [facility], [facility] 04/25/2020 09:56:29 In The 14 [...] available 2020 10:20:18 Medical History Condition Response Other Y Blood Transfusion N Dermatologic Disorders N Gestational Diabetes N Anxiety Disorder N Autoimmune disease N Arthritis N Polyps N Infertility N Acid Reflux (GERD) Y Cancer N Varicosities N Stroke N Neurologic/Epilepsy N Fibromyalgia N Headaches N Kidney Disease N Heart Problems N Kidney or Bladder Problems Y Eating Disorder N Art (IVF or FET) N Hepatitis/Liver Disease N Urinary Tract Infection N Asthma N Trauma/Violence N Thrombophilias N Allergies (Food, seasonal, environmental ) N Breast Cancer N Drug/Latex Allergies/Reactions Y Lung Disease N Defects or Inherited Disease N Breast Problem N Hematologic disorders N Anesthesia Complications N History of STI Y Deep Vein Thrombosis N Polycystic ovary syndrome N History of abnormal pap Y Endometriosis N High Cholesterol N Thyroid Problems N GI Problems Y Anemia Y Psychiatric Illness N Ovarian Cancer N Diabetes N Pulmonary (TB, Asthma) Y Eczema N Abuse/Domestic Violence N Depression/ depression N Heart Disease N Pre-Eclampsia N Hypertension N Osteoporosis N Gynecological History Statement/Question Response Abnormal Pap [...] SNOMED-CT Code Diagnosis ICD10 Code Diagnosis Note [id number] Jada Santo MD [place] [address] [address] 04/25/2020 09:51:32 04/25/2020 10:48:11 Gynecologic examination 64746606 Z01.419 69217 Bhavana Gonzales [facility] [address] [address] 07/25/2021 14:32:51 07/25/2021 17:21:08 Gynecologic examination 96087229 Z01.419 Take Calcium with Vitamin D 12-1500mg daily. Do monthly self breast exams. It is advised to get annual flu shot in the fall and she could obtain at [facility] or [facility] care clinic. If you haven't received the [...] ordered Screening for malignant neoplasm of colon 199726546 Z12.11 Cologuard form signed. [id number] Bhavana Gonzales [facility] [address],[facility] [place] [address] 08/15/2021 15:52:26 08/15/2021 16:31:15 Atypical squamous cells of undetermined significance on cervical Papanicolaou smear 168932911 R87.610 See procedure notes.Post -procedure instructio ns reviewed with understand ing verbalized .Will contact with results & next steps in plan of care. Counseled on Pap/HPV guidelines /Testing/R esults with understand ing verbalized .All questions answered to patient satisfacti on. Booklet & additional resources regarding pap smear/HPV/ Pap results given. https://ww w.cancer.g ov/types/c ervical/un derstandin g-abnormal -hpv-and-p ap-test-re sults/unde rstanding- cervical-c hanges.pdf [id number] Bhavana Gonzales [facility] [address],[place] [address] 08/15/2022 09:28:22 08/15/2022 10:05:09 Gynecologic examination 37131875 Z01.419 Z11.51 Take Calcium with Vitamin D 12-1500mg daily. Do monthly self breast exams. It is advised to get annual flu shot in the fall and she could obtain at [facility] or [facility] care clinic. If you haven't received the [...] Labs UTD PCPMammo ordered Screening mammography 24 505155 Z12.31 Health Concerns Section Related Observation LastModified by Organization Detai ls LastModified Time None Recorded Concern Status LastModified by Organization Details LastModified Time None Recorded Advance Directives Directive None Recorded Payers Encounter Date Sequence Insurance Name Policy Number Policy Lovett Covered Member ID Lovett Member ID Guarantor Name 04/25/2020 1 [employer] [id number] Nola King [id number] Nola King 07/25/2021 1 [facility] [id number] Nola Fraziers [id number] Nola Fraziers 08/15/2021 1 [facility] [id number] Nola Mckenna King [id number] Nola Fraziers 08/15/2022 1 [facility] [id number] Nola Mckenna King [id number] Nola King Notes Date Note Type Note [...] testing Jada Santo MD [address], [place], [address], [place] [facility] 04/25/2020 10:20:46 07/25/2021 text/html Annual Manager Meeting Post-MenopausalRe ported bypatient.Menopau kelley Symptoms:no menopausal symptoms; [...] mammogram; needs to schedule colonoscopy Bhavana Gonzales [facility] [address], [place], [address], [facility] 07/25/2021 16:20:33 08/15/2021 text/html Here today for colposcopy Bhavana Gonzales [facility] [address], [place], [address], [facility] 08/15/2021 16:30:44 08/15/2022 text/html Annual Manager Meeting Post-MenopausalRe ported byYamilet kelley Symptoms:no menopausal symptoms; [...] mammogram; history of recent colonoscopy Bhavana Gonzales [facility] [address], [place], [address], [facility] 08/15/2022 10:04:13 OBGyn Episode No OBEpisode recorded.
--- OUTSIDE RECORDS SUMMARY | 2024-07-01 00:50 | XMS_ITS | Data Portability ---
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 She reports an injury on 02/29/2024 when she was dancing and twisted her knee and developed significant pain and stiffness. She currently rates her pain as 9/10 and presents today in a wheelchair. 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 She denies any previous injury to [...] Not available 03/04/2024 14:47:15 03/16/2024 03/16/2024 54-year-old radha garrett presents for follow-up of her right knee. She had a suspected meniscus tear we sent her for an MRI. She she is here to review that. She has persistent pain and mechanical symptoms of catching locking, although she has been taking anti-inflammatorie s and doing physical therapy and has achieved [...] like to proceed. Not available 03/16/2024 12:51:49 05/18/2024 05/18/2024 HPI: 54 year old female present today for a post-op follow-up after undergoing right knee arthroscopy and partial medial meniscectomy on May [address] Gabriel. She is approximately 2 weeks post-op and is doing well overall. Still experiencing clicking of the knee. Currently, rates pain as 6/10 today and is taking ibuprofen as needed and icing the knee. She denies experiencing any catching or locking in the knee. She is also having chronic left elbow pain. She has had a few surgeries on the elbow and was told she is at [facility]. She was wondering about receiving an injection for pain relief. She reports hypersensitivity and having a shirt on is painful. She is taking Vitamin C daily. Physical Exam: General: Normal appearance. No acute distress. Inspection: Incision is clean dry and intact. No signs or symptoms of infection. Mild swelling. Palpation: Mild tenderness with palpitation around the incision site. ROM: 15-100 Sensation: Lower extremity sensation intact. Assessment & Plan: Sutures were removed and Steri-Strips were placed. WBAT. Continue ice and ibuprofen as needed for pain and inflammation. Offered PT to work on ROM, she will try to work on it at home and then we can re-evaluate at the next follow-up. Due to hypersensitivity I will send her to pain management as she possibly could have developed CRPS. Follow Up: 4 weeks for right knee recheck All questions were answered. Patient verbalized understanding of treatment plan [email or web address] Not available 05/18/2024 15:16:23 06/15/2024 06/15/2024 HPI: 54 year old female present today for a post-op follow-up after undergoing right knee arthroscopy and partial medial meniscectomy on May [address] Gabriel. She is approximately 6 weeks post-op and is doing well overall. Still experiencing clicking of the knee. Currently, rates pain as 6/10 today. She denies experiencing any catching or locking in the knee. She started PT and states that it is helping. Regarding her left elbow, she said her insurance denied her seeing pain management. Physical Exam: General: Normal appearance. No acute distress. Inspection: Incision well healed. No signs or symptoms of infection. Palpation: Mild tenderness with palpitation at the medial joint line. ROM: 5-120. Sensation: Lower extremity sensation intact. Assessment & Plan: Celebrex 200mg BID. States that Meloxicam did not help. Continue with physical therapy. We will resend a referral for pain management to a location in [place] for her left elbow. Follow Up: As needed for pain. All questions were answered. Patient verbalized understanding of treatment plan [email or web address] Not available 06/16/2024 19:45:53 Plan of Treatment Reminders Order Date Submit Date Provider Last Modified By Organization Details Last Modified Time Details Appointments None recorded. Lab vitamin D, 25-hydroxy , total, serum 2023 024 [email or web address], [address], [address], 08:38:22 vitamin B12 + folate, serum or blood 2023 024 [email or web address] [facility], 102 [facility], [place], [address], 4 08:38:22 CMP, serum or plasma 2023 024 [email or web address] [facility], [address] [place] [address], [place], [address], 4 08:38:22 CBC w/ auto diff 2023 024 [email or web address] [facility], [address] [place] [address], [place], [address], 4 08:38:22 lipid panel, serum 2023 024 [email or web address] [facility], [address] [place] [address], [place], [address], 4 08:38:22 HbA1c (hemoglobi n A1c), blood 2023 024 [email or web address] [facility], [address] [place] [address], [place], [address], 4 08:38:22 TSH + free T4, serum 2023 024 [email or web address] [facility], [address] [place] [address], [place], [address], 4 08:38:23 Referral pain management referral - Please contact pt for L elbow pain. Thanks 2024 025 [email or web address] [address] [facility], [address] [place], [address], 5 09:54:57 pain management referral - Please contact pt for L elbow pain. Thanks 2024 025 [email or web address] [facility], [address] [place], [address], 5 16:20:48 physical therapist referral - Please contact pt to schedule apt for R knee. Thanks 2023 [facility], [address], [place], [address], 5 11:49:20 gastroente rologist referral - Has had esophagus stretched in the past . Please eval and treat. Please call patient to schedule an appointmen t. Thank you 2023 [email or web address] [facility], [address], [address], [place], [address], 4 09:07:[address] referral - Last PAP 2 years ago. Please call patient to schedule an appointmen t. Thank you. 2023 [email or web address] Stephanie Pinto, [address], [place], [address], 09:07:51 orthopedic surgeon referral - had surgery at [facility]. Please call patient to schedule an appointmen t. Thank you. 2023 [facility], [address] [place], [address], 15:37:37 Procedures None recorded. Surgeries None recorded. Imaging MRI, knee, w/o contrast 2023 [facility] ([facility]), [address] [place], [address], 4 12:14:24 MAMMO, screening, digital, bilateral 2023 [facility] ([facility]), [address] [place], [address], 4 16:00:40 Medication Orders Celebrex 200 mg capsule 2024 025 [email or web address], [address], [place], [id number], 5 18:59:47 meloxicam 15 mg tablet 2023 [email or web address] [facility] #83004, [address], [place], [id number], 4 22:45:20 pantoprazo le 40 mg tablet,del ayed release [address] [facility] #42886, [address], [place], [id number], 16:14:48 ibuprofen 800 mg tablet [address] [facility] #11353, [address], [place], [id number], 16:16:45 Patient TargetsNo targets recorded. Patient InstructionsNo instructions recorded. 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 Please eval and treat. Please call patient to schedule an appointment. 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 Please call patient to schedule an appointment. Thank you. Referring Physician: Bharath Velázquez [facility], Encounter Date: 2024 Orthopedic Surgeon Referral for Medial epicondylitis of left elbow joint had surgery at [facility]. Please call patient to schedule an appointment. Thank you. Referring Physician: [facility], Encounter Date: 2024 Physical Therapist Referral for Pain of right knee joint R knee Please contact pt to schedule apt for R knee. Thanks Referring Physician: Dheeraj Gabriel, Orthopedic Surgery, Encounter Date: 03/04/2024 Pain Management Referral for Pain of left elbow joint L elbow Please contact pt for L elbow pain. Thanks Referring Physician: Bailey Estrada, Orthopedic Surgery, Encounter Date: 05/18/2024 Pain Management Referral for Pain of left elbow joint Please contact pt for L elbow pain. Thanks Referring Physician: Bailey Estrada, Orthopedic Surgery, Encounter Date: 06/15/2024 Results Created Date Observation Date Name Description Value Unit Range Abnormal Flag Note LastModifiedBy Organization Detail LastModifiedTime 03/02/20 24 03/02/2024 XR, knee No observ ation record ed. [address] [place], [address], 03/03/2024 08:21:06 03/03/20 24 03/02/2024 XR, knee, 3 view No observ ation record ed. [email or web address] Not Available 02/13 10:36:24 03/10/20 24 03/10/2024 MRI, knee, w/o contr ast No observ ation record ed. [address] ([facility]) [address] [place], [address], 03/10/2024 12:40:29 03/10/20 24 03/10/2024 MRI, knee, w/o contr ast No observ ation record ed. [email or web address] [facility] [address] [place], [address], 03/11/2024 13:23:47 03/16/20 24 03/16/2024 MAMMO , scree amy, digit al, bilat eral No observ ation record ed. [email or web address] [facility] [address] [place], [address], 04/09/2024 15:55:38 04/10/20 24 04/10/2024 XR, chest , 2 view No observ ation record ed. [address] [place], [address], 04/14/2024 12:42:47 Result Notes None recorded. Problems Name Problem SNOMED Code Status Onset Date Resolution Date Notes Provider Name and Address Organization Details Recorded Time Achilles tendiniti s 93858916 Active Not Available [facility] 3 12:36:00 Plantar fasciitis of left foot 80734853226 611249 Active 2021 Not Available [facility] 3 12:36:00 Heartburn 73494464 Active Not Available [facility] 3 12:36:00 Plantar fasciitis 442820032 Active Not Available [facility] 3 12:36:00 Headache 51073332 Active Not Available [facility] 3 12:36:00 Anemia 163904350 Active Not Available Counts include 234 beds at the [facility] 3 12:36:00 Pain in left foot 49744379849 9107 Active 2021 Not Available [facility] 3 12:36:00 Hypothyro idism 63856868 Completed Not Available Counts include 234 beds at the [facility] 3 20:19:07 History of calculus of kidney 176882791 Active Not Available Counts include 234 beds at the [facility] 3 12:36:00 Hyperlipi demia 28904518 Completed Not Available Counts include 234 beds at the [facility] 3 20:19:07 Hiatal hernia 27762314 Completed Not Available Counts include 234 beds at the [facility] 3 20:19:08 Gastroeso phageal reflux disease 071122600 Active 2022 Not Available [facility] 3 12:36:00 Fear of flying 199049101 Active 2022 Not Available Counts include 234 beds at the [facility] 3 12:36:00 Nausea 541776816 Active 2022 Not Available [facility] 3 12:36:00 Screening for malignant neoplasm of cervix Active 2023 NERISSA Munoz [address] [address], [place], [address] , [employer] 4 15:53:05 Screening mammograp hy Active 2023 NERISSA Munoz [address], [place], [address] , [employer] 4 15:53:21 Adult health examinati on Active 2023 NERISSA Munoz [address], [place], [address] , [place] [facility] [employer] [facility] 4 15:56:28 Stricture of esophagus 12060727 Active 2023 NERISSA Munoz [address], [place], [address] , [place] [facility] [employer] [facility] 4 15:58:40 At increased risk for nutrition al problem 106661305 Active 2023 NERISSA Munoz [address], [place], [address] , [place] [facility] [employer] [facility] 4 16:07:11 Medial epicondyl itis of left elbow joint 26327356367 9107 Active 2023 NERISSA Munoz [address], [place], [address] , [employer] [facility] 4 16:12:26 Pain of right knee joint 08789639309 4100 Active 2023 GILBERT Morrison, [place] [facility] [employer] [facility] 4 12:06:18 Pain of left elbow joint 45995641227 213813 Active 2024 Palma Lopez ATC L null, [place] [employer] [facility] [employer] [facility] 5 14:58:59 Tear of meniscus of knee 810884604 Active 2024 Bailey Estrada PA-C [address], [place], [address] , [facility] [employer] [facility] [employer] [facility] 5 19:46:07 Problem Notes None recorded. Procedures Surgical History Date Name Laterality Status Provider Name and Address Organization Details Recorded Time 05/07/19 25 Knee Surgery completed GILBERT [place] [employer] [facility] [employer] [facility] 05/07/2024 13:06:42 02/09/20 23 Cortisone Injection (Dequervains/ Greater Trochantric/ Lateral Epicondylitis/ Medial Epicondylitis / Shoulder/ Subacromial Space/ Knee/ Trigger Finger or Plantar Fascia) completed Arely Narayanan MD [address], [address], [facility] [employer] [facility] 02/08/2023 10:46:13 Elbow arthroscopy completed Not Available [facility] 06/13/2022 20:18:43 Foot Surgery completed Palma Rust RN [facility] [employer] [facility] 2024 15:46:27 procedure on elbow completed Palma Rust RN [facility] [employer] [facility] 2024 15:46:46 Imaging Results Imaging Date Name Status LastModified by Juan Jose moore Details LastModified Time 03/02/2024 XR, knee completed [address] [place], [address], 03/03/2024 08:21:06 03/02/2024 XR, knee, 3 view completed [email or web address] Information not available 03/03/2024 10:36:24 03/10/2024 MRI, knee, w/o contrast completed [address] ([facility]) [address] [place], [address], 03/10/2024 12:40:29 03/10/2024 MRI, knee, w/o contrast completed [email or web address] [facility] [address] [place], [address], 03/11/2024 13:23:47 03/16/2024 MAMMO, screening, digital, bilateral completed [email or web address] [facility] [address] [place], [address], 04/09/2024 15:55:38 04/10/2024 XR, chest, [address] view [address] [place], [address], 04/14/2024 12:42:47 Procedure Notes None recorded. Medical Equipment None Reported. Allergies Allergen ID Allergen Name Allergen Category Reaction Reaction Severity Criticality Documentation Date Start Date Code Code System Note Provider Name and Address Organization Details Recorded Time 29541 acetamino phen / oxycodone medicatio n Not available Not available Not available 06/13/2022 70821 3 RxNorm Not Available Counts include 234 beds at the [facility] 3 20:19:43 07019 latex environme nt,medica tion Not available Not available Not available 06/13/2022 55136 91 RxNorm Not Available Counts include 234 beds at the [facility] 3 20:19:43 71260 erythromy jozef medicatio n Not available Not available Not available 06/13/2022 4053 RxNorm Not Available Counts include 234 beds at the [facility] 3 20:19:43 Medications Name Sig Start Date Stop Date Status Note LastModified by Organization Details LastModified Time promethazin e-DM 6.25 mg-15 mg/5 mL oral syrup TAKE 5 ML BY MOUTH EVERY 6 HOURS NEEDED active Not Available Not Available No t Available doxycycline hyclate 100 mg capsule Take 1 capsule twice a day by oral route for 10 days. 05/08 completed Not Available Not Available Not Available ibuprofen 800 mg tablet TAKE 1 TABLET BY MOUTH THREE TIMES DAILY active Not Available Not Available No t Available acetazolami de 125 mg tablet Take 1 tablet twice a day by oral route. 03/03 completed Not Available Not Available Not Available hydrocodone 5 mg-acetamin ophen 325 mg tablet TAKE 1 TABLET BY MOUTH EVERY 6 HOURS NEEDED FOR BREAKTHRO UGH PAIN active Not Available Not Available No t Available ondansetron HCl 8 mg tablet TAKE 1 TABLET BY MOUTH THREE TIMES DAILY NEEDED 03/03 completed Not Available Not Available Not Available meloxicam 15 mg tablet Take 1 tablet every day by oral route. 2023 active Not Available Not Available Not Avai lable ondansetron HCl 4 mg tablet TAKE 1 TABLET BY MOUTH EVERY 8 HOURS NEEDED active Not Available Not Available No t Available prednisone 20 mg tablet TAKE 3 TABLETS BY MOUTH DAILY FOR 5 DAYS active Not Available Not Available No t Available acetaminoph en 300 mg-codeine 30 mg tablet TAKE 1 TABLET BY MOUTH EVERY 6 HOURS NEEDED. MAY TAKE 1-2 TABLET DIRECTED 02/05 completed Not Available Not Available Not Available levofloxaci n 250 mg tablet Take 1 tablet every day by oral route for 5 days. active Not Available Not Available No t Available tramadol 50 mg tablet TAKE 1 TABLET BY MOUTH EVERY 8 HOURS NEEDED active Not Available Not Available No t Available prednisone 10 mg tablets in a dose pack Take by oral route. 05/04 completed Not Available Not Available Not Available Celebrex 200 mg capsule Take 1 capsule every day by oral route. 2024 active Not Available Not Available Not Avai lable levothyroxi ne 88 mcg tablet active Not Available Not Available Not Available alprazolam 0.5 mg tablet TAKE 1 TABLET BY MOUTH BEFORE FLYING 03/03 completed Not Available Not Available Not Available amoxicillin 875 mg tablet 05/08 completed Not Available Not Available Not Available phenazopyri dine 100 mg tablet TAKE 2 TABLET BY MOUTH THREE TIMES DAILY FOR 2 DAYS 02/08 completed Not Available Not Available Not Available benzonatate 100 mg capsule TAKE 2 CAPSULES BY MOUTH EVERY 8 HOURS NEEDED active Not Available Not Available No t Available hydrocodone 7.5 mg-acetamin ophen 325 mg tablet 05/08 completed Not Available [...] completed Not Available Not Available Not Available azelastine 137 mcg (0.1 %) nasal spray USE 2 SPRAYS IN EACH NOSTRIL DAILY active Not Available Not Available No t Available methylpredn isolone 4 mg tablets in a dose pack FOLLOW PACKAGE DIRECTION S 03/04 completed Not Available Not Available Not Available albuterol sulfate HFA 90 mcg/actuati on aerosol inhaler INHALE 2 PUFFS BY MOUTH EVERY 4 HOURS NEEDED FOR SHORTNESS OF BREATH OR WHEEZING active Not Available Not Available No t Available ondansetron 4 mg disintegrat ing tablet active Not Available Not Available N ot Available cefdinir 300 mg capsule 05/08 completed Not Available Not Available Not Available doxycycline hyclate 100 mg tablet active Not Available Not Available No t Available amoxicillin 875 mg-kenzieiu m clavulanate 125 mg tablet TAKE 1 TABLET BY [...] Last Updated DateTime 170.18 cm 36 kg/m2 313589. 25 g 97.8 [degF] 92 /min 99 % 99 % 122 mm[Hg] 88 mm[Hg] Palma Rust RN [facility] 15:50:22 Date Recorded Body height Body mass index (BMI) Body weight Pain severity - 0-10 verbal numeric rating [Score] - Reported Provider Name and Address Organization Details Last Updated DateTime 03/04/2024 170.18 cm 36 kg/m2 453033.25 g 9 GILBERT Morrison [facility] 03/04/2024 12:04:46 Date Recorded Body height Body mass index (BMI) Body weight Pain severity - 0-10 verbal numeric rating [Score] - Reported Provider Name and Address Organization Details Last Updated DateTime 03/16/2024 170.18 cm 36 kg/m2 278891.25 g 7 GILBERT Morrison [facility] 03/16/2024 12:38:04 Date Recorded Body height Body mass index (BMI) Body weight Pain severity - 0-10 verbal numeric rating [Score] - Reported Provider Name and Address Organization Details Last Updated DateTime 05/18/2024 170.18 cm 36 kg/m2 910551.25 g 6 Faith Carranza Yvette [employer] [facility] 05/18/2024 14:43:19 Date Recorded Body height Body mass index (BMI) Body weight Provider Name and Address Organization Details Last Updated DateTime 06/15/2024 170.18 cm 36 kg/m2 000148.25 g Palma Lopez, ATC L [employer] [facility] 06/15/2024 17:21:23 Social History Question Answer Notes LastModified by Organizat ion Details LastModified Time Tobacco Smoking Status Never Smoker Not Available [facility] 06/13/2022 20:18:41 What Is Your Level Of Alcohol Consumption? None [email or web address] Information not available 03/04/2024 In The 14 Days Before Symptom Onset, Have You Had Close Contact With A Laboratory-confirm ed COVID-19 While That Case Was Ill? No [id number] Information not available 06/13/2022 In The 14 Days Before Symptom Onset, Have You Had Close Contact With A Person Who Is Under Investigation For COVID-19 While That Person Was Ill? No [id number] Information not available 06/13/2022 What Was The Date Of Your Most Recent Tobacco Screening? 03/04/2024 [email or web address] Information not available 03/04/2024 Have You Ever Been Counseled For Unhealthy Alcohol Use? No [id number] Information not available 06/13/2022 Do You Use Any Illicit Or Recreational Drugs? No [id number] Information not available 06/13/2022 Has Tobacco Cessation Counseling Been Provided? No [id number] Information not available 06/13/2022 Have You Recently Traveled Abroad? No [id number] Information not available 06/13/2022 Do You Or Have You Ever Used Any Other Forms Of Tobacco Or Nicotine? No [id number] Information not available 06/13/2022 Sex: Unknown Functional Status None recorded. Mental Status None recorded. Family History Relationship Description Onset Age of this Age Resolved Age Notes LastModified by Organization Details LastModified Time Unspecified Relation Diabetes mellitus [id number] Not available 06/13/2022 20:18:44 Unspecified Relation Hypertensive disorder [id number] Not available 06/13/2022 20:18:44 Unspecified Relation Heart disease [id number] Not available 06/13/2022 20:18:44 Unspecified Relation Cerebrovascu lar accident [email or web address] Not available 14:42:25 Unspecified Relation Arthritis [email or web address] Not available 06/2024 14:42:25 Unspecified Relation Malignant neoplastic disease Not available 05/18 14:42:25 Unspecified Relation Osteoporosis [email or web address] Not available 0 05/18/2024 14:42:25 Medical History Condition Response ARTHRITIS Y URINARY/BLADDER/KIDNEY PROBLEMS Y OBESITY Y HEARTBURN / REFLUX Y ANEMIA/BLOOD DISORDER Y Gynecological HistoryNo gynecological history recorded. Obstetrics History GPAL:G 0 P 0 0 0 0 Immunizations Vaccine Type Date Status Note Provider Nam e and Address Organization Details Recorded Time Influenza, split virus, quadrivalent, preservative 0 completed Not Available [facility] 01/17/2023 05:01:12 Past Encounters Encounter ID Performer Location Encounter Start Date Encounter Closed Date Diagnosis/Indication Diagnosis SNOMED-CT Code Diagnosis ICD10 Code Diagnosis Note [id number] [facility] [place] [address] 05/08/2021 00:00:00 05/08/2021 20:42:50 [id number] [facility] [place] [address] 07/14/2021 00:00:00 07/15/2021 12:41:47 [id number] [facility] [place] [address] [place] [address] 10/05/2021 00:00:00 10/05/2021 10:21:45 [id number] [facility] [place] [address] [place] [address] 11/09/2021 00:00:00 11/09/2021 12:36:05 [id number] [facility] Arlene varela [address] [place] [address] 01/01/2022 00:00:00 01/01/2022 19:19:41 [id number] [facility] Podiatry Stephanie Pinto [address] [place] [address] 01/01/2022 00:00:00 01/01/2022 11:02:16 [id number] Arely Narayanan MD [facility] Miguel [address] [place] [address] 07/25/2022 09:23:08 07/25/2022 09:48:59 Adult health examination 158840622 Z00.00 Hyperlipid emia screening 318690827 Z13.220 Screening for malignant neoplasm of colon 838168161 Z12.11 Screening for malignant neoplasm of breast 533000298 Z12.39 Gastroesop hageal reflux disease 561713923 K21.9 Fear of flying 428307899 F40.243 Nausea 133840870 R11.0 Thyroid di sorder screening 497837139 Z13.29 [id number] Arely Narayanan MD [facility] Miguel nichole [facility] [place] [address] 02/08/2023 10:21:59 02/08/2023 10:47:57 Plantar fasciitis of left foot [id number] 9616383 M72.2 Injected left heel and ball of foot. [id number] NERISSA Munoz [facility] Miguelmerrick nichole [address] [place] [address] 2024 15:29:17 2024 16:19:12 Screening for malignant neoplasm of cervix 034475422 Z12.4 Screening mammography 24 713684 Z12.31 Adult heal th examination 070155122 Z00.00 Stricture of esophagus 97772694 K22.2 At [facility] ed risk for nutritional problem 052369643 Z91.89 Gastroesop hageal reflux disease 414247295 K21.00 Medial epi condylitis of left elbow joint 1125283674 01670 M77.02 [facility] [id number] D64.9 [id number] Dheeraj Gabriel MD [facility] [place] [address] [facility] [address] [place] [address] 03/04/2024 11:51:05 03/04/2024 12:28:19 Pain of right knee joint 9872597867 39479 M25.538 [id number] MD TANYA [facility] [place] [address] [place] [address] 03/16/2024 12:29:11 03/16/2024 12:50:54 Pain of right knee joint 3682404990 58442 M25.098 [id number] Bailey Estrada PA-C [facility] [place] [address] [place] [address] 05/18/2024 14:41:18 05/18/2024 15:01:00 Pain of right knee joint 6276671676 16202 M25.561 Pain of le ft elbow joint 6431020057 9791063 M25.212 [id number] Bailey Estrada PA-C [facility] [place] [address] [place] [address] 06/15/2024 14:29:50 06/17/2024 09:54:56 Pain of right knee joint 4140335431 87092 M25.561 Pain of le ft elbow joint 2230758380 0612493 M25.522 Tear of me niscus of knee 947554174 S83.206D Health Concerns Section Related Observation LastModified by Organization Detai ls LastModified Time None Recorded Concern Status LastModified by Organization Details LastModified Time None Recorded Advance Directives Directive None Recorded Payers Encounter Date Sequence Insurance Name Policy Number Policy Lovett Covered Member ID Lovett Member ID Guarantor Name 2024 2 [place] [facility] PUBLIC AID Nola King [id number] Nola King 03/04/2024 2 [place] [facility] PUBLIC AID Nola King [id number] Nola King 03/16/2024 2 [place] [facility]PART[facility] PUBLIC AID Nola Bala King [id number] Nola Bala King 05/18/2024 1 [facility] (MEDICAID HMO) [id number] Nola Bala King [id number] Nola L Fernando 06/15/2024 1 [facility] (MEDICAID HMO) [id number] Nola King [id number] Nola King Notes Date Note Type Note Provider Name and Address Organization Details Recorded Time 2024 text/html esophogeal stricture had it stretched 10 years ago , arthritis , easy bruising NERISSA Munoz [address] [facility] [facility] [address], [place], [address], [place] - [facility] Brazen Careerist 03/01/2024 22:58:15 OBGyn Episode No OBEpisode recorded.
--- OUTSIDE RECORDS SUMMARY | 2024-07-01 00:50 | XMS_ITS | Encounter Summary ---
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
--- OUTSIDE RECORDS SUMMARY | 2024-07-01 00:50 | XMS_ITS | Clinical Summary ---
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
--- OUTSIDE RECORDS SUMMARY | 2024-07-01 00:50 | XMS_ITS | Clinical Summary ---
Author Organization [facility] Address [address] [place] [address] Care Team Providers Care Support Clerk Name Role Phone Karsontabitha Lu GO Primary Care Provider [phone] Allergies Active Allergy Reactions Criticality Noted Date [...] 03/19/2024 Assessment & Plan (04/23/2024 10:50 AM CHILDCARE CENTER ADMINISTRATOR): Not at goal Encourage OTC supp Vit D 28 Assessment & Plan (03/19/2024 9:31 PM CHILDCARE CENTER ADMINISTRATOR): Unknown control Previously low Repeat level Chronic pain of left knee 03/19/2024 Assessment & Plan (04/23/2024 10:48 AM CHILDCARE CENTER ADMINISTRATOR): Not at goal Intraarticular injection completed 04/23/24 Plan for surgery on R knee Assessment & Plan (03/19/2024 9:35 PM CHILDCARE CENTER ADMINISTRATOR): Not at goal Check XR Suspect d/t offloading R knee Pt to call and make procedure appt after getting XR Chronic hip pain, bilateral 03/19/2024 Assessment & Plan (03/19/2024 9:35 PM CHILDCARE CENTER ADMINISTRATOR): Not at goal Check xr Bilateral edema of lower extremity 03/19/2024 Assessment & Plan (03/19/2024 9:35 PM CHILDCARE CENTER ADMINISTRATOR): Not at goal May be habitus related Check BNP and cardiac echo Hx pericarditis Class 2 severe obesity due t o excess calories with serious comorbidity and body mass index (BMI) of 36.0 to 36.9 in adult 03/19/2024 Assessment & Plan (03/19/2024 9:36 PM CHILDCARE CENTER ADMINISTRATOR): Not at goal Wt Readings from Last 3 Encounters: 03/19/24 105.4 kg (232 lb 6.4 oz) 09/10/22 99 kg (218 lb 3.2 oz) 07/30/22 99.4 kg (219 lb 1.6 oz) Try to cut back on calories. Most people should eat between 4731-9142 calories to lose weight. Decrease your carbohydrate [...] 03/11/2024 Assessment & Plan (03/19/2024 9:32 PM CHILDCARE CENTER ADMINISTRATOR): Unknown control Check labs No current meds Hypothyroidism 03/11/2024 Assessment & Plan (04/23/2024 10:49 AM CHILDCARE CENTER ADMINISTRATOR): Not at goal Lab Results Component Value Date TSH 6.96 (H) 03/31/2024 Has not started meds yet. Advised will need labs checked after being on meds for 1 month to adjust meds Assessment & Plan (03/19/2024 9:32 PM CHILDCARE CENTER ADMINISTRATOR): Unknown control No current meds Check levels Arthralgia of right knee 03/03/2024 Medial epicondylitis of left elbow 2024 Assessment & Plan (03/19/2024 9:31 PM CHILDCARE CENTER ADMINISTRATOR): Not at goal Start on low dose Lyrica for hypersensitivity Discussed possible cross rxn with gabapentin. Stop if s/e. Discussed alternative meds such as Elavil, Cymbalta but dislikes idea of antideps Stricture of esophagus 2024 Anemia 08/14/2022 08/14/2022 Assessment & Plan (03/19/2024 9:30 PM CHILDCARE CENTER ADMINISTRATOR): Unknown control Check labs Given bruising issues, check PT/INR Already scheduled for EGD and c-scope Headache 08/14/2022 08/14/2022 Heartburn 08/14/2022 08/14/2022 Cubital tunnel syndrome on left 07/25/2022 Overview (07/25/2022): Added automatically from request for surgery [id number] Fear of flying 07/25/2022 08/14/2022 Gastroesophageal reflux disease 07/25/2022 08/14/2022 Assessment & Plan (03/19/2024 9:35 PM CHILDCARE CENTER ADMINISTRATOR): Not at goal Esophagitis noticeable with pills Protonix 40mg daily Scheduled for EGD with [facility] Plantar fasciitis of left foot 10/05/2021 0 08/14/2022 BRIDGET (obstructive sleep apnea) 05/17/2021 Resolved Problems Problem Noted Date Diagnosed Date Resolved Date Nausea 07/25/2022 08/14/2022 03/19/2024 Environmental and seasonal allergies 11/14/2021 03/19/2024 Pain in left foot 10/05/2021 08/14/2022 03/19/2024 Encounters Date Type Department Care Team Description 06/19/2024 Results Follow-Up [facility] Family Medicine at [address] [place] [address] Lu Campbell NP 06/18/2024 10:22 AM CHILDCARE CENTER ADMINISTRATOR - 06/18/2024 11:59 PM CHILDCARE CENTER ADMINISTRATOR Hospital Encounter [address] [address] Perimenopausal; Hypothyroidism, unspecified type Discharge Disposition: Discharge to home or self care 06/18/2024 10:15 AM CHILDCARE CENTER ADMINISTRATOR Lab [facility] Outpatient Lab at [address] [address] Hypothyroidism (Primary Dx) 05/01/2024 1:05 PM CHILDCARE CENTER ADMINISTRATOR - 05/01/2024 11:59 PM CHILDCARE CENTER ADMINISTRATOR Hospital Encounter [address] [address] Urinary frequency Discharge Disposition: Discharge to home or self care 05/01/2024 1:00 PM CHILDCARE CENTER ADMINISTRATOR Lab [facility] Outpatient Lab at [address] [address] 04/29/2024 Patient Message [facility] Family Medicine at [address] [place] [address] Lu Campebll NP Ear 04/23/2024 10:00 AM CHILDCARE CENTER ADMINISTRATOR Office Visit [facility] Family Medicine at [address] [place] [address] Lu Campbell NP Chronic pain of left knee (Primary Dx); Bilateral hearing loss due to cerumen impaction; Hypothyroidism, unspecified type; Vitamin D deficiency from Last 3 Months Immunizations Immunization Administration Dates Next Due Influenza, [...] on file Legal Sex Female 1:55 PM CHILDCARE CENTER ADMINISTRATOR Gender Identity Not on file Sexual Orientation Not on file Obstetrics History Last Filed Vital Signs Vital Sign Reading Time Taken Comments Blood Pressure 107/71 04/23/2024 9:54 AM CHILDCARE CENTER ADMINISTRATOR Pulse 99 04/23/2024 9:54 AM CHILDCARE CENTER ADMINISTRATOR Temperature 36.6 C (97.8 F) 04/23/2024 9:54 AM CHILDCARE CENTER ADMINISTRATOR Respiratory Rate 18 04/23/2024 9:54 AM CHILDCARE CENTER ADMINISTRATOR Oxygen Saturation 98% 04/23/2024 9:54 AM CHILDCARE CENTER ADMINISTRATOR Inhaled Oxygen Concentration - - Weight 106.3 kg (234 lb 6.4 oz) 04/23/2024 9:54 AM CHILDCARE CENTER ADMINISTRATOR Height 170.2 cm (5' 7.01 ) 04/23/2024 9:54 AM CS T Body Mass Index 36.7 04/23/2024 9:54 AM CHILDCARE CENTER ADMINISTRATOR Plan of Treatment Health Maintenance Due Date [...] LUTEINIZING HORMONE (LH) Routine 06/18/2024 10:22 AM CHILDCARE CENTER ADMINISTRATOR Perimenopausal T3, FREE Routine 06/18/2024 10:22 AM CHILDCARE CENTER ADMINISTRATOR Hypothyroidism, unspecified type T4, FREE Routine 06/18/2024 10:22 AM CHILDCARE CENTER ADMINISTRATOR Hypothyroidism, unspecified type TSH Routine 06/18/2024 10:22 AM CHILDCARE CENTER ADMINISTRATOR Hypothyroidism, unspecified type ESTROGENS, FRACTIONATED Routine 06/19/19 25 10:22 AM CHILDCARE CENTER ADMINISTRATOR Perimenopausal FOLLICLE STIMULATING HORMONE Routine 06/18/2024 10:22 AM CHILDCARE CENTER ADMINISTRATOR Perimenopausal URINALYSIS AND REFLEX TO MICROSCOPIC AND CULTURE Routine 05/01/2024 1:05 PM CHILDCARE CENTER ADMINISTRATOR Urinary frequency AZ ARTHROCENTESIS ASPIR&/INJ MAJOR JT/BURSA W/O US Routine 04/23/2024 10:00 AM CHILDCARE CENTER ADMINISTRATOR Chronic pain of left knee AZ REMOVAL IMPACTED CERUMEN INSTRUMENTATION UNILAT Routine 04/23/2024 10:00 AM CHILDCARE CENTER ADMINISTRATOR Bilateral hearing loss due to cerumen impaction HEPATITIS C ANTIBODY Routine 03/31/2024 8:00 AM CHILDCARE CENTER ADMINISTRATOR Encounter for hepatitis C screening test for low risk patient from Last 3 Months or Most Recently Relevant to Health Maintenance Results * Estrogens, fractionated (06/18/2024 10:22 AM CHILDCARE CENTER ADMINISTRATOR) Estrone <10 pg/mL [facility] Comment: REFERENCE VALUE Premenopausal :17-200 Postmenopausal : 7-40 ADDITIONAL INFORMATION This test was developed and its performance characteristics determined by [facility] in a manner consistent with CLIA requirements. This test has not been cleared or approved by the U.S. Food and Drug Administration. Estradiol <10 pg/mL [facility] Comment: REFERENCE VALUE Premenopausal: 15-350 (E2 levels vary widely through the menstrual cycle.) Postmenopausal: <10 ADDITIONAL INFORMATION This test was developed and its performance characteristics determined by [facility] in a manner consistent with CLIA requirements. This test has not been cleared or approved by the U.S. Food and Drug Administration. Test Performed by: [facility] Laboratories - [facility] [address] [place] [address] Marriage And Family Therapist: Sheryl Estrada Ph.D.; CLIA# [id number] Blood 06/18/2024 10:2 2 AM CHILDCARE CENTER ADMINISTRATOR 06/18/2024 7:08 PM CHILDCARE CENTER ADMINISTRATOR Lu Campbell NP LAB BLOOD ORDERABLES Final Re sult Performing Organization Address [facility] Co de Phone Number RADHABRENDA RANGEL [phone] [place] [address] [facility] * T3, free (06/18/2024 10:22 AM CHILDCARE CENTER ADMINISTRATOR) Free T3 3.3 2.0 - 4.4 pg/mL Blood 06/18/2024 10:2 2 AM CHILDCARE CENTER ADMINISTRATOR 06/18/2024 7:08 PM CHILDCARE CENTER ADMINISTRATOR Lu Campbell NP LAB BLOOD ORDERABLES Final Re sult Performing Organization Address [facility] [place] [address] [address] [facility] [place] [address] * (ABNORMAL) TSH (06/18/2024 10:22 AM CHILDCARE CENTER ADMINISTRATOR) Thyroid Stimulating Hormone 5.05(H) 0.30 - 4.20 mcIUnit/mL Blood 06/18/2024 10:2 2 AM CHILDCARE CENTER ADMINISTRATOR 06/18/2024 7:08 PM CHILDCARE CENTER ADMINISTRATOR us Lu Campbell TEA BAG MACHINE TENDER LAB BLOOD ORDERABLES Final Re sult SHREYA RANGEL [address] [address] [facility] [place] [address] * T4, free (06/18/2024 10:22 AM CHILDCARE CENTER ADMINISTRATOR) Free T4 1.51 0.90 - 1.70 ng/dL Blood 06/18/2024 10:2 2 AM CHILDCARE CENTER ADMINISTRATOR 06/18/2024 7:08 PM CHILDCARE CENTER ADMINISTRATOR us Lu Campbell NP LAB BLOOD ORDERABLES Final Re sult Performing Organization Address [facility] Co de Phone Number SHREYA RANGEL [phone] [address] [facility] [place] [address] * LH (06/18/2024 10:22 AM CHILDCARE CENTER ADMINISTRATOR) Pathologist [facility] LH 21.3 IUnits/L Comment: Interpretive Data Males: Adults: 1.7 - 8.6 IUnits/L Females: Follicular: 2.4 - 12.6 IUnits/L Ovulation: 14.0 - 95.6 IUnits/L Luteal: 1.0 - 11.4 IUnits/L Postmenopausal: 7.7 - 58.5 IUnits/L Current interpretive data was last revised on 2018. Testing performed by: [facility], [address] [place]., [address] Blood 06/18/2024 10:2 2 AM CHILDCARE CENTER ADMINISTRATOR 06/19/2024 9:54 AM CHILDCARE CENTER ADMINISTRATOR Lu Campbell TEA BAG MACHINE TENDER LAB BLOOD ORDERABLES Final Re sult Performing Organization Address City/[facility] Co de Phone Number SHREYA RANGEL [address] [place] [address] * Follicle stimulating hormone (06/18/2024 10:22 AM CHILDCARE CENTER ADMINISTRATOR) FSH 77.1 IUnits/L Comment: Interpretive Data Male: Adults: 1.5 - 12.4 IUnits/L Female: Follicular: 3.5 - 12.5 IUnits/L Ovulation: 4.7 - 21.5 IUnits/L Luteal: 1.7 - 7.7 IUnits/L Postmenopausal: 25.8 - 134.8 IUnits/L Current interpretive data was last revised 2015. Testing performed by: [facility], [address] [place]., [address] Blood 06/18/2024 10:2 2 AM CHILDCARE CENTER ADMINISTRATOR 06/19/2024 9:54 AM CHILDCARE CENTER ADMINISTRATOR us Lu Campbell TEA BAG MACHINE TENDER LAB BLOOD ORDERABLES Final Re sult [facility] [address] Department [place] [address] * Urinalysis reflex to microscopic and culture Urine (05/01/2024 1:05 PM CHILDCARE CENTER ADMINISTRATOR) Color, ur Yellow Yellow Clarity, ur Clear Clear [facility]ERNER CH Specific gravity, ur 1.024 1.003 - 1.030 CERNER CH pH, urine 5.5 [facility] Comment: Interpretive Data U rine pH is affected by diet, medications, systemic acid-base disturbances, and renal tubular function. pH may affect urinary stone formation. For example, urine pH below 6.0 may help reduce the tendency for calcium phosphate stones and pH greater than 6.0 may reduce the tendency for uric acid stone formation. Source: [facility] [employer] Current Interpretive Data was last revised on [...] not met. CERNER Urine 05/01/2024 1:05 PM CHILDCARE CENTER ADMINISTRATOR 05/01/2024 8:58 PM CHILDCARE CENTER ADMINISTRATOR Danni CASH CH - 05/01/2024 9:10 PM CHILDCARE CENTER ADMINISTRATOR Urine Collection Method->Clean Catch Lu Campbell NP LAB MICROBIOLOGY - GENERAL OR DERABLES Final Result SHREYA [address] [address] Department of Laboratories [place] [phone] * AZ ARTHROCENTESIS ASPIR&/INJ MAJOR JT/BURSA W/O US (04/23/2024 10:00 AM CHILDCARE CENTER ADMINISTRATOR) Lu Hernandez NP - 04/23/2024 10:00 AM CHILDCARE CENTER ADMINISTRATOR Lu Campbell NP 04/23/2024 10:51 AM Large [...] the procedure well with no immediate complications Lu Campbell TEA BAG MACHINE TENDER IN CLINIC/BEDSIDE ORDERABLES Final Result * AZ REMOVAL IMPACTED CERUMEN INSTRUMENTATION UNILAT (04/23/2024 10:00 AM CHILDCARE CENTER ADMINISTRATOR) Lu Hernandez NP - 04/23/2024 10:00 AM CHILDCARE CENTER ADMINISTRATOR Lu Campbell NP 04/23/2024 10:51 AM Ear [...] Hepatitis C antibody Blood (03/31/2024 8:00 AM CHILDCARE CENTER ADMINISTRATOR) Hep C Ab Nonreactive Nonreactive Comment: Interpretive [...] revised on 2019. Blood 03/31/2024 8:00 AM CHILDCARE CENTER ADMINISTRATOR 03/31/2024 1:56 PM CHILDCARE CENTER ADMINISTRATOR Lu Campbell NP LAB MICROBIOLOGY - GENERAL OR DERABLES Final Result SHREYA [address] Department [place] [address] from Last 3 Months or Most Recently Relevant to Health Maintenance Insurance IDND [facility] Care Teams Support Clerk Relationship Specialty Start Date End Date Lu Campbell NP [address] [place] [address] PCP - General Family Medicine 03/19/24
[2024-07-01 11:41] VITALS: BP 124/66; PULSE 90; RESP 16; TEMP 36.2; O2SAT 100
--- NOTE | 2024-07-01 11:49 | WPDANESEPPF ---
Anes - Initial Pre Proc Eval Procedure: Operation Date: 07/01/24 13:30 Proposed Procedures p Esophagogastroduodenoscopy&Screen Colon - Jett Mccullough MD Date/Time: 07/01/24 11:49 Surgeon: Jett Mccullough MD Pre Op Diagnosis: GERD, Dysphagia, screening colon Patient Data Age: 54 Gender: F Height: 1.68 m Weight: 105.7 kg Last Vital Signs Temp 97.1 F L 07/01/24 11:41 Pulse 90 07/01/24 11:41 Resp 16 07/01/24 11:41 BP 124/66 07/01/24 11:41 Pulse Ox 100 07/01/24 11:41 O2 Del Method Room Air 07/01/24 11:41 Allergies Allergy/AdvReac Type Severity Reaction Status Date / Time erythromycin base Allergy Severe Anaphylaxis Verified 07/01/24 11:38 adhesive tape Allergy Mild Unknown Verified 07/01/24 11:38 oxycodone (From Percocet) Allergy Mild Itching Verified 07/01/24 11:38 Home Medications ?Medication ?Instructions ?Recorded ?Confirmed ?Type acetaminophen 325 mg capsule 325 mg PO Q6H PRN pain 03/15/22 07/01/24 History (Tylenol) ascorbic acid (vitamin C) 500 mg See Rx Instructions PO DAILY 03/15/22 07/01/24 History capsule cholecalciferol (vitamin D3) 50 50 mcg PO DAILY 03/15/22 07/01/24 History mcg (2,000 unit) capsule cyanocobalamin (vitamin B-12) 2,500 mcg PO DAILY 03/15/22 07/01/24 History 2,500 mcg tablet pantoprazole 40 mg tablet,delayed 40 mg PO QAM 02/24/24 07/01/24 History release vitamin A 2,400 mcg capsule 2,400 mcg PO DAILY 04/27/24 07/01/24 History levothyroxine 88 mcg tablet 88 mcg PO DAILY 04/28/24 07/01/24 History Patient hx anesthesia problems: none Family hx anesthesia problems: none Results Review: All pre-operative results and documents have been reviewed as part of the pre-operative evaluation. [facility] Past Medical History Medical History Degenerative arthritis of knee, bilateral History of esophageal dilatation Arthritis Surgical History Surgical History H/O foot surgery H/O elbow surgery H/O wrist surgery History of decompression of ulnar nerve Family History Family History (Updated 04/28/24 @ 10:36 by Calin Dennis MA) Grandparent Diabetes mellitus Heart disease Hypertension Uterine cancer great grandmother Stomach cancer Mother Heart disease Father Hypertension Sibling Hypertension Other No problems noted. Social History Social History Smoking status: Never smoker Alcohol intake: current Substance use type: does not use Living arrangements: with friend(s) Occupation/Education: unemployed Spiritual care concerns: No Anes - Eval Final PreProcedure Day of Procedure 07/01/24 11:49 Patient weight: obese Heart: regular rate and rhythm Lungs: clear to auscultation Airway: Mallampati scale class II Neurological: alert and oriented Last oral intake: >/= 8 hours ASA classification: II Emergent: no Anesthetic plan: proceed Anesthesia type and monitoring: general GIVS and standard monitoring Results Review: All pre-operative results and documents have been reviewed as part of the pre-operative evaluation. Informed Consent: The patient's anesthetic plan and its attendant risks and benefits were discussed with the patient/family/POA. Questions were solicited and answers provided to the satisfaction of the patient/family/POA.
[2024-07-01] MEDS: LACTATED RINGERS 1,000 ML 150 ML IV CONT (11:51)
--- NOTE | 2024-07-01 12:50 | PM.IMHP ---
H&P: HPI History of Present Illness Date/Time: 07/01/24 12:50 Chief Complaint: GERD -dysphagia-screening colonoscopy Narrative: this patient has been suffering from heartburn for several years, she states that more than 10 years ago she underwent EGD and esophageal dilation. She is still complaining of difficulty swallowing solids and liquids, despite taking pantoprazole 40 mg q.d.. In addition, she is also referred for screening colonoscopy, for the 1st time. Review of Systems Review of Systems: All systems reviewed & are unremarkable except as noted in HPI and below PMFSH Past Medical History Medical History Degenerative arthritis of knee, bilateral History of esophageal dilatation Arthritis Surgical History Surgical History H/O foot surgery H/O elbow surgery H/O wrist surgery History of decompression of ulnar nerve Family History Family History (Updated 04/28/24 @ 10:36 by Calin Dennis MA) Grandparent Diabetes mellitus Heart disease Hypertension Uterine cancer great grandmother Stomach cancer Mother Heart disease Father Hypertension Sibling Hypertension Other No problems noted. Social History Social History Smoking status: Never smoker Alcohol intake: current Substance use type: does not use Living arrangements: with friend(s) Occupation/Education: unemployed Spiritual care concerns: No Meds Home Medications and Allergies Home Medications ?Medication ?Instructions ?Recorded ?Confirmed ?Type acetaminophen 325 mg capsule 325 mg PO Q6H PRN pain 03/15/22 07/01/24 History (Tylenol) ascorbic acid (vitamin C) 500 mg See Rx Instructions PO DAILY 03/15/22 07/01/24 History capsule cholecalciferol (vitamin D3) 50 50 mcg PO DAILY 03/15/22 07/01/24 History mcg (2,000 unit) capsule cyanocobalamin (vitamin B-12) 2,500 mcg PO DAILY 03/15/22 07/01/24 History 2,500 mcg tablet pantoprazole 40 mg tablet,delayed 40 mg PO QAM 02/24/24 07/01/24 History release vitamin A 2,400 mcg capsule 2,400 mcg PO DAILY 04/27/24 07/01/24 History levothyroxine 88 mcg tablet 88 mcg PO DAILY 04/28/24 07/01/24 History Allergies Allergy/AdvReac Type Severity Reaction Status Date / Time erythromycin base Allergy Severe Anaphylaxis Verified 07/01/24 11:38 adhesive tape Allergy Mild Unknown Verified 07/01/24 11:38 oxycodone (From Percocet) Allergy Mild Itching Verified 07/01/24 11:38 Vital Signs Vital Signs - 24 hr 07/01/24 11:41 Temperature 97.1 F L Pulse Rate 90 Respiratory Rate 16 Blood Pressure 124/66 Pulse Oximetry 100 Oxygen Delivery Room Air Exam Const: General: cooperative and healthy appearing Resp: Effort & Inspection: normal respiratory effort and able to speak in complete sentences Auscultation: clear to auscultation bilaterally Cardio: Rate: regular rate Rhythm: regular rhythm GI: Inspection: normal to inspection GI Palp: No No hepatosplenomegaly present Auscultation: normal bowel sounds Rectal Exam: deferred Skin: General skin exam: normal color Psych: Appearance: grossly normal Mental Status: mental status grossly normal Assessment and Plan Assessment and plan (1) Encounter for screening colonoscopy: Code(s): Z12.11 - Encounter for screening for malignant neoplasm of colon Status: Acute Assessment and Plan: The patient is deemed a good candidate for the procedures. Consent signed. Will proceed. (2) Dysphagia: Qualifiers: Dysphagia type: esophageal phase Qualified Code(s): R13.19 - Other dysphagia Code(s): R13.10 - Dysphagia, unspecified Status: Acute (3) GERD (gastroesophageal reflux disease): Qualifiers: Esophagitis presence: esophagitis presence not specified Qualified Code(s): K21.9 - Gastro-esophageal reflux disease without esophagitis Code(s): K21.9 - Gastro-esophageal reflux disease without esophagitis Status: Acute
--- NOTE | 2024-07-01 13:18 | SUR.OPER ---
EGD [id number]. Colonoscopy start time 1322.
[2024-07-01 13:35] VITALS: BP 135/82; PULSE 91; RESP 25; O2SAT 100
[2024-07-01 13:45] VITALS: BP 131/73; PULSE 92; RESP 21; O2SAT 97
[2024-07-01 13:55] VITALS: BP 139/74; PULSE 81; RESP 15; O2SAT 100
== END 2024-07-01 14:07 | disposition home or self-care (01) ==
PROVIDERS: Referring Provider Nurse Practitioner Family; Visit Provider Internal Medicine Gastroenterology
PROC: 0DJ08ZZ Inspection of Upper Intestinal Tract, Via Natural or Artificial Opening Endoscopic (ICD-10-PCS; CPT 45378; principal; 2024-07-01 13:30)
DX: Z12.11 Encounter for screening for malignant neoplasm of colon (principal); K63.5 Polyp of colon; K44.9 Diaphragmatic hernia without obstruction or gangrene; K22.2 Esophageal obstruction; K29.50 Unspecified chronic gastritis without bleeding; K21.9 Gastro-esophageal reflux disease without esophagitis; M17.0 Bilateral primary osteoarthritis of knee; E66.9 Obesity, unspecified; Z68.37 Body mass index [BMI] 37.0-37.9, adult; Z98.890 Other specified postprocedural states; Z87.19 Personal history of other diseases of the digestive system; Z80.49 Family history of malignant neoplasm of other genital organs; Z80.0 Family history of malignant neoplasm of digestive organs; Z82.49 Family history of ischemic heart disease and other diseases of the circulatory system
CPT/HCPCS: 43249; 45385; 88305; C1726; J2003; J2704; J7120

== ENCOUNTER 2024-08-10 00:44 | Day surgery (SDC) | payer OTHER, SELFPAY ==
[2024-07-30 08:25] VITALS: BMI 38.8
--- NOTE | 2024-07-30 08:44 | PC.NURSE ---
Report to the Outpatient Waiting Room, entrance under the green pavilion located off [facility], at time ___0745____ on date ___08/10/24____. Planned Procedure Time: ____944____.? Time changes happen often and if your time is changed the preop area will call you the afternoon before. - You and your visitor will be asked to self-screen and do not enter if you have any COVID symptoms. Please call surgeon if you need to reschedule. - A mask is optional within the hospital at this time. Patients may have clear liquids (water, carbonated beverages, clear teas, apple juice) until 3 hours prior to surgery with a maximum of 20 ounces. - No food from midnight until time of surgery and no smoking, or chewing tobacco (or any form of nicotine). No chewing gum, candy or mints. Take only the following medications with a SIP of water on the morning of surgery: levothyroxine DO NOT STOP ANY OF YOUR OTHER PRESCRIPTION MEDICATIONS PRIOR TO SURGERY EXCEPT THE FOLLOWING Hold all vitamins and supplements for 3 days per anesthesiologist. Please no make-up, nail sami, hairspray, perfume, deodorant, or body powder the day of surgery.? No jewelry (including any body piercings) or valuables the day of surgery, leave them at home.? Please take a shower or bath the night before, or the morning of, surgery with an antibacterial soap.? Wear comfortable, loose fitting clothing.? Children are encouraged to wear pajamas. - Jewelry must be removed prior to entering the operating room.? Rings and piercings that are not removed may be cut off. - The hospital will not accept responsibility for valuables.? - Please leave all valuables, including medications, at home the day of surgery. If you are going home after surgery, a licensed wrecking car driver must drive you home.? - NO public transportation without another adult if you receive anesthesia. - We recommend that an adult stay with you for 24 hours following discharge. - We also recommend that you do not drive, make important decision, drink alcoholic beverages, or take any drugs that were not prescribed by your health care provider for at least 24 hours after your discharge time. Follow any additional instructions given to you from your surgeon. Telephone instructions given to Nola Montano and asked if any additional questions and then verbalized understanding. Patient advised to call surgeon office or pre surgery nurse liaison [phone] if any additional questions.
--- NOTE | 2024-08-09 13:53 | PM.IMHP ---
H&P: HPI History of Present Illness Date/Time: 08/09/24 13:53 Chief Complaint: thickened endometrium Narrative: Nola is a 54yo postmenopausal G0, who presents for surgery. She had a NILM/HPV + pap 2 years ago (did not follow up) and then had another NILM/HPV + pap again 04/2024. Colpo pathology was DEEPTI 1 (06/2024). She denies any PMB or pelvic pain. 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 [employer]INE CAR[employer] INSPECTOR US 05/2024 showed fibroid uterus, small simple ovarian cyst and thickened endometrial lining of 11mm. Review of Systems Constitutional: Constitutional: Denies chills, Denies fever(s) and Denies headache(s) Eyes: Eyes: Denies change in vision ENT: Denies dizziness and Denies headache(s) Cardiovascular: Cardiovascular: Denies chest pain and Denies dyspnea Respiratory: Respiratory: Denies cough and Denies dyspnea Gastrointestinal: Gastrointestinal: Denies abdominal pain and Denies change in stool character Genitourinary: Genitourinary: Denies abnormal menses, Denies pelvic pain, Denies vaginal discharge, Denies vaginal odor and Denies vaginal pruritus Neurologic: Denies dizziness and Denies headache(s) Psychiatric: Psychiatric: Denies anxiety and Denies depression [facility] Past Medical History Medical History Degenerative arthritis of knee, bilateral History of esophageal dilatation Arthritis Surgical History Surgical History H/O foot surgery H/O elbow surgery H/O wrist surgery History of decompression of ulnar nerve Family History Family History (Updated 04/28/24 @ 10:36 by Calin Dennis MA) Grandparent Diabetes mellitus Heart disease Hypertension Uterine cancer great grandmother Stomach cancer Mother Heart disease Father Hypertension Sibling Hypertension Other No problems noted. Social History Social History Smoking status: Never smoker Alcohol intake: current Substance use: former Substance use type: marijuana Other substance usage details: Marijuana gummies Last use: 05/29/2024 Living arrangements: with roommate(s) Occupation/Education: unemployed Spiritual care concerns: No Meds Home Medications and Allergies Home Medications ?Medication ?Instructions ?Recorded ?Confirmed ?Type acetaminophen 325 mg capsule 325 mg PO Q6H PRN pain 03/15/22 07/30/24 History (Tylenol) ascorbic acid (vitamin C) 500 mg See Rx Instructions PO DAILY 03/15/22 07/30/24 History capsule cholecalciferol (vitamin D3) 50 50 mcg PO DAILY 03/15/22 07/30/24 History mcg (2,000 unit) capsule pantoprazole 40 mg tablet,delayed 40 mg PO QAM 02/24/24 07/30/24 History release levothyroxine 88 mcg tablet 88 mcg PO DAILY 04/28/24 07/30/24 History Allergies Allergy/AdvReac Type Severity Reaction Status Date / Time erythromycin base Allergy Severe Anaphylaxis Verified 07/30/24 08:28 adhesive tape Allergy Mild Unknown Verified 07/30/24 08:28 oxycodone (From Percocet) Allergy Mild Itching Verified 07/30/24 08:28 Exam Const: General: cooperative, comfortable, no acute distress and obese Orientation/consciousness: patient oriented x3 Resp: Effort & Inspection: normal respiratory effort Cardio: Rate: regular rate GI: Inspection: normal to inspection GI Palp: No abdominal tenderness and Yes Soft to palpation : Other: deferred to OR Skin: General skin exam: normal color Neuro: General: patient oriented x3 Extrem: General: normal to inspection Psych: Appearance: grossly normal Affect: normal affect Attitude: cooperative Assessment and Plan Assessment and plan (1) Endometrial thickening on ultrasound: Code(s): R93.89 - Abnormal findings on diagnostic imaging of other specified body structures Status: Acute Plan - US findings discussed in detail and I recommend Hysteroscopy with D&C for endometrial sampling. Due to her fibroids, I do not think in ofice EMB would be a good option - Risks and benefits of surgery discussed in detail.
--- OUTSIDE RECORDS SUMMARY | 2024-08-10 00:47 | XMS_ITS | Encounter Summary ---
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 07/26/2024 08/06/2024 documented as of this encounter Care Teams Urologist Relationship Specialty Start Date End Date Lu Campbell NP [address] [address] [place] [address] [place] [id number] PCP - General Family Medicine 03/19/24 documented as of this encounter
--- OUTSIDE RECORDS SUMMARY | 2024-08-10 00:47 | XMS_ITS | Clinical Summary ---
Author Organization [facility] [employer] Address [address] [facility] [place] [address] Care Team Providers Care Photovoltaic Testing Technician Name Role Phone Unavailable Primary Care Provider Unavailabl e Source Comments [facility] [employer],non-owned Affiliates and Associated Physician Practices is amultiple site organization consisting of ambulatory clinics and hospital sitesin [place], [place], [place] and [place]. This disclosure is being madepursuant to the Care Everywhere program and may not contain all information available regarding this patient. 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 Gender Identity Not on file Sexual Orientation [...] (2 - 2023-2 5 season) 2023 02/22/2021 DEPRESSION SCREENING 04/15/2024 INFLUENZA VACCINE (Season Ended) 2024 02/08/2021, 02/24/2020 HIB VACCINE Aged Out No longer eligi [...] on patient's age to complete this topic Insurance [facility] [place] [address] [facility] SELF PAY NO INSURANCE Member Subscriber Plan / Payer (Ef fective for All Dates) Name:Nola Chang Member ID:Not on file Relation to Subscriber:Not on file Name:NOLA CHANG Subscriber ID:Not on file (Home) Address: [facility] [facility] [place] [address] Payer ID:Not on file Group ID:Not on file Type:Self Pay Address: [place], [place]
--- OUTSIDE RECORDS SUMMARY | 2024-08-10 00:48 | XMS_ITS | Data Portability ---
Author Organization [place] [facility], Main Office Address [address] [place] [address] Care Team Providers Care Physical Metallurgist Name Role Phone NARAYAN HUNT Primary Care Provider NARAYAN HUNT Referring Provider [phone] Assessment Encounter Date Assessment Date Assessment LastModified by Organization Details LastModified Time 03/04/2024 03/04/2024 54-year-old radha garrett presents for evaluation of her right knee. She reports an injury on 02/29/2024 when she was dancing and twisted her knee and developed significant pain and stiffness. She currently rates her pain as 9/10 and presents today in a wheelchair. 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 She denies any previous injury to [...] available 03/04/2024 14:47:15 03/16/2024 03/16/2024 54-year-old radha grarett presents for follow-up of her right knee. [...] elbow and was told she is at [facility]. She was wondering about receiving an injection [...] for pain management to a location in [place] for her left elbow. Follow Up: As needed for pain. All questions were answered. Patient verbalized understanding of treatment plan [email or web address] Not available 06/16/2024 19:45:53 07/20/2024 07/20/2024 HPI: 54 year old female present today for a post-op follow-up after undergoing right knee arthroscopy and partial medial meniscectomy on May [address] Gabriel. She is approximately 10 weeks post-op and is doing well overall. Currently, rates pain as 8/10 today. She denies experiencing any catching or locking in the knee. She was unable to fill her prescription for Celebrex due to insurance coverage issues and has been taking Motrin 800 mg as needed for pain relief. She would like to receive a steroid injection in her right knee today, as she has previously experienced good pain relief from similar injections and is currently receiving injections in her left knee from her PCP. Additionally, she is working on weight loss and would like to resume swimming. Regarding her left elbow, she was advised to call her insurance company and ask for a list of covered pain management clinics. Physical Exam: General: Normal appearance. No acute distress. Inspection: Incision well healed. No signs or symptoms of infection. Palpation: Mild tenderness with palpitation at the medial joint line. ROM: 5-130. Sensation: Lower extremity sensation intact. Assessment & Plan: She would like to continue with conservative management for osteoarthritis. We discussed that her ongoing pain post op is most likely osteoarthritis-rel ated pain as she does have moderate-severe osteoarthritis. Injection was given today. Patient tolerated the injection. Patient will monitor site for signs of infection and report any adverse side effects. Rx for Naproxen. I discussed with the patient the potential risk of taking NSAIDs with their underlying medical condition, especially with her GI/esophageal condition. Continue HEP given by PT. Encouraged swimming Discussed weight reduction through diet and exercise improves knee osteoarthritis-rel ated pain. Follow Up: As needed for pain. [email or web address] Not available 07/20/2024 20:34:40 Plan of Treatment Reminders Order Date Submit Date Provider Last Modified By Organization Details Last Modified Time Details Appointments None recorded. Lab None recorded. Referral pain management referral - Please contact pt for L elbow pain. Thanks 2024 025 [email or web address] 1 [facility], [address] [place], [address], 09:54:57 pain management referral - Please contact pt for L elbow pain. Thanks 2024 025 [facility], [address] [place], [address], 16:20:48 physical therapist referral - Please contact pt to schedule apt for R knee. Thanks 2023 024 [facility], [address], [place], [address], 02/24/202 5 11:49:20 Procedures injection/ aspiration joint/burs a (PROC) 2024 025 [facility] Order, Internal Use Only DO Not Attach Compendium DO Not Attach Compendium, Do Not Delete/merge, [id number] 5 20:09:20 Surgeries None recorded. Imaging MRI, knee, w/o contrast 2023 024 [facility] ([facility]), [address] [place], [address], 4 12:14:24 Medication Orders bupivacain e HCl 0.5 % (5 mg/mL) injection solution 2024 025 [id number], [address], [place], [id number], 5 20:09:20 Kenalog 10 mg/mL suspension for injection 2024 025 [facility] #70028, [address], [place], [id number], 5 20:09:20 naproxen 500 mg tablet 2024 025 [facility] #72729, [address], [place], [id number], 5 20:09:20 Celebrex 200 mg capsule 2024 025 [facility] #75685, [address], [place], [id number], 5 18:59:47 meloxicam 15 mg tablet 2023 024 [email or web address], [address], [place], [id number], 22:45:20 Patient TargetsNo targets recorded. Patient InstructionsNo [...] L elbow pain. Thanks Referring Physician: Bailey Estrada Orthopedic Surgery, Encounter Date: 06/15/2024 Results Created Date Observation Date Name Description Value Unit Range Abnormal Flag Note LastModifiedBy Organization Detail LastModifiedTime 03/02/20 24 03/02/2024 XR, knee No observ ation record ed. [address] [place], [address], 03/03/2024 08:21:06 03/03/20 24 03/02/2024 XR, knee, 3 view No observ ation record ed. [email or web address] Not Available 02/13 10:36:24 03/10/20 24 03/10/2024 MRI, knee, w/o contr ast No observ ation record ed. [email or web address] ([facility] Scheduling) [address] [place], [address], 03/10/2024 12:40:29 03/10/20 24 03/10/2024 MRI, knee, w/o contr ast No observ ation record ed. [facility] [address] [place], [address], 03/11/2024 13:23:47 03/16/20 24 03/16/2024 MAMMO , scree amy, digit al, bilat eral No observ ation record ed. [email or web address] [facility] [address] [place], [address], 04/09/2024 15:55:38 04/10/20 24 04/10/2024 XR, chest , 2 view No observ ation record ed. [email or web address] [facility] [address], [place], [address], 04/14/2024 12:42:47 08/09/19 25 07/13/2024 MRI, brain , w/wo contr ast [facility] [address] [facility] [address], [place] [address] [phone] Patien t Name: LIEN KING ER Access ion #: [id number] Sex: F : 1969 5 Dictat ed By: Torito Lanier Attend ing Physic sraah: TIANA CHAN Orderi Physic sarah: TIANA CHAN Exam Date: 2024 09:56 AM Exam Name: MRI BRAIN W/WO Admitt ing Diagno sis(es ): MRI BRAIN WITH CONTRA ST CLINIC AL HISTOR Y: sensor ineura l hearin g loss/t innitu s TECHNI QUE: Multip lanar multis equenc e images of the brain were obtain ed prior to and follow ing intrav enous admini strati on of contra st. [address] from a prefil led syring e was admini stered intrav enousl y. Compar harvinder: None FINDIN GS: There is no restri cted diffus ion. The ortiz and white matter signal is approp riate. There is no pathol ogic enhanc ement. There is no eviden ce of hemorr checo, mass, mass effect or midlin e shift. There is no hydroc ephalu s or extra- axial fluid collec tion. The visual ized intrac ranial vascul ature demons trates approp riate flow-v oids. There is no gross eviden ce of an IAC or CP angle lesion . The midlin e struct ures appear unrema rkable . The cranio cervic al juncti on is within normal limits . The calvar ium demons trates normal marrow signal . There is a promin ent retent ion cyst in the left maxill porsha sinus. Remain ing parana kelley sinuse s are clear. There is small amount of fluid in the mastoi d air cells, left-g reater -than- right. IMPRES SARAH: 1. Unrema rkable MRI brain. 2. Small amount of fluid in the mastoi d air cells, left-g reater -than- right. HS:Y Page 1 [facility] [address] [place] [address] Patien t Name: LIEN KING ER Access ion #: [id number] Sex: F : 1969 5 Dictat ed By: Torito Lanier Attend ing Physic sarah: ROCIO MONTIELsan [facility] Physic sarah: TIANA CHAN Exam Date: 2024 09:56 AM Exam Name: MRI BRAIN W/WO Admitt ing Diagno sis(es ): Electr onical ly Signed by: Torito Lanier at 2024 12:58: 19 PM Page 2 INTERFACE [facility] (Imaging) [address] [place], [address], 08/08/2024 04:18:36 Result Notes None recorded. Problems Name Problem SNOMED Code Status Onset Date Resolution Date Notes Provider Name and Address Organization Details Recorded Time Achilles tendiniti s 17011169 Active Not Available [facility] 3 12:36:00 Plantar fasciitis of left foot 52640166800 579517 Active 2021 Not Available [facility] 3 12:36:00 Heartburn 87846282 Active Not Available [facility] 3 12:36:00 Plantar fasciitis 589630589 Active Not Available [facility] 3 12:36:00 Headache 58644633 Active Not Available [facility] 3 12:36:00 Anemia 770600432 Active Not Available [facility] 3 12:36:00 Pain in left foot 51543297449 9107 Active 2021 Not Available [facility] 3 12:36:00 Hypothyro idism 14350733 Completed Not Available [facility] 3 20:19:07 History of calculus of kidney 819770615 Active Not Available [facility] 3 12:36:00 Hyperlipi demia 37930861 Completed Not Available [facility] 3 20:19:07 Hiatal hernia 42408466 Completed Not Available [facility] 3 20:19:08 Gastroeso phageal reflux disease 340469663 Active 2022 Not Available [facility] 3 12:36:00 Fear of flying 301803268 Active 2022 Not Available [facility] 3 12:36:00 Nausea 373782874 Active 2022 Not Available [facility] 3 12:36:00 Screening for malignant neoplasm of cervix Active 2023 NERISSA Munoz [address], [employer], [place], [address] , [employer] 4 15:53:05 Screening mammograp hy Active 2023 NERISSA Munoz [address], [address], [place], [address] , [employer] 4 15:53:21 Adult health examinati on Active 2023 NERISSA Munoz [address], [address], [place], [address] , [employer] 4 15:56:28 Stricture of esophagus 35784313 Active 2023 NERISSA Munoz [address], [address], [place], [address] , [employer] 4 15:58:40 At increased risk for nutrition al problem 112901043 Active 2023 NERISSA Munoz [address], [address], [place], [address] , [employer] 4 16:07:11 Medial epicondyl itis of left elbow joint 46778778518 9107 Active 2023 NERISSA Munoz [address], [address], [place], [address] , [facility] 4 16:12:26 Pain of right knee joint 73237662620 4100 Active 2023 GILBERT Morrison, [facility] 4 12:06:18 Pain of left elbow joint 10428240761 711808 Active 2024 NETO Cruz null, [facility] 5 14:58:59 Tear of meniscus of knee 526050487 Active 2024 Bailey Estrada PA-C [address], [address], [place], [address] , [facility] 5 19:46:07 Pain of multiple joints 02628492 Active 2024 GILBERT Morrison, [facility] 5 14:30:04 Acute tear of meniscus of right knee 30864977656 059192 Active 2024 GILBERT Morrison, [facility] 5 14:30:27 Osteoarth ritis of right knee joint 05623001611 9100 Active 2024 PENELOPE Wadsworth [address], [address], [place], [address] , [facility] 5 20:33:00 Problem Notes None recorded. Procedures Surgical History Date Name Laterality Status Provider Name and Address Organization Details Recorded Time 07/21/19 25 Corticosteroid Injection completed PENELOPE W[address], [place], [address], [facility] 07/20/2024 20:33:53 05/07/19 25 Knee Surgery completed GILBERT Morrison [facility] 05/07/2024 13:06:42 10/27/20 23 Cortisone Injection (Dequervains/ Greater Trochantric/ Lateral Epicondylitis/ Medial Epicondylitis / Shoulder/ Subacromial Space/ Knee/ Trigger Finger or Plantar Fascia) completed Arely Narayanan MD [address] [facility], [facility] [address], [place], [address], [place] [employer] [facility] [employer] 02/08/2023 10:46:13 Elbow arthroscopy completed Not Available [facility] 06/13/2022 20:18:43 Foot Surgery completed Palma Rust RN [facility] [employer] 2024 15:46:27 procedure on elbow completed Palma Rust RN [facility] [employer] [facility] [employer] 2024 15:46:46 Imaging Results Imaging Date Name Status LastModified by Organiz [facility] Details LastModified Time 03/02/2024 XR, knee completed [address] [place], [address], 03/03/2024 08:21:06 03/02/2024 XR, knee, 3 view completed [email or web address] Information not available 03/03/2024 10:36:24 03/10/2024 MRI, knee, w/o contrast completed [address] ([facility]) [address] [place], [address], 03/10/2024 12:40:29 03/10/2024 MRI, knee, w/o contrast completed [email or web address] [facility] [address] [place], [address], 03/11/2024 13:23:47 03/16/2024 MAMMO, screening, digital, bilateral completed [email or web address] [facility] [address] [place], [address], 04/09/2024 15:55:38 04/10/2024 XR, chest, 2 view completed [address] [place], [address], 04/14/2024 12:42:47 07/13/2024 MRI, brain, w/wo contrast active INTERFACE [place] [facility] (Imaging) [address] [place], [address], 08/08/2024 04:18:36 Procedure Notes None recorded. Medical Equipment None Reported. Allergies Allergen ID Allergen Name Allergen Category Reaction Reaction Severity Criticality Documentation Date Start Date Code Code System Note Provider Name and Address Organization Details Recorded Time 62201 acetamino phen / oxycodone medicatio n Not available Not available Not available 06/13/2022 73961 3 RxNorm Not Available [facility] 3 20:19:43 11277 latex environme nt,medica tion Not available Not available Not available 06/13/2022 19186 91 RxNorm Not Available [facility] 3 20:19:43 65508 erythromy jozef medicatio n Not available Not available Not available 06/13/2022 4053 RxNorm Not Available [facility] 3 20:19:43 Medications Name Sig Start [...] Not Available Not Available No t Available bupivacaine HCl 0.5 % (5 mg/mL) injection solution Take 2 mg by injection route. 2024 active Not Available Not Available Not Avai lable prednisone 20 mg tablet TAKE 3 TABLETS [...] TAKE 1 TABLET BY MOUTH BEFORE FLYING active Not Available Not Available No t Available amoxicillin 875 mg tablet 05/08 completed Not Available Not Available Not Available Kenalog 10 mg/mL suspension for injection Take 4 mg by injection route. 2024 active [facility]: 0003- 0494- 20 Not Available Not Available Not Available phenazopyri [...] A DAY WITH MEALS FOR 30 DAYS 04/12 /2023 completed Not Available Not Available Not Available [...] Not Available Not Available No t Available naproxen 500 mg tablet TAKE 1 TABLET BY MOUTH TWICE DAILY active Not Available Not Available No t Available amoxicillin 875 mg-potassiu m clavulanate 125 mg tablet TAKE 1 [...] active Not Available Not Available Not Available Paxlovid 300 mg (150 mg x 2)-100 mg tablets in a dose pack TAKE 2 NIRMATREL VIR TABLETS AND 1 RITONAVIR TABLET TOGETHER BY MOUTH TWICE DAILY FOR 5 DAYS active Not Available Not Available No t Available Vitals Date Recorded Body height Body mass index (BMI) Body weight Pain severity - 0-10 verbal numeric rating [Score] - Reported Provider Name and Address Organization Details Last Updated DateTime 03/04/2024 170.18 cm 36 kg/m2 395908.25 g 9 GILBERT Morrison [place] - [facility] 03/04/2024 12:04:46 Date Recorded Body height Body mass index (BMI) Body weight Pain severity - 0-10 verbal numeric rating [Score] - Reported Provider Name and Address Organization Details Last Updated DateTime 03/16/2024 170.18 cm 36 kg/m2 065645.25 g 7 [facility] 03/16/2024 12:38:04 Date Recorded Body height Body mass index (BMI) Body weight Pain severity - 0-10 verbal numeric rating [Score] - Reported Provider Name and Address Organization Details Last Updated DateTime 05/18/2024 170.18 cm 36 kg/m2 674360.25 g 6 Faith Carranza [facility] [employer] [facility] 05/18/2024 14:43:19 Date Recorded Body height Body mass index (BMI) Body weight Provider Name and Address Organization Details Last Updated DateTime 06/15/2024 170.18 cm 36 kg/m2 722379.25 g Palma Lopez [facility] [employer] [facility] 06/15/2024 17:21:23 Date Recorded Body height Body mass index (BMI) Body weight Pain severity - 0-10 verbal numeric rating [Score] - Reported Provider Name and Address Organization Details Last Updated DateTime 07/20/2024 170.18 cm 36 kg/m2 968419.25 g 8 [facility] 07/20/2024 14:29:38 Social History Question Answer Notes LastModified by Organizat ion Details LastModified Time Tobacco Smoking Status Never Smoker Not Available [employer] 06/13/2022 20:18:41 What Is Your Level Of Alcohol Consumption? None Information not available 03/04/2024 In The 14 Days Before Symptom Onset, Have You Had Close Contact With A Laboratory-confirm ed COVID-19 While That Case Was Ill? No [id number] Information not available 06/13/2022 In The 14 Days Before Symptom Onset, Have You Had Close Contact With A Person Who Is Under Investigation For COVID-19 While That Person Was Ill? No [id number] Information not available 06/13/2022 What Was The Date Of Your Most Recent Tobacco Screening? 03/04/2024 [email or web address] Information not available 03/04/2024 Have You Ever Been Counseled For Unhealthy Alcohol Use? No [id number] 026 Information not available 06/13/2022 Do You Use Any Illicit Or Recreational Drugs? No [id number] 026 Information not available 06/13/2022 Has Tobacco Cessation Counseling Been Provided? No [id number] 026 Information not available 06/13/2022 Have You Recently Traveled Abroad? No [id number] 026 Information not available 06/13/2022 Do You Or Have You Ever Used Any Other Forms Of Tobacco Or Nicotine? No [id number] 026 Information not available 06/13/2022 Sex: Unknown Functional Status None recorded. Mental Status None recorded. Family History Relationship Description Onset Age of this Age Resolved Age Notes LastModified by Organization Details LastModified Time Unspecified Relation Diabetes mellitus [id number] Not available 06/13/2022 20:18:44 Unspecified Relation Hypertensive disorder [id number] Not available 06/13/2022 20:18:44 Unspecified Relation Heart disease [id number].426 [id number] Not available 06/13/2022 20:18:44 Unspecified Relation Cerebrovascu lar accident [email or web address] Not available 14:42:25 Unspecified Relation Arthritis [email or web address] Not available 06/2024 14:42:25 Unspecified Relation Malignant neoplastic disease Not available 05/18 14:42:25 Unspecified Relation Osteoporosis [email or web address] Not available 0 05/18/2024 14:42:25 Medical History [...] SNOMED-CT Code Diagnosis ICD10 Code Diagnosis Note [id number] [facility] Arlene [place] [address] [facility] [place] [place] [address] 05/08/2021 00:00:00 05/08/2021 20:42:50 [id number] [facility] [place] [address] [place] [address] 07/14/2021 00:00:00 07/15/2021 12:41:47 [id number] [facility] [place] [address] [place] [address] 10/05/2021 00:00:00 10/05/2021 10:21:45 [id number] [facility] [place] [address] [place] [address] 11/09/2021 00:00:00 11/09/2021 12:36:05 [id number] [facility] [place] [address] 01/01/2022 00:00:00 01/01/2022 19:19:41 [id number] [facility] [place] [address] [place] [address] 01/01/2022 00:00:00 01/01/2022 11:02:16 [id number] Arely Narayanan MD [facility] [place] [address] [address] 07/25/2022 09:23:08 07/25/2022 09:48:59 Adult health examination 604765777 Z00.00 Hyperlipid emia screening 705650440 Z13.220 Screening for malignant neoplasm of colon 978249608 Z12.11 Screening for malignant neoplasm of breast 003211710 Z12.39 Gastroesop hageal reflux disease 525371999 K21.9 Fear of flying 649095419 F40.243 Nausea 834825882 R11.0 Thyroid di sorder screening 911157272 Z13.29 [id number] Arely Narayanan MD [facility] Arlene [address] [place] [address] [place] [address] 02/08/2023 10:21:59 02/08/2023 10:47:57 Plantar fasciitis of left foot 2247805880 9421834 M72.2 Injected left heel and ball of foot. [id number] NERISSA Munoz [facility] Arlene [place]mitz [address] [facility] y , [place] [address] 2024 15:29:17 2024 16:19:12 Screening for malignant neoplasm of cervix 889934971 Z12.4 Screening mammography 24 335816 Z12.31 Adult heal th examination 467967797 Z00.00 Stricture of esophagus 64169274 K22.2 At [facility] risk for nutritional problem 563200125 Z91.89 Gastroesop hageal reflux disease 628176527 K21.00 Medial epi condylitis of left elbow joint 9522467438 44809 M77.02 Anemia 151728632 D64.9 [id number] Dheeraj Gabriel MD [facility] [place] [address] [place] [address] 03/04/2024 11:51:05 03/04/2024 12:28:19 Pain of right knee joint 0986499176 34369 M25.408 [id number] Dheeraj Gabriel MD [facility] Ortho [address] [address] 03/16/2024 12:29:11 03/16/2024 12:50:54 Pain of right knee joint 0458039074 18802 M25.804 [id number] Bailey Estrada PA-C [facility] [place] [address] [place] [address] 05/18/2024 14:41:18 05/18/2024 15:01:00 Pain of right knee joint 0451964152 06767 M25.561 Pain of le ft elbow joint 9551491834 4028387 M25.292 [id number] Bailey Estrada PA-C [facility] [place] [address] [place] [address] 06/15/2024 14:29:50 06/17/2024 09:54:56 Pain of right knee joint 6553696254 18331 M25.561 Pain of le ft elbow joint 4489049534 9373599 M25.522 Tear of me niscus of knee 300226790 S83.206D [id number] Bailey Estrada PA-C [facility] [place] [address] [place] [address] 07/20/2024 14:27:55 07/20/2024 14:52:51 Pain of right knee joint 7231848748 69035 M25.561 Acute tear of meniscus of right knee 7330284077 5921081 S83.206A Osteoarthr itis of right knee joint 3353399673 26562 M17.11 Health Concerns Section Related Observation LastModified by Organization Detai ls LastModified Time None Recorded Concern Status LastModified by Organization Details LastModified Time None Recorded Advance Directives Directive None Recorded Payers Encounter Date Sequence Insurance Name Policy Number Policy Lovett Covered Member ID Lovett Member ID Guarantor Name 03/04/2024 2 [place]: [facility] Nola L King [id number] Nola L King 03/16/2024 2 [place] [facility] Nola L King [id number] Nola L King 05/18/2024 1 [facility] (MEDICAID HMO) [id number] Nola L King [id number] Nola L King 06/15/2024 1 [facility] (MEDICAID HMO) [id number] Nola L King [id number] Nola L King 07/20/2024 2 [place]: [facility] Nola L King [id number] Nola L King 07/20/2024 1 [facility] (MEDICAID HMO) [id number] Nola L King [id number] Nola L King OBGyn Episode No OBEpisode recorded.
--- OUTSIDE RECORDS SUMMARY | 2024-08-10 00:48 | XMS_ITS | Clinical Summary ---
Author Organization [facility] Address [address] Attn: Epic Prelude ADT BEVERLEY SAMUELS [address] Care Team Providers Care Manager Of Compliance Name Role Phone Unavailable Primary Care Provider Unavailabl e Social History Tobacco Use Types Packs/Day Years Used Date Smoking Tobacco: Never Assessed Comments Unknown Sex and Gender Information Value Date Recorded Sex Assigned at Not on file Legal Sex Female 3:39 AM SHIP'S PILOT Gender Identity Not on file Sexual Orientation Not on file Plan of Treatment Health Maintenance Due Date Last Done Comments DTAP/TDAP/TD VACCINES (1 - Tdap) 02/07/1988 HEPATITIS B VACCINES (1 of 3 - 19+ 3-dose series) 01/14 HPV/Cotest (21-29) 1990 CERVICAL CANCER SCREENING 1999 HPV/Cotest (30-65) 1999 PAP SMEAR 1999 BREAST CANCER SCREENING 2009 COLORECTAL SCREENING 2014 Colorectal Cancer Screening 2014 FIT-DNA Q 3 years 2014 FIT/FOBT Q 1 year 2014 Flex Sig/CT Colonography Q 5 years 2014 ZOSTER VACCINE (1 of 2) 2019 INFLUENZA VACCINE (#1) 2023
--- OUTSIDE RECORDS SUMMARY | 2024-08-10 00:48 | XMS_ITS | Data Portability ---
Author Organization [facility], [facility] Address [address] [place] [address] Care Team Providers Care Cyber Engineer Name Role Phone JOHNNIE CASTILLO Primary Care Provider Assessment Encounter Date Assessment Date Assessment LastModified by Organization Details LastModified Time 04/25/2020 04/25/2020 healthy female exam/menopause patient would like std testing pap done mammogram ordered and encouraged colonoscopy this month dexa baseline at 59 since early menopause Encouraged weight bearing exercise and 1500mg daily of Calcium with Vitamin D FU 1 year or prn [email or web address] Not available 04/25/2020 10:20:24 07/25/2021 07/25/2021 Annual gynecological exam performed. Patient will come back in a year unless there are new symptoms. [email or web address] Not available 07/25/2021 14:50:10 08/15/2022 08/15/2022 Annual [...] labor atory findi ngs. See https ://geo goncalvesHairbobo/s ites/ defau lt/fi les/2 018-0 3/- 70435 _002_ 01.pd f for [facility] er infor matio n. Test perfo rmed by [employer], d/b/a [facility], [address], [place] [address] , Coty Rascon ra, DO, Labor [employer] Dire tor. HPV High Risk *HPV NOT DETEC DALLAS (TYPE S 16, 18, 31, 33, 35, 39, 45, 51, 52, 56, 58, 59, 66, 68) *HPV: The human papil lomav irus (HPV) High Risk Cristal garza is an FDA-a pprov ed in-vi tro ampli fied nucle ic acid test for the quali tativ e detec tion of E6/E7 viral mRNA. [facility] ts shoul d be corre lated with patie nt prese ntati on, histo ry, cervi chikis cytol ogy and other clini chikis and labor atory findi ngs. See https ://Voxel (Internap)/s ites/ defau lt/fi 2 018-0 3- 08657 _002_ 01.pd f for [facility] er infor joan n. Test perfo rmed by [employer], d/b/a [facility], [address], [place] [address] , Coty Rascon ra, DO, Labor [employer] Dire [employer]. End of Repor t Techn ical servi izabela provi ded by [employer], d/b/a PathPicmonic roup, [address] [place] [address] Fabricio Fritz MD, Labor Stream[employer] Era tor. Case revie wed and diagn osis rende red at [employer], d/b/a [facility], [address] [place] [address] Fabricio Fritz MD, Labor [employer] - [employer] Dire tor. CONFI DENTI AL Not Available [facility] ([facility]) [facility] [address], [place], [address], 04/27/2020 12:20:23 04/25/19 21 04/26/2020 CT + [...] rmed by Assoc iated Patho logis ts, [facility], d/b/a Jennifer walker, [address] [place] [address], [place] [address] , Coty Rascon ra, DO, Labor atory Dire tor. Not Available [facility] -[facility] ([facility]) [facility] [address], [place], [address], 04/27/2020 12:20:23 04/25/19 21 04/26/2020 CT + [...] perfo rmed by Assoc iated Patho logis [employer], [employer], d/b/a Jennifer nakitasvetlana, [address], [place] [address] , Coty Rascon ra, DO, Labor atory Direc tor. Not Available [facility] ([facility]) [address], [place], [address], 04/27/2020 12:20:23 04/25/19 21 04/26/2020 CT + [...] perfo rmed by Assoc iated Patho logis [employer], [employer], d/b/a Jennifer walker, [address], [place] [address] , Coyt Rascon ra, DO, Labor atory Direc tor. Not Available [facility] ([facility]) [address], [place], [address], 04/27/2020 12:20:23 04/25/19 21 04/26/2020 HPV DNA, [...] and labor atory findi ngs. See https ://Voxel (Internap)/s dipikaes/ ann marie lt/fi les/2 018-0 3/AW- 00987 _002_ 01.pd f for furth er infor joan n. Test perfo rmed by [facility]oc i[facility] logis [facility], LLC, d/b/a [facility] r[facility], [address], [place] [address] , Coty Rascon ra, DO, Labor atory Dire tor. Not Available [facility] -[facility] ([facility]) [address], [place], [address], 04/27/2020 12:20:23 07/26/19 22 07/25/2021 IMAGE GUIDE D PAP AND HPV REGAR DLESS image guided Pap, HPV regardless of Pap result SEE RESULT S BELOW abnormal CASE REPOR T: Cytol ogy Gynec ologi chikis Repor t Case: [id number] Autho aden perez Provi babita: Cory Ojeda Colle cted: 07/25 1701 MACHINE TOOL TECHNOLOGY INSTRUCTOR Order ing Locat ion: [place] Patho logy [...] patie nt consi derat ions. Not Available [facility] (Lab) [address], [place], [address], 08/01/2021 14:38:41 08/16/19 22 08/15/2021 SURGI CHIKIS PATHO LOGY surgical pathology SEE RESULT S BELOW CASE REPOR T: Surgi chikis Patho logy Repor t Case: [id number] Autho aden perez Provi babita: Momo kaiser , Alanna Earl cted: 08/15 1626 MACHINE TOOL TECHNOLOGY INSTRUCTOR Order ing Locat ion: [place] Patho logy [...] ed by Ilir Heredia on Not Available [facility] (Lab) [address], [place], [address], 08/16/2021 14:45:35 08/16/19 23 08/15/2022 IMAGE GUIDE D PAP AND HPV REGAR DLESS image guided Pap, HPV regardless of Pap result SEE RESULT S BELOW abnormal CASE REPOR T: Cytol ogy Gynec ologi chikis Repor t Case: [id number] Autho aden perez Provi bbaita: Momo kaiser , Alanna Earl cted: 08/15 1348 MACHINE TOOL TECHNOLOGY INSTRUCTOR Order ing Locat ion: [place] Patho loggaviota [...] as clini darren brooks nted. Not Available [facility] (Lab) [address], [place], [address], 08/20/2022 14:40:29 08/16/19 23 08/15/2022 TRICH OMONA S VAGIN YANA (RRNA ) trichomonas vaginalis ribosomal RNA (rrna) Negati ve negati ve Not Available [facility] (Lab) [address], [place], [address], 08/20/2022 14:40:30 05/05/19 21 05/04/2020 MAMMO , scree amy, bilat eral No observ ation record ed. [email or web address] [facility] [address] [facility], [place], [address], 10/25/2021 10:37:06 08/09/19 22 05/15/2021 US, sejal s No observ ation record ed. [email or web address] Not Available 2021 16:51:00 08/09/19 22 05/05/2020 MAMMO , scree amy, bilat eral No observ ation record ed. [email or web address] Imaging [address] [facility], [place], [address], 08/21/2021 16:51:01 Result Notes None recorded. Procedures Surgical History Date Name Laterality Status Provider Name and Address Organization Details Recorded Time 08/16/19 23 Date of Last Pap Smear completed Lena Garcia [facility] 08/27/2022 10:08:35 08/16/19 22 Colposcopy completed GARCÍA Chakraborty- [address], [place], [address], [facility] 08/15/2021 16:29:39 08/16/19 22 Colposcopy completed Jovana Qureshi [facility] 08/15/2021 16:43:56 08/16/19 22 Colposcopy completed Jovana Qureshi [facility] 08/15/2021 16:44:06 07/15/19 22 procedure on elbow completed Raquel Lockett [facility] 08/15/2022 09:44:45 04/15/19 22 Date of Last Mammogram completed Raquel Lockett [facility] 08/15/2022 09:43:41 04/15/19 08 procedure on esophagus completed Jane Estrella [facility] 04/25/2020 10:14:51 04/15/19 04 procedure on hand completed Jane Estrella [facility] 04/25/2020 10:15:20 04/15/18 97 extraction of wisdom tooth completed Jane Estrella [facility] 04/25/2020 10:15:31 Imaging Results Imaging Date Name Status LastModified by Organiz ation Details LastModified Time 05/04/2020 MAMMO, screening, bilateral completed [email or web address] [facility] [address] [facility], [place], [address], 10/25/2021 10:37:06 05/15/2021 US, pelvis completed [email or web address] Information no t available 08/21/2021 16:51:00 05/05/2020 MAMMO, screening, bilateral completed [email or web address] [facility] [address], [place], [address], 08/21/2021 16:51:01 Procedure Notes None recorded. Medical Equipment None Reported. Allergies Allergen ID Allergen Name Allergen Category Reaction Reaction Severity Criticality Documentation Date Start Date Code Code System Note Provider Name and Address Organization Details Recorded Time 05382 acetamino phen / oxycodone medicatio n Not available Not available Not available 04/25/2020 09015 3 RxNorm Jane rabago [facility] 09:55:15 02931 latex environme nt,medica tion Not available Not available Not available 04/25/2020 93833 91 RxNorm Jane rabago [facility] 09:55:20 00683 erythromy jozef medicatio n Not available Not available Not available 04/25/2020 4053 RxNorm Jane rabago [facility] 09:56:07 Medications Name Sig Start [...] Updated DateTime 07/25/2021 170.18 cm 30.5 kg/m2 32749.51 g Lena Garcia [facility] 07/25/2021 14:50:44 Date Recorded Systolic blood pressure Diastolic blood pressure Provider Name and Address Organization Details Last Updated DateTime 07/25/2021 122 mm[Hg] 80 mm[Hg] Bhavana Gonzales [facility] [address], [place], [address], [facility] 07/25/2021 15:06:53 Date Recorded Body height Body mass index (BMI) Body weight Provider Name and Address Organization Details Last Updated DateTime 08/15/2021 170.18 cm 30.8 kg/m2 77776.26 g Jovana Qureshi [facility] 08/15/2021 16:05:00 Date Recorded Systolic blood pressure Diastolic blood pressure Provider Name and Address Organization Details Last Updated DateTime 08/15/2021 123 mm[Hg] 80 mm[Hg] Bhavana Gonzales [facility] [address], [place], [address], [facility] 08/15/2021 16:28:28 Date Recorded Body height Body mass index (BMI) Body weight Systolic blood pressure Diastolic blood pressure Provider Name and Address Organization Details Last Updated DateTime 08/15/2022 170.18 cm 34.3 kg/m2 73162.73 g 119 mm[Hg] 80 mm[Hg] Raquel Lockett [facility] 3 09:41:27 Date Recorded Body height Body mass index (BMI) Body weight Systolic blood pressure Diastolic blood pressure Provider Name and Address Organization Details Last Updated DateTime 04/25/2020 170.18 cm 28 kg/m2 77012.03 g 116 mm[Hg] 81 mm[Hg] Jane Estrella [facility] 10:01:47 Social History Question Answer Notes LastModified by Organizat ion Details LastModified Time Tobacco Smoking Status Never Smoker Jane Estrella [facility], [facility] 04/25/2020 09:56:29 In The 14 [...] SNOMED-CT Code Diagnosis ICD10 Code Diagnosis Note [id number] Jada Santo MD [facility] [address] [address] 04/25/2020 09:51:32 04/25/2020 10:48:11 Gynecologic examination 32575362 Z01.419 00789 Bhavana Gonzales [facility] [address] [address] 07/25/2021 14:32:51 07/25/2021 17:21:08 Gynecologic examination 89378952 Z01.419 Take Calcium with Vitamin D 12-1500mg daily. Do monthly self breast exams. It is advised to get annual flu shot in the fall and she could obtain at [facility] or [facility] care clinic. If you haven't received [...] ordered Screening for malignant neoplasm of colon 563922938 Z12.11 Cologuard form signed. 66600 Bhavana Gonzales [facility] [address],[place] [address] 08/15/2021 15:52:26 08/15/2021 16:31:15 Atypical squamous cells of undetermined significance on cervical Papanicolaou smear 978564661 R87.610 See procedure notes.Post -procedure instructio ns reviewed with understand ing verbalized .Will contact with results & next steps in plan of care. Counseled on Pap/HPV guidelines /Testing/R esults with understand ing verbalized .All questions answered to patient satisfacti on. Booklet & additional resources regarding pap smear/HPV/ Pap results given. https://ww w.cancer.g ov/types/c ervical/un derstandin g-abnormal -hpv-and-p ap-test-re sults/unde rstanding- cervical-c hanges.pdf [id number] Bhavana Gonzales [facility] [address],[place] [address] 08/15/2022 09:28:22 08/15/2022 10:05:09 Gynecologic examination 32932770 Z01.419 Z11.51 Take Calcium with Vitamin D 12-1500mg daily. Do monthly self breast exams. It is advised to get annual flu shot in the fall and she could obtain at [facility] or [facility] care clinic. If you haven't received [...] Labs UTD PCPMammo ordered Screening mammography 24 389438 Z12.31 Health Concerns Section Related Observation LastModified by Organization Detai ls LastModified Time None Recorded Concern Status LastModified by Organization Details LastModified Time None Recorded Advance Directives Directive None Recorded Payers Encounter Date Sequence Insurance Name Policy Number Policy Lovett Covered Member ID Lovett Member ID Guarantor Name 04/25/2020 1 [place] [id number] Nola King [id number] Nola King 07/25/2021 1 [facility] [id number] Nola Fraziers [id number] Nola Fraziers 08/15/2021 1 [facility] [id number] Nola Mckenna King [id number] Nola Fraziers 08/15/2022 1 [facility] [id number] Nola Mckenna King [id number] Nola King Notes Date Note Type Note [...] testing Jada Santo MD [address], [place], [address], [place] [facility] 04/25/2020 10:20:46 07/25/2021 text/html Annual Supervisor Liquefaction Post-MenopausalRe ported bypatient.Menopau kelley Symptoms:no menopausal symptoms; [...] mammogram; needs to schedule colonoscopy Bhavana Gonzales [facility] [address], [place], [address], [facility] 07/25/2021 16:20:33 08/15/2021 text/html Here today for colposcopy [facility]havana Gonzales [facility] [address], [place], [address], [facility] 08/15/2021 16:30:44 08/15/2022 text/html Annual Supervisor Liquefaction Post-MenopausalRe ported byYamilet kelley Symptoms:no menopausal symptoms; [...] mammogram; history of recent colonoscopy Bhavana Gonzales [facility] [address], [place], [address], [facility] 08/15/2022 10:04:13 OBGyn Episode No OBEpisode recorded.
--- OUTSIDE RECORDS SUMMARY | 2024-08-10 00:48 | XMS_ITS | Encounter Summary ---
Author Organization [facility] Address 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
--- OUTSIDE RECORDS SUMMARY | 2024-08-10 00:48 | XMS_ITS | Data Portability ---
Author Organization [place] [facility] [place] [facility] [place] NARCISA [email or web address] SisterAsst Address [address] [place] [address] Assessment Encounter Date Assessment Date Assessment LastModified [...] before prior to having her wrist fused [email or web address] Not available 12/05/2020 15:43:38 Plan of Treatment Reminders Order Date Submit Date Provider Last Modified By Organization Details Last Modified Time Details Appointments None recorded. Lab None recorded. Referral None recorded. Procedures None recorded. Surgeries None recorded. Imaging XR, elbow, 2 view 2020 021 [facility], [address] [place], [address], 14:56:24 XR, wrist, 3 or more view 2020 021 [facility], [address] [place] [address], [address], 14:56:10 Medication Orders Medrol (Seamus) 4 mg tablets in a dose pack 2020 021 [facility]50[facility], [address] [place], [address], 15:45:41 hydrocodone 5 mg-acetamin ophen 325 mg tablet 2020 021 [facility], [address] [place], [address], 15:45:42 Patient TargetsNo targets recorded. Patient InstructionsNo instructions recorded. Reason for Referral None Reported. Results Created Date Observation Date Name Description Value Unit Range Abnormal Flag Note LastModifiedBy Organization Detail LastModifiedTime 12/06/19 21 12/05/2020 XR, elbow , 2 [address] [facility] [place] [facility] XR EXAMIN ATION: ELBOW 2 VIEWS - LEFT - ACC #: [id number] CPT: 46989 Mod: RIS Order: [id number] (ECX) (0039) HIS Order: [id number] [id number] D [id number] STARTE D: Dec 05 2020 2:12PM COMPLE [...] 2:36PM Transc ribed: Dec 05 2020 2:36PM [id number] Disper sed: Dec 05 2020 2:36PM Attend ing Dr: BRITTNEY GALLAGHER Admitt ing Dr: BRITTNEY GALLAGHER Primar y Care: Additi onal Doctor (s): YASHIRA HOLT SIGNED BY: Josiah LAMDec 05 2020 2:36PM Side of BodyLe ft;^ [email or web address] Asv - [facility] [address], [place], [address], 12/05/2020 17:45:32 12/06/19 21 12/05/2020 XR, wrist , 3 or more view St[facility]ri carter [place] [facility] XR EXAMIN ATION: WRIST MIN 3 VIEWS - LEFT - ACC #: [id number] CPT: 55174 Mod: RIS Order: [id number] (ECX) (0157) HIS Order: [id number] FVT-RA D [id number] STARTE D: Dec 05 2020 2:12PM COMPLE [...] 2:36PM Transc ribed: Dec 05 2020 2:36PM [id number] Disper sed: Dec 05 2020 2:36PM Attend ing Dr: BRITTNEY GALLAGHERitt ing Dr: BRITTNEY GALLAGHER Primar y Care: Additi onal Doctor (s): ELECTR ONICAL LY SIGNED BY: Joisah LAMDec 05 2020 2:36PM Side of BodyLe ft;^ [email or web address] Asv [facility] [address] [place] [address], [address], 12/05/2020 17:45:32 Result Notes None recorded. Procedures Surgical History Date Name Laterality Status Provider Name and Address Organization Details Recorded Time 4 procedure on wrist completed Jerry Ivonne [place] [facility] 12/05/2020 13:45:39 Imaging Results Imaging Date Name Status LastModified by Organiz ation Details LastModified Time 12/05/2020 [facility] elbow, 2 [email or web address] [address] [place] [address], [address], 12/05/2020 17:45:32 12/05/2020 XR, wrist, 3 or more view completed [email or web address] [address] [place] [address], [address], 12/05/2020 17:45:32 Procedure Notes None recorded. Medical Equipment None Reported. Allergies Allergen ID Allergen Name Allergen Category Reaction Reaction Severity Criticality Documentation Date Start Date Code Code System Note Provider Name and Address Organization Details Recorded Time 1246248 acetamino phen / oxycodone medicatio n itching moderate Not available 12/05/2020 53994 3 RxNorm Jerry [place] null, [place] [facility] 13:38:07 9339867 erythromy jozef medicatio n anaphylax is severe Not available 12/05/2020 4053 RxNorm Jerry [place] null, [place] [facility] 13:38:59 Medications Name Sig Start Date [...] Last Updated DateTime 170.18 cm 28.3 kg/m2 29166.8 6 g 16 /min 87 /min 99 % 99 % 98.6 [degF] 100 mm[Hg] 60 mm[Hg] Claritza Coron[place] [facility] 13:35:31 Social History None recorded. Functional [...] Sinovac) 04/03/2020 completed [facility] [place] [facility] 12/05/2020 13:43:43 COVID-19 Non-[place] Vaccine, Product Unknown 06/27/2020 completed Claritza Coronado null, [place] [facility] 12/05/2020 13:43:57 Past Encounters Encounter ID Performer Location Encounter Start Date Encounter Closed Date Diagnosis/Indication Diagnosis SNOMED-CT Code Diagnosis ICD10 Code Diagnosis Note [id number] MD KOBI [facility] [address] [address] 12/05/2020 12:59:52 12/05/2020 14:49:28 Pain of left wrist 5010731624 30838 M25.532 Pain of le ft elbow joint 0822981432 3653386 M25.522 Health Concerns Section Related Observation LastModified [...] MD [address] , [address], [place], [address], [place] [facility] [place] 12/05/2020 15:46:09 OBGyn Episode No OBEpisode recorded.
--- OUTSIDE RECORDS SUMMARY | 2024-08-10 00:48 | XMS_ITS | Encounter Summary ---
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
--- OUTSIDE RECORDS SUMMARY | 2024-08-10 00:48 | XMS_ITS | Referral Summary ---
Author Organization [facility] Address [address] [place] [address] Care Team Providers Care Associate Professor Of Library Science Name Role Phone Lu Campbell NP Primary Care Provider Encounters Date Type Department Care Team Description 07/23/2024 11:30 AM CDT Office Visit [facility] at [address] [place] [phone] Lu Campbell NP Annual physical exam (Primary Dx); Chronic pain of left knee; Class 2 severe obesity due to excess calories with serious comorbidity and body mass index (BMI) of 36.0 to 36.9 in adult (HCC); BRIDGET (obstructive sleep apnea); Endometrial hyperplasia 07/16/2024 11:30 AM CDT Office Visit [facility] Care at [address] [phone] Nadia Sinha NP COVID-19 (Primary Dx); Tachycardia 07/06/2024 Results Follow-Up [facility] at [address] [place] [address] Lu Campbell NP 07/01/2024 Orders Only [facility] Health Information Management [address] [place] [address] Lu Campbell NP 06/19/2024 Results Follow-Up [facility] at [address] [place] [address] Lu Campbell NP 06/18/2024 10:22 AM ENGINEERING TECH - 06/18/2024 11:59 PM ENGINEERING TECH Hospital Encounter [facility] [id number] [place] [id number] Perimenopausal; Hypothyroidism, unspecified type Discharge Disposition: Discharge to home or self care 06/18/2024 10:15 AM ENGINEERING TECH Lab [facility] Outpatient Lab at [address] [phone] Hypothyroidism (Primary Dx) from Last 3 Months Allergies Active Allergy Reactions Criticality Noted Date Comments Erythromycin Anaphylaxis High 02/08/2021 Gabapentin Agitation High 03/19/2024 Latex Hives,Rash Medium 02/08/2021 Bandaids Oxycodone-Acetaminophen Itching Low 02/08/2021 Paroxetine Mental status changes Low 03/19/2024 Paranoia Medications acetaminophen (TYLENOL) 500 mg tablet Take 2 tablets (1,000 mg total) by mouth as needed for pain or headaches Active albuterol HFA (PROVENTIL HFA,VENTOLIN HFA,PROAIR HFA) 90 mcg/actuation inhaler Inhale 2 puffs every 4 (four) hours as needed for shortness of breath or wheezing 3 each 3 05/22/19 25 Active ondansetron ODT (ZOFRAN-ODT) 4 mg disintegrating tablet Take 1 tablet (4 mg total) by mouth every 8 (eight) hours as needed for nausea or vomiting 20 tablet 3 05/22/[address] (PROTONIX) 40 mg EC tabletIndications :acid reflux Take 1 tablet (40 mg total) by mouth every morning 90 tablet 3 05/22/19 25 Active naproxen (NAPROSYN) 500 mg tablet 07/21/19 25 Active phentermine (ADIPEX-P) 37.5 mg tabletIndications :Class 2 severe obesity due to excess calories with serious comorbidity and body mass index (BMI) of 36.0 to 36.9 in adult (HCC) Take 1 tablet (37.5 mg total) by mouth daily before breakfast 30 tablet 04/10/ 025 Active levothyroxine (SYNTHROID) 88 mcg tabletIndications :Acquired hypothyroidism Take 1 tablet (88 mcg total) by mouth daily 90 tablet 3 08/07/19 25 Active turmeric, bulk, 95 % powder Discontinu ed(Therapy completed) pregabalin (LYRICA) 25 mg capsuleIndication s:Medial epicondylitis of left elbow Take 1 capsule (25 mg total) by mouth 3 (three) times a day 90 capsule 1 03/19/20 24 025 Discontinu ed(Therapy completed) levothyroxine (SYNTHROID) 88 mcg tabletIndications :Acquired hypothyroidism Take 1 tablet (88 mcg total) by mouth daily 30 tablet 1 04/01/20 24 025 Discontinu ed(Reorder ) ALPRAZolam (XANAX) 0.5 mg tablet Take 1 tablet (0.5 mg total) by mouth once for 1 dose Take 30 minutes prior to MRI 1 tablet 07/15/19 25 025 Discontinu ed(Therapy completed) nirmatrelvir 300 mg-ritonavir 100 mg (PAXLOVID 300mg-100 mg) tablets,dose pack tablets in a dose pack Take 300 mg nirmatrelvir (2 x 150 mg tablets) with 100 mg ritonavir (1 x 100 mg tablet) with all three tablets taken together by mouth twice daily for 5 days. 30 tablet 07/17/19 025 Hospital, Clinic, or Other Facility Administered Medication Ordered Dose Route Frequency Start Date End Date Status lidocaine (XYLOCAINE) 20 mg/mL (2 %) injection 1 mLIndications:Admi nistration of Local Anesthesia 1 mL OTHER One-Time Injection 07/23/2024 07/23/2024 Ended triamcinolone (KENALOG) 40 mg/mL injection 80 mgIndications:Stripper Latex andressa pain of left knee 80 mg intra-artic One-Time Injection 07/23/2024 07/23/2024 Ended Active Problems Problem Noted Date Diagnosed Date Endometrial hyperplasia 07/23/2024 Assessment & Plan (07/23/2024 11:44 AM CDT): Endometrial hyperplasia Significantly thickened endometrial lining with cancer concerns. Scheduled for D&C to assess need for hysterectomy. 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 - Proceed with scheduled D&C to evaluate endometrial hyperplasia and determine need for hysterectomy. Annual physical exam 07/17/2024 Assessment & Plan (07/23/2024 11:43 AM CDT): Discussed with patient current recommendations for annual screening(s) including pap smear every 3 years starting at age 21 until age 65. Patients no longer need paps after age 65. Recommend annual mammograms starting at age 40 to 74yo. Recommend colon cancer screening with colonoscopy or DNA stool testing such as Cologuard starting at age 45. Bone density for postmenopausal status every 2 years. Discussed diet, exercise, and importance of maintaining a healthy weight. For smokers or previous smokers that have quit in the past 15 years, annual lung cancer screening is recommended via a low dose CT scan. This is recommended from 50-80yo. Actively managing health with regular screenings and lifestyle modifications. Recent normal colonoscopy and endoscopy. Addressing weight management and dietary habits. Discussed dietary options for esophageal issues and heartburn. - Encourage continuation of regular health screenings and lifestyle modifications. - Advise on potential dietary options to manage esophageal issues and heartburn. Vitamin D deficiency 03/19/2024 Assessment & Plan (04/23/2024 10:50 AM ENGINEERING TECH): Not at goal Encourage OTC supp Vit D 28 Assessment & Plan (03/19/2024 9:31 PM ENGINEERING TECH): Unknown control Previously low Repeat level Chronic pain of left knee 03/19/2024 Assessment & Plan (07/23/2024 11:41 AM CDT): Chronic pain of left knee Chronic left knee pain managed with injections. Considering right knee replacement. Left knee injection aids mobility and pain management. No injections within three months before potential surgery. - Administer injection to the left knee. - Schedule follow-up in three months to assess need for further injections and potential knee replacement. Assessment & Plan (04/23/2024 10:48 AM ENGINEERING TECH): Not at goal Intraarticular injection completed 04/23/24 Plan for surgery on R knee Assessment & Plan (03/19/2024 9:35 PM ENGINEERING TECH): Not at goal Check XR Suspect d/t offloading R knee Pt to call and make procedure appt after getting XR Chronic hip pain, bilateral 03/19/2024 Assessment & Plan (03/19/2024 9:35 PM ENGINEERING TECH): Not at goal Check xr Bilateral edema of lower extremity 03/19/2024 Assessment & Plan (03/19/2024 9:35 PM ENGINEERING TECH): Not at goal May be habitus related Check BNP and cardiac echo Hx pericarditis Class 2 severe obesity due t o excess calories with serious comorbidity and body mass index (BMI) of 36.0 to 36.9 in adult 03/19/2024 Assessment & Plan (07/23/2024 11:42 AM CDT): Not at goal Obesity with BMI 37.5. Limited activity due to knee issues. Discussed dietary modifications and phentermine for weight loss. Informed consent given for phentermine side effects. Advised home monitoring of blood pressure and heart rate. - Prescribe phentermine for weight loss, three months on, one month off. - Advise monitoring blood pressure and heart rate at home. - Encourage dietary changes focusing on protein intake and reducing fast food and fried foods. - Discuss potential insurance coverage for weight loss injectables if sleep apnea is confirmed as moderate or severe. Assessment & Plan (03/19/2024 9:36 PM ENGINEERING TECH): Not at goal Wt Readings from Last 3 Encounters: 03/19/24 105.4 kg (232 lb 6.4 oz) 09/10/22 99 kg (218 lb 3.2 oz) 07/30/22 99.4 kg (219 lb 1.6 oz) Try to cut back on calories. Most people should eat between 1287-6735 calories to lose weight. Decrease your carbohydrate [...] 03/11/2024 Assessment & Plan (03/19/2024 9:32 PM ENGINEERING TECH): Unknown control Check labs No current meds Hypothyroidism 03/11/2024 Assessment & Plan (04/23/2024 10:49 AM ENGINEERING TECH): Not at goal Lab Results Component Value Date TSH 6.96 (H) 03/31/2024 Has not started meds yet. Advised will need labs checked after being on meds for 1 month to adjust meds Assessment & Plan (03/19/2024 9:32 PM ENGINEERING TECH): Unknown control No current meds Check levels Arthralgia of right knee 03/03/2024 Medial epicondylitis of left elbow 2024 Assessment & Plan (03/19/2024 9:31 PM ENGINEERING TECH): Not at goal Start on low dose Lyrica for hypersensitivity Discussed possible cross rxn with gabapentin. Stop if s/e. Discussed alternative meds such as Elavil, Cymbalta but dislikes idea of antideps Stricture of esophagus 2024 Anemia 08/14/2022 08/14/2022 Assessment & Plan (03/19/2024 9:30 PM ENGINEERING TECH): Unknown control Check labs Given bruising issues, check PT/INR Already scheduled for EGD and c-scope Headache 08/14/2022 08/14/2022 Heartburn 08/14/2022 08/14/2022 Cubital tunnel syndrome on left 07/25/2022 Overview (07/25/2022): Added automatically from request for surgery [id number] Fear of flying 07/25/2022 08/14/2022 Gastroesophageal reflux disease 07/25/2022 08/14/2022 Assessment & Plan (03/19/2024 9:35 PM ENGINEERING TECH): Not at goal Esophagitis noticeable with pills Protonix 40mg daily Scheduled for EGD with [facility] Plantar fasciitis of left foot 10/05/2021 0 08/14/2022 BRIDGET (obstructive sleep apnea) 05/17/2021 Assessment & Plan (07/23/2024 11:43 AM CDT): Sleep apnea sleep apnea with past sleep study. Reports symptom improvement and no CPAP use. Insurance coverage for weight loss medication possible if sleep apnea confirmed as moderate or severe. - Request records of previous sleep study to confirm severity of sleep apnea. Resolved Problems Problem Noted Date Diagnosed Date [...] often do you have a drink containing alcohol? Never 07/23/2024 Q2: How many drinks containi ng alcohol do you have on a typical day when you are drinking? Patient does not drink Q3: How often do you have si x or more drinks on one occasion? Never 07/23/2024 PHQ-2 Answer Date Recorded PHQ-2 Total Score [...] on file Legal Sex Female 1:55 PM ENGINEERING TECH Gender Identity Not on file Sexual Orientation Not on file Last Filed Vital Signs Vital Sign Reading Time Taken Comments Blood Pressure 112/80 07/23/2024 10:58 AM CDT Pulse 110 07/23/2024 10:58 AM CDT Temperature 36.5 C (97.7 F) 07/23/2024 10:58 AM CDT Respiratory Rate 18 07/23/2024 10:58 AM CDT Oxygen Saturation 99% 07/16/2024 11:40 AM CDT Inhaled Oxygen Concentration - - Weight 108.6 kg (239 lb 8 oz) 07/23/2024 10:58 A M CDT Height 170.2 cm (5' 7.01 ) 07/23/2024 10:58 AM C DT Body Mass Index 37.5 07/23/2024 10:58 AM CDT Plan of Treatment Not on file Procedures Procedure Name Priority Date/Time Associated Diagnosis Comments [place] ARTHROCENTESIS ASPIR&/INJ MAJOR JT/BURSA W/O US Routine 07/23/2024 11:30 AM CDT Chronic pain of left knee POC INFLUENZA A/B, COVID-19 ANTIGEN Routine 07/16/2024 11:52 AM CDT COVID-19 POCT RAPID STREP Routine 07/16/2024 11:5 1 AM CDT COVID-19 GI - RESULT 07/01/2024 LUTEINIZING HORMONE (LH) Routine 06/18/2024 10:22 AM ENGINEERING TECH Perimenopausal T3, FREE Routine 06/18/2024 10:22 AM ENGINEERING TECH Hypothyroidism, unspecified type T4, FREE Routine 06/18/2024 10:22 AM ENGINEERING TECH Hypothyroidism, unspecified type TSH Routine 06/18/2024 10:22 AM ENGINEERING TECH Hypothyroidism, unspecified type ESTROGENS, FRACTIONATED Routine 06/18/2024 10:22 AM ENGINEERING TECH Perimenopausal FOLLICLE STIMULATING HORMONE Routine 06/18/2024 10:22 AM ENGINEERING TECH Perimenopausal HEPATITIS C ANTIBODY Routine 03/31/2024 8:00 AM ENGINEERING TECH Encounter for hepatitis C screening test for low risk patient from Last 3 Months or Most Recently Relevant to Health Maintenance Results * [place] ARTHROCENTESIS ASPIR&/INJ MAJOR JT/BURSA W/O US (07/23/2024 11:30 AM CDT) Lu Hernandez NP - 07/23/2024 11:30 AM CDT Lu Campbell NP 07/23/2024 11:49 AM Large Joint Injection and/or Arthrocentesis: L [...] well with no immediate complications Lu Campbell NP IN CLINIC/BEDSIDE ORDERABLES Final Result * (ABNORMAL) POC Influenza A/B, COVID-19 antigen (07/16/2024 11:52 AM CDT) Pathologist [facility] Influenza A Ag, POC Negative Negative [facility] Influenza B Ag, POC Negative Negative [facility] COVID-19 Ag POC Positive(A) Presumptive Negative, Invalid [facility] Nasal 07/16/2024 11:5 2 AM CDT Nadia Sinha NP POINT OF CARE TEST ORDERABLES F inal Result [facility] [address] [place] [address] * POCT rapid strep A (07/16/2024 11:51 AM CDT) Rapid Strep A, POC Negative Negative Swab 07/16/2024 11:5 1 AM CDT Nadia Sinha NP POINT OF CARE TEST ORDERABLES F inal Result * GI - RESULT (07/01/2024) Anatomical Region Laterality Modality Other Lu Campbell NP Edited Result - Final * Estrogens, fractionated (06/18/2024 10:22 AM ENGINEERING TECH) Pathologist [facility] Estrone <10 pg/mL [facility] Comment: REFERENCE VALUE Premenopausal :17-200 Postmenopausal : 7-40 ADDITIONAL INFORMATION This test was developed and its performance characteristics determined by [facility] in a manner consistent with CLIA requirements. This test has not been cleared or approved by the U.S. Food and Drug Administration. Estradiol <10 pg/mL [facility] Comment: REFERENCE VALUE Premenopausal: 15-350 (E2 levels vary widely through the menstrual cycle.) Postmenopausal: <10 ADDITIONAL INFORMATION This test was developed and its performance characteristics determined by [facility] in a manner consistent with CLIA requirements. This test has not been cleared or approved by the U.S. Food and Drug Administration. Test Performed by: [facility] - [address] [address] Aircraft Armament Mechanic: Sheryl Estrada Ph.D.; CLIA# [id number] Blood 06/18/2024 10:2 2 AM ENGINEERING TECH 06/18/2024 7:08 PM ENGINEERING TECH us Lu Shannan FIRST ASSISTANT LAB BLOOD ORDERABLES Final Re sult Performing Organization Address [facility] Co de Phone Number SHREYA RANGEL [address] [address] [facility] [place] [address] [facility] * T3, free (06/18/2024 10:22 AM ENGINEERING TECH) Free T3 3.3 2.0 - 4.4 pg/mL Blood 06/18/2024 10:2 2 AM ENGINEERING TECH 06/18/2024 7:08 PM ENGINEERING TECH us Lu Shannan FIRST ASSISTANT LAB BLOOD ORDERABLES Final Re sult Performing Organization Address [facility] de Phone Number SHREYA RANGEL [address] [address] [facility] [place] [address] * (ABNORMAL) TSH (06/18/2024 10:22 AM ENGINEERING TECH) Thyroid Stimulating Hormone 5.05(H) 0.30 - 4.20 mcIUnit/mL Blood 06/18/2024 10:2 2 AM ENGINEERING TECH 06/18/2024 7:08 PM ENGINEERING TECH us Lu Shannan FIRST ASSISTANT LAB BLOOD ORDERABLES Final Re sult Performing Organization Address [facility] Co de Phone Number RADHABRENDA RANGEL [address] [address] [place] [address] * T4, free (06/18/2024 10:22 AM ENGINEERING TECH) Free T4 1.51 0.90 - 1.70 ng/dL Blood 06/18/2024 10:2 2 AM ENGINEERING TECH 06/18/2024 7:08 PM ENGINEERING TECH us Lu Shannan FIRST ASSISTANT LAB BLOOD ORDERABLES Final Re sult Performing Organization Address [facility] Co de Phone Number SHREYA RANGEL [address] [address] [facility] [place] [address] * LH (06/18/2024 10:22 AM ENGINEERING TECH) LH 21.3 IUnits/L Comment: Interpretive Data Males: Adults: 1.7 - 8.6 IUnits/L Females: Follicular: 2.4 - 12.6 IUnits/L Ovulation: 14.0 - 95.6 IUnits/L Luteal: 1.0 - 11.4 IUnits/L Postmenopausal: 7.7 - 58.5 IUnits/L Current interpretive data was last revised on 2018. Testing performed by: [facility], [address] [place] [address]., [id number] Blood 06/18/2024 10:2 2 AM ENGINEERING TECH 06/19/2024 9:54 AM ENGINEERING TECH us uL Campbell FIRST ASSISTANT LAB BLOOD ORDERABLES Final Re sult Performing Organization Address [facility] Co de Phone Number [facility] [address] [address] [facility] [place] [address] * Follicle stimulating hormone (06/18/2024 10:22 AM ENGINEERING TECH) FSH 77.1 IUnits/L Comment: Interpretive Data Male: Adults: 1.5 - 12.4 IUnits/L Female: Follicular: 3.5 - 12.5 IUnits/L Ovulation: 4.7 - 21.5 IUnits/L Luteal: 1.7 - 7.7 IUnits/L Postmenopausal: 25.8 - 134.8 IUnits/L Current interpretive data was last revised 2015. Testing performed by: [facility], [address] [place] [address]., [id number] Blood 06/18/2024 10:2 2 AM ENGINEERING TECH 06/19/2024 9:54 AM ENGINEERING TECH us Lu Campbell NP LAB BLOOD ORDERABLES Final Re sult Performing Organization Address [facility] [place] Number [place] [address] [address] [facility] [place] [address] * Hepatitis C antibody Blood (03/31/2024 8:00 AM ENGINEERING TECH) Hep C Ab Nonreactive Nonreactive Comment: Interpretive [...] revised on 2019. Blood 03/31/2024 8:00 AM ENGINEERING TECH 03/31/2024 1:56 PM ENGINEERING TECH Lu Campbell NP LAB MICROBIOLOGY - GENERAL OR DERABLES Final Result Performing Organization Address City/State/[facility] [place] [address] [place] [place] [address] from Last 3 Months or Most Recently Relevant to Health Maintenance Additional Health Concerns Infection Onset Date Last Indicated COVID: Recovered Comment:Added based on recent COVID infection. 07/26/2024 025 Insurance [facility] Care Teams Associate Professor Of Library Science Relationship Specialty Start Date End Date Lu Campbell NP [address] [place] [address] PCP - General Family Medicine 03/19/24
--- OUTSIDE RECORDS SUMMARY | 2024-08-10 00:48 | XMS_ITS | Clinical Summary ---
Author Organization [facility] Address [address] [place] [address] Care Team Providers Care Asphalt Distributor Operator Name Role Phone Shannan Lu GO Primary Care Provider [phone] Allergies Active Allergy Reactions Criticality Noted Date [...] by mouth daily before breakfast 30 tablet 07/24/19 25 Active levothyroxine (SYNTHROID) 88 mcg tabletIndications :Acquired hypothyroidism Take 1 tablet (88 mcg total) by mouth daily 90 tablet 3 08/07/19 Active turmeric, bulk, 95 % powder Discontinu ed(Therapy completed) pregabalin (LYRICA) 25 mg capsuleIndication s:Medial epicondylitis of left elbow Take 1 capsule (25 mg total) by mouth 3 (three) times a day 90 capsule 1 03/19/20 24 Discontinu ed(Therapy completed) levothyroxine (SYNTHROID) 88 mcg tabletIndications :Acquired hypothyroidism Take 1 tablet (88 mcg total) by mouth daily 30 tablet 1 04/01/20 24 025 Discontinu ed(Reorder ) ALPRAZolam (XANAX) 0.5 mg tablet Take 1 tablet (0.5 mg total) by mouth once for 1 dose Take 30 minutes prior to MRI 1 tablet 07/15/19 25 Discontinu ed(Therapy completed) nirmatrelvir 300 mg-ritonavir 100 mg (PAXLOVID 300mg-100 mg) tablets,dose pack tablets in a dose pack Take 300 mg nirmatrelvir (2 x 150 mg tablets) with 100 mg ritonavir (1 x 100 mg tablet) with all three tablets taken together by mouth twice daily for 5 days. 30 tablet 07/17/19 25 Hospital, Clinic, or Other Facility Administered Medication Ordered Dose Route Frequency Start Date End Date Status lidocaine (XYLOCAINE) 20 mg/mL (2 %) injection 1 mLIndications:Admi nistration of Local Anesthesia 1 mL OTHER One-Time Injection 07/23/2024 07/23/2024 Ended triamcinolone (KENALOG) 40 mg/mL injection 80 mgIndications:Psych Specialist andressa pain of left knee 80 mg intra-artic One-Time Injection 07/23/2024 07/23/2024 Ended Active Problems Problem Noted Date Diagnosed Date Endometrial hyperplasia 07/23/2024 Assessment & Plan (07/23/2024 11:44 AM CDT): Endometrial hyperplasia Significantly thickened endometrial lining with cancer concerns. Scheduled for D&C to assess need for hysterectomy. Severe endometriosis under hides soaker care. - Proceed with scheduled D&C to [...] 03/19/2024 Assessment & Plan (04/23/2024 10:50 AM TRIMMING CUTTER MACHINE): Not at goal Encourage OTC supp Vit D 28 Assessment & Plan (03/19/2024 9:31 PM TRIMMING CUTTER MACHINE): Unknown control Previously low Repeat level Chronic [...] replacement. Assessment & Plan (04/23/2024 10:48 AM TRIMMING CUTTER MACHINE): Not at goal Intraarticular injection completed 04/23/24 Plan for surgery on R knee Assessment & Plan (03/19/2024 9:35 PM TRIMMING CUTTER MACHINE): Not at goal Check XR Suspect d/t offloading R knee Pt to call and make procedure appt after getting XR Chronic hip pain, bilateral 03/19/2024 Assessment & Plan (03/19/2024 9:35 PM TRIMMING CUTTER MACHINE): Not at goal Check xr Bilateral edema of lower extremity 03/19/2024 Assessment & Plan (03/19/2024 9:35 PM TRIMMING CUTTER MACHINE): Not at goal May be habitus related [...] severe. Assessment & Plan (03/19/2024 9:36 PM TRIMMING CUTTER MACHINE): Not at goal Wt Readings from Last 3 Encounters: 03/19/24 105.4 kg (232 lb 6.4 oz) 09/10/22 99 kg (218 lb 3.2 oz) 07/30/22 99.4 kg (219 lb 1.6 oz) Try to cut back on calories. Most people should eat between 1222-2129 calories to lose weight. Decrease your carbohydrate [...] 03/11/2024 Assessment & Plan (03/19/2024 9:32 PM TRIMMING CUTTER MACHINE): Unknown control Check labs No current meds Hypothyroidism 03/11/2024 Assessment & Plan (04/23/2024 10:49 AM TRIMMING CUTTER MACHINE): Not at goal Lab Results Component Value Date TSH 6.96 (H) 03/31/2024 Has not started meds yet. Advised will need labs checked after being on meds for 1 month to adjust meds Assessment & Plan (03/19/2024 9:32 PM TRIMMING CUTTER MACHINE): Unknown control No current meds Check levels Arthralgia of right knee 03/03/2024 Medial epicondylitis of left elbow 2024 Assessment & Plan (03/19/2024 9:31 PM TRIMMING CUTTER MACHINE): Not at goal Start on low dose Lyrica for hypersensitivity Discussed possible cross rxn with gabapentin. Stop if s/e. Discussed alternative meds such as Elavil, Cymbalta but dislikes idea of antideps Stricture of esophagus 2024 Anemia 08/14/2022 08/14/2022 Assessment & Plan (03/19/2024 9:30 PM TRIMMING CUTTER MACHINE): Unknown control Check labs Given bruising issues, check PT/INR Already scheduled for EGD and c-scope Headache 08/14/2022 08/14/2022 Heartburn 08/14/2022 08/14/2022 Cubital tunnel syndrome on left 07/25/2022 Overview (07/25/2022): Added automatically from request for surgery [id number] Fear of flying 07/25/2022 08/14/2022 Gastroesophageal reflux disease 07/25/2022 08/14/2022 Assessment & Plan (03/19/2024 9:35 PM TRIMMING CUTTER MACHINE): Not at goal Esophagitis noticeable with pills Protonix 40mg daily Scheduled for EGD with [facility] Plantar fasciitis of left foot 10/05/2021 0 [...] Description 07/23/2024 11:30 AM CDT Office Visit [facility] Family Medicine at [address] [place] [phone] Lu Campbell NP Annual physical exam (Primary Dx); Chronic pain of left knee; Class 2 severe obesity due to excess calories with serious comorbidity and body mass index (BMI) of 36.0 to 36.9 in adult (HCC); BRIDGET (obstructive sleep apnea); Endometrial hyperplasia 07/16/2024 11:30 AM CDT Office Visit [facility] Care at [address] [phone] Nadia Sinha NP COVID-19 (Primary Dx); Tachycardia 07/06/2024 Results Follow-Up [facility] Family Medicine at [address] [place] [id number] Lu Campbell NP 07/01/2024 Orders Only [facility] Health Information Management [address] [place] [id number] Lu Campbell NP 06/19/2024 Results Follow-Up [facility] Family Medicine at [address] [place] [address] Lu Campbell NP 06/18/2024 10:22 AM TRIMMING CUTTER MACHINE - 06/18/2024 11:59 PM TRIMMING CUTTER MACHINE Hospital Encounter [address] [address] Perimenopausal; Hypothyroidism, unspecified type Discharge Disposition: Discharge to home or self care 06/18/2024 10:15 AM TRIMMING CUTTER MACHINE Lab [facility] Outpatient Lab at [address] [phone] Hypothyroidism (Primary Dx) from Last 3 Months Immunizations Immunization Administration [...] 04/15/2009 - 04/14/2010 dilation ELBOW SURGERY Left ESOPHAGOGASTRODUODENOSCOPY 06/13/2024 - 07/13/2024 COLONOSCOPY 06/13/2024 - 07/13/2024 Medical History Medical History Date Comments Anemia [...] on file Legal Sex Female 1:55 PM TRIMMING CUTTER MACHINE Gender Identity Not on file Sexual Orientation [...] 07/23/2024 10:58 AM CDT Plan of Treatment Health Maintenance Due Date Last Done Comments Cervical Cancer Screening 1969 Hepatitis B Screening 1987 Zoster Vaccine (1 of 2) 2019 Influenza Vaccine (Season Ended) 2024 02/19/2022, 02/08/2021, 02/24/2020, Additional history exists Breast Cancer Screening-Mammogram 03/16/2025 03/16/2024, 05/05/2020, 05/04/2020 Depression Screening 03/19/2025 03/19/2024 Regular Well Visit/Exam 18-64 07/23/2025 07/23/2024 DTaP/Tdap/Td Vaccine (2 - Td or Tdap) 02/08/2031 02/08/2021 Colon Cancer Screening-Colonoscopy 07/01/2034 07/01/2024 Covid-19 Vaccine Completed 02/23/2024, , 02/25/2022, Additional [...] LUTEINIZING HORMONE (LH) Routine 06/18/2024 10:22 AM TRIMMING CUTTER MACHINE Perimenopausal T3, FREE Routine 06/18/2024 10:22 AM TRIMMING CUTTER MACHINE Hypothyroidism, unspecified type T4, FREE Routine 06/18/2024 10:22 AM TRIMMING CUTTER MACHINE Hypothyroidism, unspecified type TSH Routine 06/18/2024 10:22 AM TRIMMING CUTTER MACHINE Hypothyroidism, unspecified type ESTROGENS, FRACTIONATED Routine 06/18/2024 10:22 AM TRIMMING CUTTER MACHINE Perimenopausal FOLLICLE STIMULATING HORMONE Routine 06/18/2024 10:22 AM TRIMMING CUTTER MACHINE Perimenopausal HEPATITIS C ANTIBODY Routine 03/31/2024 8:00 AM TRIMMING CUTTER MACHINE Encounter for hepatitis C screening test for low risk patient from Last 3 Months or Most Recently Relevant to Health Maintenance Results * TX ARTHROCENTESIS ASPIR&/INJ MAJOR JT/BURSA W/O US (07/23/2024 11:30 AM CDT) Narrative Lu Campbell NP - 07/23/2024 11:30 AM CDT Lu [...] well with no immediate complications Lu Campbell MARINE ARCHITECT IN CLINIC/BEDSIDE ORDERABLES Final Result * (ABNORMAL) POC Influenza A/B, COVID-19 antigen (07/16/2024 11:52 AM CDT) Pathologist [facility] Influenza A Ag, POC Negative Negative [facility] Influenza B Ag, POC Negative Negative [facility] COVID-19 Ag POC Positive(A) Presumptive Negative, Invalid [facility] Nasal 07/16/2024 11:5 2 AM CDT Nadia Sinha NP POINT OF CARE TEST ORDERABLES F inal Result [facility] [address] [place] [address] * POCT rapid strep A (07/16/2024 11:51 AM CDT) Pathologist [facility] Rapid Strep A, POC Negative Negative Swab 07/16/2024 11:5 1 AM CDT Nadia Sinha NP POINT OF CARE TEST ORDERABLES F inal Result * GI - RESULT (07/01/2024) Anatomical Region Laterality Modality Other Lu Campbell NP Edited Result - Final * Estrogens, fractionated (06/18/2024 10:22 AM TRIMMING CUTTER MACHINE) Estrone <10 pg/mL [facility] Comment: REFERENCE VALUE Premenopausal :17-200 Postmenopausal : 7-40 ADDITIONAL INFORMATION This test was developed and its performance characteristics determined by [facility] in a manner consistent with CLIA requirements. This test has not been cleared or approved by the U.S. Food and Drug Administration. Estradiol <10 pg/mL SHREYA RANGEL Comment: REFERENCE VALUE Premenopausal: 15-350 (E2 levels vary widely through the menstrual cycle.) Postmenopausal: <10 ADDITIONAL INFORMATION This test was developed and its performance characteristics determined by [facility] in a manner consistent with CLIA requirements. This test has not been cleared or approved by the U.S. Food and Drug Administration. Test Performed by: [facility] [place] [address] Supervisor Paint Department: Sheryl Estrada Ph.D.; CLIA# [id number] Blood 06/18/2024 10:2 2 AM TRIMMING CUTTER MACHINE 06/18/2024 7:08 PM TRIMMING CUTTER MACHINE us Lu Campbell NP LAB BLOOD ORDERABLES Final Re sult SHREYA RANGEL [address] Department [place] [address] [facility] ref Lab * T3, free (06/18/2024 10:22 AM TRIMMING CUTTER MACHINE) Free T3 3.3 2.0 - 4.4 pg/mL Blood 06/18/2024 10:2 2 AM TRIMMING CUTTER MACHINE 06/18/2024 7:08 PM TRIMMING CUTTER MACHINE Lu Shannan MARINE ARCHITECT LAB BLOOD ORDERABLES Final Re sult Performing Organization Address [facility] de Phone Number SHREYA RANGEL [address] [facility] [place] [address] * (ABNORMAL) TSH (06/18/2024 10:22 AM TRIMMING CUTTER MACHINE) Thyroid Stimulating Hormone 5.05(H) 0.30 - 4.20 mcIUnit/mL Blood 06/18/2024 10:2 2 AM TRIMMING CUTTER MACHINE 06/18/2024 7:08 PM TRIMMING CUTTER MACHINE Lu Shannan GO LAB BLOOD ORDERABLES Final Re sult Performing Organization Address [facility] de Phone Number RADHABRENDA RANGEL [address] [address] [facility] [place] [address] * T4, free (06/18/2024 10:22 AM TRIMMING CUTTER MACHINE) Free T4 1.51 0.90 - 1.70 ng/dL Blood 06/18/2024 10:2 2 AM TRIMMING CUTTER MACHINE 06/18/2024 7:08 PM TRIMMING CUTTER MACHINE Lu Shannan GO LAB BLOOD ORDERABLES Final Re sult Performing Organization Address [facility] de Phone Number SHREYA RNAGEL [id number] [address] [facility] [place] [address] * LH (06/18/2024 10:22 AM TRIMMING CUTTER MACHINE) LH 21.3 IUnits/L Comment: Interpretive Data Males: Adults: 1.7 - 8.6 IUnits/L Females: Follicular: 2.4 - 12.6 IUnits/L Ovulation: 14.0 - 95.6 IUnits/L Luteal: 1.0 - 11.4 IUnits/L Postmenopausal: 7.7 - 58.5 IUnits/L Current interpretive data was last revised on 2018. Testing performed by: [facility], [address] [place]., [address] Blood 06/18/2024 10:2 2 AM TRIMMING CUTTER MACHINE 06/19/2024 9:54 AM TRIMMING CUTTER MACHINE Lu Campbell MARINE ARCHITECT LAB BLOOD ORDERABLES Final Re sult Performing Organization Address [facility] Co de Phone Number [facility] [address] [place] [address] * Follicle stimulating hormone (06/18/2024 10:22 AM TRIMMING CUTTER MACHINE) FSH 77.1 IUnits/L Comment: Interpretive Data Male: Adults: 1.5 - 12.4 IUnits/L Female: Follicular: 3.5 - 12.5 IUnits/L Ovulation: 4.7 - 21.5 IUnits/L Luteal: 1.7 - 7.7 IUnits/L Postmenopausal: 25.8 - 134.8 IUnits/L Current interpretive data was last revised 2015. Testing performed by: [facility], [address] [place]., [address] Blood 06/18/2024 10:2 2 AM TRIMMING CUTTER MACHINE 06/19/2024 9:54 AM TRIMMING CUTTER MACHINE Lu Campbell MARINE ARCHITECT LAB BLOOD ORDERABLES Final Re sult Performing Organization Address [facility] de Phone Number [facility] [address] [address] [place] [address] * Hepatitis C antibody Blood (03/31/2024 8:00 AM TRIMMING CUTTER MACHINE) Hep C Ab Nonreactive Nonreactive Comment: Interpretive [...] revised on 2019. Blood 03/31/2024 8:00 AM TRIMMING CUTTER MACHINE 03/31/2024 1:56 PM TRIMMING CUTTER MACHINE us Lu Campbell NP LAB MICROBIOLOGY - GENERAL OR DERABLES Final Result SHREYA [address] [address] Department [place] [address] from Last 3 Months or Most Recently Relevant to Health Maintenance Additional Health Concerns Infection Onset Date Last Indicated COVID: Recovered Comment:Added based on recent COVID infection. 07/26/2024 025 Insurance [facility] Care Teams Asphalt Distributor Operator Relationship Specialty Start Date End Date Lu Campbell NP [address] [facility] [address] [address] PCP - General Family Medicine 03/19/24
--- NOTE | 2024-08-10 07:08 | WPDHPUPDATE1 ---
History and Physical Update Update Date/Time: 08/10/24 07:08 History and Physical has been reviewed, including an updated exam of the patient. There are NO changes in the patient's condition. Risks, benefits, and alternatives have been discussed and questions answered. Patient agrees to proceed with Hysteroscopy with D&C .
--- NOTE | 2024-08-10 07:51 | WPDANESEPPF ---
Anes - Initial Pre Proc Eval Procedure: Operation Date: 08/10/24 09:15 Proposed Procedures p Hysteroscopy Dilation and Curettage - Elida Shields MD Date/Time: 08/10/24 07:51 Surgeon: Elida Shields MD Pre Op Diagnosis: Endometrial Hyperplasia Patient Data Age: 54 Gender: F Height: 1.68 m Weight: 109.1 kg Allergies Allergy/AdvReac Type Severity Reaction Status Date / Time erythromycin base Allergy Severe Anaphylaxis Verified 07/30/24 08:28 adhesive tape Allergy Mild Unknown Verified 07/30/24 08:28 oxycodone (From Percocet) Allergy Mild Itching Verified 07/30/24 08:28 Home Medications ?Medication ?Instructions ?Recorded ?Confirmed ?Type acetaminophen 325 mg capsule 325 mg PO Q6H PRN pain 03/15/22 07/30/24 History (Tylenol) ascorbic acid (vitamin C) 500 mg See Rx Instructions PO DAILY 03/15/22 07/30/24 History capsule cholecalciferol (vitamin D3) 50 50 mcg PO DAILY 03/15/22 07/30/24 History mcg (2,000 unit) capsule pantoprazole 40 mg tablet,delayed 40 mg PO QAM 02/24/24 07/30/24 History release levothyroxine 88 mcg tablet 88 mcg PO DAILY 04/28/24 07/30/24 History Patient hx anesthesia problems: other ( small airway ) Family hx anesthesia problems: none Results Review: All pre-operative results and documents have been reviewed as part of the pre-operative evaluation. ON LICENSE OF [facility] Past Medical History Medical History (Updated 08/10/24 @ 07:52 by Kamron Pardo DO) Hypothyroidism GERD (gastroesophageal reflux disease) BRIDGET (obstructive sleep apnea) Degenerative arthritis of knee, bilateral History of esophageal dilatation Arthritis Surgical History Surgical History H/O foot surgery H/O elbow surgery H/O wrist surgery History of decompression of ulnar nerve Family History Family History (Updated 04/28/24 @ 10:36 by Calin Dennis MA) Grandparent Diabetes mellitus Heart disease Hypertension Uterine cancer great grandmother Stomach cancer Mother Heart disease Father Hypertension Sibling Hypertension Other No problems noted. Social History Social History (Reviewed 04/28/24 @ 10:29 by NEEL Grant Smoking status: Never smoker Alcohol intake: current Substance use: former Substance use type: marijuana Other substance usage details: Marijuana gummies Last use: 05/29/2024 Living arrangements: with roommate(s) Occupation/Education: unemployed Spiritual care concerns: No Anes - Eval Final PreProcedure Day of Procedure 08/10/24 07:51 Patient weight: obese Heart: regular rate and rhythm Lungs: clear to auscultation Airway: Mallampati scale class II Neurological: alert and oriented Last oral intake: >/= 8 hours ASA classification: III Emergent: no Anesthetic plan: proceed Anesthesia type and monitoring: general GIVS and standard monitoring Results Review: All pre-operative results and documents have been reviewed as part of the pre-operative evaluation. Informed Consent: The patient's anesthetic plan and its attendant risks and benefits were discussed with the patient/family/POA. Questions were solicited and answers provided to the satisfaction of the patient/family/POA.
[2024-08-10 08:44] VITALS: BP 130/80; PULSE 86; TEMP 36.1; O2SAT 98; BMI 38.2
[2024-08-10] MEDS: ACETAMINOPHEN 500 MG TABLET 1000 MG PO (08:47)
[2024-08-10] MEDS: LACTATED RINGERS 1,000 ML 30 ML IV CONT ×2 (08:47→09:45)
[2024-08-10 09:45] VITALS: BP 125/71; PULSE 85; RESP 14; O2SAT 91
--- NOTE | 2024-08-10 09:50 | P.OP_ITS ---
Procedure Note - Detailed Date of Procedure 08/10/24 Pre-op Diagnosis Endometrial thickening on US Post-op Diagnosis Other (endometrial polyp) Procedure Performed Hysteroscopy, D&C, with polypectomy Surgeon Elida Shields MD Anesthesia MAC Findings Uterus sounded to 8cm. Endometrial polyp arising from left lateral uterine wall; removed. Normal bilateral tubal ostia visualized. Good hemostasis at end of case. Fluid deficit: 100cc. Description of Procedure Nola was taken to the operating room where she was placed under sedation without complications. She was then prepped and draped in the usual sterile fashion in the dorsal lithotomy position with her legs in low Valente stirrups. A time-out was performed and no perioperative antibiotics were indicated. A bivalve speculum was placed within the vagina where the cervix was easily identified. The anterior lip of the cervix was grasped with a single-tooth tenaculum. The cervix was then serially dilated to allow for the hysteroscope. The hysteroscope was advanced into the uterine cavity with the above findings noted. Using the [employer] tissue shaver, the polyp was removed. A curettage was then performed until a good uterine cry was felt throughout the uterus. The hysteroscope was once again advanced into the cavity and thin lining was noted throughout. Good hemostasis was noted. All instruments were removed from the vagina. Sponge, lap, instrument, and needle counts were correct at the end of the procedure. Patient was awoken from anesthesia and taken to recovery with plans of same-day discharge home. Estimated Blood Loss 5 IV Fluids 1,000 Pathology Yes (endometrial curettings, endometrial polyp) Complications No immediate complications Condition Stable Disposition Same day [facility] Billing Surgery - Charge Forward: Surgery Billing
[2024-08-10] MEDS: ONDANSETRON INJ 4 MG/2 ML VIAL IV PUSH (10:05)
[2024-08-10 10:15] VITALS: BP 114/67; PULSE 75; RESP 16; O2SAT 97
[2024-08-10 10:30] VITALS: BP 138/76; PULSE 55; RESP 18; O2SAT 100
--- NOTE | 2024-08-10 10:33 | ECG_ITS ---
Test Date: 2024-08-10 10:51:13 Measurements Intervals [place] Rate: 58 P: 14 WY: 119 QRS: 35 QRSD: 90 T: 22 QT: 468 QTc: 462 Interpretive Statements SINUS BRADYCARDIA WITH SINUS ARRHYTHMIA WITH SHORT WY INTERVAL LOW QRS VOLTAGE IN PRECORDIAL LEADS BASELINE ARTIFACT- I, II, III, AVR, AVL, AVF, V1-V6 BORDERLINE ECG No previous ECG available for comparison Electronically Signed On 08-10-2024 11:06:02 CDT by Ashu Tristan D.O.
--- NOTE | 2024-08-10 10:42 | SUR.PHASEII ---
Addendum entered by Christine Omalley RN 08/10/24 11:10: Dr Pardo at bedside assessing patient now. EKG report given to . Original Note: 1030: patient complaining of feeling like an elephant is sitting on her chest and that it feels a little more difficult to breathe than normal. BP 138/76 HR 55 RR 18 SpO2 100%. Dr Pardo notified. TORB STAT EKG. Patient states that she thinks she is just anxious.
[2024-08-10 11:00] VITALS: BP 141/99; PULSE 54; RESP 16
[2024-08-10 11:30] VITALS: BP 143/65; PULSE 66; RESP 18
== END 2024-08-10 11:40 | disposition home or self-care (01) ==
PROVIDERS: Visit Provider Obstetrics & Gynecology
PROC: 0U5B8ZZ Destruction of Endometrium, Via Natural or Artificial Opening Endoscopic (ICD-10-PCS; CPT 58563; principal; 2024-08-10 09:15)
DX: R93.89 Abnormal findings on diagnostic imaging of other specified body structures (principal); N84.0 Polyp of corpus uteri
CPT/HCPCS: 58558; 88305; 93005; A9270; J1100; J2003; J2250; J2405; J2704; J3010; J7120